=== PATIENT | male | born 1945 | race Caucasian/White ===

== ENCOUNTER → 2016-10-28 | Outpatient (CLI) | payer MEDICARE ==
--- NOTE | 2016-10-28 11:06 | MR ---
EXAMINATION TYPE: MR knee RT wo con DATE OF EXAM: 10/28/2016 10:12 AM COMPARISON: NONE HISTORY: Right knee pain TECHNIQUE: Multiplanar, multisequence imaging of the right knee is performed without IV contrast. FINDINGS: MEDIAL MENISCUS: Anterior and posterior horns are intact without tear. LATERAL MENISCUS: Anterior and posterior horns are intact without tear. CRUCIATE LIGAMENTS: The anterior and posterior cruciate ligaments are intact and unremarkable. COLLATERAL LIGAMENTS: There is fluid signal along the medial collateral ligament which may be indicat august of strain. EXTENSOR MECHANISM: Visualized quadriceps and patellar tendons are intact. EFFUSION: Small suprapatellar joint effusion is present. POPLITEAL CYST: No popliteal/diaz cyst. 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 IMPRESSION: Bone marrow edema, there may be associated microtrabecular fractures of the lateral femoral condyle, proximal tibia posteriorly. Medial collateral ligament strain suspected. 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
== END | disposition home or self-care (01) ==
LOC: RADMRIMAIN 09:27
PROVIDERS: ATTEND Internal Medicine
DX: M17.11 Unilateral primary osteoarthritis, right knee (principal)

== ENCOUNTER 2017-01-26 05:01 | Emergency (ER) | payer MEDICARE ==
--- NOTE | 2017-01-26 05:37 | ED ---
Arrhythmia/Palpitations HPI - General Chief Complaint: Arrhythmia/Palpitations Stated Complaint: Palpitations Time Seen by Provider: 01/26/17 05:26 Source: patient Mode of arrival: ambulatory Limitations: no limitations - History of Present Illness Initial Comments: This patient is 71-year-old man who presents because he is convinced that the ciprofloxacin he has been taking cost him to have an arrhythmia. The patient states that he had gotten up to use the bathroom and then he felt like his heart was racing knee took his pulse and found it to be over 100. He states he was not having chest pain or dyspnea at the time. He states he has previously had 3 ablation treatments. MD Complaint: rapid heart beat - Related Data Home Medications Medication Instructions Recorded Confirmed Folic Acid 1 mg PO HS 12/29/13 05/13/15 Ramipril [Altace] 10 mg PO HS 12/29/13 05/13/15 Rosuvastatin Calcium [Crestor] 5 mg PO HS 12/29/13 05/13/15 Travoprost [Travatan Z 0.004%] 1 drop BOTH EYES HS 12/29/13 05/13/15 clonazePAM [KlonoPIN] 0.5 mg PO HS 12/29/13 05/13/15 metFORMIN HCL [Glucophage] 500 mg PO BID 12/29/13 05/13/15 Warfarin [Coumadin] 5 mg PO SUMOWETHFR 05/06/15 05/13/15 oxyCODONE HCL [OxyCONTIN] 30 mg PO BID@0500,2300 05/06/15 05/13/15 oxyCODONE HCL [OxyCONTIN] 40 mg PO Q6H 05/06/15 05/13/15 Clobetasol Propionate [Temovate 1 applic TOPICAL BID 05/07/15 05/13/15 0.05% Cream] Sennosides [Senokot] 17.2 mg PO HS 05/07/15 05/13/15 Warfarin [Coumadin] 2.5 mg PO TUSA 05/07/15 05/13/15 Ketoconazole 2% Shampoo [Nizoral] 1 applic TOPICAL Q3D 05/09/15 05/13/15 Previous Rx's Medication Instructions Recorded Digoxin [Lanoxin] 125 mcg PO DAILY #30 tab 05/10/15 Diltiazem Oral [Cardizem*] 90 mg PO TID #270 tab 05/10/15 Mupirocin 2% Oint [Bactroban 2% 1 applic TOPICAL TID #1 tube 05/10/15 Oint] Mupirocin [Bactroban Oint] 1 applic TOPICAL TID #22 gm 05/10/15 Sotalol [Betapace] 120 mg PO TID #90 tab 05/10/15 Allergies Allergy/AdvReac Type Severity Reaction Status Date / Time aspirin Allergy Rash/Hives Verified 01/26/17 05:09 Penicillins Allergy Rash/Hives Verified 01/26/17 05:09 Sulfa (Sulfonamide Allergy Rash/Hives Verified 01/26/17 05:09 Antibiotics) Review of Systems ROS Statement: Those systems with pertinent positive or pertinent negative responses have been documented in the HPI. ROS Other: All systems not noted in ROS Statement are negative. Constitutional: Reports: weakness. Denies: fever Respiratory: Denies: cough, dyspnea Cardiovascular: Reports: palpitations. Denies: chest pain, orthopnea, syncope Gastrointestinal: Denies: abdominal pain, vomiting, diarrhea Musculoskeletal: Denies: back pain Skin: Denies: rash Neurological: Denies: headache Psychiatric: Denies: anxiety Past Medical History Past Medical History: Atrial Fibrillation, Hypertension Additional Past Medical History / Comment(s): kidney stones, chronic back pain, History of Any Multi-Drug Resistant Organisms: None Reported Past Surgical History: Appendectomy, Back Surgery, Cardiac Ablation, Hernia Repair Additional Past Surgical History / Comment(s): cataract surgery Past Psychological History: No Psychological Hx Reported Smoking Status: Former smoker Past Alcohol Use History: None Reported Past Drug Use History: None Reported - Past Family History Father Family Medical History: AFIB, CVA/TIA Mother Family Medical History: AFIB Brother(s) Family Medical History: AFIB General Exam Limitations: no limitations Course Vital Signs 01/26/17 01/26/17 01/26/17 05:04 06:31 07:01 Temperature 97.7 F Pulse Rate 88 75 79 Respiratory 18 16 18 Rate Blood Pressure 157/83 102/50 135/69 O2 Sat by Pulse 97 97 95 Oximetry EKG Findings - EKG Comments: EKG Findings:: Low voltage QRS complex - EKG Results: EKG: interpreted by ERMD, sinus rhythm (Rate approximately 85 bpm), normal ST/T - Blocks, [place], Hypertrophy, ST Abn: AV and intraventricular conduction: 1 AV block QRS axis and voltage: left axis deviation (-30 to -90) Medical Decision Making - Medical Decision Making Patient is a 71-year-old man who presents after having had some palpitations at home. We have discussed stopping the Cipro and he will do that, pending the urine culture results. I did discuss admission for further cardiac monitoring but at this point the patient declines. As he had no anginal symptoms or other concerning features, will accede to the patient's wish to go home. We discussed return parameters. He does understand there is a small risk of missed arrhythmia. With the risk of sudden cardiac , or permanent disability. - Lab Data Result diagrams: 01/26/17 05:21 01/26/17 05:21 Lab Results 01/26/17 01/26/17 01/26/17 Range/Units 05:21 05:21 05:21 WBC 9.0 (3.8-10.6) k/uL RBC 4.32 (4.30-5.90) m/uL Hgb 13.1 (13.0-17.5) gm/dL Hct 39.3 (39.0-53.0) % MCV 91.1 (80.0-100.0) fL MCH 30.3 (25.0-35.0) pg MCHC 33.3 (31.0-37.0) g/dL RDW 13.6 (11.5-15.5) % Plt Count 189 (150-450) k/uL Neutrophils % 70 % Lymphocytes % 19 % Monocytes % 7 % Eosinophils % 2 % Basophils % 1 % Neutrophils # 6.3 (1.3-7.7) k/uL Lymphocytes # 1.7 (1.0-4.8) k/uL Monocytes # 0.6 (0-1.0) k/uL Eosinophils # 0.2 (0-0.7) k/uL Basophils # 0.1 (0-0.2) k/uL PT (9.0-12.0) sec INR (<1.2) APTT (22.0-30.0) sec Sodium 138 (137-145) mmol/L Potassium 4.2 (3.5-5.1) mmol/L Chloride 103 (98-107) mmol/L Carbon Dioxide 26 (22-30) mmol/L Anion Gap 9 mmol/L BUN 16 (9-20) mg/dL Creatinine 0.60 L (0.66-1.25) mg/dL Est GFR (MDRD) Af Amer >60 (>60 ml/min/1.73 sqM) Est GFR (MDRD) Non-Af >60 (>60 ml/min/1.73 sqM) Glucose 104 H (74-99) mg/dL Calcium 9.0 (8.4-10.2) mg/dL Magnesium 1.7 (1.6-2.3) mg/dL Total Bilirubin 0.3 (0.2-1.3) mg/dL AST 16 L (17-59) U/L ALT 29 (21-72) U/L Alkaline Phosphatase 60 (38-126) U/L Total Creatine Kinase 38 L (55-170) U/L CK-MB (CK-2) 1.0 (0.0-2.4) ng/mL CK-MB (CK-2) Rel Index 2.6 Troponin I <0.012 (0.000-0.034) ng/mL Total Protein 6.4 (6.3-8.2) g/dL Albumin 3.7 (3.5-5.0) g/dL Urine Color Urine Appearance (Clear) Urine pH (5.0-8.0) Ur Specific Leivasy (1.001-1.035) Urine Protein (Negative) Urine Glucose (UA) (Negative) Urine Ketones (Negative) Urine Blood (Negative) Urine Nitrite (Negative) Urine Bilirubin (Negative) Urine Urobilinogen (<2.0) mg/dL Ur Leukocyte Esterase (Negative) Urine RBC (0-5) /hpf Urine WBC (0-5) /hpf Urine Mucus (None) /hpf 01/26/17 01/26/17 Range/Units 05:21 05:41 WBC (3.8-10.6) k/uL RBC (4.30-5.90) m/uL Hgb (13.0-17.5) gm/dL Hct (39.0-53.0) % MCV (80.0-100.0) fL MCH (25.0-35.0) pg MCHC (31.0-37.0) g/dL RDW (11.5-15.5) % Plt Count (150-450) k/uL Neutrophils % % Lymphocytes % % Monocytes % % Eosinophils % % Basophils % % Neutrophils # (1.3-7.7) k/uL Lymphocytes # (1.0-4.8) k/uL Monocytes # (0-1.0) k/uL Eosinophils # (0-0.7) k/uL Basophils # (0-0.2) k/uL PT 10.3 (9.0-12.0) sec INR 1.0 (<1.2) APTT 24.9 (22.0-30.0) sec Sodium (137-145) mmol/L Potassium (3.5-5.1) mmol/L Chloride (98-107) mmol/L Carbon Dioxide (22-30) mmol/L Anion Gap mmol/L BUN (9-20) mg/dL Creatinine (0.66-1.25) mg/dL Est GFR (MDRD) Af Amer (>60 ml/min/1.73 sqM) Est GFR (MDRD) Non-Af (>60 ml/min/1.73 sqM) Glucose (74-99) mg/dL Calcium (8.4-10.2) mg/dL Magnesium (1.6-2.3) mg/dL Total Bilirubin (0.2-1.3) mg/dL AST (17-59) U/L ALT (21-72) U/L Alkaline Phosphatase (38-126) U/L Total Creatine Kinase (55-170) U/L CK-MB (CK-2) (0.0-2.4) ng/mL CK-MB (CK-2) Rel Index Troponin I (0.000-0.034) ng/mL Total Protein (6.3-8.2) g/dL Albumin (3.5-5.0) g/dL Urine Color Yellow Urine Appearance Clear (Clear) Urine pH 6.0 (5.0-8.0) Ur Specific Leivasy 1.013 (1.001-1.035) Urine Protein 1+ H (Negative) Urine Glucose (UA) Negative (Negative) Urine Ketones Negative (Negative) Urine Blood Negative (Negative) Urine Nitrite Negative (Negative) Urine Bilirubin Negative (Negative) Urine Urobilinogen <2.0 (<2.0) mg/dL Ur Leukocyte Esterase Negative (Negative) Urine RBC 3 (0-5) /hpf Urine WBC 3 (0-5) /hpf Urine Mucus Rare H (None) /hpf Disposition Clinical Impression: Palpitations Disposition: HOME SELF-CARE Condition: Good Instructions: Palpitations (ED) Referrals: Corey Fournier MD [Primary Care Provider] - 1-2 days
[2017-01-26 05:53] LABS: Basophils # (A) 0.1 k/uL (0-0.2); Basophils % (A) 1 %; CH 30.1; CHCM 33.2; Eosinophils # (A) 0.2 k/uL (0-0.7); Eosinophils % (A) 2 %; HCT 39.3 % (39.0-53.0); HDW 2.44; HGB 13.1 gm/dL (13.0-17.5); Luc % (Auto) 2; Lymphocytes # (A) 1.7 k/uL (1.0-4.8); Lymphocytes % (A) 19 %; MCH 30.3 pg (25.0-35.0); MCHC 33.3 g/dL (31.0-37.0); MCV 91.1 fL (80.0-100.0); Mean Platelet Volume 7.7; Monocytes # (A) 0.6 k/uL (0-1.0); Monocytes % (A) 7 %; Neutrophils # (A) 6.3 k/uL (1.3-7.7); Neutrophils % (A) 70 %; RBC 4.32 m/uL (4.30-5.90); RDW 13.6 % (11.5-15.5); WBC (Perox) 8.88
[2017-01-26 06:03] LABS: Appearance,Urine Clear (Clear); Bilirubin,Urine Negative (Negative); Glucose,Urine (UA) Negative (Negative); Ketones,Urine Negative (Negative); Leukocyte Esterase,Urine Negative (Negative); Mucus,Urine Rare /hpf; Nitrite,Urine Negative (Negative); Particle Count 1141; Protein,Urine 1+ (Negative); RBC,Urine 3 /hpf (0-5); Specific Gravity,Urine 1.013 (1.001-1.035); UA Billing (MACRO vs. MICRO) MICRO; Urobilinogen,Urine <2.0 mg/dL (<2.0); WBC,Urine 3 /hpf (0-5)
--- NOTE | 2017-01-26 06:04 | XR ---
EXAM: XR Chest, 1 View. CLINICAL HISTORY: Reason: dysrhythmia TECHNIQUE: Frontal view of the chest. COMPARISON: No relevant prior studies available. FINDINGS: Lungs: No evidence of airspace consolidation or acute interstitial abnormality. Pleural spaces: Unremarkable. No pneumothorax or pleural effusion. Heart: Unremarkable. No cardiomegaly. Mediastinum: Unremarkable. Bones: Unremarkable. No acute fracture. IMPRESSION: No evidence of active cardiopulmonary abnormality.
[2017-01-26 06:05] LABS: ALT 29 U/L (21-72); AST 16 U/L (17-59); Alkaline Phosphatase 60 U/L (38-126); Anion Gap 9 mmol/L; Blood Urea Nitrogen 16 mg/dL (9-20); Carbon Dioxide 26 mmol/L (22-30); Chloride 103 mmol/L (98-107); Glucose 104 mg/dL (74-99); Magnesium 1.7 mg/dL (1.6-2.3); Non-African American GFR(MDRD) >60 (>60 ml/min/1.73 sqM); Partial Thromboplastin Time 24.9 sec (22.0-30.0); Potassium 4.2 mmol/L (3.5-5.1); Prothrombin Time 10.3 sec (9.0-12.0); Sodium 138 mmol/L (137-145); Total Bilirubin 0.3 mg/dL (0.2-1.3); Total Protein 6.4 g/dL (6.3-8.2)
[2017-01-26 06:25] LABS: Creatine Kinase 38 U/L (55-170)
[2017-01-26 06:38] LABS: Troponin I <0.012 ng/mL (0.000-0.034)
[2017-01-26 07:01] VITALS: BP 135/69; PULSE 79; RESP 18
[2017-01-26 07:03] VITALS: TEMP 97.5
== END 2017-01-26 07:13 | disposition home or self-care (01) ==
LOC: EC 05:01
DX: I48.91 Unspecified atrial fibrillation (principal); R00.0 Tachycardia, unspecified; I10 Essential (primary) hypertension; G89.29 Other chronic pain; Z87.891 Personal history of nicotine dependence; Z79.84 Long term (current) use of oral hypoglycemic drugs; Z79.891 Long term (current) use of opiate analgesic; Z79.899 Other long term (current) drug therapy; Z88.0 Allergy status to penicillin; Z88.2 Allergy status to sulfonamides; Z88.6 Allergy status to analgesic agent; Z82.49 Family history of ischemic heart disease and other diseases of the circulatory system
CPT/HCPCS: 36415; 71010; 80053; 81001; 82550; 82553; 83735; 84484; 85025; 85610; 85730; 87086; 93005; 99285

== ENCOUNTER → 2018-04-15 | Outpatient (CLI) | payer MEDICARE ==
[2018-04-15 18:24] LABS: T4, Free (Free Thyroxine) 0.78 ng/dL (0.78-2.19)
== END ==
LOC: LABWHC1 17:04
PROVIDERS: ATTEND Internal Medicine
DX: I48.1 Persistent atrial fibrillation (principal)
CPT/HCPCS: 36415; 84436; 84439; 84443; 84481

== ENCOUNTER 2023-07-26 12:03 | Inpatient (IN) | payer MEDICARE ==
--- NOTE | 2023-07-26 13:19 | XR ---
EXAMINATION TYPE: XR chest 2V DATE OF EXAM: 07/26/2023 COMPARISON: 09/21/2022 INDICATION: Difficulty breathing short of breath TECHNIQUE: Frontal and lateral views of the chest are obtained. FINDINGS: The heart size is normal. The pulmonary vasculature is normal. The lungs are clear. Hyperinflation flattening diaphragms compatible with COPD. IMPRESSION: 1. No acute pulmonary process. 2. COPD
[2023-07-26 13:28] LABS: Partial Thromboplastin Time 25.5 sec (22.0-30.0); Prothrombin Time 11.1 sec (10.0-12.5)
[2023-07-26 13:33] LABS: ALT 30 U/L (4-49); AST 31 U/L (17-59); African American GFR (CKD) >90 (>60 ml/min/1.73 sqM); Alkaline Phosphatase 66 U/L (38-126); Anion Gap 9 mmol/L; Blood Urea Nitrogen 20 mg/dL (9-20); Calcium 8.9 mg/dL (8.4-10.2); Carbon Dioxide 28 mmol/L (22-30); Chloride 100 mmol/L (98-107); Glucose 98 mg/dL (74-99); Non-African American GFR(CKD) >90 (>60 ml/min/1.73 sqM); Potassium 4.3 mmol/L (3.5-5.1); Sodium 137 mmol/L (137-145); Total Bilirubin 0.5 mg/dL (0.2-1.3)
--- NOTE | 2023-07-26 13:36 | ED ---
Arrhythmia/Palpitations HPI - General Chief Complaint: Arrhythmia/Palpitations Stated Complaint: CARDIAC ISSUES Time Seen by Provider: 07/26/23 12:05 Source: EMS Mode of arrival: EMS Limitations: no limitations - History of Present Illness Initial Comments: Patient is an 78-year-old male with past medical history of A. fib who presents emergency department for shortness of breath. States that he has been sick for the past week. He went into [facility] on the and was diagnosed with RSV bronchitis. He was hypoxic and required hospitalization. He just left yesterday. States he felt so bad when he was discharged that he went home and could not set up his nebulizer. He did use his inhaler. This morning the patient was short of breath. His pulse ox was 85%. He felt like his heart was racing. States that his pulse ox read 140. He does have a history of A. fib but has had several ablations. Last of which was 4 years ago and the patient has not had any reoccurrence. Patient is not oxygen dependent at baseline. He denies any chest pain. No other alleviating, Perceptin or modifying factors - Related Data Home Medications Medication Instructions Recorded Confirmed Ketoconazole 2% Shampoo [Nizoral] 1 applic TOPICAL DIRECTED 05/09/15 07/26/23 clonazePAM [KlonoPIN] 0.5 mg PO BID 12/11/16 07/26/23 ramipriL [Altace] 10 mg PO HS 06/22/19 07/26/23 Apixaban [Eliquis] 5 mg PO BID 07/11/20 07/26/23 Metoprolol Succinate [Toprol XL] 25 mg PO HS 07/11/20 07/26/23 Naloxegol Oxalate [Movantik] 25 mg PO DAILY@1000 07/11/20 07/26/23 Pregabalin [Lyrica] 100 mg PO HS 07/11/20 07/26/23 Albuterol Inhaler [Ventolin Hfa 1 - 2 puff INHALATION RT-Q6H PRN 07/26/23 07/26/23 Inhaler] Brimonidine Tartrate [Alphagan P 1 drop BOTH EYES BID 07/26/23 07/26/23 0.2% Ophth Soln] Docusate [Colace] 100 mg PO BID 07/26/23 07/26/23 Ipratropium-Albuterol Nebulize 3 ml INHALATION RT-QID PRN 07/26/23 07/26/23 [Duoneb 0.5 mg-3 mg/3 ml Soln] Pravastatin Sodium [Pravachol] 80 mg PO HS 07/26/23 07/26/23 Triamcinolone 0.5% Cream [Kenalog 1 applic TOPICAL BID PRN 07/26/23 07/26/23 0.5% Cream] oxyCODONE HCL [oxyCODONE HCL (IR)] 30 mg PO Q6H 07/26/23 07/26/23 oxyCODONE HCL [oxyCODONE HCL ER] 40 mg PO BID 07/26/23 07/26/23 Previous Rx's Medication Instructions Recorded guaiFENesin-DM 100-10MG/5ML 10 ml PO Q6HR PRN ml 07/29/23 [Robitussin DM] predniSONE 10 mg PO DIRECTED #30 tab 07/29/23 Budesonide-Formot 160-4.5 Mcg 2 puff INHALATION RT-BID #1 each 07/31/23 [Symbicort 160-4.5 Mcg Inhaler] Pantoprazole [Protonix] 40 mg PO AC-BRKFST #30 tab 07/31/23 Sennosides-Docusate Sodium 2 each PO BID tab 07/31/23 [Senokot-S] Allergies Allergy/AdvReac Type Severity Reaction Status Date / Time aspirin Allergy Rash/Hives Verified 07/26/23 15:43 Penicillins Allergy Rash/Hives Verified 07/26/23 15:43 Sulfa (Sulfonamide Allergy Rash/Hives Verified 07/26/23 15:43 Antibiotics) ciprofloxacin [From Cipro] AdvReac Rash/Hives Verified 07/26/23 15:43 ibuprofen [From Motrin] AdvReac Rash/Hives Verified 07/26/23 15:43 Review of Systems ROS Statement: Those systems with pertinent positive or pertinent negative responses have been documented in the HPI. ROS Other: All systems not noted in ROS Statement are negative. Past Medical History Past Medical History: Atrial Fibrillation, Atrial Flutter, Hyperlipidemia, Hypertension, Renal Disease, Sleep Apnea/CPAP/BIPAP Additional Past Medical History / Comment(s): "ON METFORMIN, FOR PREVENTION." EYE DROPS "TO PREVENT GLAUCOMA." NO CURRENT TX FOR SLEEP APNEA. HX KIDNEY STONES.maclodegeneration History of Any Multi-Drug Resistant Organisms: None Reported Past Surgical History: Ablation, Appendectomy, Back Surgery, Cardiac Ablation, Hernia Repair, Orthopedic Surgery Additional Past Surgical History / Comment(s): CARDIAC ABLATION X3. BACK SURG X4. REPAIR LT FOOT INJ. ESWL. COLONOSCOPY. Past Anesthesia/Blood Transfusion Reactions: No Reported Reaction Past Psychological History: No Psychological Hx Reported Smoking Status: Former smoker Past Alcohol Use History: None Reported Past Drug Use History: None Reported - Past Family History Mother Family Medical History: No Reported History Father Family Medical History: AFIB, CVA/TIA Brother(s) Family Medical History: AFIB General Exam Limitations: no limitations General appearance: alert, in no apparent distress Head exam: Present: atraumatic, normocephalic, normal inspection Eye exam: Present: normal appearance, PERRL, EOMI. Absent: scleral icterus, conjunctival injection, periorbital swelling ENT exam: Present: normal exam, mucous membranes moist Neck exam: Present: normal inspection. Absent: tenderness, meningismus, lymphadenopathy Respiratory exam: Present: wheezes. Absent: respiratory distress, rales, rh onchi, stridor Cardiovascular Exam: Present: regular rate, normal rhythm, normal heart sounds. Absent: systolic murmur, diastolic murmur, rubs, gallop, clicks GI/Abdominal exam: Present: soft, normal bowel sounds. Absent: distended, tenderness, guarding, rebound, rigid Extremities exam: Present: normal inspection, full ROM, normal capillary refill. Absent: tenderness, pedal edema, joint swelling, calf tenderness Back exam: Present: normal inspection Neurological exam: Present: alert, oriented X3, CN II-XII intact Psychiatric exam: Present: normal affect, normal mood Skin exam: Present: warm, dry, intact, normal color. Absent: rash Course Vital Signs 07/26/23 07/26/23 07/26/23 12:05 12:12 12:14 Temperature 98.5 F Pulse Rate 100 104 H Pulse Rate [ 100 Online Program Coordinator ] Respiratory 20 16 Rate Blood Pressure 147/80 O2 Sat by Pulse 100 100 97 Oximetry 07/26/23 07/26/23 07/26/23 12:15 12:30 12:45 Temperature Pulse Rate 101 H 99 89 Pulse Rate [ Online Program Coordinator ] Respiratory 22 20 22 Rate Blood Pressure 147/80 137/94 133/78 O2 Sat by Pulse 97 92 L Oximetry 07/26/23 07/26/23 07/26/23 13:00 13:30 13:45 Temperature Pulse Rate 102 H 102 H 87 Pulse Rate [ Online Program Coordinator ] Respiratory 22 20 20 Rate Blood Pressure 148/91 122/86 O2 Sat by Pulse 97 93 L 95 Oximetry 07/26/23 07/26/23 07/26/23 13:53 14:00 14:07 Temperature Pulse Rate 92 92 90 Pulse Rate [ Online Program Coordinator ] Respiratory 18 Rate Blood Pressure 122/82 O2 Sat by Pulse 98 Oximetry 07/26/23 07/26/23 07/26/23 14:30 15:00 15:30 Temperature Pulse Rate 98 93 97 Pulse Rate [ Online Program Coordinator ] Respiratory 20 29 H 20 Rate Blood Pressure 133/92 116/61 136/81 O2 Sat by Pulse 96 93 L Oximetry 07/26/23 07/26/23 16:00 19:41 Temperature Pulse Rate 99 108 H Pulse Rate [ Online Program Coordinator ] Respiratory 18 20 Rate Blood Pressure 137/93 132/89 O2 Sat by Pulse 96 96 Oximetry Medical Decision Making - Medical Decision Making Was pt. sent in by a medical professional or institution ([facility], HEALTHCARE CUSTOMER SERVICE, urgent care, hospital, or longterm...) When possible be specific @ -No Did you speak to anyone other than the patient for history (EMS, parent, family, police, friend...)? What history was obtained from this source @ -No Did you review nursing and triage notes (agree or disagree)? Why? @ -I reviewed and agree with nursing and triage notes Were old charts reviewed (outside hosp., previous admission, EMS record, old EKG, old radiological studies, urgent care reports/EKG's, longterm records)? Report findings @ -I reviewed patient's discharge summary from [facility] Differential Diagnosis (chest pain, altered mental status, abdominal pain women, abdominal pain men, vaginal bleeding, weakness, fever, dyspnea, syncope, headache, dizziness, GI bleed, back pain, seizure, CVA, palpatations, mental health, musculoskeletal)? @ -Differential Dyspnea: Coronary syndrome, arrhythmia, tamponade, asthma, COPD, pulmonary embolism, pneumonia, pneumothorax, pulmonary effusion, anaphylaxis, diabetic ketoacidosis, flailed chest, pulmonary contusion, diaphragmatic rupture, anemia, neuromuscular, this is not meant to be an all-inclusive list. EKG interpreted by me (3pts min.). @ -yes and demonstrates sinus tachycardia with a rate of 101. pr interval 210. QRS 96. QTC of 398. No acute ST segment elevations or depressions X-rays interpreted by me (1pt min.). @ -Yes and demonstrates no acute process CT interpreted by me (1pt min.). @ -None done U/S interpreted by me (1pt. min.). @ -None done What testing was considered but not performed or refused? (CT, X-rays, U/S, labs)? Why? @ -None What meds were considered but not given or refused? Why? @ -None Did you discuss the management of the patient with other professionals (professionals i.e. , PA, HEALTHCARE CUSTOMER SERVICE, lab, RT, psych nurse, social work nurse, admissions supervisor, teacher, strategic intelligence officer, special education case manager)? Give summary @ -dr. Ramesh who accepts admission Was smoking cessation discussed for >3mins.? @ -No Was critical care preformed (if so, how long)? @ -No Were there social determinants of health that impacted care today? How? (Homelessness, low income, unemployed, alcoholism, drug addiction, transportation, low edu. Level, literacy, decrease access to med. care, assisted, rehab)? @ -No Was there de-escalation of care discussed even if they declined (Discuss DNR or withdrawal of care, Hospice)? DNR status @ -No What co-morbidities impacted this encounter? (DM, HTN, Smoking, COPD, CAD, Cancer, CVA, ARF, Chemo, Hep., AIDS, mental health diagnosis, sleep apnea, morbid obesity)? @ -copd, afib Was patient admitted / discharged? Hospital course, mention meds given and route, prescriptions, significant lab abnormalities, going to OR and other pertinent info. @ -On arrival patient was placed into room 26. Thorough history and physical exam was performed. Patient placed on continuous pulse ox and cardiac monitoring. He does require supplemental oxygen. The patient has converted out of A. fib at this time. Laboratory studies are conducted. Chest x-ray was performed. Patient diffusely wheezing and therefore was given breathing treatments and steroids. Recommended admission for hypoxia. Patient agreeable. Spoke with Dr. Ramesh who agreed to admit the patient Undiagnosed new problem with uncertain prognosis? @ -yes Drug Therapy requiring intensive monitoring for toxicity (Heparin, Nitro, Insulin, Cardizem)? @ -No Were any procedures done? @ -No Diagnosis/symptom? @ -Acute hypoxic respiratory failure, rsv bronchitis, hx copd, afib with rvr Acute, or Chronic, or Acute on Chronic? @ -acute Uncomplicated (without systemic symptoms) or Complicated (systemic symptoms)? @ -complicated Side effects of treatment? @ -No Exacerbation, Progression, or Severe Exacerbation? @ -No Poses a threat to life or bodily function? How? (Chest pain, USA, IA, pneumonia, PE, COPD, DKA, ARF, appy, cholecystitis, CVA, Diverticulitis, Homicidal, Suicidal, threat to staff... and all critical care pts) @ -yes, patient is hypoxic - Lab Data Result diagrams: 07/30/23 07:01 07/30/23 07:20 Lab Results 07/26/23 07/26/23 07/26/23 Range/Units 12:32 12:32 12:53 WBC 14.8 H (3.8-10.6) k/uL RBC 4.99 (4.30-5.90) m/uL Hgb 15.5 (13.0-17.5) gm/dL Hct 45.4 (39.0-53.0) % MCV 91.1 (80.0-100.0) fL MCH 31.0 (25.0-35.0) pg MCHC 34.0 (31.0-37.0) g/dL RDW 14.4 (11.5-15.5) % Plt Count 159 (150-450) k/uL MPV 8.5 Neutrophils % 77 % Lymphocytes % 13 % Monocytes % 6 % Eosinophils % 1 % Basophils % 1 % Neutrophils # 11.4 H (1.3-7.7) k/uL Lymphocytes # 1.9 (1.0-4.8) k/uL Monocytes # 0.9 (0-1.0) k/uL Eosinophils # 0.1 (0-0.7) k/uL Basophils # 0.1 (0-0.2) k/uL PT (10.0-12.5) sec INR (<1.2) APTT (22.0-30.0) sec Sodium (137-145) mmol/L Potassium (3.5-5.1) mmol/L Chloride (98-107) mmol/L Carbon Dioxide (22-30) mmol/L Anion Gap mmol/L BUN (9-20) mg/dL Creatinine (0.66-1.25) mg/dL Est GFR (CKD-EPI)AfAm (>60 ml/min/1.73 sqM) Est GFR (CKD-EPI)NonAf (>60 ml/min/1.73 sqM) Glucose (74-99) mg/dL Plasma Lactic Acid Jv (0.7-2.0) mmol/L Calcium (8.4-10.2) mg/dL Total Bilirubin (0.2-1.3) mg/dL AST (17-59) U/L ALT (4-49) U/L Alkaline Phosphatase (38-126) U/L Troponin I (0.000-0.034) ng/mL Total Protein (6.3-8.2) g/dL Albumin (3.5-5.0) g/dL Procalcitonin 0.04 (0.02-0.09) ng/mL Influenza Type A (PCR) Not Detected (Not Detectd) Influenza Type B (PCR) Not Detected (Not Detectd) RSV (PCR) Detected A (Not Detectd) SARS-CoV-2 (PCR) Not Detected (Not Detectd) 07/26/23 07/26/23 07/26/23 Range/Units 12:53 12:53 12:53 WBC (3.8-10.6) k/uL RBC (4.30-5.90) m/uL Hgb (13.0-17.5) gm/dL Hct (39.0-53.0) % MCV (80.0-100.0) fL MCH (25.0-35.0) pg MCHC (31.0-37.0) g/dL RDW (11.5-15.5) % Plt Count (150-450) k/uL MPV Neutrophils % % Lymphocytes % % Monocytes % % Eosinophils % % Basophils % % Neutrophils # (1.3-7.7) k/uL Lymphocytes # (1.0-4.8) k/uL Monocytes # (0-1.0) k/uL Eosinophils # (0-0.7) k/uL Basophils # (0-0.2) k/uL PT 11.1 (10.0-12.5) sec INR 1.0 (<1.2) APTT 25.5 (22.0-30.0) sec Sodium 137 (137-145) mmol/L Potassium 4.3 (3.5-5.1) mmol/L Chloride 100 (98-107) mmol/L Carbon Dioxide 28 (22-30) mmol/L Anion Gap 9 mmol/L BUN 20 (9-20) mg/dL Creatinine 0.64 L (0.66-1.25) mg/dL Est GFR (CKD-EPI)AfAm >90 (>60 ml/min/1.73 sqM) Est GFR (CKD-EPI)NonAf >90 (>60 ml/min/1.73 sqM) Glucose 98 (74-99) mg/dL Plasma Lactic Acid Jv 0.7 (0.7-2.0) mmol/L Calcium 8.9 (8.4-10.2) mg/dL Total Bilirubin 0.5 (0.2-1.3) mg/dL AST 31 (17-59) U/L ALT 30 (4-49) U/L Alkaline Phosphatase 66 (38-126) U/L Troponin I (0.000-0.034) ng/mL Total Protein 7.0 (6.3-8.2) g/dL Albumin 4.0 (3.5-5.0) g/dL Procalcitonin (0.02-0.09) ng/mL Influenza Type A (PCR) (Not Detectd) Influenza Type B (PCR) (Not Detectd) RSV (PCR) (Not Detectd) SARS-CoV-2 (PCR) (Not Detectd) 07/26/23 Range/Units 12:53 WBC (3.8-10.6) k/uL RBC (4.30-5.90) m/uL Hgb (13.0-17.5) gm/dL Hct (39.0-53.0) % MCV (80.0-100.0) fL MCH (25.0-35.0) pg MCHC (31.0-37.0) g/dL RDW (11.5-15.5) % Plt Count (150-450) k/uL MPV Neutrophils % % Lymphocytes % % Monocytes % % Eosinophils % % Basophils % % Neutrophils # (1.3-7.7) k/uL Lymphocytes # (1.0-4.8) k/uL Monocytes # (0-1.0) k/uL Eosinophils # (0-0.7) k/uL Basophils # (0-0.2) k/uL PT (10.0-12.5) sec INR (<1.2) APTT (22.0-30.0) sec Sodium (137-145) mmol/L Potassium (3.5-5.1) mmol/L Chloride (98-107) mmol/L Carbon Dioxide (22-30) mmol/L Anion Gap mmol/L BUN (9-20) mg/dL Creatinine (0.66-1.25) mg/dL Est GFR (CKD-EPI)AfAm (>60 ml/min/1.73 sqM) Est GFR (CKD-EPI)NonAf (>60 ml/min/1.73 sqM) Glucose (74-99) mg/dL Plasma Lactic Acid Jv (0.7-2.0) mmol/L Calcium (8.4-10.2) mg/dL Total Bilirubin (0.2-1.3) mg/dL AST (17-59) U/L ALT (4-49) U/L Alkaline Phosphatase (38-126) U/L Troponin I <0.012 (0.000-0.034) ng/mL Total Protein (6.3-8.2) g/dL Albumin (3.5-5.0) g/dL Procalcitonin (0.02-0.09) ng/mL Influenza Type A (PCR) (Not Detectd) Influenza Type B (PCR) (Not Detectd) RSV (PCR) (Not Detectd) SARS-CoV-2 (PCR) (Not Detectd) Disposition Clinical Impression: Atrial fibrillation with RVR, RSV bronchitis, Hypoxia Disposition: ADMITTED IP TO THIS HOSP Condition: Stable Is patient prescribed a controlled substance at d/c from ED?: No Time of Disposition: 14:04 Decision to Admit Reason: Admit from EC Decision Date: 07/26/23 Decision Time: 14:04
[2023-07-26] MEDS: IPRATROPIUM-ALBUTEROL 3 ML NEB INHALATION STA (13:53)
[2023-07-26 13:55] LABS: Basophils # (A) 0.1 k/uL (0-0.2); Basophils % (A) 1 %; Eosinophils # (A) 0.1 k/uL (0-0.7); Eosinophils % (A) 1 %; HCT 45.4 % (39.0-53.0); HGB 15.5 gm/dL (13.0-17.5); Lymphocytes # (A) 1.9 k/uL (1.0-4.8); Lymphocytes % (A) 13 %; MCV 91.1 fL (80.0-100.0); Mean Platelet Volume 8.5; Monocytes # (A) 0.9 k/uL (0-1.0); Monocytes % (A) 6 %; Neutrophils # (A) 11.4 k/uL (1.3-7.7); Neutrophils % (A) 77 %; Platelet Count 159 k/uL (150-450); RBC 4.99 m/uL (4.30-5.90); RDW 14.4 % (11.5-15.5); WBC 14.8 k/uL (3.8-10.6)
[2023-07-26] MEDS ORDERED: NALOXONE 0.4 MG/ML 1 ML VIAL IV PRN (14:05)
[2023-07-26] MEDS: methylPREDNISolone SOD SUCCI 125 MG/2 ML VIAL IV STA (14:11)
[2023-07-26] MEDS ORDERED: ACETAMINOPHEN TAB 325 MG TAB PO PRN (14:22)
[2023-07-26] MEDS: IPRATROPIUM-ALBUTEROL 3 ML NEB INHALATION SCH (15:45)
[2023-07-26] MEDS: PANTOPRAZOLE 40 MG TABLET PO SCH (16:36)
[2023-07-26] MEDS: HYDROcodone/APAP 5-325MG 1 EACH TAB PO PRN (16:36)
[2023-07-26] MEDS: methylPREDNISolone SOD SUCCI 125 MG/2 ML VIAL IV SCH (18:33)
[2023-07-26] MEDS: oxyCODONE ER 20 MG TAB.ER.12H PO SCH (18:33)
[2023-07-26] MEDS: SYMBICORT 160-4.5 MCG INHALER INHALATION SCH (21:24)
--- NOTE | 2023-07-26 21:32 | HP ---
HISTORY AND PHYSICAL CHIEF COMPLAINTS: Palpitations, shortness of breath. HISTORY OF PRESENT ILLNESS: This is an 78-year-old gentleman with past medical history of multiple medical problems including atrial fibrillation, ablation, hypertension, hyperlipidemia, was recently treated for RSV bronchitis in [facility] for the last 2 days. Currently, the patient is complaining of extreme shortness of breath and some palpitations, pulse ox found to be 88%. Chest x-ray which I reviewed personally, WBC elevated at 14.8, RSV was positive, and chest x-ray showed some increased bronchovascular markings, but no evidence of significant pneumonia. There is no history of any fever, rigors, or chills. PAST MEDICAL HISTORY: Reviewed include atrial fibrillation, hypertension, and hyperlipidemia. HOME MEDICATIONS: Reviewed include apixaban, dose and rest of medications noted. ALLERGIES: Milk, rest of allergies noted. FAMILY HISTORY: History of atrial fibrillation, CVA, TIA. SOCIAL HISTORY: Previous history of smoking. REVIEW OF SYSTEMS: A 14-point review is negative except as mentioned earlier. PHYSICAL EXAMINATION: VITAL SIGNS: Pulse is 98, blood pressure 130/92, and respirations 20. HEENT: Conjunctivae normal. NECK: No jugular venous distention. CARDIOVASCULAR: S1, S2 muffled. RESPIRATIONS: Diminished at the bases. Bilateral scattered rhonchi and crackles, expiratory wheezing. ABDOMEN: Soft. LEGS: No edema, no swelling. NERVOUS SYSTEM: Nonfocal. LABS: WBC 14.8, other labs noted. ASSESSMENT: 1. COPD acute exacerbation with acute tracheobronchitis. 2. Acute RSV bronchitis. 3. Atrial fibrillation, paroxysmal history. 4. History of cardiac ablation. 5. Hypertension. 6. Hyperlipidemia. 7. End-stage renal disease and sleep apnea. 8. History of back surgery. RECOMMENDATIONS AND DISCUSSION: This 78-year-old gentleman presented with multiple complex medical issues, we will monitor the patient closely. Continue the current medications. I would recommend intensive bronchodilator treatment with IV steroids and we will closely monitor. Check a procalcitonin. Consult Dr. Maradiaga. Guarded prognosis because of multiple complex medical issues, further recommendations to follow. See orders for details. MMODL / IJN: [id number] /
[2023-07-26] MEDS: APIXABAN 5 MG TAB PO SCH (21:58)
[2023-07-26] MEDS: DOCUSATE 100 MG CAP PO SCH (21:59)
[2023-07-26] MEDS: METOPROLOL SUCCINATE (ER) 25 MG TAB.ER.24H PO SCH (21:59)
[2023-07-26] MEDS: clonazePAM 0.5 MG TAB PO SCH (21:59)
[2023-07-26] MEDS: PREGABALIN 100 MG CAP PO SCH (21:59)
[2023-07-27] MEDS: BRIMONIDINE TARTRATE 0.2% DROPS 5 ML BTL BOTH EYES SCH (00:01)
[2023-07-27] MEDS: lisinopriL 10 MG TAB PO SCH (00:01)
[2023-07-27] MEDS: PRAVASTATIN SODIUM 80 MG TAB PO SCH (00:01)
[2023-07-27] MEDS ORDERED: methylPREDNISolone SOD SUCCI 40 MG/ML 1 ML VIAL IV SCH (08:00)
[2023-07-27] MEDS: NON FORMULARY DRUG (Naloxegol Oxalate [Movantik] 25 MG Tablet) PO SCH (08:32)
[2023-07-27] MEDS: MOVANTIK 25 MG PO SCH (09:07)
[2023-07-27 09:18] LABS: Basophils % (A) 0 %; Eosinophils % (A) 0 %; HCT 45.9 % (39.0-53.0); HGB 15.1 gm/dL (13.0-17.5); Lymphocytes % (A) 8 %; MCH 30.4 pg (25.0-35.0); MCHC 32.8 g/dL (31.0-37.0); MCV 92.7 fL (80.0-100.0); Mean Platelet Volume 8.4; Monocytes # (A) 0.3 k/uL (0-1.0); Monocytes % (A) 2 %; Neutrophils % (A) 89 %; Platelet Count 210 k/uL (150-450); RBC 4.95 m/uL (4.30-5.90); WBC 12.4 k/uL (3.8-10.6)
[2023-07-27 09:33] LABS: African American GFR (CKD) >90 (>60 ml/min/1.73 sqM); Anion Gap 13 mmol/L; Blood Urea Nitrogen 20 mg/dL (9-20); Calcium 9.3 mg/dL (8.4-10.2); Carbon Dioxide 27 mmol/L (22-30); Chloride 99 mmol/L (98-107); Glucose 163 mg/dL (74-99); Non-African American GFR(CKD) >90 (>60 ml/min/1.73 sqM); Potassium 5.1 mmol/L (3.5-5.1); Sodium 139 mmol/L (137-145)
[2023-07-27] MEDS: IPRATROPIUM-ALBUTEROL 3 ML NEB INHALATION SCH (11:17)
--- NOTE | 2023-07-27 14:26 | P.CNPUL ---
History of Present Illness Consult date: 07/27/23 Requesting physician: Roxanne Ramesh Reason for consult: dyspnea, cough, COPD, hypoxemia, abnormal CXR/CT, other Chief complaint: Shortness of breath. History of present illness: Pulmonary consult dated 07/27/2023. 78-year-old male who presented to the emergency department, via EMS, on July 26, complaining of shortness of breath. The patient has been feeling well for about 5-7 days prior to admission. He apparently was recently at one of the [facility], and was diagnosed as having RSV. He apparently recently left that hospital, and came to this one. His primary issue is that of shortness of breath, although he complained of cough, chest congestion, and a racing heart rate, of 140 bpm. In addition, his pulse ox was, running at 85%. The patient has had chronic atrial fibrillation, and has had several ablations. Currently, he is seen in room 362. He is currently on 2 L of oxygen, and getting saline at 10 mL an hour. His chest x-ray was read as being unremarkable. He tested positive for RSV. His pro-calcitonin level was 0.04. White count 12.4, hemoglobin 15.1, hematocrit 45.9, and platelet count 210,000. D-dimer was 0.19. Sodium was 139, potassium 5.1, chlorides 99, CO2 27, BUN 20, creatinine 0.62. Glucose 163. He did test positive for RSV. Troponin was negative. Chest x-ray revealed nothing acute. Review of Systems REVIEW OF SYSTEMS: CONSTITUTIONAL: Weakness. NEUROLOGIC: [ Negative.] HEENT: [ Negative.] CARDIAC: Tachycardia, palpitations. PULMONARY: Shortness of breath, and cough. GI: [Negative.] : [Negative.] RHEUMATOLOGIC: [ Negative.] IMMUNOLOGIC: [ Negative.] ENDOCRINE: [Negative. ] DERMATOLOGIC: [Negative.] Past Medical History Past Medical History: Atrial Fibrillation, Atrial Flutter, Hyperlipidemia, Hypertension, Renal Disease, Sleep Apnea/CPAP/BIPAP Additional Past Medical History / Comment(s): "ON METFORMIN, FOR PREVENTION." EYE DROPS "TO PREVENT GLAUCOMA." NO CURRENT TX FOR SLEEP APNEA. HX KIDNEY STONES.maclodegeneration History of Any Multi-Drug Resistant Organisms: None Reported Past Surgical History: Ablation, Appendectomy, Back Surgery, Cardiac Ablation, Hernia Repair, Orthopedic Surgery Additional Past Surgical History / Comment(s): CARDIAC ABLATION X3. BACK SURG X4. REPAIR LT FOOT INJ. ESWL. COLONOSCOPY. Past Anesthesia/Blood Transfusion Reactions: No Reported Reaction Past Psychological History: No Psychological Hx Reported Smoking Status: Former smoker Past Alcohol Use History: None Reported Past Drug Use History: None Reported - Past Family History Mother Family Medical History: No Reported History Father Family Medical History: AFIB, CVA/TIA Brother(s) Family Medical History: AFIB Medications and Allergies Home Medications Medication Instructions Recorded Confirmed Type Ketoconazole 2% Shampoo [Nizoral] 1 applic TOPICAL DIRECTED 05/09/15 07/26/23 History clonazePAM [KlonoPIN] 0.5 mg PO BID 12/11/16 07/26/23 History ramipriL [Altace] 10 mg PO HS 06/22/19 07/26/23 History Apixaban [Eliquis] 5 mg PO BID 07/11/20 07/26/23 History Metoprolol Succinate [Toprol XL] 25 mg PO HS 07/11/20 07/26/23 History Naloxegol Oxalate [Movantik] 25 mg PO DAILY@1000 07/11/20 07/26/23 History Pregabalin [Lyrica] 100 mg PO HS 07/11/20 07/26/23 History Albuterol Inhaler [Ventolin Hfa 1 - 2 puff INHALATION RT-Q6H PRN 07/26/23 07/26/23 History Inhaler] Brimonidine Tartrate [Alphagan P 1 drop BOTH EYES BID 07/26/23 07/26/23 History 0.2% Ophth Soln] Docusate [Colace] 100 mg PO BID 07/26/23 07/26/23 History Doxycycline Hyclate 100 mg PO BID 07/26/23 07/26/23 History Ipratropium-Albuterol Nebulize 3 ml INHALATION RT-QID PRN 07/26/23 07/26/23 History [Duoneb 0.5 mg-3 mg/3 ml Soln] Pravastatin Sodium [Pravachol] 80 mg PO HS 07/26/23 07/26/23 History Triamcinolone 0.5% Cream [Kenalog 1 applic TOPICAL BID PRN 07/26/23 07/26/23 History 0.5% Cream] methylPREDNISolone Dose Pack See Taper PO DIRECTED 07/26/23 07/26/23 History [Medrol Dose Pack] oxyCODONE HCL [oxyCODONE HCL (IR)] 30 mg PO Q6H 07/26/23 07/26/23 History oxyCODONE HCL [oxyCODONE HCL ER] 40 mg PO BID 07/26/23 07/26/23 History Allergies Allergy/AdvReac Type Severity Reaction Status Date / Time Milk Containing Products Allergy Severe "LIGAMENT Verified 07/26/23 15:43 (Dairy) STRETCH"-LIGAMENTS [Dairy] DONT WORK aspirin Allergy Rash/Hives Verified 07/26/23 15:43 Penicillins Allergy Rash/Hives Verified 07/26/23 15:43 Sulfa (Sulfonamide Allergy Rash/Hives Verified 07/26/23 15:43 Antibiotics) ciprofloxacin [From Cipro] AdvReac Rash/Hives Verified 07/26/23 15:43 ibuprofen [From Motrin] AdvReac Rash/Hives Verified 07/26/23 15:43 Physical Exam Osteopathic Statement: *. No significant issues noted on an osteopathic structural exam other than those noted in the History and Physical/Consult. Vitals: Vital Signs Temp Pulse Pulse Resp BP BP Pulse Ox 07/27/23 13:16 97 07/27/23 11:33 97 20 111/62 97 07/27/23 11:29 100 07/27/23 11:19 100 07/27/23 08:33 98.0 F 96 20 123/79 94 L 07/27/23 08:19 106 H 07/27/23 08:05 102 H 92 L 07/27/23 04:43 86 18 116/69 94 L 07/27/23 01:33 106 H 07/26/23 23:59 106 H 18 124/76 93 L 07/26/23 21:40 94 07/26/23 21:25 96 07/26/23 20:53 97.7 F 101 H 18 118/80 93 L 07/26/23 19:41 108 H 20 132/89 96 07/26/23 16:00 99 18 137/93 96 07/26/23 15:30 97 20 136/81 93 L 07/26/23 15:00 93 29 H 116/61 96 01/13/24 14:30 98 20 133/92 Intake and Output 07/26/23 07/27/23 07/27/23 22:59 06:59 14:59 Intake Total 540 540 360 Balance 540 540 360 Intake: Oral 540 540 360 Other: Voiding Method Toilet Toilet # Voids 2 1 2 Weight 125.645 kg No acute distress, oriented 3. Currently on 2 L of oxygen. No respiratory distress or difficulty. HEENT examination is grossly unremarkable. Mucous membranes are moist. No oral lesions. Neck supple. Full range of motion. No adenopathy thyromegaly or neck vein distention. Cardiovascular examination reveals regular rhythm rate. S1-S2 normal. No S3 or S4. No discernible murmur noted. Heart sounds are distant. Heart rate 97 bpm. Lungs reveal scattered bilateral rhonchi. No wheezes or crackles. 2 L saturation is 97%. Breath sounds are equal bilaterally. Abdomen soft bowel sounds are heard. No masses or tenderness. Extremities are intact. No cyanosis clubbing or edema. Skin is without rash or lesion. Neurologic examination is brief but nonfocal. Results - Laboratory Findings CBC and BMP: 07/27/23 08:25 07/27/23 08:25 PT/INR, D-dimer PT 11.1 sec (10.0-12.5) 07/26/23 12:53 INR 1.0 (<1.2) 07/26/23 12:53 D-Dimer 0.19 mg/L FEU (<0.60) 07/27/23 13:23 Abnormal lab findings: Abnormal Labs 07/26/23 07/26/23 07/26/23 12:32 12:53 12:53 WBC 14.8 H Neutrophils # 11.4 H Creatinine 0.64 L Glucose C-Reactive Protein RSV (PCR) Detected A 07/27/23 07/27/23 07/27/23 08:25 08:25 13:23 WBC 12.4 H Neutrophils # 11.0 H Creatinine 0.62 L Glucose 163 H C-Reactive Protein 2.7 H RSV (PCR) - Diagnostic Findings Chest x-ray: image reviewed Assessment and Plan Assessment: Shortness of breath, multifactorial, in part related to atrial fibrillation with RVR, as well as RSV infection/bronchitis. History of chronic atrial fibrillation, with multiple ablations. History of hyperlipidemia. History of hypertension. History of obstructive sleep apnea syndrome. History of glaucoma. History of kidney stones. Prior history of remote/minimal tobacco history Plan: Plan dated 07/27/2023. The patient is currently on Symbicort, and updrafts, with albuterol and ipratropium bromide. The patient's also getting Solu-Medrol. The patient is currently also on Rocephin. Pro-calcitonin level was 0.04, so ceftriaxone will be discontinued. We will continue to follow make recommendations along the way. Prognosis is certainly guarded. Labs, x-rays, and medications are reviewed. Time with Patient: Greater than 30
--- NOTE | 2023-07-28 06:04 | PN ---
PROGRESS NOTE DATE OF SERVICE: 07/27/2023 SUBJECTIVE: This 78-year-old gentleman admitted with palpitations, shortness of breath, COPD exacerbation, acute tracheobronchitis. The patient also had acute RSV bronchitis and atrial fibrillation also. There is no history of any fever, rigors, chills. White count is elevated. PAST MEDICAL HISTORY: Reviewed. REVIEW OF SYSTEMS: A 14-point review is negative except as mentioned above. CURRENT MEDICATIONS: Reviewed and include Symbicort, dose and rest of medications reviewed. PHYSICAL EXAMINATION: VITAL SIGNS: Pulse 96, blood pressure n respirations 20. HEENT: Conjunctivae normal. few scattered rhonchi. ABDOMEN: Soft. NERVOUS SYSTEM: Nonfocal. LABORATORY DATA: Reviewed. Chest x-ray reviewed personally. ASSESSMENT: 1. COPD acute exacerbation with acute purulent tracheobronchitis. 2. Prominent bronchovascular markings on the right lower lobe, rule out bronchopneumonia. 3. Acute RSV bronchitis. 4. Atrial fibrillation, paroxysmal history. 5. History of cardiac ablation. 6. Hypertension. 7. Hyperlipidemia. 8. End-stage renal disease and sleep apnea. 9. History of back surgery. RECOMMENDATIONS: Continue current management and continue symptomatic treatment, otherwise, at this time. I would also recommend a CRP and D-dimer also. Empiric antibiotics. Guarded prognosis. Cardiology and pulmonology consultation. Further recommendations to follow. MMODL / IJN: [id number] / MTDD
[2023-07-28 07:18] LABS: Basophils % (A) 0 %; Eosinophils # (A) 0.1 k/uL (0-0.7); Eosinophils % (A) 0 %; HCT 46.7 % (39.0-53.0); HGB 15.4 gm/dL (13.0-17.5); Lymphocytes % (A) 5 %; MCH 30.6 pg (25.0-35.0); MCHC 32.9 g/dL (31.0-37.0); Mean Platelet Volume 8.4; Monocytes # (A) 0.7 k/uL (0-1.0); Monocytes % (A) 4 %; Neutrophils % (A) 90 %; Platelet Count 228 k/uL (150-450); RBC 5.02 m/uL (4.30-5.90); RDW 13.9 % (11.5-15.5); WBC 18.9 k/uL (3.8-10.6)
--- NOTE | 2023-07-28 07:30 | P.CONS ---
History of Present Illness - Reason for Consult Consult date: 07/27/23 RSV Requesting physician: Roxanne Ramesh - Chief Complaint Shortness of breath and cough x few days - History of Present Illness Patient is a 78-year-old male with a past medical history significant for atrial fibrillation atrial flutter hypertension hyperlipidemia sleep apnea patient mention he recently came back from a cruise and after returning home within 24 hours started having increasing shortness of breath that has progressed to get worse also have a cough mild to moderate intensity no significant sputum production no hemoptysis patient mention he went to the [facility] as he was admitted end of April therefore pneumonia patient was diagnosed with RSV treated symptomatically and was subsequently discharged home however the patient mention within 24-hour he noticed his heart rate to elevated he was also complaining of increasing shortness of breath patient also have a congested cough moderate intensity with occasional sputum production no hemoptysis denies any pleuritic chest pain no nausea no vomiting no abdominal pain or any diarrhea, patient on presentation to the hospital was afebrile patient was tachycardic but not hypotensive mildly hypoxic currently on 2 L nasal cannula oxygen patient did have a white count of 14.8 with a left shift kidney function was normal liver enzymes are normal procalcitonin is 0.04 tested positive for RSV influenza and COVID was negative patient did have a chest x-ray no acute pulmonary process COPD infectious disease was consulted for RSV Review of Systems Positive point and negatives has been mentioned in the HPI, complete review of systems was performed and all other systems are negative Past Medical History Past Medical History: Atrial Fibrillation, Atrial Flutter, Hyperlipidemia, Hypertension, Renal Disease, Sleep Apnea/CPAP/BIPAP Additional Past Medical History / Comment(s): "ON METFORMIN, FOR PREVENTION." EYE DROPS "TO PREVENT GLAUCOMA." NO CURRENT TX FOR SLEEP APNEA. HX KIDNEY STONE S.maclodegeneration History of Any Multi-Drug Resistant Organisms: None Reported Past Surgical History: Ablation, Appendectomy, Back Surgery, Cardiac Ablation, Hernia Repair, Orthopedic Surgery Additional Past Surgical History / Comment(s): CARDIAC ABLATION X3. BACK SURG X4. REPAIR LT FOOT INJ. ESWL. COLONOSCOPY. Past Anesthesia/Blood Transfusion Reactions: No Reported Reaction Past Psychological History: No Psychological Hx Reported Smoking Status: Former smoker Past Alcohol Use History: None Reported Past Drug Use History: None Reported - Past Family History Mother Family Medical History: No Reported History Father Family Medical History: AFIB, CVA/TIA Brother(s) Family Medical History: AFIB Medications and Allergies Home Medications Medication Instructions Recorded Confirmed Type Ketoconazole 2% Shampoo [Nizoral] 1 applic TOPICAL DIRECTED 05/09/15 07/26/23 History clonazePAM [KlonoPIN] 0.5 mg PO BID 12/11/16 07/26/23 History ramipriL [Altace] 10 mg PO HS 06/22/19 07/26/23 History Apixaban [Eliquis] 5 mg PO BID 07/11/20 07/26/23 History Metoprolol Succinate [Toprol XL] 25 mg PO HS 07/11/20 07/26/23 History Naloxegol Oxalate [Movantik] 25 mg PO DAILY@1000 07/11/20 07/26/23 History Pregabalin [Lyrica] 100 mg PO HS 07/11/20 07/26/23 History Albuterol Inhaler [Ventolin Hfa 1 - 2 puff INHALATION RT-Q6H PRN 07/26/23 07/26/23 History Inhaler] Brimonidine Tartrate [Alphagan P 1 drop BOTH EYES BID 07/26/23 07/26/23 History 0.2% Ophth Soln] Docusate [Colace] 100 mg PO BID 07/26/23 07/26/23 History Doxycycline Hyclate 100 mg PO BID 07/26/23 07/26/23 History Ipratropium-Albuterol Nebulize 3 ml INHALATION RT-QID PRN 07/26/23 07/26/23 History [Duoneb 0.5 mg-3 mg/3 ml Soln] Pravastatin Sodium [Pravachol] 80 mg PO HS 07/26/23 07/26/23 History Triamcinolone 0.5% Cream [Kenalog 1 applic TOPICAL BID PRN 07/26/23 07/26/23 History 0.5% Cream] methylPREDNISolone Dose Pack See Taper PO DIRECTED 07/26/23 07/26/23 History [Medrol Dose Pack] oxyCODONE HCL [oxyCODONE HCL (IR)] 30 mg PO Q6H 07/26/23 07/26/23 History oxyCODONE HCL [oxyCODONE HCL ER] 40 mg PO BID 07/26/23 07/26/23 History Allergies Allergy/AdvReac Type Severity Reaction Status Date / Time Milk Containing Products Allergy Severe "LIGAMENT Verified 07/26/23 15:43 (Dairy) STRETCH"-LIGAMENTS [Dairy] DONT WORK aspirin Allergy Rash/Hives Verified 07/26/23 15:43 Penicillins Allergy Rash/Hives Verified 07/26/23 15:43 Sulfa (Sulfonamide Allergy Rash/Hives Verified 07/26/23 15:43 Antibiotics) ciprofloxacin [From Cipro] AdvReac Rash/Hives Verified 07/26/23 15:43 ibuprofen [From Motrin] AdvReac Rash/Hives Verified 07/26/23 15:43 Physical Exam Vitals: Vital Signs Temp Pulse Pulse Resp BP BP Pulse Ox 07/27/23 11:33 97 20 111/62 97 07/27/23 11:29 100 07/27/23 11:19 100 07/27/23 08:33 98.0 F 96 20 123/79 94 L 07/27/23 08:19 106 H 07/27/23 08:05 102 H 92 L 07/27/23 04:43 86 18 116/69 94 L 07/27/23 01:33 106 H 07/26/23 23:59 106 H 18 124/76 93 L 07/26/23 21:40 94 07/26/23 21:25 96 07/26/23 20:53 97.7 F 101 H 18 118/80 93 L 07/26/23 19:41 108 H 20 132/89 96 07/26/23 16:00 99 18 137/93 96 07/26/23 15:30 97 20 136/81 93 L 07/26/23 15:00 93 29 H 116/61 96 07/26/23 14:30 98 20 133/92 07/26/23 14:07 90 07/26/23 14:00 92 18 122/82 98 07/26/23 13:53 92 07/26/23 13:45 87 20 122/86 95 07/26/23 13:30 102 H 20 93 L Intake and Output 07/26/23 07/27/23 07/27/23 22:59 06:59 14:59 Intake Total 540 540 120 Balance 540 540 120 Intake: Oral 540 540 120 Other: Voiding Method Toilet Toilet # Voids 2 1 Weight 125.645 kg GENERAL DESCRIPTION: Elderly male up in the chair, no distress. No tachypnea or accessory muscle of respiration use. HEENT: Shows Pallor , no scleral icterus. Oral mucous membrane is dry. No pharyngeal erythema or thrush NECK: Trachea central, no thyromegaly. LUNGS: Unlabored breathing. Coarse breath sounds bilaterally with occasional wheeze HEART: S1, S2, regular rate and rhythm. No loud murmur ABDOMEN: Soft, no tenderness , guarding or rigidity, no organomegaly EXTREMITIES: No edema of feet. SKIN: No rash, no masses palpable. NEUROLOGICAL: The patient is awake, alert, oriented x3, mood and affect normal. Results CBC & Chem 7: 07/28/23 07:01 07/27/23 08:25 Labs: Abnormal Lab Results - Last 24 Hours (Table) 07/26/23 07/26/23 07/26/23 Range/Units 12:32 12:53 12:53 WBC 14.8 H (3.8-10.6) k/uL Neutrophils # 11.4 H (1.3-7.7) k/uL Creatinine 0.64 L (0.66-1.25) mg/dL Glucose (74-99) mg/dL RSV (PCR) Detected A (Not Detectd) 07/27/23 07/27/23 Range/Units 08:25 08:25 WBC 12.4 H (3.8-10.6) k/uL Neutrophils # 11.0 H (1.3-7.7) k/uL Creatinine 0.62 L (0.66-1.25) mg/dL Glucose 163 H (74-99) mg/dL RSV (PCR) (Not Detectd) Assessment and Plan (1) Leukocytosis Current Visit: Yes Status: Acute Code(s): D72.829 - ELEVATED WHITE BLOOD CELL COUNT, UNSPECIFIED SNOMED Code(s): 541095068 (2) Allergy to multiple antibiotics Current Visit: Yes Status: Acute Code(s): Z88.1 - ALLERGY STATUS TO OTHER ANTIBIOTIC AGENTS SNOMED Code(s): 583009431 (3) RSV bronchitis Current Visit: Yes Status: Acute Code(s): J20.5 - ACUTE BRONCHITIS DUE TO RESPIRATORY SYNCYTIAL VIRUS SNOMED Code(s): 03788264 Plan: 1patient presented to hospital with increasing shortness of breath which is likely multifactorial patient also have A-fib with RVR more likely contributing some of his symptoms patient also tested positive for RSV and likely component of RSV infection causing shortness of breath as well as cough however the chest x-ray was negative for acute infiltrate and the patient did have a normal procalcitonin evaluate secondary bacterial pneumonia to be less likely 2patient with multiple antibiotic ALLERGIES that would limit the number of antibiotic safe to use. 3ceftriaxone has been discontinued by pulmonary patient will monitor closely off antibiotics 4continue with the bronchodilator steroids and respiratory support Question concern answered We will follow on clinical condition and cultures to further adjust medication if needed Thank you for this consultation we will follow the patient along with you Dictation was produced using [employer] dictation software. please excuse any grammatical, word or spelling errors. Time with Patient: Greater than 30
[2023-07-28 08:18] LABS: ALT 31 U/L (4-49); AST 28 U/L (17-59); African American GFR (CKD) >90 (>60 ml/min/1.73 sqM); Alkaline Phosphatase 57 U/L (38-126); Anion Gap 9 mmol/L; Blood Urea Nitrogen 23 mg/dL (9-20); Calcium 9.4 mg/dL (8.4-10.2); Carbon Dioxide 25 mmol/L (22-30); Chloride 102 mmol/L (98-107); Glucose 131 mg/dL (74-99); Non-African American GFR(CKD) >90 (>60 ml/min/1.73 sqM); Potassium 4.9 mmol/L (3.5-5.1); Sodium 136 mmol/L (137-145); Total Bilirubin 0.5 mg/dL (0.2-1.3)
[2023-07-28 08:24] VITALS: BMI 37.5
--- NOTE | 2023-07-28 10:50 | P.PN ---
Subjective Progress Note Date: 07/28/23 On 07/28/2023, I am seeing the patient for follow-up. The patient is an 78-year-old male patient was coming in for shortness of breath. The patient has been diagnosed having RSV infection in outside facility. The patient presented to us with worsening shortness of breath and cough or congestion and the patient was also tachycardic in A-fib RVR. Procalcitonin level was low. Chest x-ray did not show any acute abnormalities. Patient is currently being treated for an acute respiratory illness related to RSV infection and A-fib RVR. Patient is known to have chronic A-fib and the patient has undergone multiple ablations in the past. The patient hypertension hyperlipidemia and obstructive sleep apnea. The patient is currently on bronchodilators. Patient is also on IV steroids. Started on Symbicort. Patient is on IV Solu-Medrol 60 mg IV every 6 hours. Remains on anticoagulation with Eliquis 5 mg p.o. twice a day. Patient is back into normal sinus rhythm. Overall is feeling better. He may benefit from another 24 hours of treatment with bronchodilators and steroids. Objective - Vital Signs Vital signs: Vital Signs Temp 98 F 07/28/23 08:00 Pulse 86 07/28/23 08:00 Resp 20 07/28/23 08:00 BP 158/76 07/28/23 08:00 Pulse Ox 91 L 07/28/23 08:00 FiO2 Intake & Output 07/27/23 07/28/23 07/28/23 18:59 06:59 18:59 Intake Total 480 540 180 Output Total 400 Balance 80 540 180 Weight 125.645 kg Intake: Oral 480 540 180 Output: Urine 400 Other: Voiding Method Toilet Toilet # Voids 2 # Bowel Movements 0 - Exam No acute distress, oriented 3. Currently on 2 L of oxygen. No respiratory distress or difficulty. HEENT examination is grossly unremarkable. Mucous membranes are moist. No oral lesions. Neck supple. Full range of motion. No adenopathy thyromegaly or neck vein distention. Cardiovascular examination reveals regular rhythm rate. S1-S2 normal. No S3 or S4. No discernible murmur noted. Heart sounds are distant. Lungs reveal scattered bilateral rhonchi. No wheezes or crackles. Abdomen soft bowel sounds are heard. No masses or tenderness. Extremities are intact. No cyanosis clubbing or edema. Skin is without rash or lesion. Neurologic examination is brief but nonfocal. - Labs CBC & Chem 7: 07/28/23 07:01 07/28/23 07:01 Labs: Abnormal Lab Results - Last 24 Hours (Table) 07/27/23 07/28/23 07/28/23 Range/Units 13:23 07:01 07:01 WBC 18.9 H (3.8-10.6) k/uL Neutrophils # 17.0 H (1.3-7.7) k/uL Sodium 136 L (137-145) mmol/L BUN 23 H (9-20) mg/dL Creatinine 0.61 L (0.66-1.25) mg/dL Glucose 131 H (74-99) mg/dL C-Reactive Protein 2.7 H (<1.0) mg/dL Assessment and Plan Plan: Assessment Acute shortness of breath related to RSV tracheobronchitis and A-fib RVR, clinically improving and the patient is currently in normal sinus rhythm. Less congested, less focused spastic and wheezy Acute RSV infection/tracheobronchitis Chronic atrial fibrillation, with previous ablations Hypertension Hyperlipidemia Obstructive sleep apnea History of kidney stones Glaucoma Plan Continue treatment for another 24 hours Continue bronchodilators Continue steroids and the patient is getting IV Solu-Medrol Continue Symbicort as maintenance 2 puffs twice a day Continue management of atrial fibrillation. Patient is on metoprolol and the patient is also on anticoagulation with Eliquis.
--- NOTE | 2023-07-28 11:07 | P.CRDCN ---
History of Present Illness Consult date: 07/28/23 Consult reason: atrial fibrillation History of present illness: History of present illness: This is an 78-year-old male patient of Dr. Turpin with PMH hypertension, dyslipidemia, atrial fibrillation, atrial flutter status post ablation x 3 done at [facility], NSVT,, first-degree AV block. We have been asked to evaluate the patient for atrial fibrillation. Patient denies having any chest pain or chest pressure. He denies lightheadedness or dizziness, no palpitations. Patient denies having any chest pain or chest pressure. He denies lightheadedness or dizziness, no palpitations. EKG sinus tachycardia with first-degree AV block, incomplete right bundle branch block Chest x-ray: No acute process. COPD WBC 18.9, hemoglobin 15.4, platelet count 228. D-dimer 0.19. Influenza A, influenza B, COVID-19 not detected. RSV detected. Sodium 136, potassium 4.9, BUN 23 creatinine 0.61. Liver function tests are within normal limits. C- reactive protein 2.7. Troponin negative x 1. Home cardiac medications: Eliquis 5 mg twice daily, Toprol XL 25 mg at bedtime, pravastatin 80 mg at bedtime, ramipril 10 mg at bedtime. Echocardiogram performed 11/27/2022 in the office revealed EF of 55-60%, moderate LVH, mild to moderate MR, RVSP 19 mmHg. Holter monitor 08/13/2022 revealed sinus rhythm, MD interval upper limits, heart rate [id number], average 70 bpm. Lexiscan stress test performed 09/06/2022 revealed no evidence of reversible ischemia. Review Of Systems: At the time of my exam: CONSTITUTIONAL: Denies fever or chills. CARDIOVASCULAR: Denies chest pain, Denies shortness of breath, no orthopnea, PND or palpitations. RESPIRATORY: Denies cough. GASTROINTESTINAL: Denies abdominal pain, diarrhea, constipation, nausea or vom iting. MUSCULOSKELETAL: Denies myalgias. NEUROLOGIC: Denies numbness, tingling or weakness. ENDOCRINE: Denies fatigue, weight change, polydipsia or polyurina. GENITOURINARY: Denies burning, hematuria or urgency with micturation. HEMATOLOGIC: Denies history of anemia or bleeding. Physical examination: Gen: This is an 78-year-old male appears to be in no acute distress. Frequent coughing noted. VS: reviewed HEENT: Head is atraumatic, normocephalic. Pupils equal, round. Sclerae is anicteric. NECK: Supple. No JVD. LUNGS: Scattered rhonchi. No intercostal retractions. HEART: Regular rate and rhythm. Systolic murmur. ABDOMEN: Soft No tenderness. EXTREMITIES: No pedal edema. No calf tenderness. NEUROLOGICAL: Patient is awake, alert and oriented x3. Assessment: RSV Paroxysmal atrial fibrillation/atrial flutter status post 3 ablations at [facility] Hypertension Dyslipidemia NS CT First-degree AV block Plan: Continue patient's home cardiac medications Patient is currently in sinus rhythm. Further recommendations to follow based upon clinical course Thank you kindly for this consultation. Nurse practitioner note has been reviewed, I agree with documented findings and plan of care. Patient was seen and examined. Past Medical History Past Medical History: Atrial Fibrillation, Atrial Flutter, Hyperlipidemia, Hypertension, Renal Disease, Sleep Apnea/CPAP/BIPAP Additional Past Medical History / Comment(s): "ON METFORMIN, FOR PREVENTION." EYE DROPS "TO PREVENT GLAUCOMA." NO CURRENT TX FOR SLEEP APNEA. HX KIDNEY STONES.maclodegeneration History of Any Multi-Drug Resistant Organisms: None Reported Past Surgical History: Ablation, Appendectomy, Back Surgery, Cardiac Ablation, Hernia Repair, Orthopedic Surgery Additional Past Surgical History / Comment(s): CARDIAC ABLATION X3. BACK SURG X4. REPAIR LT FOOT INJ. ESWL. COLONOSCOPY. Past Anesthesia/Blood Transfusion Reactions: No Reported Reaction Past Psychological History: No Psychological Hx Reported Smoking Status: Former smoker Past Alcohol Use History: None Reported Past Drug Use History: None Reported - Past Family History Mother Family Medical History: No Reported History Father Family Medical History: AFIB, CVA/TIA Brother(s) Family Medical History: AFIB Medications and Allergies Home Medications Medication Instructions Recorded Confirmed Type Ketoconazole 2% Shampoo [Nizoral] 1 applic TOPICAL DIRECTED 05/09/15 07/26/23 History clonazePAM [KlonoPIN] 0.5 mg PO BID 12/11/16 07/26/23 History ramipriL [Altace] 10 mg PO HS 06/22/19 07/26/23 History Apixaban [Eliquis] 5 mg PO BID 07/11/20 07/26/23 History Metoprolol Succinate [Toprol XL] 25 mg PO HS 07/11/20 07/26/23 History Naloxegol Oxalate [Movantik] 25 mg PO DAILY@1000 07/11/20 07/26/23 History Pregabalin [Lyrica] 100 mg PO HS 07/11/20 07/26/23 History Albuterol Inhaler [Ventolin Hfa 1 - 2 puff INHALATION RT-Q6H PRN 07/26/23 07/26/23 History Inhaler] Brimonidine Tartrate [Alphagan P 1 drop BOTH EYES BID 07/26/23 07/26/23 History 0.2% Ophth Soln] Docusate [Colace] 100 mg PO BID 07/26/23 07/26/23 History Doxycycline Hyclate 100 mg PO BID 07/26/23 07/26/23 History Ipratropium-Albuterol Nebulize 3 ml INHALATION RT-QID PRN 07/26/23 07/26/23 History [Duoneb 0.5 mg-3 mg/3 ml Soln] Pravastatin Sodium [Pravachol] 80 mg PO HS 07/26/23 07/26/23 History Triamcinolone 0.5% Cream [Kenalog 1 applic TOPICAL BID PRN 07/26/23 07/26/23 History 0.5% Cream] methylPREDNISolone Dose Pack See Taper PO DIRECTED 07/26/23 07/26/23 History [Medrol Dose Pack] oxyCODONE HCL [oxyCODONE HCL (IR)] 30 mg PO Q6H 07/26/23 07/26/23 History oxyCODONE HCL [oxyCODONE HCL ER] 40 mg PO BID 07/26/23 07/26/23 History Allergies Allergy/AdvReac Type Severity Reaction Status Date / Time Milk Containing Products Allergy Severe "LIGAMENT Verified 07/26/23 15:43 (Dairy) STRETCH"-LIGAMENTS [Dairy] DONT WORK aspirin Allergy Rash/Hives Verified 07/26/23 15:43 Penicillins Allergy Rash/Hives Verified 07/26/23 15:43 Sulfa (Sulfonamide Allergy Rash/Hives Verified 07/26/23 15:43 Antibiotics) ciprofloxacin [From Cipro] AdvReac Rash/Hives Verified 07/26/23 15:43 ibuprofen [From Motrin] AdvReac Rash/Hives Verified 07/26/23 15:43 Physical Exam Vitals: Vital Signs Temp Pulse Pulse Resp BP Pulse Ox 07/28/23 07:49 84 07/28/23 07:37 82 92 L 07/27/23 23:44 89 18 116/73 95 07/27/23 21:31 102 H 07/27/23 21:17 101 H 07/27/23 20:13 101 H 20 133/74 96 07/27/23 15:29 104 H 07/27/23 15:18 100 07/27/23 15:17 98.2 F 88 20 130/74 98 07/27/23 13:16 97 07/27/23 11:33 97 20 111/62 97 07/27/23 11:29 100 07/27/23 11:19 100 07/27/23 08:33 98.0 F 96 20 123/79 94 L 07/27/23 08:19 106 H 07/27/23 08:05 102 H 92 L Intake and Output 07/27/23 07/28/23 07/28/23 22:59 06:59 14:59 Intake Total 120 540 Output Total 400 Balance -280 540 Intake: Oral 120 540 Output: Urine 400 Other: Voiding Method Toilet Results 07/28/23 07:01 07/28/23 07:01 CBC 07/27/23 07/28/23 Range/Units 08:25 07:01 WBC 12.4 H 18.9 H (3.8-10.6) k/uL RBC 4.95 5.02 (4.30-5.90) m/uL Hgb 15.1 15.4 (13.0-17.5) gm/dL Hct 45.9 46.7 (39.0-53.0) % Plt Count 210 228 (150-450) k/uL Comprehensive Metabolic Panel 07/27/23 Range/Units 08:25 Sodium 139 (137-145) mmol/L Potassium 5.1 (3.5-5.1) mmol/L Chloride 99 (98-107) mmol/L Carbon Dioxide 27 (22-30) mmol/L BUN 20 (9-20) mg/dL Creatinine 0.62 L (0.66-1.25) mg/dL Glucose 163 H (74-99) mg/dL Calcium 9.3 (8.4-10.2) mg/dL Current Medications Generic Name Dose Route Start Last Admin Trade Name Freq PRN Reason Stop Dose Admin Acetaminophen 650 mg 07/26/23 14:22 Acetaminophen Tab 325 Mg Tab PO Q6HR PRN Mild Pain or Fever > 100.5 Hydrocodone Bitart/Acetaminophen 1 each 07/26/23 16:04 07/26/23 16:36 Hydrocodone/Apap 5-325mg 1 Each Tab PO 1 each Q6HR PRN Administration Pain Albuterol/Ipratropium 3 ml 07/27/23 12:00 07/28/23 07:37 Ipratropium-Albuterol 3 Ml Neb INHALATION 3 ml RT-QID ELIZABETH Administration Apixaban 5 mg 07/26/23 21:00 07/27/23 20:15 Apixaban 5 Mg Tab PO 5 mg BID ELIZABETH Administration Protocol Brimonidine Tartrate 1 drops 07/26/23 21:00 07/27/23 20:16 Brimonidine Tartrate 0.2% Drops 5 Ml Btl BOTH EYES 1 drops BID ELIZABETH Administration Budesonide/Formoterol Fumarate 2 puff 07/26/23 20:00 07/28/23 07:37 Symbicort 160-4.5 Mcg Inhaler INHALATION 2 puff RT-BID ELIZABETH Administration Clonazepam 0.5 mg 07/26/23 21:00 07/27/23 20:15 Clonazepam 0.5 Mg Tab PO 0.5 mg BID ELIZABETH Administration Docusate Sodium 100 mg 07/26/23 21:00 07/27/23 20:15 Docusate 100 Mg Cap PO 100 mg BID ELIZABETH Administration Guaifenesin/Dextromethorphan 10 ml 07/27/23 14:49 Guaifenesin-Dm 100-10mg/5ml 10 Ml Cup PO Q6HR PRN Cough Ketoconazole 1 applic 07/29/23 10:00 Ketoconazole 2% Shampoo 1 Applic/Ml TOPICAL TuFr ELIZABETH Lisinopril 10 mg 07/26/23 23:00 07/27/23 20:15 Lisinopril 10 Mg Tab PO 10 mg HS ELIZABETH Administration Methylprednisolone Sodium Succinate 60 mg 07/26/23 18:00 07/28/23 05:59 Methylprednisolone Sod Succi 125 Mg/2 Ml Vial IV 60 mg Q6HR ELIZABETH Administration Metoprolol Succinate 25 mg 07/26/23 21:00 07/27/23 20:15 Metoprolol Succinate (Er) 25 Mg Tab.Er.24h PO 25 mg HS ELIZABETH Administration Naloxone HCl 0.2 mg 07/26/23 14:05 Naloxone 0.4 Mg/Ml 1 Ml Vial IV Q2M PRN Opioid Reversal Movantik (Naloxegol 25 mg 07/27/23 10:00 07/27/23 09:07 Oxalate) 25 Mg PO Not Given Tablet DAILY@1000 [facility] [place] Oxycodone HCl 40 mg 07/26/23 21:00 07/27/23 20:16 Oxycodone Er 20 Mg Tab.Er.12h PO 40 mg BID ELIZABETH Administration Oxycodone HCl 30 mg 07/26/23 18:00 07/28/23 05:59 Oxycodone Hcl 5 Mg Tab PO 30 mg Q6HR ELIZABETH Administration Pantoprazole Sodium 40 mg 07/26/23 16:15 07/28/23 06:05 Pantoprazole 40 Mg Tablet PO 40 mg AC-BRKFST [facility] Administration Pravastatin Sodium 80 mg 07/26/23 21:00 07/27/23 20:17 Pravastatin Sodium 80 Mg Tab PO 80 mg HS [facility] Administration Pregabalin 100 mg 07/26/23 21:00 07/27/23 20:15 Pregabalin 100 Mg Cap PO 100 mg HS [facility] Administration Intake and Output 07/27/23 07/28/23 07/28/23 22:59 06:59 14:59 Intake Total 120 540 Output Total 400 Balance -280 540 Intake: Oral 120 540 Output: Urine 400 Other: Voiding Method Toilet 07/28/23 07:01 07/27/23 08:25
--- NOTE | 2023-07-28 15:04 | P.PN ---
Subjective Progress Note Date: 07/28/23 This is an 78-year-old gentleman admitted with Nely. nikos with RVR, worsening shortness of breath, recently diagnosed with RSV infection at [facility]. Evaluated by pulmonary and cardiology, maintained on nebulized bronchodilators, Pulmicort, IV steroids. Blood sugars controlled. Loose congested cough occasionally productive. He reports he slept approximately 3-4 hours. Reports exertional shortness of breath. Maintaining O2 sats in the low 90s on 2 L nasal cannula. Anticoagulated on Eliquis. Converted back into sinus rhythm. Afebrile. Objective - Vital Signs Vital signs: Vital Signs Temp 98 F 07/28/23 08:00 Pulse 86 07/28/23 08:00 Resp 20 07/28/23 08:00 BP 158/76 07/28/23 08:00 Pulse Ox 91 L 07/28/23 08:00 FiO2 Intake & Output 07/27/23 07/28/23 07/28/23 18:59 06:59 18:59 Intake Total 480 540 180 Output Total 400 Balance 80 540 180 Weight 125.645 kg Intake: Oral 480 540 180 Output: Urine 400 Other: Voiding Method Toilet Toilet # Voids 2 # Bowel Movements 0 - Exam PHYSICAL EXAM: VITAL SIGNS: [As above] GENERAL: Alert and oriented 3, sitting up in chair, no acute distress HEENT: Normocephalic, Conjunctivae normal. eyes normal. NECK: Supple, No JVD. CARDIOVASCULAR: S1, S2 regular.systolic murmur RESPIRATION: Scattered rhonchi , with bilateral bases diminished. loose congested cough. ABDOMEN: Soft, nontender . No rigidity, no guarding, positive bowel sounds. LEGS: No edema. no swelling. No calf tenderness. NERVOUS SYSTEM: Cranial N 2-12 grossly normal.No focal deficits. Strength and sensation grossly intact. Skin: Warm and dry, no rash - Labs CBC & Chem 7: 07/28/23 07:01 07/28/23 07:01 Labs: Abnormal Lab Results - Last 24 Hours (Table) 07/27/23 07/28/23 07/28/23 Range/Units 13:23 07:01 07:01 WBC 18.9 H (3.8-10.6) k/uL Neutrophils # 17.0 H (1.3-7.7) k/uL Sodium 136 L (137-145) mmol/L BUN 23 H (9-20) mg/dL Creatinine 0.61 L (0.66-1.25) mg/dL Glucose 131 H (74-99) mg/dL C-Reactive Protein 2.7 H (<1.0) mg/dL Assessment and Plan Assessment: Acute RSV tracheobronchitis Acute hypoxic respiratory failure secondary to all the above Paroxysmal atrial fibrillation, atrial flutter History of cardiac ablation 3 at [facility] Hypertension hyperlipidemia End-stage renal disease Sleep apnea Morbid obesity, BMI 38 Chronic back pain, history of back surgery Plan: Continue on current medication regime ,monitoring and symptomatic treatment. Antiarrhythmics/metoprolol. Anticoagulated on Eliquis. Aggressive pulmonary toileting with nebulized bronchodilators, Pulmicort, steroids. Increase ambulation as tolerated. The impression and plan of care has been dictated as directed. : I performed a history and examination of this patient, discussed the same with the dictator. I agree with the dictator's note ,documented as a scribe. Any additional findings or plans will be noted.
--- NOTE | 2023-07-29 10:28 | P.PN ---
Subjective Progress Note Date: 07/29/23 On 07/28/2023, I am seeing the patient for follow-up. The patient is an 78-year-old male patient was coming in for shortness of breath. The patient has been diagnosed having RSV infection in outside facility. The patient presented to us with worsening shortness of breath and cough or congestion and the patient was also tachycardic in A-fib RVR. Procalcitonin level was low. Chest x-ray did not show any acute abnormalities. Patient is currently being treated for an acute respiratory illness related to RSV infection and A-fib RVR. Patient is known to have chronic A-fib and the patient has undergone multiple ablations in the past. The patient hypertension hyperlipidemia and obstructive sleep apnea. The patient is currently on bronchodilators. Patient is also on IV steroids. Started on Symbicort. Patient is on IV Solu-Medrol 60 mg IV every 6 hours. Remains on anticoagulation with Eliquis 5 mg p.o. twice a day. Patient is back into normal sinus rhythm. Overall is feeling better. He may benefit from another 24 hours of treatment with bronchodilators and steroids. On today's evaluation was 2023, the patient is slightly improved. He continues to have cough and congestion and wheezing. He remains on IV Solu- Medrol. Is also on bronchodilators. On room and oxygen. No other acute events overnight. No new labs are available from today. In terms of his medication, the patient is still on IV Solu-Medrol. The patient is also on anticoagulation with Eliquis 5 mg twice a day. He is on metoprolol 25 mg at bedtime. His cardiac rhythm is sinus. Objective - Vital Signs Vital signs: Vital Signs Temp 97.3 F L 07/28/23 20:51 Pulse 76 07/29/23 08:13 Resp 18 07/29/23 05:00 BP 138/83 07/29/23 05:00 Pulse Ox 92 L 07/29/23 08:02 FiO2 Intake & Output 07/28/23 07/29/23 07/29/23 18:59 06:59 18:59 Intake Total 540 Output Total 1600 900 Balance -1060 -900 Weight 125.645 kg Intake: Oral 540 Output: Urine 1600 900 Other: Voiding Method Toilet Urinal # Bowel Movements 0 - Exam No acute distress, oriented 3. Currently on 2 L of oxygen. No respiratory distress or difficulty. HEENT examination is grossly unremarkable. Mucous membranes are moist. No oral lesions. Neck supple. Full range of motion. No adenopathy thyromegaly or neck vein distention. Cardiovascular examination reveals regular rhythm rate. S1-S2 normal. No S3 or S4. No discernible murmur noted. Heart sounds are distant. Lungs reveal scattered bilateral rhonchi. No wheezes or crackles. Abdomen soft bowel sounds are heard. No masses or tenderness. Extremities are intact. No cyanosis clubbing or edema. Skin is without rash or lesion. Neurologic examination is brief but nonfocal. - Labs CBC & Chem 7: 07/28/23 07:01 07/28/23 07:01 Labs: Microbiology - Last 24 Hours (Table) 07/28/23 08:30 Gram Stain - Preliminary Sputum 07/27/23 13:23 Blood Culture - Preliminary Blood Assessment and Plan Plan: Assessment Acute shortness of breath related to RSV tracheobronchitis and A-fib RVR, clinically improving and the patient is currently in normal sinus rhythm. Less congested, spastic and wheezy Acute RSV infection/tracheobronchitis Chronic atrial fibrillation, with previous ablations Hypertension Hyperlipidemia Obstructive sleep apnea History of kidney stones Glaucoma Plan Continue bronchodilators Continue steroids and the patient is getting IV Solu-Medrol, and if discharge is being considered, the patient can be released home on a prednisone burst taper starting with 40 mg subcu daily by 10 mg every 4 days. I would also suggest to Continue Symbicort as maintenance 2 puffs twice a day Continue management of atrial fibrillation. Patient is on metoprolol and the patient is also on anticoagulation with Eliquis. Possible discharge home today
[2023-07-29] MEDS ORDERED: VANCOMYCIN IV PER PHARMACY 1 EACH MISC MISCELLANE PRN (12:42)
[2023-07-29] MEDS: KETOCONAZOLE 2% SHAMPOO 1 APPLIC/ML TOPICAL SCH (12:53)
--- NOTE | 2023-07-29 13:31 | XR ---
EXAMINATION TYPE: XR chest 2V DATE OF EXAM: 07/29/2023 COMPARISON: 07/26/2023 TECHNIQUE: PA and lateral views submitted. HISTORY: Pneumonia FINDINGS: The lungs are clear and there is no pneumothorax, pleural effusion, or focal pneumonia. Heart size normal and no overt failure. Osseous structures demonstrate hypertrophic and degenerative changes of the spine. Atherosclerotic change of the aorta. There is hyperexpansion compatible COPD. Left basilar scarring or linear atelectasis. AC joint arthropathy. IMPRESSION: 1. No acute process.
--- NOTE | 2023-07-29 14:50 | P.PN ---
Subjective Progress Note Date: 07/29/23 Consult reason: atrial fibrillation History of present illness: History of present illness: This is an 78-year-old male patient of Dr. Turpin with PMH hypertension, dyslipidemia, atrial fibrillation, atrial flutter status post ablation x 3 done at [facility], NSVT,, first-degree AV block. We have been asked to evaluate the patient for atrial fibrillation. Patient denies having any chest pain or chest pressure. He denies lightheadedness or dizziness, no palpitations. Patient denies having any chest pain or chest pressure. He denies lightheadedness or dizziness, no palpitations. EKG sinus tachycardia with first-degree AV block, incomplete right bundle branch block Chest x-ray: No acute process. COPD WBC 18.9, hemoglobin 15.4, platelet count 228. D-dimer 0.19. Influenza A, influenza B, COVID-19 not detected. RSV detected. Sodium 136, potassium 4.9, BUN 23 creatinine 0.61. Liver function tests are within normal limits. C- reactive protein 2.7. Troponin negative x 1. Home cardiac medications: Eliquis 5 mg twice daily, Toprol XL 25 mg at bedtime, pravastatin 80 mg at bedtime, ramipril 10 mg at bedtime. Echocardiogram performed 11/27/2022 in the office revealed EF of 55-60%, moderate LVH, mild to moderate MR, RVSP 19 mmHg. Holter monitor 08/13/2022 revealed sinus rhythm, RI interval upper limits, heart rate 57003, average 70 bpm. Lexiscan stress test performed 09/06/2022 revealed no evidence of reversible ischemia. 07/29 Patient remains in sinus rhythm. Heart rate is in the 80s to low 100s, blood pressure 136/67. WBC 18.9, hemoglobin 15.4. BUN 23 creatinine 0.61. Patient remains in isolation for RSV. No sign of atrial fibrillation on telemetry. Physical examination: Gen: This is an 78-year-old male appears to be in no acute distress. Frequent coughing noted. VS: reviewed HEENT: Head is atraumatic, normocephalic. Pupils equal, round. Sclerae is anicteric. NECK: Supple. No JVD. LUNGS: Scattered rhonchi. No intercostal retractions. HEART: Regular rate and rhythm. Systolic murmur. ABDOMEN: Soft No tenderness. EXTREMITIES: No pedal edema. No calf tenderness. NEUROLOGICAL: Patient is awake, alert and oriented x3. Assessment: RSV Paroxysmal atrial fibrillation/atrial flutter status post 3 ablations at [facility] Hypertension Dyslipidemia NS CT First-degree AV block Plan: Continue patient's home cardiac medications Patient is currently in sinus rhythm. Cardiology will sign off this case and follow on an as-needed basis. Please reconsult for any new concerns. Patient may follow-up in the office in one to 2 weeks. Nurse practitioner note has been reviewed, I agree with documented findings and plan of care. Patient was seen and examined. Objective - Vital Signs Vital signs: Vital Signs Temp 97.3 F L 07/28/23 20:51 Pulse 76 07/29/23 08:13 Resp 18 07/29/23 05:00 BP 138/83 07/29/23 05:00 Pulse Ox 92 L 07/29/23 08:02 FiO2 Intake & Output 07/28/23 07/29/23 07/29/23 18:59 06:59 18:59 Intake Total 540 Output Total 1600 900 Balance -1060 -900 Weight 125.645 kg Intake: Oral 540 Output: Urine 1600 900 Other: Voiding Method Toilet Urinal # Bowel Movements 0 - Labs CBC & Chem 7: 07/28/23 07:01 07/28/23 07:01 Labs: Microbiology - Last 24 Hours (Table) 07/28/23 08:30 Gram Stain - Preliminary Sputum 07/27/23 13:23 Blood Culture - Preliminary Blood
[2023-07-29] MEDS: VANCOMYCIN 2,000 MG in SODIUM CHLORIDE 0.9% 500 ML 500 ML IVPB SCH (15:23)
[2023-07-29] MEDS: guaiFENesin-DM 100-10MG/5ML 10 ML CUP PO PRN (15:23)
--- NOTE | 2023-07-29 15:35 | P.PN ---
Subjective Progress Note Date: 07/28/23 Principal diagnosis: Reason for follow-up is leukocytosis and RSV Patient is a 78-year-old male with a past medical history significant for atrial fibrillation atrial flutter hypertension hyperlipidemia sleep apnea patient recently [place] from [place] developed respiratory symptoms admitted at [place] is diagnosed with RSV got discharged presented back to the hospital with worsening shortness of breath. Patient was mildly hypoxic however afebrile chest x-ray was negative for acute cardiopulmonary disease. On today's evaluation that is 07/28/2023, the patient continues to be afebrile patient is breathing comfortably on room air without need for supplemental o xygen the patient denies chest pain did have occasional cough no sputum production patient denies abdominal pain no nausea no vomiting and no diarrhea has been reported. Patient white count is up to 18.9, creatinine 0.61 D-dimer 0.19, blood cultures pending Objective - Vital Signs Vital signs: Vital Signs Temp 98.4 F 07/28/23 12:46 Pulse 108 H 07/28/23 12:46 Resp 18 07/28/23 12:46 BP 143/75 07/28/23 12:46 Pulse Ox 97 07/28/23 12:46 FiO2 Intake & Output 07/27/23 07/28/23 07/28/23 18:59 06:59 18:59 Intake Total 480 540 360 Output Total 400 Balance 80 540 360 Weight 125.645 kg Intake: Oral 480 540 360 Output: Urine 400 Other: Voiding Method Toilet Toilet # Voids 2 # Bowel Movements 0 - Exam GENERAL DESCRIPTION: An elderly male up in bed in no distress RESPIRATORY SYSTEM: Unlabored breathing , coarse breath sounds bilaterally HEART: S1 S2 regular rate and rhythm , ABDOMEN: Soft , no tenderness EXTREMITIES: No edema feet - Labs CBC & Chem 7: 07/28/23 07:01 07/28/23 07:01 Labs: Abnormal Lab Results - Last 24 Hours (Table) 07/27/23 07/28/23 07/28/23 Range/Units 13:23 07:01 07:01 WBC 18.9 H (3.8-10.6) k/uL Neutrophils # 17.0 H (1.3-7.7) k/uL Sodium 136 L (137-145) mmol/L BUN 23 H (9-20) mg/dL Creatinine 0.61 L (0.66-1.25) mg/dL Glucose 131 H (74-99) mg/dL C-Reactive Protein 2.7 H (<1.0) mg/dL Assessment and Plan (1) Leukocytosis Current Visit: Yes Status: Acute Code(s): D72.829 - ELEVATED WHITE BLOOD CELL COUNT, UNSPECIFIED SNOMED Code(s): 244190645 (2) Allergy to multiple antibiotics Current Visit: Yes Status: Acute Code(s): Z88.1 - ALLERGY STATUS TO OTHER ANTIBIOTIC AGENTS SNOMED Code(s): 661922507 (3) RSV bronchitis Current Visit: Yes Status: Acute Code(s): J20.5 - ACUTE BRONCHITIS DUE TO RESPIRATORY SYNCYTIAL VIRUS SNOMED Code(s): 32852269 Plan: 1patient presented to hospital with increasing shortness of breath which is likely multifactorial patient also have A-fib with RVR more likely contributing some of his symptoms patient also tested positive for RSV and likely component of RSV infection causing shortness of breath as well as cough however the chest x-ray was negative for acute infiltrate and the patient did have a normal procalcitonin evaluate secondary bacterial pneumonia to be less likely 2patient with multiple antibiotic ALLERGIES that would limit the number of antibiotic safe to use. 3patient tocontinue with the bronchodilator steroids and respiratory support 4worsening leukocytosis more likely steroid related Dictation was produced using [employer] dictation software. please excuse any grammatical, word or spelling errors. Time with Patient: Less than 30
--- NOTE | 2023-07-29 15:37 | P.PN ---
Subjective Progress Note Date: 07/29/23 Principal diagnosis: Reason for follow-up is leukocytosis and RSV Patient is a 78-year-old male with a past medical history significant for atrial fibrillation atrial flutter hypertension hyperlipidemia sleep apnea patient recently [place] from [place] developed respiratory symptoms admitted at [place] is diagnosed with RSV got discharged presented back to the hospital with worsening shortness of breath. Patient was mildly hypoxic however afebrile chest x-ray was negative for acute cardiopulmonary disease. On today's evaluation that is 07/29/2023, the patient remains to be afebrile, the patient is complaining of shortness of breath and also complaining of worsening cough and is bringing up some purulent sputum no hemoptysis no pleuritic chest pain some nausea but no vomiting no abdominal pain and no diarrhea Patient white count is up to 18.9, creatinine 0.61 D-dimer 0.19 as of yesterday no lab draw today, blood cultures pending, sputum is growing gram-positive cocci Objective - Vital Signs Vital signs: Vital Signs Temp 97.4 F L 07/29/23 15:18 Pulse 72 07/29/23 15:21 Resp 18 07/29/23 15:18 BP 147/81 07/29/23 15:18 Pulse Ox 95 07/29/23 15:18 FiO2 Intake & Output 07/28/23 07/29/23 07/29/23 18:59 06:59 18:59 Intake Total 540 236 Output Total 1600 900 Balance -1060 -900 236 Weight 125.645 kg Intake: Oral 540 236 Output: Urine 1600 900 Other: Voiding Method Toilet Toilet Urinal Urinal # Voids 5 # Bowel Movements 0 - Exam GENERAL DESCRIPTION: An elderly male up in bed in no distress RESPIRATORY SYSTEM: Unlabored breathing , coarse breath sounds bilaterally HEART: S1 S2 regular rate and rhythm , ABDOMEN: Soft , no tenderness EXTREMITIES: No edema feet - Labs CBC & Chem 7: 07/28/23 07:01 07/28/23 07:01 Labs: Microbiology - Last 24 Hours (Table) 07/28/23 08:30 Gram Stain - Preliminary Sputum Sputum Culture - Preliminary 07/27/23 13:23 Blood Culture - Preliminary Blood Assessment and Plan (1) Leukocytosis Current Visit: Yes Status: Acute Code(s): D72.829 - ELEVATED WHITE BLOOD CELL COUNT, UNSPECIFIED SNOMED Code(s): 130707029 (2) Allergy to multiple antibiotics Current Visit: Yes Status: Acute Code(s): Z88.1 - ALLERGY STATUS TO OTHER ANTIBIOTIC AGENTS SNOMED Code(s): 066517059 (3) RSV bronchitis Current Visit: Yes Status: Acute Code(s): J20.5 - ACUTE BRONCHITIS DUE TO RESPIRATORY SYNCYTIAL VIRUS SNOMED Code(s): 65051537 Plan: 1patient presented to hospital with increasing shortness of breath which is likely multifactorial patient also have A-fib with RVR more likely contributing some of his symptoms patient also tested positive for RSV and likely component of RSV infection causing shortness of breath as well as cough however the chest x-ray was negative for acute infiltrate and the patient did have a normal procalcitonin evaluate secondary bacterial pneumonia to be less likely 2patient with multiple antibiotic ALLERGIES that would limit the number of antibiotic safe to use. 3patient did have worsening of his respiratory symptoms sputum is now growing gram-positive cocci we will check a chest x-ray empirically add vancomycin because of his allergies, while waiting for the culture to finalize and monitor clinical course closely Dictation was produced using [employer] dictation software. please excuse any grammatical, word or spelling errors.
--- NOTE | 2023-07-29 18:14 | P.PN ---
Subjective Progress Note Date: 07/29/23 This is an 78-year-old gentleman admitted with A. nikos with RVR, worsening shortness of breath, recently diagnosed with RSV infection at [facility]. Evaluated by pulmonary and cardiology, maintained on nebulized bronchodilators, Pulmicort, IV steroids. Blood sugars controlled. Loose congested cough occasionally productive. He reports he slept approximately 3-4 hours. Reports exertional shortness of breath. Maintaining O2 sats in the low 90s on 2 L nasal cannula. Anticoagulated on Eliquis. Converted back into sinus rhythm. Afebrile. 07/29/2023 maintained on nebulized bronchodilators, IV steroids. this morning patient sitting up in chair, reports breathing easier, coughing has lessened and requesting to go home. Reports minimal sputum production. Currently maintaining O2 sats of 91% at rest and will need an O2 sat on room air after ambulation for discharge planning. Objective - Vital Signs Vital signs: Vital Signs Temp 97.4 F L 07/29/23 15:18 Pulse 72 07/29/23 15:21 Resp 18 07/29/23 15:18 BP 147/81 07/29/23 15:18 Pulse Ox 95 07/29/23 15:18 FiO2 Intake & Output 07/28/23 07/29/23 07/29/23 18:59 06:59 18:59 Intake Total 540 236 Output Total 1600 900 Balance -1060 -900 236 Weight 125.645 kg Intake: Oral 540 236 Output: Urine 1600 900 Other: Voiding Method Toilet Toilet Urinal Urinal # Voids 5 # Bowel Movements 0 - Exam PHYSICAL EXAM: VITAL SIGNS: [As above] GENERAL: Alert and oriented 3, sitting up in chair, no acute distress HEENT: Normocephalic, Conjunctivae normal. eyes normal. NECK: Supple, No JVD. CARDIOVASCULAR: S1, S2 regular.systolic murmur RESPIRATION: Decreased Scattered rhonchi , with bilateral bases diminished. ABDOMEN: Soft, nontender . No rigidity, no guarding, positive bowel sounds. LEGS: No edema. no swelling. No calf tenderness. NERVOUS SYSTEM: Cranial N 2-12 grossly normal.No focal deficits. Strength and sensation grossly intact. Skin: Warm and dry, no rash - Labs CBC & Chem 7: 07/28/23 07:01 07/28/23 07:01 Labs: Microbiology - Last 24 Hours (Table) 07/28/23 08:30 Gram Stain - Preliminary Sputum Sputum Culture - Preliminary 07/27/23 13:23 Blood Culture - Preliminary Blood Assessment and Plan Assessment: Acute RSV tracheobronchitis Acute hypoxic respiratory failure secondary to all the above Paroxysmal atrial fibrillation, atrial flutter, currently sinus rhythm History of cardiac ablation 3 at [facility] Hypertension hyperlipidemia End-stage renal disease Sleep apnea Morbid obesity, BMI 38 Chronic back pain, history of back surgery Plan: Continue on current medication regime ,monitoring and symptomatic treatment. Blood cultures, sputum cultures in progress.Aggressive pulmonary toileting with nebulized bronchodilators, steroids. Increase ambulation as tolerated. O2 sat on room air after ambulation for discharge planning. Patient will be discharged home today pending final DC recommendations and clearance as per pulmonary and infectious disease The impression and plan of care has been dictated as directed. : I performed a history and examination of this patient, discussed the same with the dictator. I agree with the dictator's note ,documented as a scribe. Any additional findings or plans will be noted.
[2023-07-30 08:21] LABS: African American GFR (CKD) >90 (>60 ml/min/1.73 sqM); Anion Gap 6 mmol/L; Blood Urea Nitrogen 19 mg/dL (9-20); Calcium 8.9 mg/dL (8.4-10.2); Carbon Dioxide 27 mmol/L (22-30); Chloride 104 mmol/L (98-107); Glucose 111 mg/dL (74-99); Non-African American GFR(CKD) >90 (>60 ml/min/1.73 sqM); Potassium 4.6 mmol/L (3.5-5.1); Sodium 137 mmol/L (137-145)
[2023-07-30 09:13] LABS: Basophils % (A) 0 %; Eosinophils % (A) 0 %; HCT 44.8 % (39.0-53.0); HGB 14.6 gm/dL (13.0-17.5); Lymphocytes # (A) 0.7 k/uL (1.0-4.8); Lymphocytes % (A) 5 %; MCH 30.6 pg (25.0-35.0); MCHC 32.7 g/dL (31.0-37.0); MCV 93.5 fL (80.0-100.0); Mean Platelet Volume 8.6; Monocytes # (A) 0.7 k/uL (0-1.0); Monocytes % (A) 5 %; Neutrophils # (A) 11.3 k/uL (1.3-7.7); Neutrophils % (A) 88 %; Platelet Count 194 k/uL (150-450); RBC 4.79 m/uL (4.30-5.90); RDW 14.4 % (11.5-15.5); WBC 12.8 k/uL (3.8-10.6)
[2023-07-30] MEDS: SENNOSIDES 8.6 MG TAB PO PRN (12:06)
--- NOTE | 2023-07-30 12:06 | P.PN ---
Subjective Progress Note Date: 07/30/23 On 07/28/2023, I am seeing the patient for follow-up. The patient is an 78-year-old male patient was coming in for shortness of breath. The patient has been diagnosed having RSV infection in outside facility. The patient presented to us with worsening shortness of breath and cough or congestion and the patient was also tachycardic in A-fib RVR. Procalcitonin level was low. Chest x-ray did not show any acute abnormalities. Patient is currently being treated for an acute respiratory illness related to RSV infection and A-fib RVR. Patient is known to have chronic A-fib and the patient has undergone multiple ablations in the past. The patient hypertension hyperlipidemia and obstructive sleep apnea. The patient is currently on bronchodilators. Patient is also on IV steroids. Started on Symbicort. Patient is on IV Solu-Medrol 60 mg IV every 6 hours. Remains on anticoagulation with Eliquis 5 mg p.o. twice a day. Patient is back into normal sinus rhythm. Overall is feeling better. He may benefit from another 24 hours of treatment with bronchodilators and steroids. On today's evaluation was 2023, the patient is slightly improved. He continues to have cough and congestion and wheezing. He remains on IV Solu- Medrol. Is also on bronchodilators. On room and oxygen. No other acute events overnight. No new labs are available from today. In terms of his medication, the patient is still on IV Solu-Medrol. The patient is also on anticoagulation with Eliquis 5 mg twice a day. He is on metoprolol 25 mg at bedtime. His cardiac rhythm is sinus. On 07/30/2023, the patient is complaining of constipation. Still complaining of cough and congestion. Sputum sample was negative for any microbial growth. Blood culture was negative. His pro calcitonin level at the time of admission was 0.04. Meanwhile, the rest of the blood work and electrolytes were all reviewed. No significant leukocytosis. The white cell count is at 12.8. He was 14.6. BUN is at 19 with a creatinine of 0.58 and a sodium level is at 137. [facility] The patient remains on IV Solu-Medrol 60 mg every 6 hours. The patient is still on Symbicort. Objective - Vital Signs Vital signs: Vital Signs Temp 97.2 F L 07/30/23 09:35 Pulse 80 07/30/23 09:35 Resp 20 07/30/23 09:35 BP 167/82 07/30/23 09:35 Pulse Ox 93 L 07/30/23 09:35 FiO2 Intake & Output 07/29/23 07/30/23 07/30/23 18:59 06:59 18:59 Intake Total 736 10 240 Output Total 1950 Balance 736 -1940 240 Intake: IV 10 0.9 10 Oral 736 240 Output: Urine 1950 Other: Voiding Method Toilet Toilet Urinal Urinal # Voids 5 - Exam No acute distress, oriented 3. Currently on 2 L of oxygen. No respiratory distress or difficulty. HEENT examination is grossly unremarkable. Mucous membranes are moist. No oral lesions. Neck supple. Full range of motion. No adenopathy thyromegaly or neck vein distention. Cardiovascular examination reveals regular rhythm rate. S1-S2 normal. No S3 or S4. No discernible murmur noted. Heart sounds are distant. Lungs reveal scattered bilateral rhonchi. No wheezes or crackles. Abdomen soft bowel sounds are heard. No masses or tenderness. Extremities are intact. No cyanosis clubbing or edema. Skin is without rash or lesion. Neurologic examination is brief but nonfocal. - Labs CBC & Chem 7: 07/30/23 07:01 07/30/23 07:20 Labs: Abnormal Lab Results - Last 24 Hours (Table) 07/30/23 07/30/23 Range/Units 07:01 07:20 WBC 12.8 H (3.8-10.6) k/uL Neutrophils # 11.3 H (1.3-7.7) k/uL Lymphocytes # 0.7 L (1.0-4.8) k/uL Creatinine 0.58 L (0.66-1.25) mg/dL Glucose 111 H (74-99) mg/dL Microbiology - Last 24 Hours (Table) 07/28/23 08:30 Gram Stain - Final Sputum Sputum Culture - Final 07/27/23 13:23 Blood Culture - Preliminary Blood Assessment and Plan Plan: Assessment Acute shortness of breath related to RSV tracheobronchitis and A-fib RVR, clinically improving and the patient is currently in normal sinus rhythm. Improving slowly although has not completely recovered and shortness of breath is gradually improving and the patient is being treated with accommodation vocal that since steroids. No clear indication for a bacterial superinfection. Pro-calcitonin level was normal at time of admission. Sputum Gram stain and cultures are negative thus far. Acute RSV infection/tracheobronchitis Chronic atrial fibrillation, with previous ablations Hypertension Hyperlipidemia Obstructive sleep apnea History of kidney stones Glaucoma Plan Still symptomatic. The repeat a chest x-ray in a.m. Continue bronchodilators Continue steroids and the patient is getting IV Solu-Medrol, and this will be continued for another 24 hours Continue Symbicort as maintenance 2 puffs twice a day Continue management of atrial fibrillation. Patient is on metoprolol and the patient is also on anticoagulation with Eliquis. We'll continue to follow.
--- NOTE | 2023-07-30 12:13 | P.PN ---
Subjective Progress Note Date: 07/30/23 Principal diagnosis: Reason for follow-up is leukocytosis and RSV Patient is a 78-year-old male with a past medical history significant for atrial fibrillation atrial flutter hypertension hyperlipidemia sleep apnea patient [place] developed respiratory symptoms admitted at [place] is diagnosed with RSV got discharged presented back to the hospital with worsening shortness of breath. Patient was mildly hypoxic however afebrile chest x-ray was negative for acute cardiopulmonary disease. On today's evaluation that is 07/30/2023, the patient continues to be afebrile patient is breathing comfortably on room air, no need for supplemental oxygen, patient denies any chest pain continue complaining of cough however not as productive no nausea vomiting no abdominal pain and no diarrhea Patient white count is down to 12.8, creatinine 0.58, blood cultures pending, sputum and blood cultures negative patient did have a repeat chest x-ray no acut e pulmonary process Objective - Vital Signs Vital signs: Vital Signs Temp 97.2 F L 07/30/23 09:35 Pulse 80 07/30/23 09:35 Resp 20 07/30/23 09:35 BP 167/82 07/30/23 09:35 Pulse Ox 93 L 07/30/23 09:35 FiO2 Intake & Output 07/29/23 07/30/23 07/30/23 18:59 06:59 18:59 Intake Total 736 10 240 Output Total 1950 Balance 736 -1940 240 Intake: IV 10 0.9 10 Oral 736 240 Output: Urine 1950 Other: Voiding Method Toilet Toilet Urinal Urinal # Voids 5 - Exam GENERAL DESCRIPTION: An elderly male up in bed in no distress RESPIRATORY SYSTEM: Unlabored breathing , coarse breath sounds bilaterally HEART: S1 S2 regular rate and rhythm , ABDOMEN: Soft , no tenderness EXTREMITIES: No edema feet - Labs CBC & Chem 7: 07/30/23 07:01 07/30/23 07:20 Labs: Abnormal Lab Results - Last 24 Hours (Table) 07/30/23 07/30/23 Range/Units 07:01 07:20 WBC 12.8 H (3.8-10.6) k/uL Neutrophils # 11.3 H (1.3-7.7) k/uL Lymphocytes # 0.7 L (1.0-4.8) k/uL Creatinine 0.58 L (0.66-1.25) mg/dL Glucose 111 H (74-99) mg/dL Microbiology - Last 24 Hours (Table) 07/28/23 08:30 Gram Stain - Final Sputum Sputum Culture - Final 07/27/23 13:23 Blood Culture - Preliminary Blood Assessment and Plan (1) Leukocytosis Current Visit: Yes Status: Acute Code(s): D72.829 - ELEVATED WHITE BLOOD CELL COUNT, UNSPECIFIED SNOMED Code(s): 121977565 (2) Allergy to multiple antibiotics Current Visit: Yes Status: Acute Code(s): Z88.1 - ALLERGY STATUS TO OTHER ANTIBIOTIC AGENTS SNOMED Code(s): 347729444 (3) RSV bronchitis Current Visit: Yes Status: Acute Code(s): J20.5 - ACUTE BRONCHITIS DUE TO RESPIRATORY SYNCYTIAL VIRUS SNOMED Code(s): 13425103 Plan: 1patient presented to hospital with increasing shortness of breath which is likely multifactorial patient also have A-fib with RVR more likely contributing some of his symptoms patient also tested positive for RSV and likely component of RSV infection causing shortness of breath as well as cough however the chest x-ray was negative for acute infiltrate and the patient did have a normal procalcitonin evaluate secondary bacterial pneumonia to be less likely 2patient with multiple antibiotic ALLERGIES that would limit the number of antibiotic safe to use. 3patient remains to be afebrile repeat chest x-ray was negative acute pulmonary process blood and sputum culture has been negative we will go ahead and discontinue vancomycin manage off steroids and bronchodilators per pulmonary Dictation was produced using [employer] dictation software. please excuse any grammatical, word or spelling errors. Time with Patient: Less than 30
[2023-07-30 12:35] VITALS: RESP 18
--- NOTE | 2023-07-30 16:36 | P.PN ---
Subjective Progress Note Date: 07/30/23 This is an 78-year-old gentleman admitted with A. fib with RVR, worsening shortness of breath, recently diagnosed with RSV infection at [facility]. Evaluated by pulmonary and cardiology, maintained on nebulized bronchodilators, Pulmicort, IV steroids. Blood sugars controlled. Loose congested cough occasionally productive. He reports he slept approximately 3-4 hours. Reports exertional shortness of breath. Maintaining O2 sats in the low 90s on 2 L nasal cannula. Anticoagulated on Eliquis. Converted back into sinus rhythm. Afebrile. 07/29/2023 maintained on nebulized bronchodilators, IV steroids. this morning patient sitting up in chair, reports breathing easier, coughing has lessened and requesting to go home. Reports minimal sputum production. Currently maintaining O2 sats of 91% at rest and will need an O2 sat on room air after ambulation for discharge planning. 07/30/2023 Complaining of constipation,, denies nausea or vomiting. Reports exertional shortness of breath, positive diaphoresis. Sputum and blood cultures negative. Afebrile, WBC decreased to 12.8, renal function stable. Maintained on nebulized bronchodilators, Symbicort and IV steroids ;O2 sats in the 90s on room air. Chest x-ray completed yesterday afternoon ,reported no acute process. Objective - Vital Signs Vital signs: Vital Signs Temp 97.3 F L 07/30/23 12:00 Pulse 88 07/30/23 16:22 Resp 18 07/30/23 12:00 BP 125/76 07/30/23 12:00 Pulse Ox 92 L 07/30/23 12:00 FiO2 Intake & Output 07/29/23 07/30/23 07/30/23 18:59 06:59 18:59 Intake Total 736 10 358 Output Total 1950 Balance 736 -1940 358 Intake: IV 10 0.9 10 Oral 736 358 Output: Urine 1950 Other: Voiding Method Toilet Toilet Toilet Urinal Urinal Urinal # Voids 5 2 - Exam PHYSICAL EXAM: VITAL SIGNS: [As above] GENERAL: Alert and oriented 3, sitting up in chair, no acute distress HEENT: Normocephalic, Conjunctivae normal. eyes normal. NECK: Supple, No JVD. CARDIOVASCULAR: S1, S2 regular.systolic murmur RESPIRATION: Decreased Scattered rhonchi , with bilateral bases diminished. ABDOMEN: Soft, nontender . No rigidity, no guarding, positive bowel sounds. LEGS: No edema. no swelling. No calf tenderness. NERVOUS SYSTEM: Cranial N 2-12 grossly normal.No focal deficits. Skin: Warm and dry, no rash - Labs CBC & Chem 7: 07/30/23 07:01 07/30/23 07:20 Labs: Abnormal Lab Results - Last 24 Hours (Table) 07/30/23 07/30/23 Range/Units 07:01 07:20 WBC 12.8 H (3.8-10.6) k/uL Neutrophils # 11.3 H (1.3-7.7) k/uL Lymphocytes # 0.7 L (1.0-4.8) k/uL Creatinine 0.58 L (0.66-1.25) mg/dL Glucose 111 H (74-99) mg/dL Microbiology - Last 24 Hours (Table) 07/28/23 08:30 Gram Stain - Final Sputum Sputum Culture - Final 07/27/23 13:23 Blood Culture - Preliminary Blood Assessment and Plan Assessment: Acute RSV tracheobronchitis Acute hypoxic respiratory failure secondary to all the above Paroxysmal atrial fibrillation, atrial flutter, currently sinus rhythm History of cardiac ablation 3 at [facility] Hypertension hyperlipidemia End-stage renal disease Sleep apnea Morbid obesity, BMI 38 Chronic back pain, history of back surgery Plan: Continue on current medication regime ,monitoring and symptomatic treatment. MiraLAX and senna ordered for constipation. Discharge planning in progress pending final DC recommendations and clearance per pulmonary. Cleared by infectious disease. The impression and plan of care has been dictated as directed. : I performed a history and examination of this patient, discussed the same with the dictator. I agree with the dictator's note ,documented as a scribe. Any additional findings or plans will be noted.
[2023-07-30] MEDS: polyethylene glycoL 3350 17 GM POWD.PACK PO STA (17:21)
[2023-07-31 10:58] VITALS: TEMP 97.7
[2023-07-31] MEDS: DOCUSATE 100 MG CAP PO STA (12:20)
[2023-07-31] MEDS: SENNOSIDES-DOCUSATE SODIUM 1 EACH TAB PO SCH (12:20)
[2023-07-31] MEDS: LACTULOSE 20 GM/30 ML CUP PO ONE (12:20)
[2023-07-31 12:38] VITALS: BP 155/73; PULSE 75
--- NOTE | 2023-07-31 14:31 | P.PN ---
Subjective Progress Note Date: 07/31/23 On 07/28/2023, I am seeing the patient for follow-up. The patient is an 78-year-old male patient was coming in for shortness of breath. The patient has been diagnosed having RSV infection in outside facility. The patient presented to us with worsening shortness of breath and cough or congestion and the patient was also tachycardic in A-fib RVR. Procalcitonin level was low. Chest x-ray did not show any acute abnormalities. Patient is currently being treated for an acute respiratory illness related to RSV infection and A-fib RVR. Patient is known to have chronic A-fib and the patient has undergone multiple ablations in the past. The patient hypertension hyperlipidemia and obstructive sleep apnea. The patient is currently on bronchodilators. Patient is also on IV steroids. Started on Symbicort. Patient is on IV Solu-Medrol 60 mg IV every 6 hours. Remains on anticoagulation with Eliquis 5 mg p.o. twice a day. Patient is back into normal sinus rhythm. Overall is feeling better. He may benefit from another 24 hours of treatment with bronchodilators and steroids. On today's evaluation was 2023, the patient is slightly improved. He continues to have cough and congestion and wheezing. He remains on IV Solu- Medrol. Is also on bronchodilators. On room and oxygen. No other acute events overnight. No new labs are available from today. In terms of his medication, the patient is still on IV Solu-Medrol. The patient is also on anticoagulation with Eliquis 5 mg twice a day. He is on metoprolol 25 mg at bedtime. His cardiac rhythm is sinus. On 07/30/2023, the patient is complaining of constipation. Still complaining of cough and congestion. Sputum sample was negative for any microbial growth. Blood culture was negative. His pro calcitonin level at the time of admission was 0.04. Meanwhile, the rest of the blood work and electrolytes were all reviewed. No significant leukocytosis. The white cell count is at 12.8. He was 14.6. BUN is at 19 with a creatinine of 0.58 and a sodium level is at 137. [facility] The patient remains on IV Solu-Medrol 60 mg every 6 hours. The patient is still on Symbicort. On 08/01/2023, the patient is feeling better. The patient is less spastic and wheezing on today's evaluation. No new complaints otherwise for now. Cardiac rhythm is stable. The patient remains on IV Solu-Medrol. The patient remains on DuoNeb. The sputum sample was negative for any microbial growth in the blood culture was also negative. BUN is at 19 with a creatinine of 0.8. Sodium levels of 137. Objective - Vital Signs Vital signs: Vital Signs Temp 97.7 F 07/31/23 08:00 Pulse 76 07/31/23 08:51 Resp 18 07/31/23 08:00 BP 146/73 07/31/23 08:00 Pulse Ox 93 L 07/31/23 08:00 FiO2 Intake & Output 07/30/23 07/31/23 07/31/23 18:59 06:59 18:59 Intake Total 598 240 125 Output Total 400 Balance 598 -160 125 Intake: Oral 598 240 125 Output: Urine 400 Other: Voiding Method Toilet Toilet Urinal Urinal # Voids 2 1 - Exam No acute distress, oriented 3. Currently on 2 L of oxygen. No respiratory distress or difficulty. HEENT examination is grossly unremarkable. Mucous membranes are moist. No oral lesions. Neck supple. Full range of motion. No adenopathy thyromegaly or neck vein distention. Cardiovascular examination reveals regular rhythm rate. S1-S2 normal. No S3 or S4. No discernible murmur noted. Heart sounds are distant. Lungs reveal scattered bilateral rhonchi. No wheezes or crackles. Abdomen soft bowel sounds are heard. No masses or tenderness. Extremities are intact. No cyanosis clubbing or edema. Skin is without rash or lesion. Neurologic examination is brief but nonfocal. - Labs CBC & Chem 7: 07/30/23 07:01 07/30/23 07:20 Labs: Microbiology - Last 24 Hours (Table) 07/27/23 13:23 Blood Culture - Preliminary Blood 07/28/23 08:30 Gram Stain - Final Sputum Sputum Culture - Final Assessment and Plan Plan: Assessment Acute shortness of breath related to RSV tracheobronchitis and A-fib RVR, clinically improving and the patient is currently in normal sinus rhythm. Improving slowly although has not completely recovered and shortness of breath is gradually improving and the patient is being treated with accommodation vocal that since steroids. No clear indication for a bacterial superinfection. Pro- calcitonin level was normal at time of admission. Sputum Gram stain and cultures are negative thus far. Acute RSV infection/tracheobronchitis Chronic atrial fibrillation, with previous ablations Hypertension Hyperlipidemia Obstructive sleep apnea History of kidney stones Glaucoma Plan Clinically improving IV Solu-Medrol, discontinued and the patient can be transitioned to oral prednisone to be completed on outpatient basis The patient has home nebulizer and the patient will continue bronchodilators Continue bronchodilators Continue Symbicort as maintenance 2 puffs twice a day Continue management of atrial fibrillation. Patient is on metoprolol and the patient is also on anticoagulation with Eliquis. We'll continue to follow.
--- NOTE | 2023-07-31 14:47 | P.DS ---
Providers Date of admission: 07/26/23 14:05 Expected date of discharge: 07/31/23 Attending physician: Gabino Monroe MD Consults: 07/26/23 14:22 Consult Physician Urgent Consulting Provider: Zafar Maradiaga Consult Reason/Comments: hypoxic resp failure, rsv bronchitis Do you want consulting provider notified?: Yes 07/27/23 11:02 Consult Physician Routine Consulting Provider: Jasper Toscano Consult Reason/Comments: afib Do you want consulting provider notified?: Yes 07/27/23 11:03 Consult Physician Routine Consulting Provider: Tonya Flores Consult Reason/Comments: rsv Do you want consulting provider notified?: Yes Primary care physician: Linda Antony [place] Hospital Course: Final Diagnoses: Acute RSV tracheobronchitis Acute hypoxic respiratory failure secondary to all the above Paroxysmal atrial fibrillation, atrial flutter, currently sinus rhythm History of cardiac ablation 3 at [facility] Hypertension hyperlipidemia End-stage renal disease Sleep apnea Morbid obesity, BMI 38 Chronic back pain, history of back surgery Constipation Hospital course: This is an 78-year-old gentleman admitted with A. fib with RVR, worsening shortness of breath, recently diagnosed with RSV infection at [facility]. Evaluated by pulmonary and cardiology, maintained on nebulized bronchodilators, Pulmicort, IV steroids. Blood sugars controlled. Loose congested cough occasionally productive. He reports he slept approximately 3-4 hours. Reports exertional shortness of breath. Maintaining O2 sats in the low 90s on 2 L nasal cannula. Anticoagulated on Eliquis. Converted back into sinus rhythm. Afebrile. 07/29/2023 maintained on nebulized bronchodilators, IV steroids. this morning patient sitting up in chair, reports breathing easier, coughing has lessened and requesting to go home. Reports minimal sputum production. Currently maintaining O2 sats of 91% at rest and will need an O2 sat on room air after ambulation for discharge planning. 07/30/2023 Complaining of constipation,, denies nausea or vomiting. Reports exertional shortness of breath, positive diaphoresis. Sputum and blood cultures negative. Afebrile, WBC decreased to 12.8, renal function stable. Maintained on nebulized bronchodilators, Symbicort and IV steroids ;O2 sats in the 90s on room air. Chest x-ray completed yesterday afternoon ,reported no acute process. MiraLAX and senna ordered for constipation. Discharge planning in progress pending final DC recommendations and clearance per pulmonary. Cleared by infectious disease. 07/31/2023 significant clinical improvement. Positive bowel movement this morning. Denies chest pain, palpitations or shortness of breath. Maintaining O2 sats in the mid 90s on room air. Patient will be discharged home today in a stable condition with guarded prognosis pending final DC recommendations and clearance per pulmonary. The impression and plan of care has been dictated as directed. : I performed a history and examination of this patient, discussed the same with the dictator. I agree with the dictator's note ,documented as a scribe. Any additional findings or plans will be noted. Patient Condition at Discharge: Stable Plan - Discharge Summary Discharge Rx Participant: No New Discharge Prescriptions: New guaiFENesin-DM 100-10MG/5ML [Robitussin DM] 10 ml PO Q6HR PRN ml PRN Reason: Cough predniSONE 10 mg PO DIRECTED #30 tab Budesonide-Formot 160-4.5 Mcg [Symbicort 160-4.5 Mcg Inhaler] 2 puff INHALATION RT-BID #1 each Pantoprazole [Protonix] 40 mg PO AC-BRKFST #30 tab Sennosides-Docusate Sodium [Senokot-S] 2 each PO BID tab Continue Ketoconazole 2% Shampoo [Nizoral] 1 applic TOPICAL DIRECTED clonazePAM [KlonoPIN] 0.5 mg PO BID ramipriL [Altace] 10 mg PO HS Pregabalin [Lyrica] 100 mg PO HS Naloxegol Oxalate [Movantik] 25 mg PO DAILY@1000 Metoprolol Succinate [Toprol XL] 25 mg PO HS Apixaban [Eliquis] 5 mg PO BID oxyCODONE HCL [oxyCODONE HCL ER] 40 mg PO BID Albuterol Inhaler [Ventolin Hfa Inhaler] 1 - 2 puff INHALATION RT-Q6H PRN PRN Reason: Shortness Of Breath Docusate [Colace] 100 mg PO BID Ipratropium-Albuterol Nebulize [Duoneb 0.5 mg-3 mg/3 ml Soln] 3 ml INHALATION RT-QID PRN PRN Reason: Shortness Of Breath Triamcinolone 0.5% Cream [Kenalog 0.5% Cream] 1 applic TOPICAL BID PRN PRN Reason: Rash Brimonidine Tartrate [Alphagan P 0.2% Ophth Soln] 1 drop BOTH EYES BID oxyCODONE HCL [oxyCODONE HCL (IR)] 30 mg PO Q6H Pravastatin Sodium [Pravachol] 80 mg PO HS Discontinued Doxycycline Hyclate 100 mg PO BID methylPREDNISolone Dose Pack [Medrol Dose Pack] See Taper PO DIRECTED Discharge Medication List Ketoconazole 2% Shampoo [Nizoral] 1 applic TOPICAL DIRECTED 05/09/15 [History] clonazePAM [KlonoPIN] 0.5 mg PO BID 12/11/16 [History] ramipriL [Altace] 10 mg PO HS 06/22/19 [History] Apixaban [Eliquis] 5 mg PO BID 07/11/20 [History] Metoprolol Succinate [Toprol XL] 25 mg PO HS 07/11/20 [History] Naloxegol Oxalate [Movantik] 25 mg PO DAILY@1000 07/11/20 [History] Pregabalin [Lyrica] 100 mg PO HS 07/11/20 [History] Albuterol Inhaler [Ventolin Hfa Inhaler] 1 - 2 puff INHALATION RT-Q6H PRN 07/14 10/04 [History] Brimonidine Tartrate [Alphagan P 0.2% Ophth Soln] 1 drop BOTH EYES BID 07/26/23 [History] Docusate [Colace] 100 mg PO BID 07/26/23 [History] Ipratropium-Albuterol Nebulize [Duoneb 0.5 mg-3 mg/3 ml Soln] 3 ml INHALATION RT-QID PRN 07/26/23 [History] Pravastatin Sodium [Pravachol] 80 mg PO HS 07/26/23 [History] Triamcinolone 0.5% Cream [Kenalog 0.5% Cream] 1 applic TOPICAL BID PRN 07/26/23 [History] oxyCODONE HCL [oxyCODONE HCL (IR)] 30 mg PO Q6H 07/26/23 [History] oxyCODONE HCL [oxyCODONE HCL ER] 40 mg PO BID 07/26/23 [History] guaiFENesin-DM 100-10MG/5ML [Robitussin DM] 10 ml PO Q6HR PRN ml 07/29/23 [Rx] predniSONE 10 mg PO DIRECTED #30 tab 07/29/23 [Rx] Budesonide-Formot 160-4.5 Mcg [Symbicort 160-4.5 Mcg Inhaler] 2 puff INHALATION RT-BID #1 each 07/31/23 [Rx] Pantoprazole [Protonix] 40 mg PO AC-BRKFST #30 tab 07/31/23 [Rx] Sennosides-Docusate Sodium [Senokot-S] 2 each PO BID tab 07/31/23 [Rx] Follow up Appointment(s)/Referral(s): Trenton Turpin MD [STAFF PHYSICIAN] - 08/01/23 8:30 am (possible OP monitor, anytime between 8:30 and 4:30) Gabino Monroe MD [STAFF PHYSICIAN] - 08/06/23 9:30 am (at the [facility] with ESTRELL[facility]RAVO) [facility] [NON-STAFF] - Patient Instructions/Handouts: Respiratory Syncytial Virus (DC) Activity/Diet/Wound Care/Special Instructions: Contact [facility] to set up Meals on Wheels - [phone] Patient will [facility] pick[facility] Event Monitor on Friday at [facility] Discharge/Stand Alone Forms: Community Resources
--- NOTE | 2023-07-31 15:01 | P.PN ---
Subjective Progress Note Date: 07/31/23 Principal diagnosis: Reason for follow-up is leukocytosis and RSV Patient is a 78-year-old male with a past medical history significant for atrial fibrillation atrial flutter hypertension hyperlipidemia sleep apnea patient [place] developed respiratory symptoms admitted at [place] is diagnosed with RSV got discharged presented back to the hospital with worsening shortness of breath. Patient was mildly hypoxic however afebrile chest x-ray was negative for acute cardiopulmonary disease. On today's evaluation that is 07/31/2023 the patient denies having any fever or any chills, the patient is breathing comfortably on room air, patient denies chest pain, the patient still complaining of cough and bring up some sputum however mention overall cough is decreased in intensity, the patient denies having any abdominal pain no nausea vomiting and no diarrhea Patient white count is down to 12.8 as of yesterday no CBC was done today, creatinine 0.58, blood cultures pending, sputum and blood cultures negative patient did have a repeat chest x-ray no acute pulmonary process Objective - Vital Signs Vital signs: Vital Signs Temp 97.7 F 07/31/23 08:00 Pulse 76 07/31/23 12:02 Resp 18 07/31/23 12:00 BP 155/73 07/31/23 12:00 Pulse Ox 95 07/31/23 12:00 FiO2 Intake & Output 07/30/23 07/31/23 07/31/23 18:59 06:59 18:59 Intake Total 598 240 665 Output Total 400 Balance 598 -160 665 Intake: Oral 598 240 665 Output: Urine 400 Other: Voiding Method Toilet Toilet Urinal Urinal # Voids 2 1 - Exam GENERAL DESCRIPTION: An elderly male up in bed in no distress RESPIRATORY SYSTEM: Unlabored breathing , coarse breath sounds bilaterally HEART: S1 S2 regular rate and rhythm , ABDOMEN: Soft , no tenderness EXTREMITIES: No edema feet - Labs CBC & Chem 7: 07/30/23 07:01 07/30/23 07:20 Labs: Microbiology - Last 24 Hours (Table) 07/27/23 13:23 Blood Culture - Preliminary Blood 07/28/23 08:30 Gram Stain - Final Sputum Sputum Culture - Final Assessment and Plan (1) Leukocytosis Current Visit: Yes Status: Acute Code(s): D72.829 - ELEVATED WHITE BLOOD CELL COUNT, UNSPECIFIED SNOMED Code(s): 848132203 (2) Allergy to multiple antibiotics Current Visit: Yes Status: Acute Code(s): Z88.1 - ALLERGY STATUS TO OTHER ANTIBIOTIC AGENTS SNOMED Code(s): 086841029 (3) RSV bronchitis Current Visit: Yes Status: Acute Code(s): J20.5 - ACUTE BRONCHITIS DUE TO RESPIRATORY SYNCYTIAL VIRUS SNOMED Code(s): 25422090 Plan: 1patient presented to hospital with increasing shortness of breath which is likely multifactorial patient also have A-fib with RVR more likely contributing some of his symptoms patient also tested positive for RSV and likely component of RSV infection causing shortness of breath as well as cough however the chest x-ray was negative for acute infiltrate and the patient did have a normal procalcitonin evaluate secondary bacterial pneumonia to be less likely 2patient with multiple antibiotic ALLERGIES that would limit the number of antibiotic safe to use. 3patient remains to be afebrile repeat chest x-ray was negative acute pulmonary process, no need for any antibiotic therapy on discharge Dictation was produced using [employer] dictation software. please excuse any grammatical, word or spelling errors. Time with Patient: Less than 30
== END 2023-07-31 15:52 | disposition home or self-care (01) | DRG 190 ==
LOC: EC 12:03 → 3SCARD 14:05
PROVIDERS: ADMIT Family Medicine; ATTEND Family Medicine
DX: J44.0 Chronic obstructive pulmonary disease with (acute) lower respiratory infection (principal); J96.01 Acute respiratory failure with hypoxia; N18.6 End stage renal disease; I12.0 Hypertensive chronic kidney disease with stage 5 chronic kidney disease or end stage renal disease; I48.92 Unspecified atrial flutter; I48.20 Chronic atrial fibrillation, unspecified; J20.5 Acute bronchitis due to respiratory syncytial virus; J44.1 Chronic obstructive pulmonary disease with (acute) exacerbation; E11.22 Type 2 diabetes mellitus with diabetic chronic kidney disease; E66.01 Morbid (severe) obesity due to excess calories; Z68.38 Body mass index [BMI] 38.0-38.9, adult; I10 Essential (primary) hypertension; E78.5 Hyperlipidemia, unspecified; G47.33 Obstructive sleep apnea (adult) (pediatric); G89.29 Other chronic pain; H40.9 Unspecified glaucoma; I44.0 Atrioventricular block, first degree; I45.10 Unspecified right bundle-branch block; K59.00 Constipation, unspecified; Z79.01 Long term (current) use of anticoagulants; Z79.51 Long term (current) use of inhaled steroids; Z79.52 Long term (current) use of systemic steroids; Z79.899 Other long term (current) drug therapy
CPT/HCPCS: 36415; 71046; 80048; 80053; 83605; 84145; 84484; 85025; 85379; 85610; 85730; 86140; 87040; 87070; 87205; 87636; 93005; 94640; 94760; 96365; 96366; 96375; 96376; 99285

== ENCOUNTER 2023-08-31 16:35 | Emergency (ER) | payer MEDICARE ==
[2023-08-31 16:50] VITALS: TEMP 98.3
[2023-08-31 17:36] LABS: Basophils # (A) 0.1 k/uL (0-0.2); Basophils % (A) 1 %; Eosinophils % (A) 0 %; HCT 40.4 % (39.0-53.0); HGB 13.4 gm/dL (13.0-17.5); Lymphocytes # (A) 1.5 k/uL (1.0-4.8); Lymphocytes % (A) 11 %; MCH 30.5 pg (25.0-35.0); MCHC 33.3 g/dL (31.0-37.0); MCV 91.7 fL (80.0-100.0); Mean Platelet Volume 8.1; Monocytes # (A) 0.9 k/uL (0-1.0); Monocytes % (A) 7 %; Neutrophils # (A) 11.3 k/uL (1.3-7.7); Neutrophils % (A) 81 %; Platelet Count 212 k/uL (150-450); RDW 13.7 % (11.5-15.5); WBC 13.9 k/uL (3.8-10.6)
[2023-08-31 17:51] LABS: Partial Thromboplastin Time 26.8 sec (22.0-30.0); Prothrombin Time 10.7 sec (10.0-12.5)
[2023-08-31 17:53] LABS: ALT 18 U/L (4-49); AST 21 U/L (17-59); African American GFR (CKD) >90 (>60 ml/min/1.73 sqM); Albumin 3.5 g/dL (3.5-5.0); Alkaline Phosphatase 67 U/L (38-126); Anion Gap 6 mmol/L; Blood Urea Nitrogen 12 mg/dL (9-20); Calcium 8.7 mg/dL (8.4-10.2); Carbon Dioxide 29 mmol/L (22-30); Chloride 104 mmol/L (98-107); Glucose 109 mg/dL (74-99); Non-African American GFR(CKD) >90 (>60 ml/min/1.73 sqM); Potassium 4.1 mmol/L (3.5-5.1); Sodium 139 mmol/L (137-145); Total Bilirubin 0.6 mg/dL (0.2-1.3); Total Protein 6.2 g/dL (6.3-8.2)
[2023-08-31 18:01] LABS: NT-Pro-B-Type Natriuretic Pept 661 pg/mL
--- NOTE | 2023-08-31 18:07 | XR ---
EXAMINATION TYPE: XR chest 2V DATE OF EXAM: 08/31/2023 5:29 PM CLINICAL INDICATION:Male, 78 years old with history of difficulty breathing; [facility] COMPARISON: Chest radiographs from 07/29/2023. TECHNIQUE: XR chest 2V Frontal and lateral views of the chest. FINDINGS: Lungs/Pleura: There is flattening of the diaphragm with increased lucency of the lungs. No evidence o f pneumothorax, pleural effusion or focal consolidation. Pulmonary vascularity: Unremarkable. Heart/mediastinum: Cardiomediastinal silhouette is unremarkable. Musculoskeletal: No acute osseous pathology. IMPRESSION: 1. No acute cardiopulmonary disease process. 2. COPD changes.
--- NOTE | 2023-08-31 19:03 | ED ---
General Adult HPI - General Chief complaint: Shortness of Breath Stated complaint: SOB Time Seen by Provider: 08/31/23 16:42 Source: patient, EMS, RN notes reviewed Mode of arrival: EMS Limitations: no limitations - History of Present Illness Initial comments: 78-year-old male presents to the emergency department for evaluation of elevated heart rate and shortness of breath. He states that earlier today he had an episode lasting around 30 minutes of lightheadedness. He states that following this he checked his heart rate and noted that it was in the 120s. He was more short of breath at this time. He states that he attempted to walk 4-5 steps to the kitchen and got winded. He states that his heart rate improved and his breathing got better. He denies any chest pain at that time. He denies any current chest pain. He states that his breathing has improved. He does have a history of A-fib and is on anticoagulation. He denies any recent fever or illness. - Related Data Home Medications Medication Instructions Recorded Confirmed Ketoconazole 2% Shampoo [Nizoral] 1 applic TOPICAL DIRECTED 05/09/15 08/31/23 clonazePAM [KlonoPIN] 0.5 mg PO BID 12/11/16 08/31/23 ramipriL [Altace] 10 mg PO HS 06/22/19 08/31/23 Apixaban [Eliquis] 5 mg PO BID 07/11/20 08/31/23 Metoprolol Succinate [Toprol XL] 25 mg PO HS 07/11/20 08/31/23 Naloxegol Oxalate [Movantik] 25 mg PO DAILY@1000 07/11/20 08/31/23 Pregabalin [Lyrica] 100 mg PO HS 07/11/20 08/31/23 Albuterol Inhaler [Ventolin Hfa 1 - 2 puff INHALATION RT-Q6H PRN 07/26/23 08/31/23 Inhaler] Brimonidine Tartrate [Alphagan P 1 drop BOTH EYES BID 07/26/23 08/31/23 0.2% Ophth Soln] Docusate [Colace] 100 mg PO BID 07/26/23 08/31/23 Ipratropium-Albuterol Nebulize 3 ml INHALATION RT-QID PRN 07/26/23 08/31/23 [Duoneb 0.5 mg-3 mg/3 ml Soln] Pravastatin Sodium [Pravachol] 80 mg PO HS 07/26/23 08/31/23 Triamcinolone 0.5% Cream [Kenalog 1 applic TOPICAL BID PRN 07/26/23 08/31/23 0.5% Cream] oxyCODONE HCL [oxyCODONE HCL (IR)] 30 mg PO Q6H 07/26/23 08/31/23 oxyCODONE HCL [oxyCODONE HCL ER] 40 mg PO BID 07/26/23 08/31/23 Sennosides-Docusate Sodium 2 tab PO BID PRN 08/31/23 08/31/23 [Senokot-S] Previous Rx's Medication Instructions Recorded Budesonide-Formot 160-4.5 Mcg 2 puff INHALATION RT-BID #1 each 07/31/23 [Symbicort 160-4.5 Mcg Inhaler] Pantoprazole [Protonix] 40 mg PO AC-BRKFST #30 tab 07/31/23 Allergies Allergy/AdvReac Type Severity Reaction Status Date / Time aspirin Allergy Rash/Hives Verified 08/31/23 20:17 Penicillins Allergy Rash/Hives Verified 08/31/23 20:17 Sulfa (Sulfonamide Allergy Rash/Hives Verified 08/31/23 20:17 Antibiotics) ciprofloxacin [From Cipro] AdvReac Rash/Hives Verified 08/31/23 20:17 ibuprofen [From Motrin] AdvReac Rash/Hives Verified 08/31/23 20:17 Review of Systems ROS Statement: Those systems with pertinent positive or pertinent negative responses have been documented in the HPI. ROS Other: All systems not noted in ROS Statement are negative. Past Medical History Past Medical History: Atrial Fibrillation, Atrial Flutter, COPD, Hyperlipidemia, Hypertension, Renal Disease, Sleep Apnea/CPAP/BIPAP Additional Past Medical History / Comment(s): "ON METFORMIN, FOR PREVENTION." EYE DROPS "TO PREVENT GLAUCOMA." NO CURRENT TX FOR SLEEP APNEA. HX KIDNEY STONES.maclodegeneration History of Any Multi-Drug Resistant Organisms: None Reported Past Surgical History: Ablation, Appendectomy, Back Surgery, Cardiac Ablation, Hernia Repair, Orthopedic Surgery Additional Past Surgical History / Comment(s): CARDIAC ABLATION X3. BACK SURG X4. REPAIR LT FOOT INJ. ESWL. COLONOSCOPY. Past Anesthesia/Blood Transfusion Reactions: No Reported Reaction Past Psychological History: No Psychological Hx Reported Smoking Status: Former smoker Past Alcohol Use History: None Reported Past Drug Use History: None Reported - Past Family History Mother Family Medical History: No Reported History Father Family Medical History: AFIB, CVA/TIA Brother(s) Family Medical History: AFIB General Exam Limitations: no limitations General appearance: alert, in no apparent distress Head exam: Present: atraumatic, normocephalic, normal inspection Eye exam: Present: normal appearance, PERRL, EOMI. Absent: scleral icterus, co njunctival injection, periorbital swelling ENT exam: Present: normal exam, mucous membranes moist Respiratory exam: Present: normal lung sounds bilaterally. Absent: respiratory distress, wheezes, rales, rhonchi, stridor Cardiovascular Exam: Present: normal rhythm, tachycardia, normal heart sounds. Absent: systolic murmur, diastolic murmur, rubs, gallop, clicks GI/Abdominal exam: Present: soft, normal bowel sounds. Absent: distended, tenderness, guarding, rebound, rigid Extremities exam: Present: normal inspection, full ROM, normal capillary refill. Absent: tenderness, pedal edema, joint swelling, calf tenderness Back exam: Present: normal inspection Neurological exam: Present: alert, oriented X3 Psychiatric exam: Present: normal affect, normal mood Skin exam: Present: warm, dry, intact, normal color. Absent: rash Course Vital Signs 08/31/23 08/31/23 08/31/23 16:41 18:24 19:32 Temperature 98.3 F Pulse Rate 110 H 99 90 Respiratory 18 18 16 Rate Blood Pressure 139/83 129/76 148/93 O2 Sat by Pulse 92 L 95 96 Oximetry 08/31/23 22:09 Temperature Pulse Rate 87 Respiratory 18 Rate Blood Pressure 130/71 O2 Sat by Pulse 94 L Oximetry Medical Decision Making - Medical Decision Making Was pt. sent in by a medical professional or institution (, PA, HOME HEALTH CARE CASE MANAGER, urgent care, hospital, or fpc...) When possible be specific @ -No Did you speak to anyone other than the patient for history (EMS, parent, family, police, friend...)? What history was obtained from this source @ -No Did you review nursing and triage notes (agree or disagree)? Why? @ -I reviewed and agree with nursing and triage notes Were old charts reviewed (outside hosp., previous admission, EMS record, old EKG, old radiological studies, urgent care reports/EKG's, fpc records)? Report findings @ -No old charts were reviewed Differential Diagnosis (chest pain, altered mental status, abdominal pain women, abdominal pain men, vaginal bleeding, weakness, fever, dyspnea, syncope, headache, dizziness, GI bleed, back pain, seizure, CVA, palpatations, mental health, musculoskeletal)? @ -Differential Dyspnea: Coronary syndrome, arrhythmia, tamponade, asthma, COPD, pulmonary embolism, pneumonia, pneumothorax, pulmonary effusion, anaphylaxis, diabetic ketoacidosis, flailed chest, pulmonary contusion, diaphragmatic rupture, anemia, neuromuscular, this is not meant to be an all-inclusive list. EKG interpreted by me (3pts min.). @ -EKG at 1711 interpreted by me shows sinus rhythm rate 104, TX 100, QRS 98, QTQTc 3 80630 X-rays interpreted by me (1pt min.). @ -Chest x-ray shows no acute process, COPD type chronic changes CT interpreted by me (1pt min.). @ -None done U/S interpreted by me (1pt. min.). @ -None done What testing was considered but not performed or refused? (CT, X-rays, U/S, labs)? Why? @ -None What meds were considered but not given or refused? Why? @ -None Did you discuss the management of the patient with other professionals (professionals i.e. , PA, HOME HEALTH CARE CASE MANAGER, lab, RT, psych nurse, outreach and education social worker, stranner, teacher, toxics program officer, embedded case manager)? Give summary @ -No Was smoking cessation discussed for >3mins.? @ -No Was critical care preformed (if so, how long)? @ -No Were there social determinants of health that impacted care today? How? (Homelessness, low income, unemployed, alcoholism, drug addiction, transportation, low edu. Level, literacy, decrease access to med. care, fpc, rehab)? @ -No Was there de-escalation of care discussed even if they declined (Discuss DNR or withdrawal of care, Hospice)? DNR status @ -No What co-morbidities impacted this encounter? (DM, HTN, Smoking, COPD, CAD, Cancer, CVA, ARF, Chemo, Hep., AIDS, mental health diagnosis, sleep apnea, morbid obesity)? @ -None Was patient admitted / discharged? Hospital course, mention meds given and route, prescriptions, significant lab abnormalities, going to OR and other pertinent info. @ -Discharged. Patient presented to the emergency department for evaluation of elevated heart rate and shortness of breath. He states that his heart rate went up earlier today to the 120s and at that time he became short of breath. He states that this had improved and his breathing has gotten better. He does have a history of COPD and A-fib. He is on blood thinners which he has been taking as prescribed. Denies any recent fever, chills, chest pain. Laboratory studies obtained. Significant for mild leukocytosis of 13.9, hemoglobin stable.Normal coagulation studies; sodium 139, potassium 4.1, creatinine 0.63, lactic acid 1.0; negative troponin, TSH 1.54; COVID, influenza, RSV negative. Chest x-ray obtained which shows no evidence of acute cardiopulmonary process. Patient given 500 cc of normal saline. Discussed results with patient. Patient is feeling better. Heart rate has improved. Patient's O2 94% on room air which is consistent with his COPD. Patient will be discharged home. He is understanding and agreeable with discharge plan. Patient stable at time of discharge. Case discussed with Dr. Patton Undiagnosed new problem with uncertain prognosis? @ -No Drug Therapy requiring intensive monitoring for toxicity (Heparin, Nitro, Insulin, Cardizem)? @ -No Were any procedures done? @ -No Diagnosis/symptom? @ -Tachycardia, dyspnea Acute, or Chronic, or Acute on Chronic? @ -Acute Uncomplicated (without systemic symptoms) or Complicated (systemic symptoms)? @ -Uncomplicated Side effects of treatment? @ -No Exacerbation, Progression, or Severe Exacerbation? @ -No Poses a threat to life or bodily function? How? (Chest pain, [place], [place], pneumonia, PE, COPD, DKA, ARF, appy, cholecystitis, CVA, Diverticulitis, Homicidal, Suicidal, threat to staff... and all critical care pts) @ -No - Lab Data Result diagrams: 08/31/23 17:28 08/31/23 17:28 Lab Results 08/31/23 08/31/23 08/31/23 Range/Units 17:28 17:28 17:28 WBC 13.9 H (3.8-10.6) k/uL RBC 4.40 (4.30-5.90) m/uL Hgb 13.4 (13.0-17.5) gm/dL Hct 40.4 (39.0-53.0) % MCV 91.7 (80.0-100.0) fL MCH 30.5 (25.0-35.0) pg MCHC 33.3 (31.0-37.0) g/dL RDW 13.7 (11.5-15.5) % Plt Count 212 (150-450) k/uL MPV 8.1 Neutrophils % 81 % Lymphocytes % 11 % Monocytes % 7 % Eosinophils % 0 % Basophils % 1 % Neutrophils # 11.3 H (1.3-7.7) k/uL Lymphocytes # 1.5 (1.0-4.8) k/uL Monocytes # 0.9 (0-1.0) k/uL Eosinophils # 0.0 (0-0.7) k/uL Basophils # 0.1 (0-0.2) k/uL PT 10.7 (10.0-12.5) sec INR 1.0 (<1.2) APTT 26.8 (22.0-30.0) sec Sodium 139 (137-145) mmol/L Potassium 4.1 (3.5-5.1) mmol/L Chloride 104 (98-107) mmol/L Carbon Dioxide 29 (22-30) mmol/L Anion Gap 6 mmol/L BUN 12 (9-20) mg/dL Creatinine 0.63 L (0.66-1.25) mg/dL Est GFR (CKD-EPI)AfAm >90 (>60 ml/min/1.73 sqM) Est GFR (CKD-EPI)NonAf >90 (>60 ml/min/1.73 sqM) Glucose 109 H (74-99) mg/dL Plasma Lactic Acid Jv (0.7-2.0) mmol/L Calcium 8.7 (8.4-10.2) mg/dL Total Bilirubin 0.6 (0.2-1.3) mg/dL AST 21 (17-59) U/L ALT 18 (4-49) U/L Alkaline Phosphatase 67 (38-126) U/L Troponin I (0.000-0.034) ng/mL NT-Pro-B Natriuret Pep 661 pg/mL Total Protein 6.2 L (6.3-8.2) g/dL Albumin 3.5 (3.5-5.0) g/dL TSH (0.465-4.680) mIU/L Influenza Type A (PCR) (Not Detectd) Influenza Type B (PCR) (Not Detectd) RSV (PCR) (Not Detectd) SARS-CoV-2 (PCR) (Not Detectd) 08/31/23 08/31/23 08/31/23 Range/Units 17:28 17:28 17:28 WBC (3.8-10.6) k/uL RBC (4.30-5.90) m/uL Hgb (13.0-17.5) gm/dL Hct (39.0-53.0) % MCV (80.0-100.0) fL MCH (25.0-35.0) pg MCHC (31.0-37.0) g/dL RDW (11.5-15.5) % Plt Count (150-450) k/uL MPV Neutrophils % % Lymphocytes % % Monocytes % % Eosinophils % % Basophils % % Neutrophils # (1.3-7.7) k/uL Lymphocytes # (1.0-4.8) k/uL Monocytes # (0-1.0) k/uL Eosinophils # (0-0.7) k/uL Basophils # (0-0.2) k/uL PT (10.0-12.5) sec INR (<1.2) APTT (22.0-30.0) sec Sodium (137-145) mmol/L Potassium (3.5-5.1) mmol/L Chloride (98-107) mmol/L Carbon Dioxide (22-30) mmol/L Anion Gap mmol/L BUN (9-20) mg/dL Creatinine (0.66-1.25) mg/dL Est GFR (CKD-EPI)AfAm (>60 ml/min/1.73 sqM) Est GFR (CKD-EPI)NonAf (>60 ml/min/1.73 sqM) Glucose (74-99) mg/dL Plasma Lactic Acid Jv 1.0 (0.7-2.0) mmol/L Calcium (8.4-10.2) mg/dL Total Bilirubin (0.2-1.3) mg/dL AST (17-59) U/L ALT (4-49) U/L Alkaline Phosphatase (38-126) U/L Troponin I <0.012 (0.000-0.034) ng/mL NT-Pro-B Natriuret Pep pg/mL Total Protein (6.3-8.2) g/dL Albumin (3.5-5.0) g/dL TSH (0.465-4.680) mIU/L Influenza Type A (PCR) Not Detected (Not Detectd) Influenza Type B (PCR) Not Detected (Not Detectd) RSV (PCR) Not Detected (Not Detectd) SARS-CoV-2 (PCR) Not Detected (Not Detectd) 08/31/23 Range/Units 17:28 WBC (3.8-10.6) k/uL RBC (4.30-5.90) m/uL Hgb (13.0-17.5) gm/dL Hct (39.0-53.0) % MCV (80.0-100.0) fL MCH (25.0-35.0) pg MCHC (31.0-37.0) g/dL RDW (11.5-15.5) % Plt Count (150-450) k/uL MPV Neutrophils % % Lymphocytes % % Monocytes % % Eosinophils % % Basophils % % Neutrophils # (1.3-7.7) k/uL Lymphocytes # (1.0-4.8) k/uL Monocytes # (0-1.0) k/uL Eosinophils # (0-0.7) k/uL Basophils # (0-0.2) k/uL PT (10.0-12.5) sec INR (<1.2) APTT (22.0-30.0) sec Sodium (137-145) mmol/L Potassium (3.5-5.1) mmol/L Chloride (98-107) mmol/L Carbon Dioxide (22-30) mmol/L Anion Gap mmol/L BUN (9-20) mg/dL Creatinine (0.66-1.25) mg/dL Est GFR (CKD-EPI)AfAm (>60 ml/min/1.73 sqM) Est GFR (CKD-EPI)NonAf (>60 ml/min/1.73 sqM) Glucose (74-99) mg/dL Plasma Lactic Acid Jv (0.7-2.0) mmol/L Calcium (8.4-10.2) mg/dL Total Bilirubin (0.2-1.3) mg/dL AST (17-59) U/L ALT (4-49) U/L Alkaline Phosphatase (38-126) U/L Troponin I (0.000-0.034) ng/mL NT-Pro-B Natriuret Pep pg/mL Total Protein (6.3-8.2) g/dL Albumin (3.5-5.0) g/dL TSH 1.540 (0.465-4.680) mIU/L Influenza Type A (PCR) (Not Detectd) Influenza Type B (PCR) (Not Detectd) RSV (PCR) (Not Detectd) SARS-CoV-2 (PCR) (Not Detectd) Disposition Clinical Impression: Sinus tachycardia, Shortness of breath Disposition: HOME SELF-CARE Condition: Stable Additional Instructions: Please follow up with your primary care provider. Return to the emergency department for new or worsening symptoms. Is patient prescribed a controlled substance at d/c from ED?: No Referrals: Linda Antony DO [Primary Care Provider] - 1-2 days
[2023-08-31] MEDS: SODIUM CHLORIDE 0.9% 500 ML 500 ML IV ONE (19:31)
[2023-08-31 22:15] VITALS: BP 130/71; PULSE 87; RESP 18
== END 2023-08-31 22:11 | disposition home or self-care (01) ==
LOC: EC 16:35
DX: R00.0 Tachycardia, unspecified (principal); R06.02 Shortness of breath; I48.91 Unspecified atrial fibrillation; J44.9 Chronic obstructive pulmonary disease, unspecified; I10 Essential (primary) hypertension; G47.30 Sleep apnea, unspecified; E78.5 Hyperlipidemia, unspecified; Z79.01 Long term (current) use of anticoagulants; Z87.891 Personal history of nicotine dependence; Z79.899 Other long term (current) drug therapy; Z88.6 Allergy status to analgesic agent; Z88.2 Allergy status to sulfonamides; Z88.1 Allergy status to other antibiotic agents; Z88.0 Allergy status to penicillin; Z20.822 Contact with and (suspected) exposure to COVID-19
CPT/HCPCS: 36415; 71046; 80053; 83605; 83880; 84443; 84484; 85025; 85610; 85730; 87636; 93005; 96360; 99285

== ENCOUNTER 2023-09-22 08:24 | Inpatient (IN) | payer MEDICARE ==
[2023-09-22 09:03] LABS: ALT 17 U/L (4-49); AST 27 U/L (17-59); African American GFR (CKD) >90 (>60 ml/min/1.73 sqM); Albumin 3.6 g/dL (3.5-5.0); Alkaline Phosphatase 52 U/L (38-126); Anion Gap 9 mmol/L; Blood Urea Nitrogen 19 mg/dL (9-20); Calcium 8.4 mg/dL (8.4-10.2); Carbon Dioxide 25 mmol/L (22-30); Chloride 106 mmol/L (98-107); Glucose 116 mg/dL (74-99); Non-African American GFR(CKD) >90 (>60 ml/min/1.73 sqM); Potassium 4.2 mmol/L (3.5-5.1); Sodium 140 mmol/L (137-145); Total Bilirubin 0.4 mg/dL (0.2-1.3); Total Protein 6.5 g/dL (6.3-8.2)
[2023-09-22 09:04] LABS: Partial Thromboplastin Time 25.7 sec (22.0-30.0); Prothrombin Time 10.6 sec (10.0-12.5)
[2023-09-22 09:19] LABS: Basophils # (A) 0.1 k/uL (0-0.2); Basophils % (A) 1 %; Eosinophils # (A) 0.2 k/uL (0-0.7); Eosinophils % (A) 2 %; HCT 38.6 % (39.0-53.0); HGB 12.8 gm/dL (13.0-17.5); Lymphocytes # (A) 1.3 k/uL (1.0-4.8); Lymphocytes % (A) 12 %; MCH 30.9 pg (25.0-35.0); MCHC 33.1 g/dL (31.0-37.0); MCV 93.2 fL (80.0-100.0); Mean Platelet Volume 8.1; Monocytes # (A) 0.9 k/uL (0-1.0); Monocytes % (A) 8 %; Neutrophils # (A) 7.9 k/uL (1.3-7.7); Neutrophils % (A) 75 %; Platelet Count 153 k/uL (150-450); RBC 4.14 m/uL (4.30-5.90); WBC 10.4 k/uL (3.8-10.6)
--- NOTE | 2023-09-22 09:31 | XR ---
EXAMINATION TYPE: XR chest 2V DATE OF EXAM: 09/22/2023 9:25 AM CLINICAL INDICATION:Male, 78 years old with history of difficulty breathing; [facility] COMPARISON: Chest radiographs from 08/31/2023 TECHNIQUE: XR chest 2V Frontal and lateral views of the chest. FINDINGS: Lungs/Pleura: There is no evidence of pleural effusion, focal consolidation, or pneumothorax. Pulmonary vascularity: Unremarkable. Heart/mediastinum: Cardiomediastinal silhouette is unremarkable. Musculoskeletal: No acute osseous pathology. IMPRESSION: 1. No acute cardiopulmonary disease process. 2. COPD changes.
[2023-09-22] MEDS: SODIUM CHLORIDE 0.9% 1,000 ML IV STA (10:02)
[2023-09-22] MEDS: methylPREDNISolone SOD SUCCI 125 MG/2 ML VIAL IV STA (10:08)
[2023-09-22 10:24] LABS: Appearance,Urine Clear (Clear); Bilirubin,Urine Negative (Negative); Blood,Urine Negative (Negative); Color,Urine Yellow; Glucose,Urine (UA) Negative (Negative); Ketones,Urine Negative (Negative); Leukocyte Esterase,Urine Negative (Negative); Nitrite,Urine Negative (Negative); Protein,Urine Trace (Negative); Specific Gravity,Urine 1.019 (1.001-1.035); Urobilinogen,Urine <2.0 mg/dL (<2.0)
[2023-09-22] MEDS ORDERED: NALOXONE 0.4 MG/ML 1 ML VIAL IV PRN (10:48)
--- NOTE | 2023-09-22 10:50 | ED ---
General Adult HPI - General Chief complaint: Shortness of Breath Stated complaint: ANA M, COVID+ Time Seen by Provider: 09/22/23 08:35 Source: patient, EMS, RN notes reviewed, old records reviewed Mode of arrival: EMS Limitations: no limitations - History of Present Illness Initial comments: Patient is an 78-year-old male who presents emergency department complaining of shortness of breath. Has a history of COPD, A-fib, hypertension, hyperlipidemia. Denies any chest pain or fevers. States he is having a productive cough. Was diagnosed with COVID on Friday. Has been having worsening symptoms since. Presents for further evaluation at this time. Denies any lower extremity edema. States he is compliant with his blood thinning medication. Denies any chest pain, abdominal pain, nausea, vomiting, diarrhea. No known sick contacts. - Related Data Home Medications Medication Instructions Recorded Confirmed Ketoconazole 2% Shampoo [Nizoral] 1 applic TOPICAL DIRECTED 05/09/15 09/22/23 clonazePAM [KlonoPIN] 0.5 mg PO BID@1000,219912/11/16 09/22/23 ramipriL [Altace] 10 mg PO HS@22006/22/19 09/22/23 Apixaban [Eliquis] 5 mg PO BID@1000,219907/11/20 09/22/23 Metoprolol Succinate [Toprol XL] 50 mg PO HS@0 07/11/20 09/22/23 Naloxegol Oxalate [Movantik] 25 mg PO DAILY@1000 07/11/20 09/22/23 Pregabalin [Lyrica] 100 mg PO HS@219907/11/20 09/22/23 Albuterol Inhaler [Ventolin Hfa 1 - 2 puff INHALATION RT-Q6H PRN 07/26/23 09/22/23 Inhaler] Brimonidine Tartrate [Alphagan P 1 drop BOTH EYES BID@999,219907/26/23 09/22/23 0.2% Ophth Soln] Docusate [Colace] 100 mg PO BID@1000,0 07/26/23 09/22/23 Ipratropium-Albuterol Nebulize 3 ml INHALATION RT-QID PRN 07/26/23 09/22/23 [Duoneb 0.5 mg-3 mg/3 ml Soln] Pravastatin Sodium [Pravachol] 80 mg PO HS@2200 07/26/23 09/22/23 Triamcinolone 0.5% Cream [Kenalog 1 applic TOPICAL BID PRN 07/26/23 09/22/23 0.5% Cream] oxyCODONE HCL [oxyCODONE HCL (IR)] 30 mg PO Q6H 07/26/23 09/22/23 oxyCODONE HCL [oxyCODONE HCL ER] 40 mg PO BID@1000,1600 07/26/23 09/22/23 Sennosides-Docusate Sodium 2 tab PO BID PRN 08/31/23 09/22/23 [Senokot-S] Budesonide-Formot 160-4.5 Mcg 2 puff INHALATION RT-BID@10,22 09/22/23 09/22/23 [Symbicort 160-4.5 Mcg Inhaler] predniSONE See Taper PO DIRECTED 09/22/23 09/22/23 Previous Rx's Medication Instructions Recorded Pantoprazole [Protonix] 40 mg PO AC-BRKFST #30 tab 07/31/23 Allergies Allergy/AdvReac Type Severity Reaction Status Date / Time aspirin Allergy Rash/Hives Verified 09/22/23 11:32 Penicillins Allergy Rash/Hives Verified 09/22/23 11:32 Sulfa (Sulfonamide Allergy Rash/Hives Verified 09/22/23 11:32 Antibiotics) ciprofloxacin [From Cipro] AdvReac Rash/Hives Verified 09/22/23 11:32 ibuprofen [From Motrin] AdvReac Rash/Hives Verified 09/22/23 11:32 Review of Systems ROS Statement: Those systems with pertinent positive or pertinent negative responses have been documented in the HPI. Review of Systems: CONST: Denies fever EYES: Denies blurry vision ENT: Endorses nasal congestion C/V: Denies Chest pain RESP: Endorses is shortness of breath, cough GI: Denies abdominal pain : Denies dysuria SKIN: Denies rash. MSK: Denies joint pain. NEURO: Denies headache ROS Other: All systems not noted in ROS Statement are negative. Past Medical History Past Medical History: Atrial Fibrillation, Atrial Flutter, COPD, Hyperlipidemia, Hypertension, Renal Disease, Sleep Apnea/CPAP/BIPAP Additional Past Medical History / Comment(s): "ON METFORMIN, FOR PREVENTION." EYE DROPS "TO PREVENT GLAUCOMA." NO CURRENT TX FOR SLEEP APNEA. HX KIDNEY ST ONES.maclodegeneration History of Any Multi-Drug Resistant Organisms: None Reported Past Surgical History: Ablation, Appendectomy, Back Surgery, Cardiac Ablation, Hernia Repair, Orthopedic Surgery Additional Past Surgical History / Comment(s): CARDIAC ABLATION X3. BACK SURG X4. REPAIR LT FOOT INJ. ESWL. COLONOSCOPY. Past Anesthesia/Blood Transfusion Reactions: No Reported Reaction Past Psychological History: No Psychological Hx Reported Smoking Status: Former smoker Past Alcohol Use History: None Reported Past Drug Use History: None Reported - Past Family History Mother Family Medical History: No Reported History Father Family Medical History: AFIB, CVA/TIA Brother(s) Family Medical History: AFIB General Exam - General Exam Comments Initial Comments: General: Appears in no acute distress. HEAD: Normal with no signs of head trauma. EYES: PERRLA, EOMI, conjunctiva normal, no discharge. ENT: Hearing grossly intact, normal oropharynx. RESPIRATORY: Bilateral end expiratory wheezing. Hypoxic on room air to 86%. Normoxic on 2 L nasal cannula. C/V: Regular rate and rhythm. S1 and S2 auscultated, no edema, peripheral pulses 2+ and intact throughout ABD: Abd is soft, nontender, nondistended EXT: Normal range of motion, no obvious deformity SKIN: No rashes or lesions observed on exposed skin. NEURO: Alert and oriented x 4. Limitations: no limitations Course Vital Signs 09/22/23 09/22/23 09/22/23 08:32 09:57 11:19 Temperature 97.7 F Pulse Rate 86 88 94 Respiratory 24 24 18 Rate Blood Pressure 121/69 133/72 137/84 O2 Sat by Pulse 86 L 93 L 95 Oximetry Medical Decision Making - Medical Decision Making Was pt. sent in by a medical professional or institution (, PA, AUTOMOBI[employer] SERVICE [employer]ATION MANAGER, urgent care, hospital, or fpc...) When possible be specific @ -No Did you speak to anyone other than the patient for history (EMS, parent, family, police, friend...)? What history was obtained from this source @ -No Did you review nursing and triage notes (agree or disagree)? Why? @ -I reviewed and agree with nursing and triage notes Were old charts reviewed (outside hosp., previous admission, EMS record, old EKG, old radiological studies, urgent care reports/EKG's, fpc records)? Report findings @ -Old charts reviewed Differential Diagnosis (chest pain, altered mental status, abdominal pain women, abdominal pain men, vaginal bleeding, weakness, fever, dyspnea, syncope, headache, dizziness, GI bleed, back pain, seizure, CVA, palpatations, mental health, musculoskeletal)? @ -Differential Dyspnea: Coronary syndrome, arrhythmia, tamponade, asthma, COPD, pulmonary embolism, pneumonia, pneumothorax, pulmonary effusion, anaphylaxis, diabetic ketoacidosis, flailed chest, pulmonary contusion, diaphragmatic rupture, anemia, neuromuscula r, this is not meant to be an all-inclusive list. EKG interpreted by me (3pts min.). @ -As above X-rays interpreted by me (1pt min.). @ -Chest x-ray reveals no obvious acute cardiopulmonary process. CT interpreted by me (1pt min.). @ -None done U/S interpreted by me (1pt. min.). @ -None done What testing was considered but not performed or refused? (CT, X-rays, U/S, labs)? Why? @ -None What meds were considered but not given or refused? Why? @ -None Did you discuss the management of the patient with other professionals (professionals i.e. , PA, AUTOMO[employer]ICE STATION MANAGER, lab, RT, psych nurse, 7th grade social studies teacher, residential supervisor, teacher, patrol community service officer, nurse case management)? Give summary @ -I spoke with Dr. Monroe who accepted the admission. Was smoking cessation discussed for >3mins.? @ -No Was critical care preformed (if so, how long)? @ -Yes, 35 minutes. Were there social determinants of health that impacted care today? How? (Homelessness, low income, unemployed, alcoholism, drug addiction, transportation, low edu. Level, literacy, decrease access to med. care, prison, rehab)? @ -No Was there de-escalation of care discussed even if they declined (Discuss DNR or withdrawal of care, Hospice)? DNR status @ -No What co-morbidities impacted this encounter? (DM, HTN, Smoking, COPD, CAD, Cancer, CVA, ARF, Chemo, Hep., AIDS, mental health diagnosis, sleep apnea, morbid obesity)? @ -COPD Was patient admitted / discharged? Hospital course, mention meds given and route, prescriptions, significant lab abnormalities, going to OR and other pertinent info. @ -Based on the patient's presentation and physical exam, patient presents emergency department complaining of dyspnea as well as being positive for COVID. Patient is requiring supplemental oxygen, 2 L nasal cannula at this time. He is wheezing on exam. We will symptomatically treat the patient for COPD. Vital signs otherwise within acceptable limits. EKG showed no signs of acute ischemia. Patient's labs remarkable for positive COVID infection. Trope undetectable. Chest x-ray is unremarkable. Update the patient. He will be admitted for hypoxic respiratory failure in the setting of COPD and COVID infection. Pulmonology consulted. I spoke with the admitting physician, Dr. Monroe who accepted the admission. Undiagnosed new problem with uncertain prognosis? @ -No Drug Therapy requiring intensive monitoring for toxicity (Heparin, Nitro, Insulin, Cardizem)? @ -No Were any procedures done? @ -No Diagnosis/symptom? @ -COVID-19 infection, COPD, hypoxic respiratory failure Acute, or Chronic, or Acute on Chronic? @ -Acute Uncomplicated (without systemic symptoms) or Complicated (systemic symptoms)? @ -Complicated Side effects of treatment? @ -No Exacerbation, Progression, or Severe Exacerbation? @ -No Poses a threat to life or bodily function? How? (Chest pain, [place], [place], pneumonia, PE, COPD, DKA, ARF, appy, cholecystitis, CVA, Diverticulitis, Homicidal, Suicidal, threat to staff... and all critical care pts) @ -No - Lab Data Result diagrams: 09/22/23 08:43 09/22/23 08:43 Lab Results 09/22/23 09/22/23 09/22/23 Range/Units 08:43 08:43 08:43 WBC 10.4 (3.8-10.6) k/uL RBC 4.14 L (4.30-5.90) m/uL Hgb 12.8 L (13.0-17.5) gm/dL Hct 38.6 L (39.0-53.0) % MCV 93.2 (80.0-100.0) fL MCH 30.9 (25.0-35.0) pg MCHC 33.1 (31.0-37.0) g/dL RDW 14.0 (11.5-15.5) % Plt Count 153 (150-450) k/uL MPV 8.1 Neutrophils % 75 % Lymphocytes % 12 % Monocytes % 8 % Eosinophils % 2 % Basophils % 1 % Neutrophils # 7.9 H (1.3-7.7) k/uL Lymphocytes # 1.3 (1.0-4.8) k/uL Monocytes # 0.9 (0-1.0) k/uL Eosinophils # 0.2 (0-0.7) k/uL Basophils # 0.1 (0-0.2) k/uL PT 10.6 (10.0-12.5) sec INR 1.0 (<1.2) APTT 25.7 (22.0-30.0) sec Sodium 140 (137-145) mmol/L Potassium 4.2 (3.5-5.1) mmol/L Chloride 106 (98-107) mmol/L Carbon Dioxide 25 (22-30) mmol/L Anion Gap 9 mmol/L BUN 19 (9-20) mg/dL Creatinine 0.61 L (0.66-1.25) mg/dL Est GFR (CKD-EPI)AfAm >90 (>60 ml/min/1.73 sqM) Est GFR (CKD-EPI)NonAf >90 (>60 ml/min/1.73 sqM) Glucose 116 H (74-99) mg/dL Plasma Lactic Acid Jv (0.7-2.0) mmol/L Calcium 8.4 (8.4-10.2) mg/dL Magnesium 2.0 (1.6-2.3) mg/dL Total Bilirubin 0.4 (0.2-1.3) mg/dL AST 27 (17-59) U/L ALT 17 (4-49) U/L Alkaline Phosphatase 52 (38-126) U/L Troponin I (0.000-0.034) ng/mL Total Protein 6.5 (6.3-8.2) g/dL Albumin 3.6 (3.5-5.0) g/dL Urine Color Urine Appearance (Clear) Urine pH (5.0-8.0) Ur Specific [place] (1.001-1.035) Urine Protein (Negative) Urine Glucose (UA) (Negative) Urine Ketones (Negative) Urine Blood (Negative) Urine Nitrite (Negative) Urine Bilirubin (Negative) Urine Urobilinogen (<2.0) mg/dL Ur Leukocyte Esterase (Negative) Influenza Type A (PCR) (Not Detectd) Influenza Type B (PCR) (Not Detectd) RSV (PCR) (Not Detectd) SARS-CoV-2 (PCR) (Not Detectd) 09/22/23 09/22/23 09/22/23 Range/Units 08:43 08:43 08:43 WBC (3.8-10.6) k/uL RBC (4.30-5.90) m/uL Hgb (13.0-17.5) gm/dL Hct (39.0-53.0) % MCV (80.0-100.0) fL MCH (25.0-35.0) pg MCHC (31.0-37.0) g/dL RDW (11.5-15.5) % Plt Count (150-450) k/uL MPV Neutrophils % % Lymphocytes % % Monocytes % % Eosinophils % % Basophils % % Neutrophils # (1.3-7.7) k/uL Lymphocytes # (1.0-4.8) k/uL Monocytes # (0-1.0) k/uL Eosinophils # (0-0.7) k/uL Basophils # (0-0.2) k/uL PT (10.0-12.5) sec INR (<1.2) APTT (22.0-30.0) sec Sodium (137-145) mmol/L Potassium (3.5-5.1) mmol/L Chloride (98-107) mmol/L Carbon Dioxide (22-30) mmol/L Anion Gap mmol/L BUN (9-20) mg/dL Creatinine (0.66-1.25) mg/dL Est GFR (CKD-EPI)AfAm (>60 ml/min/1.73 sqM) Est GFR (CKD-EPI)NonAf (>60 ml/min/1.73 sqM) Glucose (74-99) mg/dL Plasma Lactic Acid Jv 1.2 (0.7-2.0) mmol/L Calcium (8.4-10.2) mg/dL Magnesium (1.6-2.3) mg/dL Total Bilirubin (0.2-1.3) mg/dL AST (17-59) U/L ALT (4-49) U/L Alkaline Phosphatase (38-126) U/L Troponin I <0.012 (0.000-0.034) ng/mL Total Protein (6.3-8.2) g/dL Albumin (3.5-5.0) g/dL Urine Color Yellow Urine Appearance Clear (Clear) Urine pH 6.0 (5.0-8.0) Ur Specific [place] 1.019 (1.001-1.035) Urine Protein Trace H (Negative) Urine Glucose (UA) Negative (Negative) Urine Ketones Negative (Negative) Urine Blood Negative (Negative) Urine Nitrite Negative (Negative) Urine Bilirubin Negative (Negative) Urine Urobilinogen <2.0 (<2.0) mg/dL Ur Leukocyte Esterase Negative (Negative) Influenza Type A (PCR) (Not Detectd) Influenza Type B (PCR) (Not Detectd) RSV (PCR) (Not Detectd) SARS-CoV-2 (PCR) (Not Detectd) 09/22/23 Range/Units 08:43 WBC (3.8-10.6) k/uL RBC (4.30-5.90) m/uL Hgb (13.0-17.5) gm/dL Hct (39.0-53.0) % MCV (80.0-100.0) fL MCH (25.0-35.0) pg MCHC (31.0-37.0) g/dL RDW (11.5-15.5) % Plt Count (150-450) k/uL MPV Neutrophils % % Lymphocytes % % Monocytes % % Eosinophils % % Basophils % % Neutrophils # (1.3-7.7) k/uL Lymphocytes # (1.0-4.8) k/uL Monocytes # (0-1.0) k/uL Eosinophils # (0-0.7) k/uL Basophils # (0-0.2) k/uL PT (10.0-12.5) sec INR (<1.2) APTT (22.0-30.0) sec Sodium (137-145) mmol/L Potassium (3.5-5.1) mmol/L Chloride (98-107) mmol/L Carbon Dioxide (22-30) mmol/L Anion Gap mmol/L BUN (9-20) mg/dL Creatinine (0.66-1.25) mg/dL Est GFR (CKD-EPI)AfAm (>60 ml/min/1.73 sqM) Est GFR (CKD-EPI)NonAf (>60 ml/min/1.73 sqM) Glucose (74-99) mg/dL Plasma Lactic Acid Jv (0.7-2.0) mmol/L Calcium (8.4-10.2) mg/dL Magnesium (1.6-2.3) mg/dL Total Bilirubin (0.2-1.3) mg/dL AST (17-59) U/L ALT (4-49) U/L Alkaline Phosphatase (38-126) U/L Troponin I (0.000-0.034) ng/mL Total Protein (6.3-8.2) g/dL Albumin (3.5-5.0) g/dL Urine Color Urine Appearance (Clear) Urine pH (5.0-8.0) Ur Specific [place] (1.001-1.035) Urine Protein (Negative) Urine Glucose (UA) (Negative) Urine Ketones (Negative) Urine Blood (Negative) Urine Nitrite (Negative) Urine Bilirubin (Negative) Urine Urobilinogen (<2.0) mg/dL Ur Leukocyte Esterase (Negative) Influenza Type A (PCR) Not Detected (Not Detectd) Influenza Type B (PCR) Not Detected (Not Detectd) RSV (PCR) Not Detected (Not Detectd) SARS-CoV-2 (PCR) Detected A (Not Detectd) - EKG Data -: EKG Interpreted by Me EKG Comments: 12-lead Electrocardiogram Interpretation Note EKG was reviewed and interpreted by myself. 12-lead ECG performed at 0831 is interpreted by me as revealing sinus tachycardia at a rate of 102 beats per minute. Left axis deviation. QRS duration is 114 ms, QTc is 397 ms.. There w ere no ST or T wave abnormalities to suggest myocardial ischemia or injury. R wave progression across the precordium was satisfactory. By my interpretation this EKG is non-diagnostic for acute ischemia. Critical Care Time Critical Care Time: Yes Total Critical Care Time: 35 Disposition Clinical Impression: COPD (chronic obstructive pulmonary disease), COVID, Hypoxic respiratory failure Disposition: ADMITTED IP TO THIS HOSP Condition: Stable Time of Disposition: 10:35
[2023-09-22] MEDS: ALBUTEROL HFA INHALER INHALATION STA (11:37)
[2023-09-22] MEDS: oxyCODONE ER 20 MG TAB.ER.12H PO SCH (15:59)
[2023-09-22] MEDS: methylPREDNISolone SOD SUCCI 40 MG/ML 1 ML VIAL IV SCH (16:00)
[2023-09-22] MEDS: SYMBICORT 160-4.5 MCG INHALER INHALATION SCH (20:06)
[2023-09-22] MEDS: ALBUTEROL HFA INHALER INHALATION PRN (20:07)
[2023-09-22] MEDS: PREGABALIN 100 MG CAP PO SCH (22:04)
[2023-09-22] MEDS: lisinopriL 20 MG TAB PO SCH (22:04)
[2023-09-22] MEDS: clonazePAM 0.5 MG TAB PO SCH (22:04)
[2023-09-22] MEDS: APIXABAN 5 MG TAB PO SCH (22:05)
[2023-09-22] MEDS: METOPROLOL SUCCINATE (ER) 50 MG TAB.ER.24H PO SCH (22:05)
[2023-09-22] MEDS: PRAVASTATIN SODIUM 80 MG TAB PO SCH (22:06)
[2023-09-22] MEDS: BRIMONIDINE TARTRATE 0.2% DROPS 5 ML BTL BOTH EYES SCH (23:03)
[2023-09-23] MEDS ORDERED: methylPREDNISolone SOD SUCCI 40 MG/ML 1 ML VIAL IV SCH (03:30)
[2023-09-23] MEDS: methylPREDNISolone SOD SUCCI 125 MG/2 ML VIAL IV SCH (03:38)
--- NOTE | 2023-09-23 03:58 | P.CNPUL ---
History of Present Illness Consult date: 09/23/23 Requesting physician: Liborio Antony Reason for consult: dyspnea, COPD Chief complaint: Shortness of breath, coughing, wheezing History of present illness: I am seeing this patient in new consultation today 09/23/2023 in the emergency room after he tested positive for COVID outpatient on Friday, subsequently becoming more short of breath over the last 24 hours. Patient is a 78-year-old white male with past medical history significant for COPD, obstructive sleep apnea noncompliant with CPAP, A-fib, hyperlipidemia, hypertension. He has a brief smoking history of only 5 years. He had a recent hospital admission July 26 for acute RSV infection and A-fib RVR. He was discharged on Jul. As stated above, patient did test positive outpatient for COVID. He was treated outpatient by his PCP, Dr. Antony with a combination of steroids and Paxlovid. Patient did not take Paxlovid, however, he was afraid it would interfere with his Eliquis. Patient states that over the weekend he was doing fine. He was having intermittent cough with clear to yellow sputum production. Denies any fevers. Starting yesterday morning, the patient developed acute shortness of breath and wheezing. He had a home pulse oximeter which read 77%. He tried to use his as needed albuterol rescue inhaler, without much relief. He called EMS. Patient is currently sitting up in the bedside recliner, on room air, in no acute distress. SpO2 is 94%. He states that he is vaccinated for COVID and has had multiple boosters. He also tested positive for COVID last September. Chest x-ray showed no acute cardiopulmonary process and COPD like changes. CBC on arrival: WBC count 10.4, hemoglobin 12.8, hematocrit 38.6, platelets 153. BMP on arrival was unremarkable. Troponin less than 0.012. He did test positive for COVID again in the emergency room. Of note, on arrival to the emergency room he was found to be in A-fib RVR. He does have history of A- fib. He chronically takes Eliquis outpatient. Currently, patient appears to be in normal sinus rhythm on bedside monitor. Denies any chest pain, heart palpitations, lightheadedness, syncopal events. Vital signs are stable. Review of Systems REVIEW OF SYSTEMS: CONSTITUTIONAL: Denies any recent significant weight loss or weight gain. Admits generalized fatigue. Denies fevers. EYES: Denies change in vision. EARS, NOSE, MOUTH, THROAT: Denies headaches, denies sore throat. CARDIOVASCULAR: Denies chest pain, palpitations or syncopal episodes. Denies lower extremity swelling. RESPIRATORY: See HPI GASTROINTESTINAL: Denies change in appetite, abdominal pain, nausea and vomiting. Admits loose stools, 1 occurrence per day. GENITOURINARY: Denies hematuria, denies infections. MUSKULOSKELETAL: Denies pain, denies swelling. INTEGUMENTARY: Denies rash, denies eczema. NEUROLOGICAL: Denies recent memory loss, no recent seizure activity. PSYCHIATRIC: Denies anxiety, denies depression. HEMATOLOGIC/LYMPHATIC: Denies anemia, denies enlarged lymph node Past Medical History Past Medical History: Atrial Fibrillation, Atrial Flutter, COPD, Hyperlipidemia, Hypertension, Renal Disease, Sleep Apnea/CPAP/BIPAP Additional Past Medical History / Comment(s): "ON METFORMIN, FOR PREVENTION." EYE DROPS "TO PREVENT GLAUCOMA." NO CURRENT TX FOR SLEEP APNEA. HX KIDNEY STONES.maclodegeneration History of Any Multi-Drug Resistant Organisms: None Reported Past Surgical History: Ablation, Appendectomy, Back Surgery, Cardiac Ablation, Hernia Repair, Orthopedic Surgery Additional Past Surgical History / Comment(s): CARDIAC ABLATION X3. BACK SURG X4. REPAIR LT FOOT INJ. ESWL. COLONOSCOPY. Past Anesthesia/Blood Transfusion Reactions: No Reported Reaction Past Psychological History: No Psychological Hx Reported Additional Psychological History / Comment(s): . Lives independently. Retired. experience. Prior smoking none for many years. Denies alcohol or recreational drug use. Relates he was in [place]. Afib was found there Smoking Status: Former smoker Past Alcohol Use History: None Reported Additional Past Alcohol Use History / Comment(s): SMOKED 20 YEARS, 1 PPD, QUIT 2008. Past Drug Use History: None Reported - Past Family History Mother Family Medical History: No Reported History Father Family Medical History: AFIB, CVA/TIA Brother(s) Family Medical History: AFIB Medications and Allergies Home Medications Medication Instructions Recorded Confirmed Type Ketoconazole 2% Shampoo [Nizoral] 1 applic TOPICAL DIRECTED 05/09/15 09/22/23 History clonazePAM [KlonoPIN] 0.5 mg PO BID@1000,0 12/11/16 09/22/23 History ramipriL [Altace] 10 mg PO HS@219906/22/19 09/22/23 History Apixaban [Eliquis] 5 mg PO BID@1000,219907/11/20 09/22/23 History Metoprolol Succinate [Toprol XL] 50 mg PO HS@219907/11/20 09/22/23 History Naloxegol Oxalate [Movantik] 25 mg PO DAILY@99907/11/20 09/22/23 History Pregabalin [Lyrica] 100 mg PO HS@219907/11/20 09/22/23 History Albuterol Inhaler [Ventolin Hfa 1 - 2 puff INHALATION RT-Q6H PRN 07/26/23 09/22/23 History Inhaler] Brimonidine Tartrate [Alphagan P 1 drop BOTH EYES BID@999,219907/26/23 09/22/23 History 0.2% Ophth Soln] Docusate [Colace] 100 mg PO BID@1000,219907/26/23 09/22/23 History Ipratropium-Albuterol Nebulize 3 ml INHALATION RT-QID PRN 07/26/23 09/22/23 History [Duoneb 0.5 mg-3 mg/3 ml Soln] Pravastatin Sodium [Pravachol] 80 mg PO HS@219907/26/23 09/22/23 History Triamcinolone 0.5% Cream [Kenalog 1 applic TOPICAL BID PRN 07/26/23 09/22/23 History 0.5% Cream] oxyCODONE HCL [oxyCODONE HCL (IR)] 30 mg PO Q6H 07/26/23 09/22/23 History oxyCODONE HCL [oxyCODONE HCL ER] 40 mg PO BID@1000,1600 07/26/23 09/22/23 History Pantoprazole [Protonix] 40 mg PO AC-BRKFST #30 tab 07/31/23 09/22/23 Rx Sennosides-Docusate Sodium 2 tab PO BID PRN 08/31/23 09/22/23 History [Senokot-S] Budesonide-Formot 160-4.5 Mcg 2 puff INHALATION RT-BID@,09/22/23 09/22/23 History [Symbicort 160-4.5 Mcg Inhaler] predniSONE See Taper PO DIRECTED 09/22/23 09/22/23 History Allergies Allergy/AdvReac Type Severity Reaction Status Date / Time aspirin Allergy Rash/Hives Verified 09/22/23 11:32 Penicillins Allergy Rash/Hives Verified 09/22/23 11:32 Sulfa (Sulfonamide Allergy Rash/Hives Verified 09/22/23 11:32 Antibiotics) ciprofloxacin [From Cipro] AdvReac Rash/Hives Verified 09/22/23 11:32 ibuprofen [From Motrin] AdvReac Rash/Hives Verified 09/22/23 11:32 Physical Exam Vitals: Vital Signs Temp Pulse Pulse Resp BP BP Pulse Ox 09/22/23 23:42 97.7 F 70 16 118/72 95 09/22/23 22:38 83 17 131/68 92 L 09/22/23 19:57 68 18 124/63 97 09/22/23 18:34 98.4 F 76 20 127/68 96 09/22/23 15:00 78 12 119/76 09/22/23 14:00 95 16 119/76 09/22/23 13:13 98.1 F 89 20 119/76 93 L 09/22/23 11:19 94 18 137/84 95 09/22/23 09:57 88 24 133/72 94 L 09/22/23 08:32 97.7 F 86 24 121/69 86 L Intake and Output 09/22/23 09/22/23 09/23/23 14:59 22:59 06:59 Other: Weight 128.367 kg 128.367 kg GENERAL EXAM: Alert, 78-year-old white male, sitting up in bedside recliner, comfortable in no apparent distress. HEAD: Normocephalic and atraumatic EYES: Normal reaction of pupils, equal size. NOSE: Clear with pink turbinates. THROAT: No erythema or exudates. NECK: No masses, no JVD. CHEST: No chest wall deformity. LUNGS: Equal air entry with generalized expiratory wheezing and rhonchi, on room air, no conversational dyspnea or accessory muscle use.. CVS: S1 and S2 normal with no audible murmur, regular rhythm. No extra heart sounds ABDOMEN: No hepatosplenomegaly, active bowel sounds, no guarding or rigidity. SPINE: No scoliosis or deformity SKIN: No rashes CENTRAL NERVOUS SYSTEM: No focal deficits, tone is normal in all 4 extremities. EXTREMITIES: There is no peripheral edema, clubbing, or cyanosis. Peripheral pulses are intact. Results - Laboratory Findings CBC and BMP: 09/22/23 08:43 09/22/23 08:43 PT/INR, D-dimer PT 10.6 sec (10.0-12.5) 09/22/23 08:43 INR 1.0 (<1.2) 09/22/23 08:43 Abnormal lab findings: Abnormal Labs 09/22/23 09/22/23 09/22/23 08:43 08:43 08:43 RBC 4.14 L Hgb 12.8 L Hct 38.6 L Neutrophils # 7.9 H Creatinine 0.61 L Glucose 116 H Urine Protein Trace H SARS-CoV-2 (PCR) 09/22/23 08:43 RBC Hgb Hct Neutrophils # Creatinine Glucose Urine Protein SARS-CoV-2 (PCR) Detected A - Diagnostic Findings Chest x-ray: image reviewed Assessment and Plan Assessment: Acute dyspnea, likely multifactorial, secondary to possible acute COPD exacerbation, acute COVID-19 infection, and A-fib RVR. Chest x-ray on arrival does not show any focal infiltrates or evidence of COVID-19 pneumonia. Procalcitonin level pending. Acute COVID-19 infection, originally tested positive outpatient on Friday Paroxysmal atrial fibrillation, currently normal sinus rhythm, he has history of previous cardiac ablations History of hypertension History of hyperlipidemia Obstructive sleep apnea, noncompliant with CPAP at home History of kidney stones History of glaucoma Brief history of tobacco dependence Plan: Patient's medications, labs, chest x-ray reviewed Currently on room air Patient was started on a combination of bronchodilators, Symbicort inhaler, and IV Solu-Medrol. Procalcitonin level pending A-fib RVR is converted into a normal sinus rhythm. Anticoagulated on Eliquis. Protonix GI prophylaxis. Will continue to follow I have personally seen and examined the patient, performed the documentation and the assessment and plan as written. Number of minutes spent on the visit:20 Time with Patient: Greater than 30
[2023-09-23] MEDS: MOVANTIK 25 MG PO SCH (06:34)
[2023-09-23 08:10] VITALS: BP 135/72; PULSE 83; RESP 19; TEMP 97.6
[2023-09-23] MEDS: PANTOPRAZOLE 40 MG TABLET PO SCH (08:11)
[2023-09-23] MEDS: ALBUTEROL HFA INHALER INHALATION SCH (08:33)
[2023-09-23 08:37] LABS: Basophils # (A) 0.01 X 10*3/uL (0.00-0.10); Basophils % (A) 0.1 %; Eosinophils # (A) 0 X 10*3/uL (0.04-0.35); Eosinophils % (A) 0 %; HCT 36.5 % (39.6-50.0); HGB 11.4 g/dL (13.0-17.0); Lymphocytes # (A) 0.77 X 10*3/uL (0.90-5.00); Lymphocytes % (A) 9.9 %; MCH 29.6 pg (27.0-32.0); MCHC 31.2 g/dL (32.0-37.0); MCV 94.8 FL (80.0-97.0); Mean Platelet Volume 11.2 FL (9.5-12.2); Monocytes # (A) 0.33 X 10*3/uL (0.20-1.00); Monocytes % (A) 4.2 %; NRBC Per 100 WBC 0 X 10*3/uL (0.00-0.01); Neutrophils # (A) 6.63 X 10*3/uL (1.80-7.70); Neutrophils % (A) 84.9 %; Platelet Count 176 X 10*3/uL (140-440); RBC 3.85 X 10*6/uL (4.40-5.60); RDW 14.4 % (11.5-14.5); WBC 7.81 X 10*3/uL (4.50-10.00)
[2023-09-23 09:03] LABS: BUN/Creat Ratio 21.67 Ratio (12.00-20.00); Calcium 8.4 mg/dL (8.7-10.3); Chloride 104 mmol/L (96-109); Glucose 159 mg/dL (70-110); Potassium 4.8 mmol/L (3.5-5.5); Sodium 139 mmol/L (135-145)
[2023-09-24] MEDS ORDERED: MOVANTIK 25MG PO SCH (06:00)
--- NOTE | 2023-09-24 11:10 | P.HPIM ---
History of Present Illness H&P Date: 09/23/23 Chief Complaint: Hypoxia History and Physical and Discharge Summary This is an 78-year-old gentleman with past medical history significant for recen t inpatient hospitalization for RSV infection and A-fib RVR in July 2023- anticoagulated on Eliquis COPD, obstructive sleep apnea with CPAP, hypertension, hyperlipidemia, prior nicotine dependence, vaccinated for COVID with boosters, prior COVID infection 10/03, tested positive for COVID 19 outpatient on September 18 x 2. Followed up with his PCP, steroids and Paxlovid ordered. Patient however only took his steroids as he was concerned the Paxlovid would interfere with his Eliquis. Had an uneventful weekend. Yesterday morning, developed worsening dyspnea with wheezing reports his home pulse ox read 77%, attempted his albuterol rescue inhaler without relief, called EMS and transported to [facility] ER. On admission O2 sat 86%, placed on 2 L nasal cannula, chest x-ray reported no acute cardiopulmonary disease process, COPD changes; no evidence of pleural effusion, focal consolidation or pneumothorax, pulmonary vascularity unremarkable. EKG reported sinus tachycardia, heart rate 102. Denies chest pain, palpitations or shortness of breath. Denies lightheadedness dizziness or focal deficits. Denies syncope. Patient currently sitting up in a chair, maintaining O2 sats of 92 to 95% on room air. Telemetry sinus rhythm. Vital signs stable. Review of Systems ROS Statement: Those systems with pertinent positive or pertinent negative responses have been documented in the HPI. ROS Other: All systems not noted in ROS Statement are negative. Past Medical History Past Medical History: Atrial Fibrillation, Atrial Flutter, COPD, Hyperlipidemia, Hypertension, Renal Disease, Sleep Apnea/CPAP/BIPAP Additional Past Medical History / Comment(s): "ON METFORMIN, FOR PREVENTION." EYE DROPS "TO PREVENT GLAUCOMA." NO CURRENT TX FOR SLEEP APNEA. HX KIDNEY STONES.maclodegeneration History of Any Multi-Drug Resistant Organisms: None Reported Past Surgical History: Ablation, Appendectomy, Back Surgery, Cardiac Ablation, Hernia Repair, Orthopedic Surgery Additional Past Surgical History / Comment(s): CARDIAC ABLATION X3. BACK SURG X4. REPAIR LT FOOT INJ. ESWL. COLONOSCOPY. Past Anesthesia/Blood Transfusion Reactions: No Reported Reaction Past Psychological History: No Psychological Hx Reported Additional Psychological History / Comment(s): . Lives independently. Retired. experience. Prior smoking none for many years. Denies alcohol or recreational drug use. Relates he was in [place]. Afib was found there Smoking Status: Former smoker Past Alcohol Use History: None Reported Additional Past Alcohol Use History / Comment(s): SMOKED 20 YEARS, 1 PPD, QUIT 2008. Past Drug Use History: None Reported - Past Family History Mother Family Medical History: No Reported History Father Family Medical History: AFIB, CVA/TIA Brother(s) Family Medical History: AFIB Medications and Allergies Home Medications Medication Instructions Recorded Confirmed Type Ketoconazole 2% Shampoo [Nizoral] 1 applic TOPICAL DIRECTED 05/09/15 09/22/23 History clonazePAM [KlonoPIN] 0.5 mg PO BID@1000,219912/11/16 09/22/23 History ramipriL [Altace] 10 mg PO HS@219906/22/19 09/22/23 History Apixaban [Eliquis] 5 mg PO BID@1000,219907/11/20 09/22/23 History Metoprolol Succinate [Toprol XL] 50 mg PO HS@219907/11/20 09/22/23 History Naloxegol Oxalate [Movantik] 25 mg PO DAILY@1000 07/11/20 09/22/23 History Pregabalin [Lyrica] 100 mg PO HS@219907/11/20 09/22/23 History Albuterol Inhaler [Ventolin Hfa 1 - 2 puff INHALATION RT-Q6H PRN 07/26/23 09/22/23 History Inhaler] Brimonidine Tartrate [Alphagan P 1 drop BOTH EYES BID@1000,219907/26/23 09/22/23 History 0.2% Ophth Soln] Docusate [Colace] 100 mg PO BID@1000,219907/26/23 09/22/23 History Ipratropium-Albuterol Nebulize 3 ml INHALATION RT-QID PRN 07/26/23 09/22/23 History [Duoneb 0.5 mg-3 mg/3 ml Soln] Pravastatin Sodium [Pravachol] 80 mg PO HS@219907/26/23 09/22/23 History Triamcinolone 0.5% Cream [Kenalog 1 applic TOPICAL BID PRN 07/26/23 09/22/23 History 0.5% Cream] oxyCODONE HCL [oxyCODONE HCL (IR)] 30 mg PO Q6H 07/26/23 09/22/23 History oxyCODONE HCL [oxyCODONE HCL ER] 40 mg PO BID@1000,1600 07/26/23 09/22/23 History Pantoprazole [Protonix] 40 mg PO AC-BRKFST #30 tab 07/31/23 09/22/23 Rx Sennosides-Docusate Sodium 2 tab PO BID PRN 08/31/23 09/22/23 History [Senokot-S] Budesonide-Formot 160-4.5 Mcg 2 puff INHALATION RT-BID@09/22/23 09/22/23 History [Symbicort 160-4.5 Mcg Inhaler] predniSONE See Taper PO DIRECTED #0 09/23/23 09/22/23 Rx Allergies Allergy/AdvReac Type Severity Reaction Status Date / Time aspirin Allergy Rash/Hives Verified 09/22/23 11:32 Penicillins Allergy Rash/Hives Verified 09/22/23 11:32 Sulfa (Sulfonamide Allergy Rash/Hives Verified 09/22/23 11:32 Antibiotics) ciprofloxacin [From Cipro] AdvReac Rash/Hives Verified 09/22/23 11:32 ibuprofen [From Motrin] AdvReac Rash/Hives Verified 09/22/23 11:32 Physical Exam Vitals: Vital Signs Temp Pulse Pulse Resp BP BP Pulse Ox 09/23/23 07:55 97.6 F 83 19 135/72 93 L 09/22/23 23:42 97.7 F 70 16 118/72 95 09/22/23 22:38 83 17 131/68 92 L 09/22/23 19:57 68 18 124/63 97 09/22/23 18:34 98.4 F 76 20 127/68 96 09/22/23 15:00 78 12 119/76 09/22/23 14:00 95 16 119/76 09/22/23 13:13 98.1 F 89 20 119/76 93 L 09/22/23 11:19 94 18 137/84 95 Intake and Output 09/22/23 09/23/23 09/23/23 22:59 06:59 14:59 Output Total 500 Balance -500 Output: Urine 500 Other: Weight 128.367 kg PHYSICAL EXAM: VITAL SIGNS: [As above] GENERAL: Alert and oriented 3, sitting up in chair, no acute distress, conversing without dyspnea HEENT: Normocephalic, Conjunctivae normal. eyes normal. NECK: Supple, No JVD. CARDIOVASCULAR: S1, S2 regular.systolic murmur RESPIRATION: Unlabored, no accessory muscle use ,equal air entry, minimal rhonc hi , fine expiratory wheezing bibasilar. ABDOMEN: Soft, nontender . No rigidity, no guarding, positive bowel sounds. LEGS: No edema. no swelling. No calf tenderness. NERVOUS SYSTEM: Cranial N 2-12 grossly normal.No focal deficits. Skin: Warm and dry, no rash Results CBC & Chem 7: 09/23/23 03:49 09/23/23 03:49 Labs: Abnormal Lab Results - Last 24 Hours (Table) 09/23/23 09/23/23 Range/Units 03:49 03:49 RBC 3.85 L (4.40-5.60) X 10*6/uL Hgb 11.4 L (13.0-17.0) g/dL Hct 36.5 L (39.6-50.0) % MCHC 31.2 L (32.0-37.0) g/dL Immature Gran # 0.07 H (0.00-0.04) X 10*3/uL Lymphocytes # 0.77 L (0.90-5.00) X 10*3/uL Eosinophils # 0 L (0.04-0.35) X 10*3/uL BUN/Creatinine Ratio 21.67 H (12.00-20.00) Ratio Glucose 159 H (70-110) mg/dL Calcium 8.4 L (8.7-10.3) mg/dL Thrombosis Risk Factor Assmnt - Choose All That Apply Any of the Below Risk Factors Present?: Yes Each Factor Represents 1 point: Abnormal pulmonary function (COPD), Obesity (BMI >25) Other Risk Factors: Yes Each Risk Factor Represents 3 Points: Age 75 years or older Other congenital or acquired thrombophilia - If yes, enter type in comment: No Thrombosis Risk Factor Assessment Total Risk Factor Score: 5 Thrombosis Risk Factor Assessment Level: High Risk Assessment and Plan Assessment: Acute dyspnea, multifactorial, possible acute COPD exacerbation, acute COVID-19 infection-chest x-ray does not report any focal infiltrates or evidence of COVID-19 pneumonia per pulmonary review. Recent RSV tracheobronchitis, July 2023 Chronic paroxysmal atrial fibrillation, anticoagulated on Eliquis COPD History of cardiac ablation 3 at [facility] Hypertension hyperlipidemia End-stage renal disease Obstructive sleep apnea, noncompliant with CPAP at home Morbid obesity, BMI 38 Chronic back pain, history of back surgery Glaucoma Prior nicotine dependence Plan: Continue on current medication regimen ,monitoring and symptomatic treatment. Maintained on nebulized bronchodilators, IV steroids and Symbicort.Patient has been evaluated and cleared by pulmonary for discharge. Patient will be discharged home today in a stable condition with guarded prognosis. The impression and plan of care has been dictated as directed. : I performed a history and examination of this patient, discussed the same with the dictator. I agree with the dictator's note ,documented as a scribe. Any additional findings or plans will be noted.
== END 2023-09-23 13:03 | disposition home or self-care (01) | DRG 190 ==
LOC: EC 08:24 → 4SSUR 10:48
PROVIDERS: ADMIT Family Medicine; ATTEND Family Medicine
DX: J44.1 Chronic obstructive pulmonary disease with (acute) exacerbation (principal); N18.6 End stage renal disease; U07.1 COVID-19; I12.0 Hypertensive chronic kidney disease with stage 5 chronic kidney disease or end stage renal disease; I48.92 Unspecified atrial flutter; E66.01 Morbid (severe) obesity due to excess calories; Z68.38 Body mass index [BMI] 38.0-38.9, adult; G89.29 Other chronic pain; M54.9 Dorsalgia, unspecified; H40.9 Unspecified glaucoma; Z79.51 Long term (current) use of inhaled steroids; Z79.52 Long term (current) use of systemic steroids; Z79.01 Long term (current) use of anticoagulants; Z86.16 Personal history of COVID-19; Z87.442 Personal history of urinary calculi; Z91.199 Patient's noncompliance with other medical treatment and regimen due to unspecified reason; Z79.899 Other long term (current) drug therapy; I48.0 Paroxysmal atrial fibrillation; G47.33 Obstructive sleep apnea (adult) (pediatric); E78.5 Hyperlipidemia, unspecified; E11.22 Type 2 diabetes mellitus with diabetic chronic kidney disease; D64.9 Anemia, unspecified; Z88.0 Allergy status to penicillin; Z88.2 Allergy status to sulfonamides; Z88.6 Allergy status to analgesic agent; Z87.19 Personal history of other diseases of the digestive system
CPT/HCPCS: 36415; 71046; 80048; 80053; 81003; 83605; 83735; 84145; 84484; 85025; 85610; 85730; 87636; 93005; 94640; 96361; 96374; 96376; 99291

== ENCOUNTER 2023-09-27 10:14 | Inpatient (IN) | payer MEDICARE ==
--- NOTE | 2023-09-27 10:51 | ED ---
General Adult HPI - General Chief complaint: Shortness of Breath Stated complaint: tachycardia Time Seen by Provider: 09/27/23 10:20 Source: patient, RN notes reviewed, old records reviewed Mode of arrival: ambulatory Limitations: no limitations - History of Present Illness Initial comments: This is an 78-year-old male who presents to the emergency department stating that he has a history of atrial fibrillation. Patient states he recently had COVID about 8 days ago. Patient states he was admitted to the hospital at that time. Patient states yesterday his pain doctor diagnosed him with pneumonia. Patient states he still has a slight cough but no sputum production. Patient states this symptoms of shortness of breath and palpitations started yesterday but they were worse this morning when he got up and his heart rate went up to 160 so he decided to come the emergency department. Patient states he took an extra dose of metoprolol but it did not seem to slow his heart much. - Related Data Home Medications Medication Instructions Recorded Confirmed Ketoconazole 2% Shampoo [Nizoral] 1 applic TOPICAL DIRECTED 05/09/15 09/22/23 clonazePAM [KlonoPIN] 0.5 mg PO BID@1000,219912/11/16 09/22/23 ramipriL [Altace] 10 mg PO HS@22006/22/19 09/22/23 Apixaban [Eliquis] 5 mg PO BID@1000,219907/11/20 09/22/23 Metoprolol Succinate [Toprol XL] 50 mg PO HS@22007/11/20 09/22/23 Naloxegol Oxalate [Movantik] 25 mg PO DAILY@99907/11/20 09/22/23 Pregabalin [Lyrica] 100 mg PO HS@2200 07/11/20 09/22/23 Albuterol Inhaler [Ventolin Hfa 1 - 2 puff INHALATION RT-Q6H PRN 07/26/23 09/22/23 Inhaler] Brimonidine Tartrate [Alphagan P 1 drop BOTH EYES BID@1000,219907/26/23 09/22/23 0.2% Ophth Soln] Docusate [Colace] 100 mg PO BID@1000,219907/26/23 09/22/23 Ipratropium-Albuterol Nebulize 3 ml INHALATION RT-QID PRN 07/26/23 09/22/23 [Duoneb 0.5 mg-3 mg/3 ml Soln] Pravastatin Sodium [Pravachol] 80 mg PO HS@2200 07/26/23 09/22/23 Triamcinolone 0.5% Cream [Kenalog 1 applic TOPICAL BID PRN 07/26/23 09/22/23 0.5% Cream] oxyCODONE HCL [oxyCODONE HCL (IR)] 30 mg PO Q6H 07/26/23 09/22/23 oxyCODONE HCL [oxyCODONE HCL ER] 40 mg PO BID@1000,1600 07/26/23 09/22/23 Sennosides-Docusate Sodium 2 tab PO BID PRN 08/31/23 09/22/23 [Senokot-S] Budesonide-Formot 160-4.5 Mcg 2 puff INHALATION RT-BID@10,22 09/22/23 09/22/23 [Symbicort 160-4.5 Mcg Inhaler] Previous Rx's Medication Instructions Recorded Pantoprazole [Protonix] 40 mg PO AC-BRKFST #30 tab 07/31/23 predniSONE See Taper PO DIRECTED #0 09/23/23 Allergies Allergy/AdvReac Type Severity Reaction Status Date / Time aspirin Allergy Rash/Hives Verified 09/22/23 11:32 Penicillins Allergy Rash/Hives Verified 09/22/23 11:32 Sulfa (Sulfonamide Allergy Rash/Hives Verified 09/22/23 11:32 Antibiotics) ciprofloxacin [From Cipro] AdvReac Rash/Hives Verified 09/22/23 11:32 ibuprofen [From Motrin] AdvReac Rash/Hives Verified 09/22/23 11:32 Review of Systems ROS Statement: Those systems with pertinent positive or pertinent negative responses have been documented in the HPI. ROS Other: All systems not noted in ROS Statement are negative. Past Medical History Past Medical History: Atrial Fibrillation, Atrial Flutter, COPD, Hyperlipidemia, Hypertension, Pneumonia, Renal Disease, Sleep Apnea/CPAP/BIPAP Additional Past Medical History / Comment(s): "ON METFORMIN, FOR PREVENTION." E YE DROPS "TO PREVENT GLAUCOMA." NO CURRENT TX FOR SLEEP APNEA. HX KIDNEY STONES.maclodegeneration. RSV, Covid, and Pneumonia August and September 2023 History of Any Multi-Drug Resistant Organisms: None Reported Past Surgical History: Ablation, Appendectomy, Back Surgery, Cardiac Ablation, Hernia Repair, Orthopedic Surgery Additional Past Surgical History / Comment(s): CARDIAC ABLATION X3. BACK SURG X4. REPAIR LT FOOT INJ. ESWL. COLONOSCOPY. Past Anesthesia/Blood Transfusion Reactions: No Reported Reaction Past Psychological History: No Psychological Hx Reported Smoking Status: Former smoker Past Alcohol Use History: None Reported Past Drug Use History: None Reported - Past Family History Mother Family Medical History: No Reported History Father Family Medical History: AFIB, CVA/TIA Brother(s) Family Medical History: AFIB General Exam - General Exam Comments Initial Comments: GENERAL: Patient is well-developed and well-nourished. Patient is nontoxic and well- hydrated and is in mild distress. ENT: Neck is soft and supple. No significant lymphadenopathy is noted. Oropharynx is clear. Moist mucous membranes. Neck has full range of motion without eliciting any pain. EYES: The sclera were anicteric and conjunctiva were pink and moist. Extraocular movements were intact and pupils were equal round and reactive to light. Eyelids were unremarkable. PULMONARY: Unlabored respirations. Good breath sounds bilaterally. No audible rales rhonchi or wheezing was noted. CARDIOVASCULAR: Patient has an irregular heartbeat that is at about 130 beats a minute ABDOMEN: Soft and nontender with normal bowel sounds. SKIN: Skin is clear with no lesions or rashes and otherwise unremarkable. NEUROLOGIC: Patient is alert and oriented x3. Cranial nerves II through XII are grossly intact. Motor and sensory are also intact. Normal speech, volume and content. Symmetrical smile. MUSCULOSKELETAL: Normal extremities with adequate strength and full range of motion. LYMPHATICS: No significant lymphadenopathy is noted PSYCHIATRIC: Normal psychiatric evaluation. Limitations: no limitations Course Vital Signs 09/27/23 09/27/23 09/27/23 10:17 10:23 10:30 Temperature 97.9 F Pulse Rate 134 H 112 H 112 H Pulse Rate [ Habilitation Specialist ] Respiratory 18 18 16 Rate Blood Pressure 131/84 131/84 O2 Sat by Pulse 96 95 95 Oximetry 09/27/23 09/27/23 09/27/23 10:50 11:00 11:30 Temperature Pulse Rate 112 H 112 H Pulse Rate [ 154 H Habilitation Specialist ] Respiratory 18 16 Rate Blood Pressure 121/68 150/105 O2 Sat by Pulse 95 94 L Oximetry 09/27/23 09/27/23 09/27/23 12:00 12:30 12:50 Temperature Pulse Rate 97 79 80 Pulse Rate [ Habilitation Specialist ] Respiratory 16 18 18 Rate Blood Pressure 121/79 139/63 115/69 O2 Sat by Pulse 91 L 93 L 92 L Oximetry Medical Decision Making - Medical Decision Making EKG is interpreted by myself but EKG shows atrial flutter at 153 bpm QRS is 92 QT interval is 288 QTc is 375. Patient's EKG shows no ST segment elevation or depression Was pt. sent in by a medical professional or institution (, PA, SENIOR WEB ENGINEER, urgent care, hospital, or shelter...) When possible be specific @ -No Did you speak to anyone other than the patient for history (EMS, parent, family, police, friend...)? What history was obtained from this source @ -No Did you review nursing and triage notes (agree or disagree)? Why? @ -I reviewed and agree with nursing and triage notes Were old charts reviewed (outside hosp., previous admission, EMS record, old EKG, old radiological studies, urgent care reports/EKG's, shelter records)? Report findings @ -I reviewed prior charts and prior lab work on this patient Differential Diagnosis (chest pain, altered mental status, abdominal pain women, abdominal pain men, vaginal bleeding, weakness, fever, dyspnea, syncope, headache, dizziness, GI bleed, back pain, seizure, CVA, palpatations, mental health, musculoskeletal)? @ -Differential Dyspnea: Coronary syndrome, arrhythmia, tamponade, asthma, COPD, pulmonary embolism, pneumonia, pneumothorax, pulmonary effusion, anaphylaxis, diabetic ketoacidosis, flailed chest, pulmonary contusion, diaphragmatic rupture, anemia, neuromuscula r, this is not meant to be an all-inclusive list. EKG interpreted by me (3pts min.). @ -As above X-rays interpreted by me (1pt min.). @ -Chest x-ray shows no acute abnormality CT interpreted by me (1pt min.). @ -None done U/S interpreted by me (1pt. min.). @ -None done What testing was considered but not performed or refused? (CT, X-rays, U/S, labs)? Why? @ -None What meds were considered but not given or refused? Why? @ -None Did you discuss the management of the patient with other professionals (professionals i.e. , PA, SENIOR WEB ENGINEER, lab, RT, psych nurse, social services director, chemical processing supervisor, teacher, first aid officer, case mgr)? Give summary @ -No Was smoking cessation discussed for >3mins.? @ -No Was critical care preformed (if so, how long)? @ -35 minutes Were there social determinants of health that impacted care today? How? (Homelessness, low income, unemployed, alcoholism, drug addiction, transpor tation, low edu. Level, literacy, decrease access to med. care, alf, rehab)? @ -No Was there de-escalation of care discussed even if they declined (Discuss DNR or withdrawal of care, Hospice)? DNR status @ -No What co-morbidities impacted this encounter? (DM, HTN, Smoking, COPD, CAD, Cancer, CVA, ARF, Chemo, Hep., AIDS, mental health diagnosis, sleep apnea, morbid obesity)? @ -None Was patient admitted / discharged? Hospital course, mention meds given and route, prescriptions, significant lab abnormalities, going to OR and other pertinent info. @ -Patient's heart rate was 150. Patient's heart rate showed atrial flutter. I started the patient on Cardizem after I gave the patient a Cardizem bolus. Patient already was on blood thinners. I spoke with [facility] hospitalist they agreed to admit the patient and admitted patient with admitting orders Undiagnosed new problem with uncertain prognosis? @ -No Drug Therapy requiring intensive monitoring for toxicity (Heparin, Nitro, Ins ulin, Cardizem)? @ -No Were any procedures done? @ -No Diagnosis/symptom? @ -Atrial flutter with rapid ventricular response Acute, or Chronic, or Acute on Chronic? @ -Acute Uncomplicated (without systemic symptoms) or Complicated (systemic symptoms)? @ -Complicated Side effects of treatment? @ -No Exacerbation, Progression, or Severe Exacerbation? @ -No Poses a threat to life or bodily function? How? (Chest pain, [place], [place], pneumonia, PE, COPD, DKA, ARF, appy, cholecystitis, CVA, Diverticulitis, Homicidal, Suicidal, threat to staff... and all critical care pts) @ -Yes this could lead to poor perfusion and end organ dysfunction - Lab Data Result diagrams: 09/27/23 10:54 09/27/23 10:54 Lab Results 09/27/23 09/27/23 09/27/23 Range/Units 10:54 10:54 10:54 WBC 10.6 (3.8-10.6) k/uL RBC 4.37 (4.30-5.90) m/uL Hgb 12.6 L (13.0-17.5) gm/dL Hct 40.4 (39.0-53.0) % MCV 92.3 (80.0-100.0) fL MCH 28.7 (25.0-35.0) pg MCHC 31.1 (31.0-37.0) g/dL RDW 14.0 (11.5-15.5) % Plt Count 222 (150-450) k/uL MPV 8.4 Neutrophils % 69 % Lymphocytes % 19 % Monocytes % 7 % Eosinophils % 3 % Basophils % 0 % Neutrophils # 7.3 (1.3-7.7) k/uL Lymphocytes # 2.0 (1.0-4.8) k/uL Monocytes # 0.7 (0-1.0) k/uL Eosinophils # 0.3 (0-0.7) k/uL Basophils # 0.0 (0-0.2) k/uL PT 11.3 (10.0-12.5) sec INR 1.0 (<1.2) APTT 26.0 (22.0-30.0) sec D-Dimer 0.37 (<0.60) mg/L FEU Sodium 138 (137-145) mmol/L Potassium 4.3 (3.5-5.1) mmol/L Chloride 104 (98-107) mmol/L Carbon Dioxide 26 (22-30) mmol/L Anion Gap 8 mmol/L BUN 13 (9-20) mg/dL Creatinine 0.56 L (0.66-1.25) mg/dL Est GFR (CKD-EPI)AfAm >90 (>60 ml/min/1.73 sqM) Est GFR (CKD-EPI)NonAf >90 (>60 ml/min/1.73 sqM) Glucose 99 (74-99) mg/dL Calcium 8.5 (8.4-10.2) mg/dL Magnesium 1.9 (1.6-2.3) mg/dL Total Bilirubin 0.5 (0.2-1.3) mg/dL AST 23 (17-59) U/L ALT 27 (4-49) U/L Alkaline Phosphatase 52 (38-126) U/L Troponin I (0.000-0.034) ng/mL Total Protein 6.4 (6.3-8.2) g/dL Albumin 3.3 L (3.5-5.0) g/dL 09/27/23 Range/Units 10:54 WBC (3.8-10.6) k/uL RBC (4.30-5.90) m/uL Hgb (13.0-17.5) gm/dL Hct (39.0-53.0) % MCV (80.0-100.0) fL MCH (25.0-35.0) pg MCHC (31.0-37.0) g/dL RDW (11.5-15.5) % Plt Count (150-450) k/uL MPV Neutrophils % % Lymphocytes % % Monocytes % % Eosinophils % % Basophils % % Neutrophils # (1.3-7.7) k/uL Lymphocytes # (1.0-4.8) k/uL Monocytes # (0-1.0) k/uL Eosinophils # (0-0.7) k/uL Basophils # (0-0.2) k/uL PT (10.0-12.5) sec INR (<1.2) APTT (22.0-30.0) sec D-Dimer (<0.60) mg/L FEU Sodium (137-145) mmol/L Potassium (3.5-5.1) mmol/L Chloride (98-107) mmol/L Carbon Dioxide (22-30) mmol/L Anion Gap mmol/L BUN (9-20) mg/dL Creatinine (0.66-1.25) mg/dL Est GFR (CKD-EPI)AfAm (>60 ml/min/1.73 sqM) Est GFR (CKD-EPI)NonAf (>60 ml/min/1.73 sqM) Glucose (74-99) mg/dL Calcium (8.4-10.2) mg/dL Magnesium (1.6-2.3) mg/dL Total Bilirubin (0.2-1.3) mg/dL AST (17-59) U/L ALT (4-49) U/L Alkaline Phosphatase (38-126) U/L Troponin I 0.014 (0.000-0.034) ng/mL Total Protein (6.3-8.2) g/dL Albumin (3.5-5.0) g/dL Critical Care Time Critical Care Time: Yes Total Critical Care Time: 35 Disposition Clinical Impression: Atrial flutter with rapid ventricular response Disposition: ADMITTED IP TO THIS HOSP Referrals: Linda Antony DO [Primary Care Provider] - 1-2 days Time of Disposition: 14:13
[2023-09-27] MEDS: DILTIAZEM DRIP BOLUS FROM BAG 1 MG SOLN IV ONE (10:58)
[2023-09-27] MEDS: DILTIAZEM 125 MG in SODIUM CHLORIDE 0.9% 100 ML IV SCH (10:59)
--- NOTE | 2023-09-27 12:09 | XR ---
EXAMINATION TYPE: XR chest 2V DATE OF EXAM: 09/27/2023 11:21 AM CLINICAL INDICATION:Male, 78 years old with history of dysrhythmia; COMPARISON: Chest radiographs from 08/24/2023 TECHNIQUE: XR chest 2V Frontal and lateral views of the chest. FINDINGS: Lungs/Pleura: There is flattening of the diaphragm with increased lucency of the lungs. No evidence o f pneumothorax, pleural effusion or focal consolidation. Pulmonary vascularity: Unremarkable. Heart/mediastinum: Cardiomediastinal silhouette is unremarkable. Musculoskeletal: No acute osseous pathology. IMPRESSION: 1. No acute cardiopulmonary disease process. 2. COPD changes.
[2023-09-27 12:57] LABS: Basophils % (A) 0 %; Eosinophils # (A) 0.3 k/uL (0-0.7); Eosinophils % (A) 3 %; HCT 40.4 % (39.0-53.0); HGB 12.6 gm/dL (13.0-17.5); Lymphocytes % (A) 19 %; MCH 28.7 pg (25.0-35.0); MCHC 31.1 g/dL (31.0-37.0); MCV 92.3 fL (80.0-100.0); Mean Platelet Volume 8.4; Monocytes # (A) 0.7 k/uL (0-1.0); Monocytes % (A) 7 %; Neutrophils # (A) 7.3 k/uL (1.3-7.7); Neutrophils % (A) 69 %; Platelet Count 222 k/uL (150-450); RBC 4.37 m/uL (4.30-5.90); WBC 10.6 k/uL (3.8-10.6)
[2023-09-27 13:09] LABS: ALT 27 U/L (4-49); AST 23 U/L (17-59); African American GFR (CKD) >90 (>60 ml/min/1.73 sqM); Albumin 3.3 g/dL (3.5-5.0); Alkaline Phosphatase 52 U/L (38-126); Anion Gap 8 mmol/L; Blood Urea Nitrogen 13 mg/dL (9-20); Calcium 8.5 mg/dL (8.4-10.2); Carbon Dioxide 26 mmol/L (22-30); Chloride 104 mmol/L (98-107); Glucose 99 mg/dL (74-99); Magnesium 1.9 mg/dL (1.6-2.3); Non-African American GFR(CKD) >90 (>60 ml/min/1.73 sqM); Potassium 4.3 mmol/L (3.5-5.1); Sodium 138 mmol/L (137-145); Total Bilirubin 0.5 mg/dL (0.2-1.3); Total Protein 6.4 g/dL (6.3-8.2)
[2023-09-27 13:12] LABS: Prothrombin Time 11.3 sec (10.0-12.5)
[2023-09-27] MEDS ORDERED: NITROGLYCERIN SL TABS 0.4 MG TAB SUBLINGUAL PRN ×2 (13:31→14:14)
[2023-09-27] MEDS ORDERED: ONDANSETRON 4 MG/2 ML VIAL IVP PRN (14:41)
[2023-09-27] MEDS ORDERED: NALOXONE 0.4 MG/ML 1 ML VIAL IV PRN (14:41)
[2023-09-27] MEDS ORDERED: ACETAMINOPHEN TAB 325 MG TAB PO PRN (14:41)
[2023-09-27] MEDS ORDERED: ALBUTEROL HFA INHALER INHALATION PRN (14:45)
[2023-09-27] MEDS ORDERED: IPRATROPIUM-ALBUTEROL 3 ML NEB INHALATION PRN (15:04)
--- NOTE | 2023-09-27 15:04 | P.HPIM ---
History of Present Illness H&P Date: 09/27/23 Chief Complaint: Shortness of breath palpitations * 78-year-old gentleman past medical history significant for atrial fibrillation, history of COPD hypertension hyperlipidemia sleep disorder presents to the emergency department with complaints of shortness of breath. Patient was recently diagnosed with COVID. Patient states that he was diagnosed outpatient with pneumonia. Workup in ER included COPD changes, no acute cardiopulmonary process * Was recently in the hospital for COVID and was discharged on 09/23/2023. He was also placed on a prednisone taper, patient states he was taking azithromycin for productive cough * EKG obtained in ER showed atrial flutter heart rate in 153 * Workup in ER included CBC which showed WBC 10.6 hemoglobin 12.6 platelet count of 222, INR of 1 D-dimer 0.37 * Serum chemistry sodium 138 potassium 4.3, dioxide 26 BUN 13 creatinine 0.56 total bilirubin 0.5 liver profile within normal limits * While in ER patient was started on IV Cardizem drip,. Patient resumed back on Eliquis as well REVIEW OF SYSTEMS: Shortness of breath, palpitation, cough CONSTITUTIONAL: No fever, no malaise, no fatigue. HEENT: No recent visual problems or hearing problems. Denied any sore throat. CARDIOVASCULAR: No chest pain, orthopnea, PND, no palpitations, no syncope. PULMONARY: No shortness of breath, no cough, no hemoptysis. GASTROINTESTINAL: No diarrhea, no nausea, no vomiting, no abdominal pain. NEUROLOGICAL: No headaches, no weakness, no numbness. HEMATOLOGICAL: Denies any bleeding or petechiae. GENITOURINARY: Denies any burning micturition, frequency, or urgency. MUSCULOSKELETAL/RHEUMATOLOGICAL: Denies any joint pain, swelling, or any muscle pain. ENDOCRINE: Denies any polyuria or polydipsia. PHYSICAL EXAMINATION: GENERAL: The patient is alert and oriented x3, not in any acute distress. Well developed, well nourished. HEENT: Pupils are round and equally reacting to light. EOMI. CARDIOVASCULAR: S1 and S2 present. Irregular rhythm tachycardia noted PULMONARY: Chest is clear to auscultation, no wheezing or crackles. ABDOMEN: Soft, nontender, nondistended, normoactive bowel sounds. No palpable organomegaly. MUSCULOSKELETAL: No joint swelling or deformity. EXTREMITIES: No cyanosis, clubbing, or pedal edema. NEUROLOGICAL: Gross neurological examination did not reveal any focal deficits. SKIN: No rashes. Assessment and plan Atrial flutter with rapid monitor response History of COPD not in exacerbation, acute tracheobronchitis Patient diagnosis for COVID Hypertension Hyperlipidemia * In regards to atrial flutter, continue patient on Cardizem drip, continue anticoagulation with Eliquis * In regards to COPD continue patient on breathing treatment Symbicort and albuterol, transition to doxycycline. Azithromycin discontinued due to tendency to prolong QTc * In regards to recent outpatient diagnosis for COVID continue to monitor D- dimer negative troponin negative * In regards to hyperlipidemia continue home regimen * CODE STATUS full code Past Medical History Past Medical History: Atrial Fibrillation, Atrial Flutter, COPD, Hyperlipidemia, Hypertension, Pneumonia, Renal Disease, Sleep Apnea/CPAP/BIPAP Additional Past Medical History / Comment(s): "ON METFORMIN, FOR PREVENTION." EYE DROPS "TO PREVENT GLAUCOMA." NO CURRENT TX FOR SLEEP APNEA. HX KIDNEY STONES.maclodegeneration. RSV, Covid, and Pneumonia August and September 2023 History of Any Multi-Drug Resistant Organisms: None Reported Past Surgical History: Ablation, Appendectomy, Back Surgery, Cardiac Ablation, Hernia Repair, Orthopedic Surgery Additional Past Surgical History / Comment(s): CARDIAC ABLATION X3. BACK SURG X4. REPAIR LT FOOT INJ. ESWL. COLONOSCOPY. Past Anesthesia/Blood Transfusion Reactions: No Reported Reaction Past Psychological History: No Psychological Hx Reported Smoking Status: Former smoker Past Alcohol Use History: None Reported Past Drug Use History: None Reported - Past Family History Mother Family Medical History: No Reported History Father Family Medical History: AFIB, CVA/TIA Brother(s) Family Medical History: AFIB Medications and Allergies Home Medications Medication Instructions Recorded Confirmed Type Ketoconazole 2% Shampoo [Nizoral] 1 applic TOPICAL DIRECTED 05/09/15 09/22/23 History clonazePAM [KlonoPIN] 0.5 mg PO BID@1000,2200 12/11/16 09/22/23 History ramipriL [Altace] 10 mg PO HS@2200 06/22/19 09/22/23 History Apixaban [Eliquis] 5 mg PO BID@1000,2200 07/11/20 09/22/23 History Metoprolol Succinate [Toprol XL] 50 mg PO HS@2200 20 03/11/24 History Naloxegol Oxalate [Movantik] 25 mg PO DAILY@1000 07/11/20 09/22/23 History Pregabalin [Lyrica] 100 mg PO HS@219907/11/20 09/22/23 History Albuterol Inhaler [Ventolin Hfa 1 - 2 puff INHALATION RT-Q6H PRN 07/26/23 09/22/23 History Inhaler] Brimonidine Tartrate [Alphagan P 1 drop BOTH EYES BID@999,219907/26/23 09/22/23 History 0.2% Ophth Soln] Docusate [Colace] 100 mg PO BID@1000,219907/26/23 09/22/23 History Ipratropium-Albuterol Nebulize 3 ml INHALATION RT-QID PRN 07/26/23 09/22/23 History [Duoneb 0.5 mg-3 mg/3 ml Soln] Pravastatin Sodium [Pravachol] 80 mg PO HS@219907/26/23 09/22/23 History Triamcinolone 0.5% Cream [Kenalog 1 applic TOPICAL BID PRN 07/26/23 09/22/23 H istory 0.5% Cream] oxyCODONE HCL [oxyCODONE HCL (IR)] 30 mg PO Q6H 07/26/23 09/22/23 History oxyCODONE HCL [oxyCODONE HCL ER] 40 mg PO BID@1000,1600 07/26/23 09/22/23 History Pantoprazole [Protonix] 40 mg PO AC-BRKFST #30 tab 07/31/23 09/22/23 Rx Sennosides-Docusate Sodium 2 tab PO BID PRN 08/31/23 09/22/23 History [Senokot-S] Budesonide-Formot 160-4.5 Mcg 2 puff INHALATION RT-BID@09/22/23 09/22/23 History [Symbicort 160-4.5 Mcg Inhaler] predniSONE See Taper PO DIRECTED #0 09/23/23 09/22/23 Rx Allergies Allergy/AdvReac Type Severity Reaction Status Date / Time aspirin Allergy Rash/Hives Verified 09/22/23 11:32 Penicillins Allergy Rash/Hives Verified 09/22/23 11:32 Sulfa (Sulfonamide Allergy Rash/Hives Verified 09/22/23 11:32 Antibiotics) ciprofloxacin [From Cipro] AdvReac Rash/Hives Verified 09/22/23 11:32 ibuprofen [From Motrin] AdvReac Rash/Hives Verified 09/22/23 11:32 Physical Exam Vitals: Vital Signs Temp Pulse Pulse Resp BP Pulse Ox 09/27/23 12:50 80 18 115/69 92 L 09/27/23 12:30 79 18 139/63 93 L 09/27/23 12:00 97 16 121/79 91 L 09/27/23 11:30 112 H 16 150/105 94 L 09/27/23 11:00 112 H 18 121/68 95 09/27/23 10:50 154 H 09/27/23 10:30 112 H 16 131/84 95 09/27/23 10:23 112 H 18 95 09/27/23 10:17 97.9 F 134 H 18 131/84 96 Intake and Output 09/26/23 09/27/23 09/27/23 22:59 06:59 14:59 Other: Weight 127.459 kg Results CBC & Chem 7: 09/27/23 10:54 09/27/23 10:54 Labs: Abnormal Lab Results - Last 24 Hours (Table) 09/27/23 09/27/23 Range/Units 10:54 10:54 Hgb 12.6 L (13.0-17.5) gm/dL Creatinine 0.56 L (0.66-1.25) mg/dL Albumin 3.3 L (3.5-5.0) g/dL
[2023-09-27] MEDS: SODIUM CHLORIDE 0.9% 1,000 ML IV SCH (15:12)
[2023-09-27] MEDS: SYMBICORT 160-4.5 MCG INHALER INHALATION SCH (20:37)
[2023-09-27] MEDS: PRAVASTATIN SODIUM 80 MG TAB PO SCH (21:18)
[2023-09-27] MEDS: clonazePAM 0.5 MG TAB PO SCH (21:18)
[2023-09-27] MEDS: DOCUSATE 100 MG CAP PO SCH (21:18)
[2023-09-27] MEDS: APIXABAN 5 MG TAB PO SCH (21:18)
[2023-09-27] MEDS: polyethylene glycoL 3350 17 GM POWD.PACK PO PRN (21:18)
[2023-09-27] MEDS: METOPROLOL SUCCINATE (ER) 25 MG TAB.ER.24H PO SCH (21:18)
[2023-09-27] MEDS: PREGABALIN 100 MG CAP PO SCH (21:18)
[2023-09-27] MEDS: BRIMONIDINE TARTRATE 0.2% DROPS 5 ML BTL BOTH EYES SCH (21:19)
[2023-09-27] MEDS: DOXYCYCLINE 100 MG CAP PO SCH (22:00)
[2023-09-28] MEDS: PANTOPRAZOLE 40 MG TABLET PO SCH (06:12)
[2023-09-28] MEDS: ASPIRIN 325 MG TAB PO SCH (08:30)
[2023-09-28 08:36] LABS: Basophils # (A) 0.1 k/uL (0-0.2); Basophils % (A) 1 %; Eosinophils # (A) 0.5 k/uL (0-0.7); Eosinophils % (A) 5 %; HCT 42.4 % (39.0-53.0); HGB 13.3 gm/dL (13.0-17.5); Lymphocytes # (A) 2.1 k/uL (1.0-4.8); Lymphocytes % (A) 20 %; MCH 29.2 pg (25.0-35.0); MCHC 31.4 g/dL (31.0-37.0); MCV 92.9 fL (80.0-100.0); Mean Platelet Volume 8.3; Monocytes # (A) 0.8 k/uL (0-1.0); Monocytes % (A) 7 %; Neutrophils % (A) 66 %; Platelet Count 233 k/uL (150-450); RBC 4.56 m/uL (4.30-5.90); WBC 10.6 k/uL (3.8-10.6)
[2023-09-28] MEDS: lisinopriL 20 MG TAB PO SCH (09:06)
--- NOTE | 2023-09-28 09:21 | P.CRDCN ---
History of Present Illness Consult date: 09/28/23 History of present illness: History of Present Illness: The patient is an 78-year-old male with known history of paroxysmal atrial fibrillation, status post ablation 3 times last time about 3 years ago at [facility], followed on a regular basis by Dr. Turpin who presents with tachycardia and progressive dyspnea. He was admitted to the hospital twice recently, first time with RSV infection and subsequently COVID-19 infection. At home he continues to be dyspneic, coughing of white to yellow sputum. On Friday morning when he checked his pulse he was regular and subsequently yesterday was tachycardic and on presentation he was in atrial fibrillation. He is back in sinus mechanism at this time. He has noted increase in the frequency of his atrial fibrillation. He has no associated chest discomfort and no significant dizziness. He has no peripheral edema, no PND or orthopnea. He has no prior history of documented CAD and he is not aware that he has any impaired systolic function. He has a history of hypertension and hyperlipidemia, he is a non- smoker. Medications: Eliquis 5 mg twice a day, Altace 10 mg daily, pravastatin 80 mg daily, metoprolol succinate 50 mg daily, Symbicort, Lyrica, Protonix Review of Systems: Respiratory: He has recent worsening dyspnea with cough and wheezing GI: No nausea or vomiting . No history of peptic ulcer disease. No recent GI bleed. : No hematuria or dysuria. Nervous System: No stroke or seizure. Physical Examination: 78-year-old male, alert oriented no apparent distress,Blood pressure 160/70, Heart rate 70 Head: Normocephalic. Eyes: Sclerae nonicteric. Neck: Good carotid upstroke, no bruit, no jugular venous distention. Lungs: Bilateral rhonchi Heart: Regular rate and rhythm, S1-S2, no S3, no rub. Systolic ejection murmur. Abdomen: Soft nontender, positive bowel sounds no organomegaly. Extremities: No edema, intact distal pulses. Labs: WBC 10.6, hemoglobin 13.3, BUN 13, creatinine 0.56. Troponin 0.014, 0.014, 0.015. Chest x-ray with no acute infiltrate EKG: Initial EKG shows probable atrial flutter with 2-1 and subsequently sinus mechanism with nonspecific ST-T wave changes. Impression: 1. Paroxysmal atrial fibrillation, back in sinus mechanism 2. Recent COVID and RSV infection 3. History of hypertension 4. History of hyperlipidemia Plan: 1. Continue anticoagulation, beta-dea and RAY inhibitor 2. Obtain an echocardiogram with Doppler 3. Primary care team to evaluate regarding lung status 4. Increase physical activity 5. Depending on his progress further recommendations will be made, if he continues to have recurrent arrhythmia he may be a candidate for antiarrhythmic treatment. Thank you for this consult we will follow with you. Past Medical History Past Medical History: Atrial Fibrillation, Atrial Flutter, COPD, Hyperlipidemia, Hypertension, Pneumonia, Renal Disease, Sleep Apnea/CPAP/BIPAP Additional Past Medical History / Comment(s): "ON METFORMIN, FOR PREVENTION." EYE DROPS "TO PREVENT GLAUCOMA." NO CURRENT TX FOR SLEEP APNEA. HX KIDNEY STONES.maclodegeneration. RSV, Covid, and Pneumonia August and September 2023 History of Any Multi-Drug Resistant Organisms: None Reported Past Surgical History: Ablation, Appendectomy, Back Surgery, Cardiac Ablation, Hernia Repair, Orthopedic Surgery Additional Past Surgical History / Comment(s): CARDIAC ABLATION X3. BACK SURG X4. REPAIR LT FOOT INJ. ESWL. COLONOSCOPY. Past Anesthesia/Blood Transfusion Reactions: No Reported Reaction Past Psychological History: No Psychological Hx Reported Additional Psychological History / Comment(s): . Lives independently. Retired. experience. Prior smoking none for many years. Denies alcohol or recreational drug use. Relates he was in [place]. Afib was found there Smoking Status: Former smoker Past Alcohol Use History: None Reported Additional Past Alcohol Use History / Comment(s): SMOKED 20 YEARS, 1 PPD, QUIT 2008. Past Drug Use History: None Reported - Past Family History Mother Family Medical History: No Reported History Father Family Medical History: AFIB, CVA/TIA Brother(s) Family Medical History: AFIB Medications and Allergies Home Medications Medication Instructions Recorded Confirmed Type Ketoconazole 2% Shampoo [Nizoral] 1 applic TOPICAL DIRECTED 05/09/15 09/27/23 History clonazePAM [KlonoPIN] 0.5 mg PO BID@1000,2200 12/11/16 09/27/23 History ramipriL [Altace] 10 mg PO HS@2200 06/22/19 09/27/23 History Apixaban [Eliquis] 5 mg PO BID@1000,2200 07/11/20 09/27/23 History Metoprolol Succinate [Toprol XL] 50 mg PO HS@0 07/11/20 09/27/23 History Naloxegol Oxalate [Movantik] 25 mg PO DAILY@1000 07/11/20 09/27/23 History Pregabalin [Lyrica] 100 mg PO HS@0 07/11/20 09/27/23 History Albuterol Inhaler [Ventolin Hfa 1 - 2 puff INHALATION RT-Q6H PRN 07/26/23 09/27/23 History Inhaler] Brimonidine Tartrate [Alphagan P 1 drop BOTH EYES BID@1000,219907/26/23 09/27/23 History 0.2% Ophth Soln] Docusate [Colace] 100 mg PO BID@1000,0 07/26/23 09/27/23 History Ipratropium-Albuterol Nebulize 3 ml INHALATION RT-QID PRN 07/26/23 09/27/23 History [Duoneb 0.5 mg-3 mg/3 ml Soln] Pravastatin Sodium [Pravachol] 80 mg PO HS@219907/26/23 09/27/23 History oxyCODONE HCL [oxyCODONE HCL (IR)] 30 mg PO Q6H 07/26/23 09/27/23 History oxyCODONE HCL [oxyCODONE HCL ER] 40 mg PO BID@1000,1600 07/26/23 09/27/23 History Pantoprazole [Protonix] 40 mg PO AC-BRKFST #30 tab 07/31/23 09/27/23 Rx Sennosides-Docusate Sodium 2 tab PO BID PRN 08/31/23 09/27/23 History [Senokot-S] Budesonide-Formot 160-4.5 Mcg 2 puff INHALATION RT-BID@09/22/23 09/27/23 History [Symbicort 160-4.5 Mcg Inhaler] Azithromycin [Zithromax] 500 mg PO DAILY 09/27/23 09/27/23 History Triamcinolone 0.5% Ointment 1 applic TOPICAL BID PRN 09/27/23 09/27/23 History predniSONE See Taper PO DAILY 09/27/23 09/27/23 History Allergies Allergy/AdvReac Type Severity Reaction Status Date / Time aspirin Allergy Rash/Hives Verified 09/27/23 16:06 ciprofloxacin [From Cipro] Allergy Rash/Hives Verified 09/27/23 16:06 ibuprofen [From Motrin] Allergy Rash/Hives Verified 09/27/23 16:06 Penicillins Allergy Rash/Hives Verified 09/27/23 16:06 Sulfa (Sulfonamide Allergy Rash/Hives Verified 09/27/23 16:06 Antibiotics) Physical Exam Vitals: Vital Signs Temp Pulse Pulse Resp BP BP Pulse Ox 09/28/23 08:39 74 19 167/77 92 L 09/28/23 04:00 97.7 F 68 21 132/82 94 L 09/28/23 02:00 70 21 09/28/23 00:00 97.7 F 70 21 147/80 93 L 09/27/23 20:00 97.6 F 85 21 146/83 96 09/27/23 17:19 86 18 148/72 93 L 09/27/23 15:15 77 16 123/71 94 L 09/27/23 15:00 83 9 L 93 L 09/27/23 14:30 77 18 153/89 90 L 09/27/23 14:00 82 25 H 111/77 09/27/23 13:30 75 7 L 125/84 92 L 09/27/23 13:00 77 9 L 115/69 91 L 09/27/23 12:50 80 18 115/69 92 L 09/27/23 12:30 79 18 139/63 93 L 09/27/23 12:00 97 16 121/79 91 L 09/27/23 11:30 112 H 16 150/105 94 L 09/27/23 11:00 112 H 18 121/68 95 09/27/23 10:50 154 H 09/27/23 10:30 112 H 16 131/84 95 09/27/23 10:23 112 H 18 95 09/27/23 10:17 97.9 F 134 H 18 131/84 96 Intake and Output 09/27/23 09/28/23 09/28/23 22:59 06:59 14:59 Intake Total 222 Output Total 425 1505 Balance -203 -1505 Intake: Oral 222 Output: Urine 425 1505 Other: Voiding Method Urinal Urinal # Voids 1 Weight 127.459 kg Results 09/28/23 07:05 09/27/23 10:54 Cardiac Enzymes 09/27/23 09/27/23 09/27/23 Range/Units 10:54 10:54 14:45 AST 23 (17-59) U/L Troponin I 0.014 0.014 (0.000-0.034) ng/mL 09/27/23 Range/Units 17:10 AST (17-59) U/L Troponin I 0.015 (0.000-0.034) ng/mL Coagulation 09/27/23 Range/Units 10:54 PT 11.3 (10.0-12.5) sec APTT 26.0 (22.0-30.0) sec CBC 09/27/23 09/28/23 Range/Units 10:54 07:05 WBC 10.6 10.6 (3.8-10.6) k/uL RBC 4.37 4.56 (4.30-5.90) m/uL Hgb 12.6 L 13.3 (13.0-17.5) gm/dL Hct 40.4 42.4 (39.0-53.0) % Plt Count 222 233 (150-450) k/uL Comprehensive Metabolic Panel 09/27/23 Range/Units 10:54 Sodium 138 (137-145) mmol/L Potassium 4.3 (3.5-5.1) mmol/L Chloride 104 (98-107) mmol/L Carbon Dioxide 26 (22-30) mmol/L BUN 13 (9-20) mg/dL Creatinine 0.56 L (0.66-1.25) mg/dL Glucose 99 (74-99) mg/dL Calcium 8.5 (8.4-10.2) mg/dL AST 23 (17-59) U/L ALT 27 (4-49) U/L Alkaline Phosphatase 52 (38-126) U/L Total Protein 6.4 (6.3-8.2) g/dL Albumin 3.3 L (3.5-5.0) g/dL Current Medications Generic Name Dose Route Start Last Admin Trade Name Freq PRN Reason Stop Dose Admin Acetaminophen 650 mg 09/27/23 14:41 Acetaminophen Tab 325 Mg Tab PO Q6HR PRN Mild Pain or Fever > 100.5 Albuterol Sulfate 2 puff 09/27/23 14:45 Albuterol Hfa Inhaler INHALATION RT-Q6H PRN Shortness Of Breath Albuterol/Ipratropium 3 ml 09/27/23 15:04 Ipratropium-Albuterol 3 Ml Neb INHALATION RT-QID PRN Shortness Of Breath Apixaban 5 mg 09/27/23 22:00 09/27/23 21:18 Apixaban 5 Mg Tab PO 5 mg BID@1000,2200 ELIZABETH Administration Protocol Brimonidine Tartrate 1 drops 09/27/23 22:00 09/27/23 21:19 Brimonidine Tartrate 0.2% Drops 5 Ml Btl BOTH EYES 1 drops BID@1000,2200 ELIZABETH Administration Budesonide/Formoterol Fumarate 2 puff 09/27/23 22:00 09/28/23 08:34 Symbicort 160-4.5 Mcg Inhaler INHALATION 2 puff RT-BID@,22 ELIZABETH Administration Clonazepam 0.5 mg 09/27/23 22:00 09/27/23 21:18 Clonazepam 0.5 Mg Tab PO 0.5 mg BID@1000,2200 ELIZABETH Administration Docusate Sodium 100 mg 09/27/23 22:00 09/27/23 21:18 Docusate 100 Mg Cap PO 100 mg BID@1000,2200 ELIZABETH Administration Doxycycline Monohydrate 100 mg 09/27/23 21:00 09/28/23 08:38 Doxycycline 100 Mg Cap PO 100 mg BID ELIZABETH Administration Protocol Sodium Chloride 1,000 mls @ 75 mls/hr 09/27/23 15:00 09/28/23 02:36 Saline 0.9% IV 75 mls/hr .[id number] ELIZABETH Administration Lisinopril 20 mg 09/28/23 09:00 09/28/23 09:06 Lisinopril 20 Mg Tab PO 20 mg DAILY ELIZABETH Administration Metoprolol Succinate 50 mg 09/27/23 22:00 09/27/23 21:18 Metoprolol Succinate (Er) 25 Mg Tab.Er.24h PO 50 mg HS@2200 ELIZABETH Administration Naloxone HCl 0.2 mg 09/27/23 14:41 Naloxone 0.4 Mg/Ml 1 Ml Vial IV Q2M PRN Opioid Reversal Nitroglycerin 0.4 mg 09/27/23 14:14 Nitroglycerin Sl Tabs 0.4 Mg Tab SUBLINGUAL Q5M PRN Chest Pain Non-Formulary Medication 25 mg 09/28/23 10:00 Naloxegol Oxalate [Movantik] PO DAILY@1000 ELIZABETH Ondansetron HCl 4 mg 09/27/23 14:41 Ondansetron 4 Mg/2 Ml Vial IVP Q8HR PRN Nausea And Vomiting Oxycodone HCl 30 mg 09/27/23 20:15 09/28/23 08:32 Oxycodone Hcl 5 Mg Tab PO 30 mg Q6H ELIZABETH Administration Oxycodone HCl 40 mg 09/28/23 10:00 Oxycodone Er 10 Mg Tab.Er.12h PO BID@1000,1600 PENDING SALE TO [facility] Pantoprazole Sodium 40 mg 09/28/23 07:30 09/28/23 06:12 Pantoprazole 40 Mg Tablet PO Not Given AC-BRKFST PENDING SALE TO [facility] Polyethylene Glycol 17 gm 09/27/23 20:08 09/27/23 21:18 Polyethylene Glycol 3350 17 Gm Powd.Pack PO 17 gm DAILY PRN Administration Constipation Pravastatin Sodium 80 mg 09/27/23 22:00 09/27/23 21:18 Pravastatin Sodium 80 Mg Tab PO 80 mg HS@2200 ELIZABETH Administration Pregabalin 100 mg 09/27/23 22:00 09/27/23 21:18 Pregabalin 100 Mg Cap PO 100 mg HS@2200 ELIZABETH Administration Intake and Output 09/27/23 09/28/23 09/28/23 22:59 06:59 14:59 Intake Total 222 Output Total 425 1505 Balance -203 -1505 Intake: Oral 222 Output: Urine 425 1505 Other: Voiding Method Urinal Urinal # Voids 1 Weight 127.459 kg 09/28/23 07:05 09/27/23 10:54
[2023-09-28 09:22] LABS: African American GFR (CKD) >90 (>60 ml/min/1.73 sqM); Anion Gap 9 mmol/L; Blood Urea Nitrogen 13 mg/dL (9-20); Calcium 8.9 mg/dL (8.4-10.2); Carbon Dioxide 27 mmol/L (22-30); Chloride 103 mmol/L (98-107); Glucose 89 mg/dL (74-99); Magnesium 1.8 mg/dL (1.6-2.3); Non-African American GFR(CKD) >90 (>60 ml/min/1.73 sqM); Potassium 4.7 mmol/L (3.5-5.1); Sodium 139 mmol/L (137-145)
[2023-09-28] MEDS: oxyCODONE ER 10 MG TAB.ER.12H PO SCH (10:32)
[2023-09-28] MEDS: NON FORMULARY DRUG (Naloxegol Oxalate [Movantik] 25 MG Tablet) PO SCH (10:33)
[2023-09-28] MEDS ORDERED: TIOTROPIUM 2.5 MCG INHALER INHALATION PRN (11:48)
--- NOTE | 2023-09-28 12:37 | P.PN ---
Subjective Progress Note Date: 09/28/23 * 78-year-old gentleman past medical history significant for atrial fibrillation, history of COPD hypertension hyperlipidemia sleep disorder presents to the emergency department with complaints of shortness of breath. Patient was recently diagnosed with COVID. Patient states that he was diagnosed outpatient with pneumonia. Workup in ER included COPD changes, no acute cardiopulmonary process * Was recently in the hospital for COVID and was discharged on 09/23/2023. He was also placed on a prednisone taper, patient states he was taking azithromycin for productive cough * EKG obtained in ER showed atrial flutter heart rate in 153 * Workup in ER included CBC which showed WBC 10.6 hemoglobin 12.6 platelet count of 222, INR of 1 D-dimer 0.37 * Serum chemistry sodium 138 potassium 4.3, dioxide 26 BUN 13 creatinine 0.56 total bilirubin 0.5 liver profile within normal limits * While in ER patient was started on IV Cardizem drip,. Patient resumed back on Eliquis as well * 09/28/2023: Patient seen and evaluated at bedside, patient questioning his pain medication regimen. Meds changed as requested. Weaned off Cardizem drip, continue rate control medications, echocardiogram ordered pending. Serum chem istry reviewed magnesium replaced REVIEW OF SYSTEMS: Shortness of breath, palpitation, cough CONSTITUTIONAL: No fever, no malaise, no fatigue. HEENT: No recent visual problems or hearing problems. Denied any sore throat. CARDIOVASCULAR: No chest pain, orthopnea, PND, no palpitations, no syncope. PULMONARY: No shortness of breath, no cough, no hemoptysis. GASTROINTESTINAL: No diarrhea, no nausea, no vomiting, no abdominal pain. NEUROLOGICAL: No headaches, no weakness, no numbness. HEMATOLOGICAL: Denies any bleeding or petechiae. GENITOURINARY: Denies any burning micturition, frequency, or urgency. MUSCULOSKELETAL/RHEUMATOLOGICAL: Denies any joint pain, swelling, or any muscle pain. ENDOCRINE: Denies any polyuria or polydipsia. PHYSICAL EXAMINATION: GENERAL: The patient is alert and oriented x3, not in any acute distress. Well developed, well nourished. HEENT: Pupils are round and equally reacting to light. EOMI. CARDIOVASCULAR: S1 and S2 present. Irregular rhythm, rate controlled PULMONARY: Chest is clear to auscultation, no wheezing or crackles. ABDOMEN: Soft, nontender, nondistended, normoactive bowel sounds. No palpable organomegaly. MUSCULOSKELETAL: No joint swelling or deformity. EXTREMITIES: No cyanosis, clubbing, or pedal edema. NEUROLOGICAL: Gross neurological examination did not reveal any focal deficits. SKIN: No rashes. Assessment and plan Atrial flutter with rapid monitor response History of COPD not in exacerbation, acute tracheobronchitis Recent diagnosis for COVID Hypertension Hyperlipidemia Chronic pain * In regards to atrial flutter, weaned off Cardizem drip, continue metoprolol, continue anticoagulation with Eliquis * In regards to COPD continue patient on breathing treatment Symbicort and albuterol, transition to doxycycline. Azithromycin discontinued due to tendency to prolong QTc * In regards to recent outpatient diagnosis for COVID continue to monitor D- dimer negative troponin negative * In regards to hyperlipidemia continue home regimen * Showed on high-dose of oxycodone at home which does confirm and resume upon patient request * CODE STATUS full code Objective - Vital Signs Vital signs: Vital Signs Temp 97.7 F 09/28/23 04:00 Pulse 71 09/28/23 11:44 Resp 19 09/28/23 11:44 BP 146/80 09/28/23 11:44 Pulse Ox 92 L 09/28/23 11:44 FiO2 Intake & Output 09/27/23 09/28/23 09/28/23 18:59 06:59 18:59 Intake Total 222 Output Total 1930 Balance 222 -1930 Weight 127.459 kg Intake: Oral 222 Output: Urine 1930 Other: Voiding Method Urinal Urinal # Voids 1 - Labs CBC & Chem 7: 09/28/23 07:05 09/28/23 07:05 Labs: Abnormal Lab Results - Last 24 Hours (Table) 09/27/23 09/27/23 09/28/23 Range/Units 10:54 10:54 07:05 Hgb 12.6 L (13.0-17.5) gm/dL Creatinine 0.56 L 0.58 L (0.66-1.25) mg/dL Albumin 3.3 L (3.5-5.0) g/dL
[2023-09-28 13:41] LABS: Chol/HDL Ratio 2.78 Ratio; LDL Cholesterol,Calculated 62.9 mg/dL (0.0-131.0); VLDL Calculation 19.72 mg/dL (5.00-40.00)
[2023-09-28] MEDS: MAGNESIUM SULFATE-D5W PMX 1 GM in DEXTROSE/WATER 1 100ML.BAG IVPB SCH (15:35)
[2023-09-28] MEDS ORDERED: oxyCODONE ER 80 MG TAB.ER.12H PO SCH (21:00)
[2023-09-28] MEDS ORDERED: RAMIPRIL 10 MG PO SCH (22:00)
[2023-09-28] MEDS: oxyCODONE ER 20 MG TAB.ER.12H PO SCH (22:10)
[2023-09-29 07:58] LABS: HCT 43.6 % (39.0-53.0); HGB 13.7 gm/dL (13.0-17.5); MCH 29.4 pg (25.0-35.0); MCHC 31.6 g/dL (31.0-37.0); MCV 93.1 fL (80.0-100.0); Platelet Count 272 k/uL (150-450); RBC 4.68 m/uL (4.30-5.90)
[2023-09-29 08:17] LABS: African American GFR (CKD) >90 (>60 ml/min/1.73 sqM); Anion Gap 7 mmol/L; Blood Urea Nitrogen 10 mg/dL (9-20); Calcium 9.1 mg/dL (8.4-10.2); Carbon Dioxide 28 mmol/L (22-30); Chloride 101 mmol/L (98-107); Glucose 99 mg/dL (74-99); Non-African American GFR(CKD) >90 (>60 ml/min/1.73 sqM); Potassium 4.5 mmol/L (3.5-5.1); Sodium 136 mmol/L (137-145)
[2023-09-29] MEDS: oxyCODONE ER 20 MG TAB.ER.12H PO SCH ×2 (09:04→16:09)
[2023-09-29] MEDS: METOPROLOL TARTRATE 50 MG TAB PO STA (10:23)
--- NOTE | 2023-09-29 10:51 | CA ---
Transthoracic Echo Report Name: Arnold Sandoval Age: 78 Gender: M : 1945 Exam Date: 09/29/2023 06:43 Exam Location: [facility] Ht (in): 72 Wt (lb): 281 Ordering Physician: Jerry Bennett MD ([id number]) Attending/Referring Phys: Lasting Machine Operator Brigida Benitez RDCS Procedure CPT: Indications: afib Cardiac Hx: hx of oblation Technical Quality: Technically difficult study Contrast 1: Definity Total Dose (mL): 2 Contrast 2: Total Dose (mL): MEASUREMENTS (Male / Female) Normal Values 2D ECHO LV Diastolic Diameter PLAX 4.4 cm 4.2 - 5.9 / 3.9 - 5.3 cm LV Systolic Diameter PLAX 3.3 cm IVS Diastolic Thickness 1.5 cm 0.6 - 1.0 / 0.6 - 0.9 cm LVPW Diastolic Thickness 1.5 cm 0.6 - 1.0 / 0.6 - 0.9 cm LV Relative Wall Thickness 0.7 RV Internal Dim ED PLAX 2.4 cm LA Systolic Diameter LX 4.2 cm 3.0 - 4.0 / 2.7 - 3.8 cm LV Diastolic Volume MOD BP 78.6 cm??? 67 - 155 / 56 - 104 cm??? LV Systolic Volume MOD BP 24.3 cm??? - 58 / 19 - 49 cm??? LV Ejection Fraction MOD BP 69.2 % >= 55 % LV Cardiac Index MOD BP 1551.3 cm???/min???m??? LV Diastolic Volume MOD 4C 86.4 cm??? LV Systolic Volume MOD 4C 29.3 cm??? LV Ejection Fraction MOD 4C 66.1 % LV Cardiac Index MOD 4C 1629.7 cm???/min???m??? LV Diastolic Length 4C 7.1 cm LV Systolic Length 4C 6.3 cm LV Diastolic Volume MOD 2C 69.5 cm??? LV Systolic Volume MOD 2C 22.2 cm??? LV Ejection Fraction MOD 2C 68.0 % LV Cardiac Index MOD 2C 1347.5 cm???/min???m??? LV Diastolic Length 2C 6.9 cm LV Systolic Length 2C 6.3 cm LA Volume 115.6 cm??? 18 - 58 / 22 - 52 cm??? LA Volume Index 44.6 cm???/m??? 16 - 28 cm???/m??? M-MODE Aortic Root Diameter MM 3.7 cm DOPPLER AV Peak Velocity 148.7 cm/s AV Peak Gradient 8.8 mmHg MV Area PHT 3.7 cm??? MV Deceleration Time 240.2 ms TR Peak Velocity 291.1 cm/s TR Peak Gradient 33.9 mmHg Right Ventricular Systolic Press 38.9 mmHg FINDINGS Left Ventricle Left ventricular ejection fraction is estimated at 55-60 %. Left ventricular cavity size normal. Moderately increased septal wall thickness. No LV thrombus on definity imaging. Normal wall motion. Right Ventricle Normal right ventricular size. Mild pulmonary hypertension. Right Atrium Normal right atrial size. Left Atrium Moderate left atrial dilatation Mitral Valve Mitral valve thickened. Mitral annular calcification. Trace mitral regurgitation. Aortic Valve Trileaflet aortic valve. Aortic valve sclerosis. Tricuspid Valve Structurally normal tricuspid valve. Mild tricuspid regurgitation. Pulmonic Valve Pulmonic valve not well visualized. No pulmonic regurgitation. Pericardium No pericardial effusion. Aorta Normal size aortic root and proximal ascending aorta. CONCLUSIONS Technically difficult study. Left ventricular ejection fraction is estimated at 55-60 %. No significant wall motion abnormality Moderate left atrial dilatation. AFib rhythm, No significant valvular dysfunction No pericardial effusion Previewed by: Dr Ángel Correia (Electronically Signed) Final Date: 29 September 2023 10:51
--- NOTE | 2023-09-29 11:09 | P.PN ---
Subjective HISTORY OF PRESENT ILLNESS: The patient is an 78-year-old male with known history of paroxysmal atrial fibrillation, status post ablation 3 times last time about 3 years ago at [facility], followed on a regular basis by Dr. Turpin who presents with tachycardia and progressive dyspnea. He was admitted to the hospital twice recently, first time with RSV infection and subsequently COVID-19 infection. At home he continues to be dyspneic, coughing of white to yellow sputum. On Friday morning when he checked his pulse he was regular and subsequently yesterday was tachycardic and on presentation he was in atrial fibrillation. He is back in sinus mechanism at this time. He has noted increase in the frequency of his atrial fibrillation. He has no associated chest discomfort and no significant dizziness. He has no peripheral edema, no PND or orthopnea. He has no prior history of documented CAD and he is not aware that he has any impaired systolic function. He has a history of hypertension and hyperlipidemia, he is a non- smoker. Medications: Eliquis 5 mg twice a day, Altace 10 mg daily, pravastatin 80 mg daily, metoprolol succinate 50 mg daily, Symbicort, Lyrica, Protonix 09/29/2023 Patient examined this morning. He is sitting on the side of the bed. Patient denies chest pain or pressure. He denies shortness of breath. Patient is complaining of constipation this morning. Patient was maintaining sinus mechan ism at the time of examination. However shortly afterwards, cardiology team was notified by nursing staff that patient was back in A-fib with RVR PHYSICAL EXAM: VITAL SIGNS: Reviewed. GENERAL: Well-developed in no acute distress. NECK: Supple. No JVD or thyromegaly LUNGS: Respirations even and unlabored. Lungs with mild expiratory wheezing. HEART: Regular rate and rhythm. S1 and S2 heard. EXTREMITIES: Normal range of motion. No clubbing or cyanosis. Peripheral pulses intact. No lower extremity edema ASSESSMENT: Paroxysmal atrial fibrillation/flutter Recent COVID and RSV infection Hypertension Hyperlipidemia PLAN: Continue current cardiac medications Given additional dose of metoprolol tartrate 50 mg x 1 Begin IV amiodarone bolus and drip per protocol Continue telemetry monitoring Patient to receive 2-week event monitor at the time of discharge from cardiology office Further recommendations pending patient course Nurse practitioner note has been reviewed by physician. Signing provider agrees with the documented findings, assessment, and plan of care documented by [employer]ATION [employer] as a scribe. Objective - Vital Signs Vital signs: Vital Signs Temp 98.2 F 09/29/23 08:58 Pulse 95 09/29/23 09:09 Resp 20 09/29/23 09:09 BP 144/82 09/29/23 08:58 Pulse Ox 90 L 09/29/23 08:58 FiO2 Intake & Output 09/28/23 09/29/23 09/29/23 18:59 06:59 18:59 Intake Total 360 180 Output Total 1500 2745 Balance -1140 -2745 180 Weight 128.5 kg Intake: Oral 360 180 Output: Urine 1500 2745 Other: Voiding Method Urinal Urinal Urinal # Voids 2 - Labs CBC & Chem 7: 09/29/23 06:42 09/29/23 06:42 Labs: Abnormal Lab Results - Last 24 Hours (Table) 09/29/23 Range/Units 06:42 Sodium 136 L (137-145) mmol/L Creatinine 0.60 L (0.66-1.25) mg/dL
[2023-09-29] MEDS: DEXTROSE 5% IN WATER 100 ML with AMIODARONE 150 MG IV ONE (11:46)
[2023-09-29] MEDS: AMIODARONE 360 MG in DEXTROSE 5% IN WATER 200 ML IV ONE (11:56)
[2023-09-29 12:18] VITALS: BMI 38.4
--- NOTE | 2023-09-29 14:27 | P.PN ---
Subjective Progress Note Date: 09/29/23 Initially had planned for discharge, no atrial fibrillation reported throughout this admission, patient was sitting up in chair, asymptomatic. Telemetry sinus rhythm. denied chest pain, palpitations or shortness of breath. MiraLAX ordered for complaints of constipation. just prior to discharge, patient proceeded into atrial fibrillation with RVR. Received additional metoprolol, bolused with amiodarone with drip initiated. Maintaining O2 sats in the 90s on room air. Afebrile, normal WBC, renal function stable, electrolytes within normal limits. Objective - Vital Signs Vital signs: Vital Signs Temp 98.2 F 09/29/23 08:58 Pulse 125 H 09/29/23 13:03 Resp 18 09/29/23 13:03 BP 115/77 09/29/23 12:45 Pulse Ox 89 L 09/29/23 12:45 FiO2 Intake & Output 09/28/23 09/29/23 09/29/23 18:59 06:59 18:59 Intake Total 360 360 Output Total 1500 2745 300 Balance -1140 -2745 60 Weight 128.5 kg 128.5 kg Intake: Oral 360 360 Output: Urine 1500 2745 300 Other: Voiding Method Urinal Urinal Urinal # Voids 2 - Exam HYSICAL EXAM: VITAL SIGNS: [As above] GENERAL: Alert and oriented 3, sitting up in chair, no acute distress, conversi ng without dyspnea HEENT: Normocephalic, Conjunctivae normal. eyes normal. NECK: Supple, No JVD. CARDIOVASCULAR: S1, S2 regular.systolic murmur RESPIRATION: Unlabored, no accessory muscle use ,equal air entry,CTA. ABDOMEN: Soft, nontender . No rigidity, no guarding, positive bowel sounds. LEGS: No edema. no swelling. No calf tenderness. NERVOUS SYSTEM: Cranial N 2-12 grossly normal.No focal deficits. Skin: Warm and dry, no rash - Labs CBC & Chem 7: 09/29/23 06:42 09/29/23 06:42 Labs: Abnormal Lab Results - Last 24 Hours (Table) 09/29/23 Range/Units 06:42 Sodium 136 L (137-145) mmol/L Creatinine 0.60 L (0.66-1.25) mg/dL Assessment and Plan Assessment: Acute dyspnea with palpitations, paroxysmal atrial fibrillation, flutter Recently tested positive outpatient for COVID-19 infection-on prior admission - chest x-ray did not report any focal infiltrates or evidence of COVID-19 pneumonia per pulmonary review. Recent RSV tracheobronchitis, July 2023 Chronic paroxysmal atrial fibrillation, anticoagulated on Eliquis COPD History of cardiac ablation 3 at [facility] Hypertension hyperlipidemia End-stage renal disease Obstructive sleep apnea, noncompliant with CPAP at home Morbid obesity, BMI 38 Chronic back pain, history of back surgery Glaucoma Prior nicotine dependence Plan: Continue on current medication regimen ,monitoring and symptomatic treatment. Antiarrhythmics as cardiology. Event monitor at discharge. Follow closely with cardiology. The impression and plan of care has been dictated as directed. : I performed a history and examination of this patient, discussed the same with the dictator. I agree with the dictator's note ,documented as a scribe. Any additional findings or plans will be noted.
[2023-09-29] MEDS: AMIODARONE 450 MG in DEXTROSE 5% IN WATER 250 ML IV SCH (17:51)
--- NOTE | 2023-09-30 11:27 | CDI ---
From: Mayra Brady Phone: [phone] Admit Date: 09/27/2023 02:14:00 PM Patient Name: Arnold Sandoval Visit Number: [id number] Discharge Date: ATTENTION: The Clinical Documentation Specialists (CDI) and [facility] Coding Staff appreciate your assistance in clarifying documentation. Please respond to the clarification below the line at the bottom and electronically sign. The CDI & [facility] Coding staff will review the response and follow-up if needed. Please note: Queries are made part of the Legal Health Record. If you have any questions, please contact the author of this message via ITS. Dr. Gabino Monroe ESRD is documented in the IM progress note 09/28 [facility] which may lack sufficient clinical evidence/support in the medical record. Additional clarification is requested. History/Risk Factors: Afib with, HTN, recent Covid who presented with SOB and found to be in Aflutter, acute tracheobronchitis Clinical Indicators: 09/28 IM PN, Assessment/Plan: "End-stage renal disease." 09/26-09/28 BUN: 13, 13, 10 Creatinine: 0.56, 0.58, 0,60 Treatment: Monitor BUN/Creatinine Normal Saline 75cc/hour 09/26-09/27 Please clarify if End stage renal disease is a valid diagnosis? [ ] Yes, End stage renal disease is present as evidence by (additional clinical support): [ X] No, End stage renal disease is ruled out [ ] Other (please specify diagnosis) [ ] Unable to determine MTDD
[2023-09-30] MEDS: METOPROLOL SUCCINATE (ER) 50 MG TAB.ER.24H PO SCH (11:46)
[2023-09-30] MEDS: AMIODARONE 200 MG TAB PO SCH (11:46)
--- NOTE | 2023-09-30 12:56 | P.PN ---
Subjective HISTORY OF PRESENT ILLNESS: The patient is an 78-year-old male with known history of paroxysmal atrial fibrillation, status post ablation 3 times last time about 3 years ago at [facility], followed on a regular basis by Dr. Turpin who presents with tachycardia and progressive dyspnea. He was admitted to the hospital twice recently, first time with RSV infection and subsequently COVID-19 infection. At home he continues to be dyspneic, coughing of white to yellow sputum. On Friday morning when he checked his pulse he was regular and subsequently yesterday was tachycardic and on presentation he was in atrial fibrillation. He is back in sinus mechanism at this time. He has noted increase in the frequency of his atrial fibrillation. He has no associated chest discomfort and no significant dizziness. He has no peripheral edema, no PND or orthopnea. He has no prior history of documented CAD and he is not aware that he has any impaired systolic function. He has a history of hypertension and hyperlipidemia, he is a non- smoker. Medications: Eliquis 5 mg twice a day, Altace 10 mg daily, pravastatin 80 mg daily, metoprolol succinate 50 mg daily, Symbicort, Lyrica, Protonix 09/29/2023 Patient examined this morning. He is sitting on the side of the bed. Patient denies chest pain or pressure. He denies shortness of breath. Patient is complaining of constipation this morning. Patient was maintaining sinus mechan ism at the time of examination. However shortly afterwards, cardiology team was notified by nursing staff that patient was back in A-fib with RVR 09/30/2023 Patient examined this morning at the bedside. Patient denies chest pain or pressure. He denies shortness of breath. He continues to report poor a frequent cough. Patient remains in atrial fibrillation with heart rates in the 90-100s. Blood pressure stable. Most recent blood pressure 139/83. PHYSICAL EXAM: VITAL SIGNS: Reviewed. GENERAL: Well-developed in no acute distress. NECK: Supple. No JVD or thyromegaly LUNGS: Respirations even and unlabored. Lungs with mild expiratory wheezing. HEART: Irregular rate and rhythm. S1 and S2 heard. EXTREMITIES: Normal range of motion. No clubbing or cyanosis. Peripheral pulses intact. No lower extremity edema ASSESSMENT: Paroxysmal atrial fibrillation/flutter Recent COVID and RSV infection Hypertension Hyperlipidemia History of ablation x 3 PLAN: Continue current cardiac medications Increase metoprolol to 50mg BID Begin oral amio 400mg BID after IV infusion is completed Continue telemetry monitoring Patient to receive 2-week event monitor at the time of discharge from cardiology office Further recommendations pending patient course Anticipate discharge home tomorrow if patient remains stable Nurse practitioner note has been reviewed by physician. Signing provider agrees with the documented findings, assessment, and plan of care documented by TAPE EDITOR as a scribe. Objective - Vital Signs Vital signs: Vital Signs Temp 97.8 F 09/30/23 08:00 Pulse 96 09/30/23 08:00 Resp 20 09/30/23 08:00 BP 124/69 09/30/23 08:00 Pulse Ox 94 L 09/30/23 08:00 FiO2 Intake & Output 09/29/23 09/30/23 09/30/23 18:59 06:59 18:59 Intake Total 540 210.004 Output Total 600 1225 Balance -60 -1014.996 Weight 128.5 kg Intake: Intake, IV Titration 210.004 Amount Amiodarone 450 mg In 210.004 Dextrose 5% in Water 250 ml @ 0.5 MG/MIN 16.667 mls/hr IV .Q15H [facility] Rx#: [id number] Oral 540 Output: Urine 600 1225 Other: Voiding Method Urinal Urinal Urinal # Voids 1 1 - Labs CBC & Chem 7: 09/29/23 06:42 09/29/23 06:42
[2023-10-01 00:08] VITALS: TEMP 97.5
--- NOTE | 2023-10-01 08:47 | P.PN ---
Subjective Progress Note Date: 09/30/23 He went back into AF with RVR yesterday morning, he denies any chest pain, palpitations or shortness of breath. He was started on amiodarone infusion by Cardiology. HR remains around 110. Objective - Vital Signs Vital signs: Vital Signs Temp 97.5 F L 10/01/23 03:49 Pulse 66 10/01/23 03:49 Resp 18 10/01/23 03:49 BP 112/74 10/01/23 03:49 Pulse Ox 95 10/01/23 03:49 FiO2 Intake & Output 09/30/23 10/01/23 10/01/23 18:59 06:59 18:59 Intake Total 358 550 360 Output Total 800 450 Balance -442 100 360 Intake: Oral 358 550 360 Output: Urine 800 450 Other: Voiding Method Urinal # Voids 1 - Exam Gen: obese well developed, NAD CV: Irregular, no murmur Lungs: clear throughout Skin: warm and dry - Labs CBC & Chem 7: 09/29/23 06:42 09/29/23 06:42 Assessment and Plan Plan: Increase metoprolol to 50 mg and transitional to oral amiodarone per Cardiology. Continue remainder of medical regimen
[2023-10-01 11:39] VITALS: BP 117/84; PULSE 113; RESP 16
--- NOTE | 2023-10-01 11:50 | P.PN ---
Subjective HISTORY OF PRESENT ILLNESS: The patient is an 78-year-old male with known history of paroxysmal atrial fibrillation, status post ablation 3 times last time about 3 years ago at [facility], followed on a regular basis by Dr. Turpin who presents with tachycardia and progressive dyspnea. He was admitted to the hospital twice recently, first time with RSV infection and subsequently COVID-19 infection. At home he continues to be dyspneic, coughing of white to yellow sputum. On Friday morning when he checked his pulse he was regular and subsequently yesterday was tachycardic and on presentation he was in atrial fibrillation. He is back in sinus mechanism at this time. He has noted increase in the frequency of his atrial fibrillation. He has no associated chest discomfort and no significant dizziness. He has no peripheral edema, no PND or orthopnea. He has no prior history of documented CAD and he is not aware that he has any impaired systolic function. He has a history of hypertension and hyperlipidemia, he is a non- smoker. Medications: Eliquis 5 mg twice a day, Altace 10 mg daily, pravastatin 80 mg daily, metoprolol succinate 50 mg daily, Symbicort, Lyrica, Protonix 09/29/2023 Patient examined this morning. He is sitting on the side of the bed. Patient denies chest pain or pressure. He denies shortness of breath. Patient is complaining of constipation this morning. Patient was maintaining sinus mechan ism at the time of examination. However shortly afterwards, cardiology team was notified by nursing staff that patient was back in A-fib with RVR 09/30/2023 Patient examined this morning at the bedside. Patient denies chest pain or pressure. He denies shortness of breath. He continues to report poor a frequent cough. Patient remains in atrial fibrillation with heart rates in the 90-100s. Blood pressure stable. Most recent blood pressure 139/83. 10/01/2023 Patient examined this morning at the bedside. Patient denies chest pain or pressure. He denies shortness of breath. He continues to report a frequent cough. Telemetry reveals atrial fibrillation with a heart in the 90s. PHYSICAL EXAM: VITAL SIGNS: Reviewed. GENERAL: Well-developed in no acute distress. NECK: Supple. No JVD or thyromegaly LUNGS: Respirations even and unlabored. Lungs with mild expiratory wheezing. HEART: Irregular rate and rhythm. S1 and S2 heard. EXTREMITIES: Normal range of motion. No clubbing or cyanosis. Peripheral pulses intact. No lower extremity edema ASSESSMENT: Paroxysmal atrial fibrillation/flutter Recent COVID and RSV infection Hypertension Hyperlipidemia History of ablation x 3 PLAN: Continue current cardiac medications Continue current dose of metoprolol Continue amiodarone. Taper at discharge 400 mg twice a day for 1 week, then decrease to 200 mg twice a day for 1 week, then decrease to 200 mg daily Patient to receive 2-week event monitor at the time of discharge from cardiology office Patient may be discharged home today from a cardiac standpoint He is to follow-up in the office with Dr. Turpin Nurse practitioner note has been reviewed by physician. Signing provider agrees with the documented findings, assessment, and plan of care documented by CRIMINAL LAWYER as a scribe. Objective - Vital Signs Vital signs: Vital Signs Temp 97.5 F L 10/01/23 08:05 Pulse 113 H 10/01/23 08:05 Resp 16 10/01/23 08:05 BP 117/84 10/01/23 08:05 Pulse Ox 95 10/01/23 08:05 FiO2 Intake & Output 09/30/23 10/01/23 10/01/23 18:59 06:59 18:59 Intake Total 358 550 360 Output Total 800 450 Balance -442 100 360 Intake: Oral 358 550 360 Output: Urine 800 450 Other: Voiding Method Urinal Urinal # Voids 1 - Labs CBC & Chem 7: 09/29/23 06:42 09/29/23 06:42
--- NOTE | 2023-10-03 07:53 | P.DS ---
Providers Date of admission: 09/27/23 14:14 Expected date of discharge: 10/01/23 Attending physician: Gabino Monroe MD Consults: 09/27/23 14:14 Consult Physician Urgent Consulting Provider: [facility] Consult Reason/Comments: Atrial flutter with rapid ventricular response Do you want consulting provider notified?: Yes Primary care physician: Linda Antony [facility] Course: Final Diagnoses: Acute dyspnea with palpitations, paroxysmal atrial fibrillation, flutter Recently tested positive outpatient for COVID-19 infection-on prior admission - chest x-ray did not report any focal infiltrates or evidence of COVID-19 pneumonia per pulmonary review. Recent RSV tracheobronchitis, July 2023 Chronic paroxysmal atrial fibrillation, anticoagulated on Eliquis COPD History of cardiac ablation 3 at [facility] Hypertension hyperlipidemia End-stage renal disease Obstructive sleep apnea, noncompliant with CPAP at home Morbid obesity, BMI 38 Chronic back pain, history of back surgery Glaucoma Prior nicotine dependence Hospital course: Initially had planned for discharge, no atrial fibrillation reported throughout this admission, patient was sitting up in chair, asymptomatic. Telemetry sinus rhythm. denied chest pain, palpitations or shortness of breath. MiraLAX ordered for complaints of constipation. just prior to discharge, patient proceeded into atrial fibrillation with RVR. Received additional metoprolol, bolused with amiodarone with drip initiated. Maintaining O2 sats in the 90s on room air. Afebrile, normal WBC, renal function stable, electrolytes within normal limits. Continue on current medication regimen ,monitoring and symptomatic treatment. Antiarrhythmics as cardiology. Event monitor at discharge. Follow closely with cardiology. 10/01/2023 telemetry reporting atrial fibrillation with controlled ventricular rate, heart rate currently in the 90s. Denies chest pain, palpitations or shortness of breath. Positive cough. Ambulating, tolerating exertion well. Denies lightheadedness, dizziness or focal deficits. Cleared by cardiology for discharge on amiodarone taper, with a 2-week event monitor. Patient will be discharged home today in a stable condition with guarded prognosis. The impression and plan of care has been dictated as directed. : I performed a history and examination of this patient, discussed the same with the dictator. I agree with the dictator's note ,documented as a scribe. Any additional findings or plans will be noted. Patient Condition at Discharge: Stable Plan - Discharge Summary Discharge Rx Participant: Yes New Discharge Prescriptions: New guaiFENesin [Mucinex] 1,200 mg PO BID #1 tab Metoprolol Succinate (ER) [Toprol XL] 50 mg PO BID #60 tab polyethylene glycoL 3350 [Miralax] 17 gm PO DAILY PRN packet PRN Reason: Constipation Doxycycline [Vibramycin] 100 mg PO BID 2 Days #4 cap Amiodarone [Cordarone] 400 mg PO BID #180 tab Continue Ketoconazole 2% Shampoo [Nizoral] 1 applic TOPICAL DIRECTED clonazePAM [KlonoPIN] 0.5 mg PO BID@1000,2200 ramipriL [Altace] 10 mg PO HS@2200 Pregabalin [Lyrica] 100 mg PO HS@2200 Naloxegol Oxalate [Movantik] 25 mg PO DAILY@1000 Apixaban [Eliquis] 5 mg PO BID@1000,2200 oxyCODONE HCL [oxyCODONE HCL ER] 40 mg PO BID@1000,1600 Albuterol Inhaler [Ventolin Hfa Inhaler] 1 - 2 puff INHALATION RT-Q6H PRN PRN Reason: Shortness Of Breath Docusate [Colace] 100 mg PO BID@1000,2200 Ipratropium-Albuterol Nebulize [Duoneb 0.5 mg-3 mg/3 ml Soln] 3 ml INHALATION RT-QID PRN PRN Reason: Shortness Of Breath Brimonidine Tartrate [Alphagan P 0.2% Ophth Soln] 1 drop BOTH EYES BID@1000,2200 Budesonide-Formot 160-4.5 Mcg [Symbicort 160-4.5 Mcg Inhaler] 2 puff INHALATION RT-BID@,22 predniSONE See Taper PO DAILY Triamcinolone 0.5% Ointment 1 applic TOPICAL BID PRN PRN Reason: Rash oxyCODONE HCL [oxyCODONE HCL (IR)] 30 mg PO Q6H Pravastatin Sodium [Pravachol] 80 mg PO HS@2200 Pantoprazole [Protonix] 40 mg PO AC-BRKFST #30 tab Sennosides-Docusate Sodium [Senokot-S] 2 tab PO BID PRN PRN Reason: Constipation Discontinued Metoprolol Succinate [Toprol XL] 50 mg PO HS@2200 Azithromycin [Zithromax] 500 mg PO DAILY Discharge Medication List Ketoconazole 2% Shampoo [Nizoral] 1 applic TOPICAL DIRECTED 05/09/15 [History] clonazePAM [KlonoPIN] 0.5 mg PO BID@1000,2200 12/11/16 [History] ramipriL [Altace] 10 mg PO HS@219906/22/19 [History] Apixaban [Eliquis] 5 mg PO BID@999,219907/11/20 [History] Naloxegol Oxalate [Movantik] 25 mg PO DAILY@1000 07/11/20 [History] Pregabalin [Lyrica] 100 mg PO HS@219907/11/20 [History] Albuterol Inhaler [Ventolin Hfa Inhaler] 1 - 2 puff INHALATION RT-Q6H PRN 07/26/23 [History] Brimonidine Tartrate [Alphagan P 0.2% Ophth Soln] 1 drop BOTH EYES BID@999,219907/26/23 [History] Docusate [Colace] 100 mg PO BID@1000,219907/26/23 [History] Ipratropium-Albuterol Nebulize [Duoneb 0.5 mg-3 mg/3 ml Soln] 3 ml INHALATION RT-QID PRN 07/26/23 [History] Pravastatin Sodium [Pravachol] 80 mg PO HS@219907/26/23 [History] oxyCODONE HCL [oxyCODONE HCL (IR)] 30 mg PO Q6H 07/26/23 [History] oxyCODONE HCL [oxyCODONE HCL ER] 40 mg PO BID@1000,1600 07/26/23 [History] Pantoprazole [Protonix] 40 mg PO AC-BRKFST #30 tab 07/31/23 [Rx] Sennosides-Docusate Sodium [Senokot-S] 2 tab PO BID PRN 08/31/23 [History] Budesonide-Formot 160-4.5 Mcg [Symbicort 160-4.5 Mcg Inhaler] 2 puff INHALATION RT-BID@,09/22/23 [History] Triamcinolone 0.5% Ointment 1 applic TOPICAL BID PRN 09/27/23 [History] predniSONE See Taper PO DAILY 09/27/23 [History] Amiodarone [Cordarone] 400 mg PO BID #180 tab 10/01/23 [Rx] Doxycycline [Vibramycin] 100 mg PO BID 2 Days #4 cap 10/01/23 [Rx] Metoprolol Succinate (ER) [Toprol XL] 50 mg PO BID #60 tab 10/01/23 [Rx] guaiFENesin [Mucinex] 1,200 mg PO BID #1 tab 10/01/23 [Rx] polyethylene glycoL 3350 [Miralax] 17 gm PO DAILY PRN packet 10/01/23 [Rx] Follow up Appointment(s)/Referral(s): Trenton Turpin MD [STAFF PHYSICIAN] - 10/21/23 1:00 pm Gabino Monroe MD [STAFF PHYSICIAN] - 10/06/23 2:00 pm Patient Instructions/Handouts: A-fib (Atrial Fibrillation) (DC) Activity/Diet/Wound Care/Special Instructions: Patient to machine operator hop picker event monitor from Cardiology office today post discharge Amio taper at discharge: 400mg BID for 1 week, 200mg BID for 1 week, and then 200mg daily Discharge Disposition: HOME SELF-CARE
== END 2023-10-01 14:02 | disposition home or self-care (01) | DRG 309 ==
LOC: EC 10:14 → 3SCARD 14:14
PROVIDERS: ADMIT Family Medicine; ATTEND Family Medicine
DX: I48.0 Paroxysmal atrial fibrillation (principal); J44.0 Chronic obstructive pulmonary disease with (acute) lower respiratory infection; I48.92 Unspecified atrial flutter; J20.9 Acute bronchitis, unspecified; Z79.01 Long term (current) use of anticoagulants; Z86.16 Personal history of COVID-19; R00.0 Tachycardia, unspecified; G47.33 Obstructive sleep apnea (adult) (pediatric); E78.5 Hyperlipidemia, unspecified; M54.9 Dorsalgia, unspecified; H40.9 Unspecified glaucoma; G89.29 Other chronic pain; I08.1 Rheumatic disorders of both mitral and tricuspid valves; E66.01 Morbid (severe) obesity due to excess calories; Z68.38 Body mass index [BMI] 38.0-38.9, adult; Z87.891 Personal history of nicotine dependence; Z87.19 Personal history of other diseases of the digestive system; Z87.01 Personal history of pneumonia (recurrent); Z87.442 Personal history of urinary calculi; Z88.1 Allergy status to other antibiotic agents; Z88.2 Allergy status to sulfonamides; Z88.0 Allergy status to penicillin
CPT/HCPCS: 36415; 71046; 80048; 80053; 80061; 83735; 84484; 85025; 85027; 85379; 85610; 85730; 93005; 93306; 94640; 96365; 96366; 99291

== ENCOUNTER 2023-10-20 07:27 | Inpatient (IN) | payer MEDICARE ==
[2023-10-20] MEDS: methylPREDNISolone SOD SUCCI 125 MG/2 ML VIAL IV STA (08:04)
[2023-10-20 08:08] LABS: Basophils # (A) 0.1 k/uL (0-0.2); Basophils % (A) 1 %; Eosinophils # (A) 0.2 k/uL (0-0.7); Eosinophils % (A) 2 %; HCT 40.6 % (39.0-53.0); HGB 12.8 gm/dL (13.0-17.5); Lymphocytes % (A) 8 %; MCH 29.8 pg (25.0-35.0); MCHC 31.6 g/dL (31.0-37.0); MCV 94.3 fL (80.0-100.0); Mean Platelet Volume 8.6; Monocytes # (A) 0.8 k/uL (0-1.0); Monocytes % (A) 7 %; Neutrophils % (A) 80 %; Platelet Count 208 k/uL (150-450); RDW 14.5 % (11.5-15.5); WBC 11.3 k/uL (3.8-10.6)
[2023-10-20] MEDS: SODIUM CHLORIDE 0.9% 1,000 ML IV ONE (08:13)
--- NOTE | 2023-10-20 08:17 | ED ---
General Adult HPI - General Chief complaint: Shortness of Breath Stated complaint: sob Time Seen by Provider: 10/20/23 07:30 Source: patient (5), EMS, RN notes reviewed Mode of arrival: EMS Limitations: no limitations - History of Present Illness Initial comments: 78-year-old male presents emergency department via EMS chief complaint of dyspnea. Patient states that he woke up short of breath states he does have a history of COPD and A-fib. Patient states that his pulse ox showed in the upper 70s and low 80s. Patient states he uses inhaler which helps some. Patient denies any chest pain or palpitations. He is scheduled for an ablation by Dr. Turpin. Patient denies any fevers or chills no productive cough denies abdominal pain no leg swelling no history of CHF. - Related Data Home Medications Medication Instructions Recorded Confirmed Ketoconazole 2% Shampoo [Nizoral] 1 applic TOPICAL DIRECTED 05/09/15 10/20/23 clonazePAM [KlonoPIN] 0.5 mg PO BID@1000,219912/11/16 10/20/23 ramipriL [Altace] 10 mg PO HS@219906/22/19 10/20/23 Apixaban [Eliquis] 5 mg PO BID@1000,219907/11/20 10/20/23 Naloxegol Oxalate [Movantik] 25 mg PO DAILY@1000 07/11/20 10/20/23 Pregabalin [Lyrica] 100 mg PO HS@219907/11/20 10/20/23 Albuterol Inhaler [Ventolin Hfa 1 - 2 puff INHALATION RT-Q6H PRN 07/26/23 0 10/20/23 Inhaler] Brimonidine Tartrate [Alphagan P 1 drop BOTH EYES BID@999,219907/26/23 04/0 03/06 0.2% Ophth Soln] Docusate [Colace] 100 mg PO BID@1000,219907/26/23 10/20/23 Ipratropium-Albuterol Nebulize 3 ml INHALATION RT-QID PRN 07/26/23 10/20/23 [Duoneb 0.5 mg-3 mg/3 ml Soln] Pravastatin Sodium [Pravachol] 80 mg PO HS@2200 07/26/23 10/20/23 oxyCODONE HCL [oxyCODONE HCL (IR)] 30 mg PO Q6H 07/26/23 10/20/23 oxyCODONE HCL [oxyCODONE HCL ER] 40 mg PO BID@1000,1600 07/26/23 10/20/23 Sennosides-Docusate Sodium 2 tab PO BID PRN 08/31/23 10/20/23 [Senokot-S] Budesonide-Formot 160-4.5 Mcg 2 puff INHALATION RT-BID@10,22 09/22/23 10/20/23 [Symbicort 160-4.5 Mcg Inhaler] Triamcinolone 0.5% Ointment 1 applic TOPICAL BID PRN 09/27/23 10/20/23 Amiodarone [Cordarone] See Taper PO DIRECTED 10/20/23 10/20/23 Previous Rx's Medication Instructions Recorded Pantoprazole [Protonix] 40 mg PO AC-BRKFST #30 tab 07/31/23 Metoprolol Succinate (ER) [Toprol 50 mg PO BID #60 tab 10/01/23 XL] polyethylene glycoL 3350 [Miralax] 17 gm PO DAILY PRN packet 10/01/23 Allergies Allergy/AdvReac Type Severity Reaction Status Date / Time aspirin Allergy Rash/Hives Verified 10/20/23 11:26 ciprofloxacin [From Cipro] Allergy Rash/Hives Verified 10/20/23 11:26 ibuprofen [From Motrin] Allergy Rash/Hives Verified 10/20/23 11:26 Penicillins Allergy Rash/Hives Verified 10/20/23 11:26 Sulfa (Sulfonamide Allergy Rash/Hives Verified 10/20/23 11:26 Antibiotics) Review of Systems ROS Statement: Those systems with pertinent positive or pertinent negative responses have been documented in the HPI. ROS Other: All systems not noted in ROS Statement are negative. Past Medical History Past Medical History: Atrial Fibrillation, Atrial Flutter, COPD, Hyperlipidemia, Hypertension, Pneumonia, Renal Disease, Sleep Apnea/CPAP/BIPAP Additional Past Medical History / Comment(s): "ON METFORMIN, FOR PREVENTION." EYE DROPS "TO PREVENT GLAUCOMA." NO CURRENT TX FOR SLEEP APNEA. HX KIDNEY STONES.maclodegeneration. RSV, Covid, and Pneumonia August and September 2023 History of Any Multi-Drug Resistant Organisms: None Reported Past Surgical History: Ablation, Appendectomy, Back Surgery, Cardiac Ablation, H ernia Repair, Orthopedic Surgery Additional Past Surgical History / Comment(s): CARDIAC ABLATION X3. BACK SURG X4. REPAIR LT FOOT INJ. ESWL. COLONOSCOPY. Past Anesthesia/Blood Transfusion Reactions: No Reported Reaction Past Psychological History: No Psychological Hx Reported Smoking Status: Former smoker Past Alcohol Use History: None Reported Past Drug Use History: None Reported - Past Family History Mother Family Medical History: No Reported History Father Family Medical History: AFIB, CVA/TIA Brother(s) Family Medical History: AFIB General Exam Limitations: no limitations General appearance: alert, in no apparent distress Head exam: Present: atraumatic, normocephalic, normal inspection Eye exam: Present: normal appearance, PERRL, EOMI. Absent: scleral icterus, conjunctival injection, periorbital swelling ENT exam: Present: normal exam, normal oropharynx, mucous membranes moist Neck exam: Present: normal inspection. Absent: tenderness, meningismus, lymphadenopathy Respiratory exam: Present: wheezes. Absent: normal lung sounds bilaterally, respiratory distress, rales, rhonchi, stridor Cardiovascular Exam: Present: regular rate, normal rhythm, normal heart sounds. Absent: systolic murmur, diastolic murmur, rubs, gallop, clicks Neurological exam: Present: alert Skin exam: Present: warm, dry, intact, normal color. Absent: rash Course Vital Signs 10/20/23 10/20/23 10/20/23 07:29 07:50 08:14 Temperature 98.2 F Pulse Rate 76 70 Respiratory 16 18 18 Rate Blood Pressure 104/64 O2 Sat by Pulse 91 L 92 L Oximetry 10/20/23 10/20/23 10/20/23 08:22 08:38 08:52 Temperature Pulse Rate 68 70 68 Respiratory 18 18 18 Rate Blood Pressure 119/66 O2 Sat by Pulse 91 L Oximetry 10/20/23 10/20/23 10/20/23 10:10 11:43 13:03 Temperature Pulse Rate 77 71 73 Respiratory 18 18 18 Rate Blood Pressure 129/68 123/84 109/54 O2 Sat by Pulse 96 95 96 Oximetry 10/20/23 14:17 Temperature Pulse Rate 75 Respiratory 18 Rate Blood Pressure 107/52 O2 Sat by Pulse 96 Oximetry EKG Findings - EKG Comments: EKG Findings:: EKG performed at 7: 45 sinus rhythm with a first-degree block rate of 75 [place] 224 QRS 110 QT/QTc 397/426 - EKG Results: EKG: interpreted by [facility] Medical Decision Making - Medical Decision Making Was pt. sent in by a medical professional or institution (, PA, INDEPENDENT CONSULTANT, urgent care, hospital, or assisted...) When possible be specific @ -No Did you speak to anyone other than the patient for history (EMS, parent, family, police, friend...)? What history was obtained from this source @ -No Did you review nursing and triage notes (agree or disagree)? Why? @ -I reviewed and agree with nursing and triage notes Were old charts reviewed (outside hosp., previous admission, EMS record, old EKG, old radiological studies, urgent care reports/EKG's, assisted records)? Report findings @ -[Reviewed prior chest x-ray Differential Diagnosis (chest pain, altered mental status, abdominal pain women, abdominal pain men, vaginal bleeding, weakness, fever, dyspnea, syncope, headache, dizziness, GI bleed, back pain, seizure, CVA, palpatations, mental health, musculoskeletal)? @Differential Dyspnea: Coronary syndrome, arrhythmia, tamponade, asthma, COPD, pulmonary embolism, pneumonia, pneumothorax, pulmonary effusion, anaphylaxis, diabetic ketoacidosis, flailed chest, pulmonary contusion, diaphragmatic rupture, anemia, neuromuscular, this is not meant to be an all-inclusive list. EKG interpreted by me (3pts min.). @ -As above X-rays interpreted by me (1pt min.). @ -[Chest x-ray shows no evidence of pneumonia CT interpreted by me (1pt min.). @ -None done U/S interpreted by me (1pt. min.). @ -None done What testing was considered but not performed or refused? (CT, X-rays, U/S, labs)? Why? @ -None What meds were considered but not given or refused? Why? @ -None Did you discuss the management of the patient with other professionals (professionals i.e. , DESIRE, INDEPENDENT CONSULTANT, lab, RT, psych nurse, high school social studies teacher, needle loom weaver, t eacher, parking enforcement officer, case briefer)? Give summary @ -Dr. Monroe for admission regarding hypoxia, COVID-19 Was smoking cessation discussed for >3mins.? @ -No Was critical care preformed (if so, how long)? @ -No Were there social determinants of health that impacted care today? How? (Homelessness, low income, unemployed, alcoholism, drug addiction, transportation, low edu. Level, literacy, decrease access to med. care, senior living, rehab)? @ -No Was there de-escalation of care discussed even if they declined (Discuss DNR or withdrawal of care, Hospice)? DNR status @ -No What co-morbidities impacted this encounter? (DM, HTN, Smoking, COPD, CAD, Cancer, CVA, ARF, Chemo, Hep., AIDS, mental health diagnosis, sleep apnea, morbid obesity)? @ -COPD, A-fib Was patient admitted / discharged? Hospital course, mention meds given and route, prescriptions, significant lab abnormalities, going to OR and other pertinent info. @ -Patient is hypoxic on room air patient does have COPD exacerbation will be treated with steroids, breathing treatments, patient is COVID-19 positive. Undiagnosed new problem with uncertain prognosis? @ -No Drug Therapy requiring intensive monitoring for toxicity (Heparin, Nitro, Insulin, Cardizem)? @ -No Were any procedures done? @ -No Diagnosis/symptom? @ -COPD exacerbation, COVID-19 Acute, or Chronic, or Acute on Chronic? @ -Acute Uncomplicated (without systemic symptoms) or Complicated (systemic symptoms)? @ - complicated Side effects of treatment? @ -No Exacerbation, Progression, or Severe Exacerbation? @ -Exacerbation Poses a threat to life or bodily function? How? (Chest pain, [place], AR, pneumonia, PE, COPD, DKA, ARF, appy, cholecystitis, CVA, Diverticulitis, Homicidal, Suicidal, threat to staff... and all critical care pts) @Yes possible respiratory failure - Lab Data Result diagrams: 10/20/23 07:56 10/20/23 07:56 Lab Results 10/20/23 10/20/23 10/20/23 Range/Units 07:56 07:56 07:56 WBC 11.3 H (3.8-10.6) k/uL RBC 4.30 (4.30-5.90) m/uL Hgb 12.8 L (13.0-17.5) gm/dL Hct 40.6 (39.0-53.0) % MCV 94.3 (80.0-100.0) fL MCH 29.8 (25.0-35.0) pg MCHC 31.6 (31.0-37.0) g/dL RDW 14.5 (11.5-15.5) % Plt Count 208 (150-450) k/uL MPV 8.6 Neutrophils % 80 % Lymphocytes % 8 % Monocytes % 7 % Eosinophils % 2 % Basophils % 1 % Neutrophils # 9.0 H (1.3-7.7) k/uL Lymphocytes # 1.0 (1.0-4.8) k/uL Monocytes # 0.8 (0-1.0) k/uL Eosinophils # 0.2 (0-0.7) k/uL Basophils # 0.1 (0-0.2) k/uL PT 10.9 (10.0-12.5) sec INR 1.0 (<1.2) APTT 21.6 L (22.0-30.0) sec Sodium 140 (137-145) mmol/L Potassium 4.6 (3.5-5.1) mmol/L Chloride 106 (98-107) mmol/L Carbon Dioxide 27 (22-30) mmol/L Anion Gap 7 mmol/L BUN 17 (9-20) mg/dL Creatinine 0.67 (0.66-1.25) mg/dL Est GFR (CKD-EPI)AfAm >90 (>60 ml/min/1.73 sqM) Est GFR (CKD-EPI)NonAf >90 (>60 ml/min/1.73 sqM) Glucose 120 H (74-99) mg/dL Plasma Lactic Acid Jv (0.7-2.0) mmol/L Calcium 8.7 (8.4-10.2) mg/dL Magnesium 1.9 (1.6-2.3) mg/dL Total Bilirubin 0.4 (0.2-1.3) mg/dL AST 23 (17-59) U/L ALT 23 (4-49) U/L Alkaline Phosphatase 53 (38-126) U/L Troponin I (0.000-0.034) ng/mL NT-Pro-B Natriuret Pep 861 pg/mL Total Protein 6.6 (6.3-8.2) g/dL Albumin 3.7 (3.5-5.0) g/dL Influenza Type A (PCR) (Not Detectd) Influenza Type B (PCR) (Not Detectd) RSV (PCR) (Not Detectd) SARS-CoV-2 (PCR) (Not Detectd) 10/20/23 10/20/23 10/20/23 Range/Units 07:56 07:56 08:48 WBC (3.8-10.6) k/uL RBC (4.30-5.90) m/uL Hgb (13.0-17.5) gm/dL Hct (39.0-53.0) % MCV (80.0-100.0) fL MCH (25.0-35.0) pg MCHC (31.0-37.0) g/dL RDW (11.5-15.5) % Plt Count (150-450) k/uL MPV Neutrophils % % Lymphocytes % % Monocytes % % Eosinophils % % Basophils % % Neutrophils # (1.3-7.7) k/uL Lymphocytes # (1.0-4.8) k/uL Monocytes # (0-1.0) k/uL Eosinophils # (0-0.7) k/uL Basophils # (0-0.2) k/uL PT (10.0-12.5) sec INR (<1.2) APTT (22.0-30.0) sec Sodium (137-145) mmol/L Potassium (3.5-5.1) mmol/L Chloride (98-107) mmol/L Carbon Dioxide (22-30) mmol/L Anion Gap mmol/L BUN (9-20) mg/dL Creatinine (0.66-1.25) mg/dL Est GFR (CKD-EPI)AfAm (>60 ml/min/1.73 sqM) Est GFR (CKD-EPI)NonAf (>60 ml/min/1.73 sqM) Glucose (74-99) mg/dL Plasma Lactic Acid Jv 1.3 (0.7-2.0) mmol/L Calcium (8.4-10.2) mg/dL Magnesium (1.6-2.3) mg/dL Total Bilirubin (0.2-1.3) mg/dL AST (17-59) U/L ALT (4-49) U/L Alkaline Phosphatase (38-126) U/L Troponin I 0.013 (0.000-0.034) ng/mL NT-Pro-B Natriuret Pep pg/mL Total Protein (6.3-8.2) g/dL Albumin (3.5-5.0) g/dL Influenza Type A (PCR) Not Detected (Not Detectd) Influenza Type B (PCR) Not Detected (Not Detectd) RSV (PCR) Not Detected (Not Detectd) SARS-CoV-2 (PCR) Detected A (Not Detectd) Disposition Clinical Impression: COVID-19, Hypoxia, COPD exacerbation Disposition: ADMITTED IP TO THIS HOSP Condition: Poor Time of Disposition: 10:51
[2023-10-20] MEDS: IPRATROPIUM-ALBUTEROL 3 ML NEB INHALATION STA (08:20)
[2023-10-20 08:25] LABS: Prothrombin Time 10.9 sec (10.0-12.5)
[2023-10-20 08:29] LABS: ALT 23 U/L (4-49); AST 23 U/L (17-59); African American GFR (CKD) >90 (>60 ml/min/1.73 sqM); Albumin 3.7 g/dL (3.5-5.0); Alkaline Phosphatase 53 U/L (38-126); Anion Gap 7 mmol/L; Blood Urea Nitrogen 17 mg/dL (9-20); Calcium 8.7 mg/dL (8.4-10.2); Carbon Dioxide 27 mmol/L (22-30); Chloride 106 mmol/L (98-107); Glucose 120 mg/dL (74-99); Magnesium 1.9 mg/dL (1.6-2.3); Non-African American GFR(CKD) >90 (>60 ml/min/1.73 sqM); Potassium 4.6 mmol/L (3.5-5.1); Sodium 140 mmol/L (137-145); Total Bilirubin 0.4 mg/dL (0.2-1.3); Total Protein 6.6 g/dL (6.3-8.2)
[2023-10-20 08:36] LABS: NT-Pro-B-Type Natriuretic Pept 861 pg/mL; Partial Thromboplastin Time 21.6 sec (22.0-30.0)
--- NOTE | 2023-10-20 08:52 | XR ---
EXAMINATION TYPE: XR chest 2V DATE OF EXAM: 10/20/2023 COMPARISON: 09/27/2023 TECHNIQUE: PA and lateral views submitted. HISTORY: Shortness of breath FINDINGS: The lungs are clear and there is no pneumothorax, pleural effusion, or focal pneumonia. Heart size normal and no overt failure. Osseous structures demonstrate hypertrophic and degenerative changes of the spine. Coarsened interstitium is stable. Left basilar scarring or atelectasis. Changes of COPD. IMPRESSION: 1. No acute process. Stable coarsened interstitium unchanged from prior exam may be in the basis of c hronic interstitial lung disease. Mild bronchitis or interstitial pneumonitis difficult to exclude.
[2023-10-20] MEDS ORDERED: NALOXONE 0.4 MG/ML 1 ML VIAL IV PRN (10:52)
[2023-10-20] MEDS ORDERED: ACETAMINOPHEN TAB 325 MG TAB PO PRN (10:52)
[2023-10-20] MEDS: methylPREDNISolone SOD SUCCI 125 MG/2 ML VIAL IV SCH (13:11)
--- NOTE | 2023-10-20 14:25 | CT ---
CTA CHEST EXAMINATION TYPE: CT chest angio for PE DATE OF EXAM: 10/20/2023 INDICATION: post COVID dyspnea CT DLP: 915.2 mGycm, Automated exposure control for dose reduction was used. CONTRAST: Patient injected with 100ml mL of Isovue 300. COMPARISON: None TECHNIQUE: CT of the chest is performed on a spiral scan at 2 mm thick sections. Study is performed with intravenous contrast timed for evaluation for pulmonary embolism. This will limit additional po rtions of the evaluation. 3-D MIP images reconstructed by the technologist are reviewed on the compu ter in the coronal and sagittal planes. FINDINGS: No persistent filling defects are evident to suggest an acute pulmonary embolism. There is a 1.4 cm right suprahilar lymph node. Small subcarinal lymph node is present. Appears to be prominent pretracheal lymphadenopathy measuring 1.3 cm. The ascending aorta diameter at the level of the main pulmonary artery is 3.1 cm. The main pulmonary artery diameter at the bifurcation is 3.4 cm. Is a 0.65 cm nodule lateral right midlung. Series 401 image 60. Small scattered areas of pneumonitis are the periphery of the bilateral mid to lower lung peguero. Small area of pneumonitis mainly in the anterior medial right middle lobe. Limited CT sections were through the upper abdomen. There is thickening of the left adrenal gland me asuring 1.8 cm. IMPRESSION: 1. No acute pulmonary embolism. 2. 0.5 cm peripheral mid right lung nodule. 3. Few scattered areas of pneumonitis change. 4. Enlarged pretracheal and right hilar adenopathy.
[2023-10-20] MEDS: oxyCODONE ER 20 MG TAB.ER.12H PO SCH (15:50)
[2023-10-20] MEDS ORDERED: DEXTROSE 50% SYRINGE 50 ML IVP PRN ×2 (18:11)
--- NOTE | 2023-10-20 19:06 | P.CNPUL ---
History of Present Illness Consult date: 10/20/23 Reason for consult: dyspnea History of present illness: This is a 78-year-old male patient who is being admitted to the hospital because of worsening shortness of breath. The patient came into the emergency department because of increased dyspnea. The patient has COPD and chronic A- fib. The patient tested again positive for COVID-19. Nevertheless, the patient was positive for COVID-19 on earlier admission and the test was positive on and the patient is persistently positive regarding his COVID-19 testing. The rest of the viral screen was essentially negative. The patient is currently on oxygen at 6 L of oxygen by nasal cannula. Due to his ongoing hypoxic respiratory failure, a CT angiogram was ordered and showed no evidence of any pulmonary embolism. A 5 mm nodule in the periphery of the right midlung. Few scattered areas of pneumonitis and enlarged pretracheal and the right hilar lymph nodes were also seen. In terms of blood work, the patient's white cell count 11.3 with a hemoglobin 12.6, electrolytes are unremarkable, proBNP level is at 861 with a troponin of 0.013. The patient is currently on a combination of DuoNeb updrafts, Symbicort as maintenance and the patient was also started on IV Solu-Medrol. He is receiving 60 mg IV Solu-Medrol every 6 hours. Noted the patient has [id number] hospitalizations. He had an RSV infection earlier this year and subsequently was hospitalized for COVID-19 infection in September 2023. Review of Systems CONSTITUTIONAL: Denies any recent significant weight loss or weight gain. Admits generalized fatigue. Denies fevers. EYES: Denies change in vision. EARS, NOSE, MOUTH, THROAT: Denies headaches, denies sore throat. CARDIOVASCULAR: Denies chest pain, palpitations or syncopal episodes. Denies lower extremity swelling. RESPIRATORY: See HPI GASTROINTESTINAL: Denies change in appetite, abdominal pain, nausea and vomiting. Admits loose stools, 1 occurrence per day. GENITOURINARY: Denies hematuria, denies infections. MUSKULOSKELETAL: Denies pain, denies swelling. INTEGUMENTARY: Denies rash, denies eczema. NEUROLOGICAL: Denies recent memory loss, no recent seizure activity. PSYCHIATRIC: Denies anxiety, denies depression. HEMATOLOGIC/LYMPHATIC: Denies anemia, denies enlarged lymph node Past Medical History Past Medical History: Atrial Fibrillation, Atrial Flutter, COPD, Hyperlipidemia, Hypertension, Pneumonia, Renal Disease, Sleep Apnea/CPAP/BIPAP Additional Past Medical History / Comment(s): "ON METFORMIN, FOR PREVENTION." EYE DROPS "TO PREVENT GLAUCOMA." NO CURRENT TX FOR SLEEP APNEA. HX KIDNEY STONES.maclodegeneration. RSV, Covid, and Pneumonia August and September 2023 History of Any Multi-Drug Resistant Organisms: None Reported Past Surgical History: Ablation, Appendectomy, Back Surgery, Cardiac Ablation, Hernia Repair, Orthopedic Surgery Additional Past Surgical History / Comment(s): CARDIAC ABLATION X3. BACK SURG X4. REPAIR LT FOOT INJ. ESWL. COLONOSCOPY. Past Anesthesia/Blood Transfusion Reactions: No Reported Reaction Past Psychological History: No Psychological Hx Reported Smoking Status: Former smoker Past Alcohol Use History: None Reported Past Drug Use History: None Reported - Past Family History Mother Family Medical History: No Reported History Father Family Medical History: AFIB, CVA/TIA Brother(s) Family Medical History: AFIB Medications and Allergies Home Medications Medication Instructions Recorded Confirmed Type Ketoconazole 2% Shampoo [Nizoral] 1 applic TOPICAL DIRECTED 05/09/15 10/20/23 History clonazePAM [KlonoPIN] 0.5 mg PO BID@1000,219912/11/16 10/20/23 History ramipriL [Altace] 10 mg PO HS@219906/22/19 10/20/23 History Apixaban [Eliquis] 5 mg PO BID@1000,219907/11/20 10/20/23 History Naloxegol Oxalate [Movantik] 25 mg PO DAILY@99907/11/20 10/20/23 History Pregabalin [Lyrica] 100 mg PO HS@0 07/11/20 10/20/23 History Albuterol Inhaler [Ventolin Hfa 1 - 2 puff INHALATION RT-Q6H PRN 07/26/23 10/20/23 History Inhaler] Brimonidine Tartrate [Alphagan P 1 drop BOTH EYES BID@1000,219907/26/23 10/20/23 History 0.2% Ophth Soln] Docusate [Colace] 100 mg PO BID@1000,2200 07/26/23 10/20/23 History Ipratropium-Albuterol Nebulize 3 ml INHALATION RT-QID PRN 07/26/23 10/20/23 History [Duoneb 0.5 mg-3 mg/3 ml Soln] Pravastatin Sodium [Pravachol] 80 mg PO HS@2200 07/26/23 10/20/23 History oxyCODONE HCL [oxyCODONE HCL (IR)] 30 mg PO Q6H 07/26/23 10/20/23 History oxyCODONE HCL [oxyCODONE HCL ER] 40 mg PO BID@1000,1600 07/26/23 10/20/23 History Pantoprazole [Protonix] 40 mg PO AC-BRKFST #30 tab 07/31/23 10/20/23 Rx Sennosides-Docusate Sodium 2 tab PO BID PRN 08/31/23 10/20/23 History [Senokot-S] Budesonide-Formot 160-4.5 Mcg 2 puff INHALATION RT-BID@10,22 09/22/23 10/20/23 History [Symbicort 160-4.5 Mcg Inhaler] Triamcinolone 0.5% Ointment 1 applic TOPICAL BID PRN 09/27/23 10/20/23 History Metoprolol Succinate (ER) [Toprol 50 mg PO BID #60 tab 10/01/23 10/20/23 Rx XL] polyethylene glycoL 3350 [Miralax] 17 gm PO DAILY PRN packet 10/01/23 10/20/23 Rx Amiodarone [Cordarone] See Taper PO DIRECTED 10/20/23 10/20/23 History Naloxegol Oxalate [Movantik] 25 mg PO DAILY 10/20/23 10/20/23 History Allergies Allergy/AdvReac Type Severity Reaction Status Date / Time aspirin Allergy Rash/Hives Verified 10/20/23 11:26 ciprofloxacin [From Cipro] Allergy Rash/Hives Verified 10/20/23 11:26 ibuprofen [From Motrin] Allergy Rash/Hives Verified 10/20/23 11:26 Penicillins Allergy Rash/Hives Verified 10/20/23 11:26 Sulfa (Sulfonamide Allergy Rash/Hives Verified 10/20/23 11:26 Antibiotics) Physical Exam Vitals: Vital Signs Temp Pulse Resp BP Pulse Ox 10/20/23 13:03 73 18 109/54 10/20/23 11:43 71 18 123/84 95 10/20/23 10:10 77 18 129/68 96 10/20/23 08:52 68 18 119/66 91 L 10/20/23 08:38 70 18 10/20/23 08:22 68 18 10/20/23 08:14 70 18 104/64 92 L 10/20/23 07:50 18 10/20/23 07:29 98.2 F 76 16 91 L Intake and Output 10/19/23 10/20/23 10/20/23 22:59 06:59 14:59 Other: Weight 129.274 kg GENERAL EXAM: Alert, 78-year-old white male, sitting up in bedside recliner, comfortable in no apparent distress. The patient is currently on 60 days of oxygen by nasal cannula. HEAD: Normocephalic and atraumatic EYES: Normal reaction of pupils, equal size. NOSE: Clear with pink turbinates. THROAT: No erythema or exudates. NECK: No masses, no JVD. CHEST: No chest wall deformity. LUNGS: Equal air entry with generalized expiratory wheezing and rhonchi, on room air, no conversational dyspnea or accessory muscle use.. CVS: Irregular S1-S2 consistent with atrial fibrillation with no audible murmur, irregular rhythm. No extra heart sounds ABDOMEN: No hepatosplenomegaly, active bowel sounds, no guarding or rigidity. SPINE: No scoliosis or deformity SKIN: No rashes CENTRAL NERVOUS SYSTEM: No focal deficits, tone is normal in all 4 extremities. EXTREMITIES: There is no peripheral edema, clubbing, or cyanosis. Peripheral pulses are intact. Results - Laboratory Findings CBC and BMP: 10/20/23 07:56 10/20/23 07:56 PT/INR, D-dimer PT 10.9 sec (10.0-12.5) 10/20/23 07:56 INR 1.0 (<1.2) 10/20/23 07:56 Abnormal lab findings: Abnormal Labs 10/20/23 10/20/23 10/20/23 07:56 07:56 07:56 WBC 11.3 H Hgb 12.8 L Neutrophils # 9.0 H APTT 21.6 L Glucose 120 H SARS-CoV-2 (PCR) 10/20/23 08:48 WBC Hgb Neutrophils # APTT Glucose SARS-CoV-2 (PCR) Detected A Assessment and Plan Plan: Acute dyspnea, essentially related to acute COPD exacerbation. CT angiogram of the chest is negative for any pulmonary embolism. There is some nonspecific mediastinal lymph nodes and can be monitored on outpatient basis probably reactive. No airspace disease or consolidation. Limited areas of pneumonitis probably related to previous viral infection. COVID-19 infection, originally infected in September 2023 and the patient's testing is still positive. Doubt any ongoing or active infection at this point in time. Previous history of RSV infection with secondary stroke exacerbation back in July 2023 Chronic atrial fibrillation, he has history of previous cardiac ablations History of hypertension History of hyperlipidemia Obstructive sleep apnea, noncompliant with CPAP at home History of kidney stones History of glaucoma Brief history of tobacco dependence Plan: Oxygen flow to maintain saturation above 90%, currently on 4 L Patient was started on a combination of bronchodilators, Symbicort inhaler, and IV Solu-Medrol. Procalcitonin level pending Management of chronic A-fib The patient is on metoprolol and anticoagulation with Eliquis. Echocardiogram from 09/29/2023 showed an preserved LV function with an ejection fraction of 55 to 60%. Moderate LA dilatation. Anticoagulated on Eliquis. Protonix GI
[2023-10-20] MEDS: METOPROLOL SUCCINATE (ER) 50 MG TAB.ER.24H PO SCH (19:55)
[2023-10-20] MEDS: polyethylene glycoL 3350 17 GM POWD.PACK PO PRN (19:55)
[2023-10-20 20:02] LABS: Glucose,Whole Blood 165 mg/dL (70-110)
[2023-10-20] MEDS: INSULIN ASPART (NovoLOG) 100 UNIT/ML VIAL SQ SCH (20:04)
[2023-10-20] MEDS ORDERED: SENNOSIDES-DOCUSATE SODIUM 1 EACH TAB PO PRN (21:00)
[2023-10-20] MEDS: IPRATROPIUM-ALBUTEROL 3 ML NEB INHALATION SCH (21:22)
[2023-10-20] MEDS: SYMBICORT 160-4.5 MCG INHALER INHALATION SCH (21:42)
[2023-10-20] MEDS: ALBUTEROL HFA INHALER INHALATION SCH (21:43)
[2023-10-20] MEDS: PRAVASTATIN SODIUM 80 MG TAB PO SCH (21:51)
[2023-10-20] MEDS: PREGABALIN 100 MG CAP PO SCH (21:51)
[2023-10-20] MEDS: BENZOCAINE/MENTHOL LOZENG 1 EACH LOZENGE MUCOUS MEM PRN (21:51)
[2023-10-20] MEDS: lisinopriL 20 MG TAB PO SCH (21:51)
[2023-10-20] MEDS: clonazePAM 0.5 MG TAB PO SCH (21:51)
[2023-10-20] MEDS: APIXABAN 5 MG TAB PO SCH (21:51)
[2023-10-20] MEDS: DOCUSATE 100 MG CAP PO SCH (21:51)
[2023-10-20] MEDS: BRIMONIDINE TARTRATE 0.2% DROPS 5 ML BTL BOTH EYES SCH (22:43)
[2023-10-21 05:58] LABS: Glucose,Whole Blood 178 mg/dL (70-110)
[2023-10-21] MEDS: PANTOPRAZOLE 40 MG TABLET PO SCH (06:43)
[2023-10-21] MEDS: AMIODARONE 200 MG TAB PO SCH (09:38)
[2023-10-21] MEDS: NALOXEGOL OXALATE 25 MG PO SCH (10:17)
[2023-10-21 11:37] LABS: Glucose,Whole Blood 146 mg/dL (70-110)
--- NOTE | 2023-10-21 14:31 | P.PN ---
Subjective Progress Note Date: 10/21/23 This is a 78-year-old male patient who is being admitted to the hospital [facility] use of worsening shortness of breath. The patient came into the emergency department because of increased dyspnea. The patient has COPD and chronic A- fib. The patient tested again positive for COVID-19. Nevertheless, the patient was positive for COVID-19 on earlier admission and the test was positive on 09/22/2023 and the patient is persistently positive regarding his COVID-19 testing. The rest of the viral screen was essentially negative. The patient is currently on oxygen at 6 L of oxygen by nasal cannula. Due to his ongoing hypoxic respiratory failure, a CT angiogram was ordered and showed no evidence of any pulmonary embolism. A 5 mm nodule in the periphery of the right midlung. Few scattered areas of pneumonitis and enlarged pretracheal and the right hilar lymph nodes were also seen. In terms of blood work, the patient's white cell count 11.3 with a hemoglobin 12.6, electrolytes are unremarkable, proBNP level is at 861 with a troponin of 0.013. The patient is currently on a combination of DuoNeb updrafts, Symbicort as maintenance and the patient was also started on IV Solu-Medrol. He is receiving 60 mg IV Solu-Medrol every 6 hours. Noted the patient has deio-tr-yevd hospitalizations. He had an RSV infection earlier this year and subsequently was hospitalized for COVID-19 infection in September 2023. On today's evaluation of 10/21/2023, I am seeing the patient for a follow-up. Feeling much better. No significant shortness of breath. No chest pain. No syncope. Remains on bronchodilators and steroids. No new labs from today. Objective - Vital Signs Vital signs: Vital Signs Temp 97.8 F 10/21/23 08:00 Pulse 80 10/21/23 08:00 Resp 17 10/21/23 08:00 BP 174/78 10/21/23 08:00 Pulse Ox 90 L 10/21/23 09:29 FiO2 Intake & Output 10/20/23 10/21/23 10/21/23 18:59 06:59 18:59 Output Total 500 500 Balance -500 -500 Weight 129.274 kg Output: Urine 500 500 Other: Voiding Method Toilet Toilet - Exam GENERAL EXAM: Alert, 78-year-old white male, sitting up in bedside recliner, comfortable in no apparent distress. The patient is currently on 60 days of oxygen by nasal cannula. HEAD: Normocephalic and atraumatic EYES: Normal reaction of pupils, equal size. NOSE: Clear with pink turbinates. THROAT: No erythema or exudates. NECK: No masses, no JVD. CHEST: No chest wall deformity. LUNGS: Equal air entry with generalized expiratory wheezing and rhonchi, on room air, no conversational dyspnea or accessory muscle use.. CVS: Irregular S1-S2 consistent with atrial fibrillation with no audible murmur, irregular rhythm. No extra heart sounds ABDOMEN: No hepatosplenomegaly, active bowel sounds, no guarding or rigidity. SPINE: No scoliosis or deformity SKIN: No rashes CENTRAL NERVOUS SYSTEM: No focal deficits, tone is normal in all 4 extremities. EXTREMITIES: There is no peripheral edema, clubbing, or cyanosis. Peripheral pulses are intact. - Labs CBC & Chem 7: 10/20/23 07:56 10/20/23 07:56 Labs: Abnormal Lab Results - Last 24 Hours (Table) 10/20/23 10/21/23 10/21/23 Range/Units 20:01 05:54 05:57 POC Glucose (mg/dL) 165 H 178 H (70-110) mg/dL Hemoglobin A1c 6.1 H (<=6.0) % Assessment and Plan Plan: Acute dyspnea, essentially related to acute COPD exacerbation. CT angiogram of the chest is negative for any pulmonary embolism. There is some nonspecific mediastinal lymph nodes and can be monitored on outpatient basis probably reactive. No airspace disease or consolidation. Limited areas of pneumonitis probably related to previous viral infection. COVID-19 infection, originally infected in September 2023 and the patient's testing is still positive. Doubt any ongoing or active infection at this point in time. Previous history of RSV infection with secondary stroke exacerbation back in July 2023 Chronic atrial fibrillation, he has history of previous cardiac ablations History of hypertension History of hyperlipidemia Obstructive sleep apnea, noncompliant with CPAP at home History of kidney stones History of glaucoma Brief history of tobacco dependence Plan: The patient is clinically improved. Oxygen flow to maintain saturation above 90%, currently on room air oxygen Patient was started on a combination of bronchodilators, Symbicort inhaler, and IV Solu-Medrol for another 24 hours then transition the patient to a prednisone burst taper at time of discharge and consider switching this patient from Symbicort as maintenance to Trelegy Ellipta. Management of chronic A-fib The patient is on metoprolol and anticoagulation with Eliquis. Echocardiogram from 09/29/2023 showed an preserved LV function with an ejection fraction of 55 to 60%. Moderate LA dilatation. Anticoagulated on Eliquis. Protonix GI
--- NOTE | 2023-10-21 14:57 | P.HPIM ---
History of Present Illness H&P Date: 10/21/23 Chief Complaint: Progressive shortness of breath, hypoxic This is an 78-year-old with past medical history significant for multiple recent hospitalizations related to A-fib RVR-anticoagulated on Eliquis, RSV infection, recent COVID infection 10/04-vaccinated with boosters, COPD, obstructive sleep apnea with CPAP, hypertension, hyperlipidemia, prior nicotine dependence and mu ltiple other medical issues presented to the ER with complaints of progressive dyspnea with nonproductive cough. Reports he checked his O2 sats initially 75% on room air, repeated was up to 82%. Denies leg swelling. Denies chest pain, palpitations or shortness of breath. On admission, patient was 91% on 3 L nasal cannula. Viral studies continue to report positive for COVID in a patient initially infected in September 2023. CTA reported no PE, 0.5 cm peripheral mid right lung nodule, few scattered areas of pneumonitis, enlarged pretracheal and right hilar adenopathy. Afebrile, WBC 11.3, hemoglobin 12.8, platelets 208. INR 1, Earnest panel unremarkable. troponin 0.013, pro BNP 861. Hemoglobin A1c 6.1. maintained on nebulized bronchodilators, Symbicort, IV steroids. Reports significant clinical improvement this morning with oxygen currently weaned off maintaining O2 sats of 90% on room air. Review of Systems ROS Statement: Those systems with pertinent positive or pertinent negative responses have been documented in the HPI. ROS Other: All systems not noted in ROS Statement are negative. Past Medical History Past Medical History: Atrial Fibrillation, Atrial Flutter, COPD, Hyperlipidemia, Hypertension, Pneumonia, Renal Disease, Sleep Apnea/CPAP/BIPAP Additional Past Medical History / Comment(s): "ON METFORMIN, FOR PREVENTION." EYE DROPS "TO PREVENT GLAUCOMA." NO CURRENT TX FOR SLEEP APNEA. HX KIDNEY STONES.maclodegeneration. RSV, Covid, and Pneumonia August and September 2023 History of Any Multi-Drug Resistant Organisms: None Reported Past Surgical History: Ablation, Appendectomy, Back Surgery, Cardiac Ablation, Hernia Repair, Orthopedic Surgery Additional Past Surgical History / Comment(s): CARDIAC ABLATION X3. BACK SURG X4. REPAIR LT FOOT INJ. ESWL. COLONOSCOPY. Past Anesthesia/Blood Transfusion Reactions: No Reported Reaction Past Psychological History: No Psychological Hx Reported Smoking Status: Former smoker Past Alcohol Use History: None Reported Past Drug Use History: None Reported - Past Family History Mother Family Medical History: No Reported History Father Family Medical History: AFIB, CVA/TIA Brother(s) Family Medical History: AFIB Medications and Allergies Home Medications Medication Instructions Recorded Confirmed Type Ketoconazole 2% Shampoo [Nizoral] 1 applic TOPICAL DIRECTED 05/09/15 10/20/23 History clonazePAM [KlonoPIN] 0.5 mg PO BID@1000,2200 12/11/16 10/20/23 History ramipriL [Altace] 10 mg PO HS@2200 06/22/19 10/20/23 History Apixaban [Eliquis] 5 mg PO BID@1000,219907/11/20 10/20/23 History Naloxegol Oxalate [Movantik] 25 mg PO DAILY@1000 07/11/20 10/20/23 History Pregabalin [Lyrica] 100 mg PO HS@219907/11/20 10/20/23 History Albuterol Inhaler [Ventolin Hfa 1 - 2 puff INHALATION RT-Q6H PRN 07/26/23 10/20/23 History Inhaler] Brimonidine Tartrate [Alphagan P 1 drop BOTH EYES BID@1000,219907/26/23 10/20/23 History 0.2% Ophth Soln] Docusate [Colace] 100 mg PO BID@1000,2200 07/26/23 10/20/23 History Ipratropium-Albuterol Nebulize 3 ml INHALATION RT-QID PRN 07/26/23 10/20/23 History [Duoneb 0.5 mg-3 mg/3 ml Soln] Pravastatin Sodium [Pravachol] 80 mg PO HS@0 07/26/23 10/20/23 History oxyCODONE HCL [oxyCODONE HCL (IR)] 30 mg PO Q6H 07/26/23 10/20/23 History oxyCODONE HCL [oxyCODONE HCL ER] 40 mg PO BID@1000,1600 07/26/23 10/20/23 History Pantoprazole [Protonix] 40 mg PO AC-BRKFST #30 tab 07/31/23 10/20/23 Rx Sennosides-Docusate Sodium 2 tab PO BID PRN 08/31/23 10/20/23 History [Senokot-S] Budesonide-Formot 160-4.5 Mcg 2 puff INHALATION RT-BID@09/22/23 10/20/23 History [Symbicort 160-4.5 Mcg Inhaler] Triamcinolone 0.5% Ointment 1 applic TOPICAL BID PRN 09/27/23 10/20/23 History Metoprolol Succinate (ER) [Toprol 50 mg PO BID #60 tab 10/01/23 10/20/23 Rx XL] polyethylene glycoL 3350 [Miralax] 17 gm PO DAILY PRN packet 10/01/23 10/20/23 Rx Amiodarone [Cordarone] See Taper PO DIRECTED 10/20/23 10/20/23 History Naloxegol Oxalate [Movantik] 25 mg PO DAILY 10/20/23 10/20/23 History Allergies Allergy/AdvReac Type Severity Reaction Status Date / Time aspirin Allergy Rash/Hives Verified 10/20/23 11:26 ciprofloxacin [From Cipro] Allergy Rash/Hives Verified 10/20/23 11:26 ibuprofen [From Motrin] Allergy Rash/Hives Verified 10/20/23 11:26 Penicillins Allergy Rash/Hives Verified 10/20/23 11:26 Sulfa (Sulfonamide Allergy Rash/Hives Verified 10/20/23 11:26 Antibiotics) Physical Exam Vitals: Vital Signs Temp Pulse Pulse Resp BP BP Pulse Ox 10/21/23 09:29 90 L 10/21/23 08:00 97.8 F 80 17 174/78 90 L 10/21/23 01:44 97.5 F L 83 16 130/73 96 10/20/23 19:40 97.5 F L 66 15 114/62 97 10/20/23 18:53 97.9 F 77 20 148/77 94 L 10/20/23 17:19 97.7 F 74 20 135/73 95 10/20/23 16:39 70 18 125/74 96 10/20/23 15:43 71 16 129/71 96 Intake and Output 10/20/23 10/21/23 10/21/23 22:59 06:59 14:59 Output Total 500 500 Balance -500 -500 Output: Urine 500 500 Other: Voiding Method Toilet Toilet Weight 129.274 kg HYSICAL EXAM: VITAL SIGNS: [As above] GENERAL: Alert and oriented 3, sitting up in chair, no acute distress, conversing without dyspnea HEENT: Normocephalic, Conjunctivae normal. eyes normal. NECK: Supple, No JVD. CARDIOVASCULAR: S1, S2.irregular systolic murmur RESPIRATION: Unlabored, no accessory muscle use ,equal air entry, fine expiratory wheezing ABDOMEN: Soft, nontender . No rigidity, no guarding, positive bowel sounds. LEGS: No edema. no swelling. No calf tenderness. NERVOUS SYSTEM: Cranial N 2-12 grossly normal.No focal deficits. Skin: Warm and dry, no rash Results CBC & Chem 7: 10/20/23 07:56 10/20/23 07:56 Labs: Abnormal Lab Results - Last 24 Hours (Table) 10/20/23 10/21/23 10/21/23 Range/Units 20:01 05:54 05:57 POC Glucose (mg/dL) 165 H 178 H (70-110) mg/dL Hemoglobin A1c 6.1 H (<=6.0) % 10/21/23 Range/Units 11:35 POC Glucose (mg/dL) 146 H (70-110) mg/dL Hemoglobin A1c (<=6.0) % Thrombosis Risk Factor Assmnt - Choose All That Apply Any of the Below Risk Factors Present?: Yes Each Factor Represents 1 point: Abnormal pulmonary function (COPD), Obesity (BMI >25) Each Risk Factor Represents 3 Points: Age 75 years or older Thrombosis Risk Factor Assessment Total Risk Factor Score: 5 Thrombosis Risk Factor Assessment Level: High Risk Assessment and Plan Assessment: Acute hypoxic respiratory failure, secondary to acute COPD exacerbation .oxygen currently weaned off COVID-19 infection in a patient with recent COVID-19 infection 10/04. Doubt acute. Pulmonary following. Recent RSV tracheobronchitis, July 2023 Chronic paroxysmal atrial fibrillation, anticoagulated on Eliquis COPD History of cardiac ablation 3 at [facility] Hypertension hyperlipidemia End-stage renal disease Obstructive sleep apnea, noncompliant with CPAP at home Morbid obesity, BMI 38 Chronic back pain, history of back surgery Glaucoma Prior nicotine dependence Plan: Continue on current medication regime, monitoring and symptomatic treatment. Aggressive pulmonary toileting with nebulized bronchodilators, steroids. Discharge planning in progress for as early as today pending final DC recommendations and clearance per pulmonary. The impression and plan of care has been dictated as directed. : I performed a history and examination of this patient, discussed the same with the dictator. I agree with the dictator's note ,documented as a scribe. Any additional findings or plans will be noted.
[2023-10-21 16:35] LABS: Glucose,Whole Blood 183 mg/dL (70-110)
[2023-10-21 20:32] LABS: Glucose,Whole Blood 134 mg/dL (70-110)
[2023-10-22 02:57] VITALS: TEMP 97.5
[2023-10-22 05:43] LABS: Glucose,Whole Blood 162 mg/dL (70-110)
[2023-10-22 08:02] VITALS: BP 145/85; PULSE 62; RESP 18
--- NOTE | 2023-10-22 09:08 | P.DS ---
Providers Date of admission: 10/20/23 10:31 Expected date of discharge: 10/22/23 Attending physician: Gabino Monroe MD Consults: 10/20/23 10:52 Consult Physician Urgent Consulting Provider: Agatha Garcia Consult Reason/Comments: COPD exacerbation With COVID-19 Do you want consulting provider notified?: Yes Primary care physician: Linda Antony Hospital Course: Final Diagnoses: Acute hypoxic respiratory failure, secondary to acute COPD exacerbation .oxygen weaned off COVID-19 infection in a patient with recent COVID-19 infection 10/04. Doubt acute. Pulmonary following. Recent RSV tracheobronchitis, July 2023 Chronic paroxysmal atrial fibrillation, anticoagulated on Eliquis COPD History of cardiac ablation 3 at [facility] Hypertension hyperlipidemia End-stage renal disease Obstructive sleep apnea, noncompliant with CPAP at home Morbid obesity, BMI 38 Chronic back pain, history of back surgery Glaucoma Prior nicotine dependence Hospital course:This is an 78-year-old with past medical history significant for multiple recent hospitalizations related to A-fib RVR-anticoagulated on Eliquis, RSV infection, recent COVID infection 10/04-vaccinated with boosters, COPD, obstructive sleep apnea with CPAP, hypertension, hyperlipidemia, prior nicotine dependence and multiple other medical issues presented to the ER with complaints of progressive dyspnea with nonproductive cough. Reports he checked his O2 sats initially 75% on room air, repeated was up to 82%. Denies leg swelling. Denies chest pain, palpitations or shortness of breath. On admission, patient was 91% on 3 L nasal cannula. Viral studies continue to report positive for COVID in a patient initially infected in September 2023. CTA reported no PE, 0.5 cm peripheral mid right lung nodule, few scattered areas of pneumonitis, enlarged pretracheal and right hilar adenopathy. Afebrile, WBC 11.3, hemoglobin 12.8, platelets 208. INR 1, Earnest panel unremarkable. troponin 0.013, pro BNP 861. Hemoglobin A1c 6.1. maintained on nebulized bronchodilators, Symbicort, IV steroids. Reports significant clinical improvement this morning with oxygen currently weaned off maintaining O2 sats of 90% on room air. Significant clinical improvement. Telemetry controlled atrial fibrillation. maintaining O2 sats in the mid to high 90s on room air. Ambulating, tolerating exertion well. Patient will be discharged home today in a stable condition with guarded prognosis pending final DC recommendations and clearance per pulmonary. The impression and plan of care has been dictated as directed. : I performed a history and examination of this patient, discussed the same with the dictator. I agree with the dictator's note ,documented as a scribe. Any additional findings or plans will be noted. Patient Condition at Discharge: Stable Plan - Discharge Summary Discharge Rx Participant: Yes New Discharge Prescriptions: New predniSONE 10 mg PO DIRECTED #30 tab Continue Ketoconazole 2% Shampoo [Nizoral] 1 applic TOPICAL DIRECTED clonazePAM [KlonoPIN] 0.5 mg PO BID@1000,2200 ramipriL [Altace] 10 mg PO HS@2200 Pregabalin [Lyrica] 100 mg PO HS@2200 Naloxegol Oxalate [Movantik] 25 mg PO DAILY@1000 Apixaban [Eliquis] 5 mg PO BID@1000,2200 oxyCODONE HCL [oxyCODONE HCL ER] 40 mg PO BID@1000,1600 Albuterol Inhaler [Ventolin Hfa Inhaler] 1 - 2 puff INHALATION RT-Q6H PRN PRN Reason: Shortness Of Breath Docusate [Colace] 100 mg PO BID@1000,2200 Ipratropium-Albuterol Nebulize [Duoneb 0.5 mg-3 mg/3 ml Soln] 3 ml INHALATION RT-QID PRN PRN Reason: Shortness Of Breath Brimonidine Tartrate [Alphagan P 0.2% Ophth Soln] 1 drop BOTH EYES BID@1000,2200 Budesonide-Formot 160-4.5 Mcg [Symbicort 160-4.5 Mcg Inhaler] 2 puff INHALATION RT-BID@10,22 Triamcinolone 0.5% Ointment 1 applic TOPICAL BID PRN PRN Reason: Rash Metoprolol Succinate (ER) [Toprol XL] 50 mg PO BID #60 tab Amiodarone [Cordarone] See Taper PO DIRECTED oxyCODONE HCL [oxyCODONE HCL (IR)] 30 mg PO Q6H Pravastatin Sodium [Pravachol] 80 mg PO HS@2200 Pantoprazole [Protonix] 40 mg PO AC-BRKFST #30 tab Sennosides-Docusate Sodium [Senokot-S] 2 tab PO BID PRN PRN Reason: Constipation polyethylene glycoL 3350 [Miralax] 17 gm PO DAILY PRN packet PRN Reason: Constipation Naloxegol Oxalate [Movantik] 25 mg PO DAILY Discharge Medication List Ketoconazole 2% Shampoo [Nizoral] 1 applic TOPICAL DIRECTED 05/09/15 [History] clonazePAM [KlonoPIN] 0.5 mg PO BID@1000,219912/11/16 [History] ramipriL [Altace] 10 mg PO HS@219906/22/19 [History] Apixaban [Eliquis] 5 mg PO BID@999,219907/11/20 [History] Naloxegol Oxalate [Movantik] 25 mg PO DAILY@99907/11/20 [History] Pregabalin [Lyrica] 100 mg PO HS@219907/11/20 [History] Albuterol Inhaler [Ventolin Hfa Inhaler] 1 - 2 puff INHALATION RT-Q6H PRN 07/26/23 [History] Brimonidine Tartrate [Alphagan P 0.2% Ophth Soln] 1 drop BOTH EYES BID@999,219907/26/23 [History] Docusate [Colace] 100 mg PO BID@999,219907/26/23 [History] Ipratropium-Albuterol Nebulize [Duoneb 0.5 mg-3 mg/3 ml Soln] 3 ml INHALATION RT-QID PRN 07/26/23 [History] Pravastatin Sodium [Pravachol] 80 mg PO HS@219907/26/23 [History] oxyCODONE HCL [oxyCODONE HCL (IR)] 30 mg PO Q6H 07/26/23 [History] oxyCODONE HCL [oxyCODONE HCL ER] 40 mg PO BID@1000,1600 07/26/23 [History] Pantoprazole [Protonix] 40 mg PO AC-BRKFST #30 tab 07/31/23 [Rx] Sennosides-Docusate Sodium [Senokot-S] 2 tab PO BID PRN 08/31/23 [History] Budesonide-Formot 160-4.5 Mcg [Symbicort 160-4.5 Mcg Inhaler] 2 puff INHALATION RT-BID@09/22/23 [History] Triamcinolone 0.5% Ointment 1 applic TOPICAL BID PRN 09/27/23 [History] Metoprolol Succinate (ER) [Toprol XL] 50 mg PO BID #60 tab 10/01/23 [Rx] polyethylene glycoL 3350 [Miralax] 17 gm PO DAILY PRN packet 10/01/23 [Rx] Amiodarone [Cordarone] See Taper PO DIRECTED 10/20/23 [History] Naloxegol Oxalate [Movantik] 25 mg PO DAILY 10/20/23 [History] predniSONE 10 mg PO DIRECTED #30 tab 10/22/23 [Rx] Follow up Appointment(s)/Referral(s): Gabino Monroe MD [STAFF PHYSICIAN] - 1 Week (Office is not answering at time of discharge. Please call for follow-up appointment.) Agatha Garcia MD [STAFF PHYSICIAN] - 11/07/23 2:00 pm Patient Instructions/Handouts: COPD (Chronic Obstructive Pulmonary Disease) (DC), Hypoxia (GEN) Activity/Diet/Wound Care/Special Instructions: consider switching from Symbicort as maintenance to Trelegy Ellipta in clinic, as per pulm. Discharge Disposition: HOME WITH HOME HEALTH SERVICES
[2023-10-22] MEDS: predniSONE 20 MG TAB PO SCH (10:25)
[2023-10-22 11:20] LABS: Glucose,Whole Blood 176 mg/dL (70-110)
--- NOTE | 2023-10-22 12:04 | P.PN ---
Subjective Progress Note Date: 10/22/23 This is a 78-year-old male patient who is being admitted to the [facility] use of worsening shortness of breath. The patient came into the emergency department because of increased dyspnea. The patient has COPD and chronic A- fib. The patient tested again positive for COVID-19. Nevertheless, the patient was positive for COVID-19 on earlier admission and the test was positive on 09/22/2023 and the patient is persistently positive regarding his COVID-19 testing. The rest of the viral screen was essentially negative. The patient is currently on oxygen at 6 L of oxygen by nasal cannula. Due to his ongoing hypoxic respiratory failure, a CT angiogram was ordered and showed no evidence of any pulmonary embolism. A 5 mm nodule in the periphery of the right midlung. Few scattered areas of pneumonitis and enlarged pretracheal and the right hilar lymph nodes were also seen. In terms of blood work, the patient's white cell count 11.3 with a hemoglobin 12.6, electrolytes are unremarkable, proBNP level is at 861 with a troponin of 0.013. The patient is currently on a combination of DuoNeb updrafts, Symbicort as maintenance and the patient was also started on IV Solu-Medrol. He is receiving 60 mg IV Solu-Medrol every 6 hours. Noted the patient has hwva-wh-ywld hospitalizations. He had an RSV infection earlier this year and subsequently was hospitalized for COVID-19 infection in September 2023. On today's evaluation of 10/21/2023, I am seeing the patient for a follow-up. Feeling much better. No significant shortness of breath. No chest pain. No syncope. Remains on bronchodilators and steroids. No new labs from today. On today's evaluation of 10/22/2023, no new complaints the patient is stable ambulating, no significant shortness of breath. The patient will be taken off the IV Solu-Medrol start on a prednisone burst taper. Potential discharge home today. Remains in atrial fibrillation. Hemodynamically stable. Objective - Vital Signs Vital signs: Vital Signs Temp 97.5 F L 10/22/23 07:43 Pulse 62 10/22/23 07:43 Resp 18 10/22/23 07:43 BP 145/85 10/22/23 07:43 Pulse Ox 95 10/22/23 08:36 FiO2 Intake & Output 04/09/24 04/10/24 04/10/24 18:59 06:59 18:59 Output Total 500 400 Balance -500 -400 Output: Urine 500 400 Other: Voiding Method Toilet Toilet # Voids 2 - Exam GENERAL EXAM: Alert, 78-year-old white male, sitting up in bedside recliner, comfortable in no apparent distress. The patient is currently on 60 days of oxygen by nasal cannula. HEAD: Normocephalic and atraumatic EYES: Normal reaction of pupils, equal size. NOSE: Clear with pink turbinates. THROAT: No erythema or exudates. NECK: No masses, no JVD. CHEST: No chest wall deformity. LUNGS: Equal air entry with generalized expiratory wheezing and rhonchi, on room air, no conversational dyspnea or accessory muscle use.. CVS: Irregular S1-S2 consistent with atrial fibrillation with no audible murmur, irregular rhythm. No extra heart sounds ABDOMEN: No hepatosplenomegaly, active bowel sounds, no guarding or rigidity. SPINE: No scoliosis or deformity SKIN: No rashes CENTRAL NERVOUS SYSTEM: No focal deficits, tone is normal in all 4 extremities. EXTREMITIES: There is no peripheral edema, clubbing, or cyanosis. Peripheral pulses are intact. - Labs CBC & Chem 7: 10/20/23 07:56 10/20/23 07:56 Labs: Abnormal Lab Results - Last 24 Hours (Table) 10/21/23 10/21/23 10/21/23 Range/Units 11:35 16:33 20:31 POC Glucose (mg/dL) 146 H 183 H 134 H (70-110) mg/dL 10/22/23 Range/Units 05:41 POC Glucose (mg/dL) 162 H (70-110) mg/dL Assessment and Plan Plan: Acute dyspnea, essentially related to acute COPD exacerbation. CT angiogram of the chest is negative for any pulmonary embolism. There is some nonspecific mediastinal lymph nodes and can be monitored on outpatient basis probably reactive. No airspace disease or consolidation. Limited areas of pneumonitis probably related to previous viral infection. COVID-19 infection, originally infected in September 2023 and the patient's testing is still positive. Doubt any ongoing or active infection at this point in time. Previous history of RSV infection with secondary stroke exacerbation back in July 2023 Chronic atrial fibrillation, he has history of previous cardiac ablations History of hypertension History of hyperlipidemia Obstructive sleep apnea, noncompliant with CPAP at home History of kidney stones History of glaucoma Brief history of tobacco dependence Plan: The patient is clinically improved. The patient is to be discharged home on a prednisone burst taper. Recommend Trelegy Ellipta as a maintenance on outpatient basis and prescription should be given given to the patient by the primary care team discharging this patient. To be followed up by pulmonary in outpatient basis. Management of chronic A-fib The patient is on metoprolol and anticoagulation with Eliquis. Echocardiogram from 09/29/2023 showed an preserved LV function with an ejection fraction of 55 to 60%. Moderate LA dilatation. Anticoagulated on Eliquis. Protonix GI
== END 2023-10-22 12:59 | disposition home health service (06) | DRG 190 ==
LOC: EC 07:27 → 4SSUR 10:31
PROVIDERS: ADMIT Family Medicine; ATTEND Family Medicine
DX: J44.0 Chronic obstructive pulmonary disease with (acute) lower respiratory infection (principal); J96.01 Acute respiratory failure with hypoxia; N18.6 End stage renal disease; I12.0 Hypertensive chronic kidney disease with stage 5 chronic kidney disease or end stage renal disease; I48.0 Paroxysmal atrial fibrillation; G89.29 Other chronic pain; H40.9 Unspecified glaucoma; G47.33 Obstructive sleep apnea (adult) (pediatric); E78.5 Hyperlipidemia, unspecified; E66.01 Morbid (severe) obesity due to excess calories; E11.22 Type 2 diabetes mellitus with diabetic chronic kidney disease; Z68.38 Body mass index [BMI] 38.0-38.9, adult; Z79.01 Long term (current) use of anticoagulants; Z79.51 Long term (current) use of inhaled steroids; Z79.899 Other long term (current) drug therapy; Z86.16 Personal history of COVID-19; Z87.442 Personal history of urinary calculi; Z91.199 Patient's noncompliance with other medical treatment and regimen due to unspecified reason
CPT/HCPCS: 36415; 71046; 71275; 80053; 83036; 83605; 83735; 83880; 84484; 85025; 85610; 85730; 87636; 93005; 94640; 94760; 96361; 96374; 96376; 99285

== ENCOUNTER 2023-10-24 05:34 | Observation (INO) | payer MEDICARE ==
--- NOTE | 2023-10-24 06:00 | ED ---
General Adult HPI - General Chief complaint: Shortness of Breath Stated complaint: ANA M Time Seen by Provider: 10/24/23 05:35 Source: patient, EMS, RN notes reviewed, old records reviewed Mode of arrival: EMS - History of Present Illness Initial comments: 78-year-old male history of COPD presents for evaluation of increased cough dyspnea and hypoxia. Patient had called paramedics with dyspnea and hypoxia. He was found to be hypoxic in the 70's by paramedics upon arrival. He required nonrebreather to improve oxygenation, given albuterol and Atrovent during transport. Patient was recently admitted and treated for COPD exacerbation. He was discharged without the need for home oxygen at that time. - Related Data Home Medications Medication Instructions Recorded Confirmed Ketoconazole 2% Shampoo [Nizoral] 1 applic TOPICAL DIRECTED 05/09/15 10/20/23 clonazePAM [KlonoPIN] 0.5 mg PO BID@1000,2200 12/11/16 10/20/23 ramipriL [Altace] 10 mg PO HS@2200 06/22/19 10/20/23 Apixaban [Eliquis] 5 mg PO BID@1000,0 07/11/20 10/20/23 Naloxegol Oxalate [Movantik] 25 mg PO DAILY@1000 07/11/20 10/20/23 Pregabalin [Lyrica] 100 mg PO HS@0 07/11/20 10/20/23 Albuterol Inhaler [Ventolin Hfa 1 - 2 puff INHALATION RT-Q6H PRN 07/26/23 10/20/23 Inhaler] Brimonidine Tartrate [Alphagan P 1 drop BOTH EYES BID@1000,219907/26/23 10/20/23 0.2% Ophth Soln] Docusate [Colace] 100 mg PO BID@1000,219907/26/23 10/20/23 Ipratropium-Albuterol Nebulize 3 ml INHALATION RT-QID PRN 07/26/23 10/20/23 [Duoneb 0.5 mg-3 mg/3 ml Soln] Pravastatin Sodium [Pravachol] 80 mg PO HS@219907/26/23 10/20/23 oxyCODONE HCL [oxyCODONE HCL (IR)] 30 mg PO Q6H 07/26/23 10/20/23 oxyCODONE HCL [oxyCODONE HCL ER] 40 mg PO BID@1000,1600 07/26/23 10/20/23 Sennosides-Docusate Sodium 2 tab PO BID PRN 08/31/23 10/20/23 [Senokot-S] Budesonide-Formot 160-4.5 Mcg 2 puff INHALATION RT-BID@10,22 09/22/23 10/20/23 [Symbicort 160-4.5 Mcg Inhaler] Triamcinolone 0.5% Ointment 1 applic TOPICAL BID PRN 09/27/23 10/20/23 Amiodarone [Cordarone] See Taper PO DIRECTED 10/20/23 10/20/23 Naloxegol Oxalate [Movantik] 25 mg PO DAILY 10/20/23 10/20/23 Previous Rx's Medication Instructions Recorded Pantoprazole [Protonix] 40 mg PO AC-BRKFST #30 tab 07/31/23 Metoprolol Succinate (ER) [Toprol 50 mg PO BID #60 tab 10/01/23 XL] polyethylene glycoL 3350 [Miralax] 17 gm PO DAILY PRN packet 10/01/23 predniSONE 10 mg PO DIRECTED #30 tab 10/22/23 Allergies Allergy/AdvReac Type Severity Reaction Status Date / Time aspirin Allergy Rash/Hives Verified 10/20/23 11:26 ciprofloxacin [From Cipro] Allergy Rash/Hives Verified 10/20/23 11:26 ibuprofen [From Motrin] Allergy Rash/Hives Verified 10/20/23 11:26 Penicillins Allergy Rash/Hives Verified 10/20/23 11:26 Sulfa (Sulfonamide Allergy Rash/Hives Verified 10/20/23 11:26 Antibiotics) Review of Systems ROS Statement: Those systems with pertinent positive or pertinent negative responses have been documented in the HPI. ROS Other: All systems not noted in ROS Statement are negative. Past Medical History Past Medical History: Atrial Fibrillation, Atrial Flutter, COPD, Hyperlipidemia, Hypertension, Pneumonia, Renal Disease, Sleep Apnea/CPAP/BIPAP Additional Past Medical History / Comment(s): "ON METFORMIN, FOR PREVENTION." EYE DROPS "TO PREVENT GLAUCOMA." NO CURRENT TX FOR SLEEP APNEA. HX KIDNEY STONES.maclodegeneration. RSV, Covid, and Pneumonia August and September 2023 History of Any Multi-Drug Resistant Organisms: None Reported Past Surgical History: Ablation, Appendectomy, Back Surgery, Cardiac Ablation, Hernia Repair, Orthopedic Surgery Additional Past Surgical History / Comment(s): CARDIAC ABLATION X3. BACK SURG X4. REPAIR LT FOOT INJ. ESWL. COLONOSCOPY. Past Anesthesia/Blood Transfusion Reactions: No Reported Reaction Smoking Status: Former smoker - Past Family History Mother Family Medical History: No Reported History Father Family Medical History: AFIB, CVA/TIA Brother(s) Family Medical History: AFIB General Exam General appearance: alert, in distress Head exam: Present: atraumatic, normocephalic Eye exam: Present: normal appearance, PERRL Neck exam: Present: normal inspection. Absent: tenderness, meningismus Respiratory exam: Present: respiratory distress, wheezes, decreased breath sounds Cardiovascular Exam: Present: regular rate, normal rhythm GI/Abdominal exam: Present: soft. Absent: distended, tenderness Extremities exam: Present: normal inspection Neurological exam: Present: alert, oriented X3 Psychiatric exam: Present: normal affect, normal mood Skin exam: Present: warm, dry, intact Course Vital Signs 10/24/23 10/24/23 05:34 06:16 Temperature 98.0 F Pulse Rate 71 67 Respiratory 20 Rate Blood Pressure 153/75 O2 Sat by Pulse 100 Oximetry Medical Decision Making - Medical Decision Making Was pt. sent in by a medical professional or institution (, PA, MARKET MANAGER, urgent care, hospital, or [facility]...) When possible be specific @ -No Did you speak to anyone other than the patient for history (EMS, parent, family, police, friend...)? What history was obtained from this source @ -No Did you review nursing and triage notes (agree or disagree)? Why? @ -I reviewed and agree with nursing and triage notes Were old charts reviewed (outside hosp., previous admission, EMS record, old EKG, old radiological studies, urgent care reports/EKG's, [facility] records)? Report findings @ -No old charts were reviewed Differential Diagnosis @ -Differential Dyspnea: Coronary syndrome, arrhythmia, tamponade, asthma, COPD, pulmonary embolism, pneumonia, pneumothorax, pulmonary effusion, anaphylaxis, diabetic ketoacidosis, flailed chest, pulmonary contusion, diaphragmatic rupture, anemia, neuromuscular, this is not meant to be an all-inclusive list. EKG interpreted by me (3pts min.). @Sinus rhythm first-degree AV block rate of 68, IA interval 217, QRS duration 97, QTc [address] segment elevation. X-rays interpreted by me (1pt min.). @ -Chest x-ray negative for acute cardiopulmonary findings CT interpreted by me (1pt min.). @ -None done U/S interpreted by me (1pt. min.). @ -None done What testing was considered but not performed or refused? (CT, X-rays, U/S, labs)? Why? @ -None What meds were considered but not given or refused? Why? @ -None Did you discuss the management of the patient with other professionals (prof kerr i.eGregorio Ceballos, PA, MARKET MANAGER, lab, RT, psych nurse, social sciences research scientist, metal reed tuner, teacher, chief digital media officer, case management assistant)? Give summary @ -Dr. Monroe Was smoking cessation discussed for >3mins.? @ -No Was critical care preformed (if so, how long)? @ -Yes, 35 minutes Were there social determinants of health that impacted care today? How? (Homelessness, low income, unemployed, alcoholism, drug addiction, transportation, low edu. Level, literacy, decrease access to med. care, snf, rehab)? @ -No Was there de-escalation of care discussed even if they declined (Discuss DNR or withdrawal of care, Hospice)? DNR status @ -No What co-morbidities impacted this encounter? (DM, HTN, Smoking, COPD, CAD, Canc er, CVA, ARF, Chemo, Hep., AIDS, mental health diagnosis, sleep apnea, morbid obesity)? @ -COPD Was patient admitted / discharged? Hospital course, mention meds given and route, prescriptions, significant lab abnormalities, going to OR and other pertinent info. @ -78-year-old male with dyspnea, hypoxia, history of COPD. Patient was hypoxic by both his home pulse oximeter and by paramedics upon arrival he required's significant supplemental oxygen initially. In the emergency department after albuterol, Atrovent, steroids he continues to have hypoxia with need for supplemental oxygen. Chest x-ray is clear. Laboratory testing is unremarkable. Patient admitted with COPD exacerbation with hypoxia. Pulmonology placed on consult. Undiagnosed new problem with uncertain prognosis? @ -No Drug Therapy requiring intensive monitoring for toxicity (Heparin, Nitro, Insulin, Cardizem)? @ -No Were any procedures done? @ -No Diagnosis/symptom? @ -[COPD exacerbation Acute, or Chronic, or Acute on Chronic? @ -Acute on chronic Uncomplicated (without systemic symptoms) or Complicated (systemic symptoms)? @ -Default Side effects of treatment? @ -No Exacerbation, Progression, or Severe Exacerbation? @ -No Poses a threat to life or bodily function? How? (Chest pain, [place], [place], pneumonia, PE, COPD, DKA, ARF, appy, cholecystitis, CVA, Diverticulitis, Homicidal, Suicidal, threat to staff... and all critical care pts) @Yes hypoxic respiratory failure secondary to COPD - Lab Data Result diagrams: 10/24/23 05:59 10/24/23 05:59 Lab Results 10/24/23 10/24/23 10/24/23 Range/Units 05:59 05:59 05:59 WBC 16.6 H (3.8-10.6) k/uL RBC 4.34 (4.30-5.90) m/uL Hgb 12.9 L (13.0-17.5) gm/dL Hct 40.7 (39.0-53.0) % MCV 93.8 (80.0-100.0) fL MCH 29.8 (25.0-35.0) pg MCHC 31.7 (31.0-37.0) g/dL RDW 14.9 (11.5-15.5) % Plt Count 157 (150-450) k/uL MPV 8.8 Neutrophils % 79 % Lymphocytes % 10 % Monocytes % 8 % Eosinophils % 1 % Basophils % 0 % Neutrophils # 13.2 H (1.3-7.7) k/uL Lymphocytes # 1.6 (1.0-4.8) k/uL Monocytes # 1.4 H (0-1.0) k/uL Eosinophils # 0.2 (0-0.7) k/uL Basophils # 0.0 (0-0.2) k/uL Hypochromasia Slight Sodium 137 (137-145) mmol/L Potassium 4.4 (3.5-5.1) mmol/L Chloride 103 (98-107) mmol/L Carbon Dioxide 30 (22-30) mmol/L Anion Gap 4 mmol/L BUN 23 H (9-20) mg/dL Creatinine 0.64 L (0.66-1.25) mg/dL Est GFR (CKD-EPI)AfAm >90 (>60 ml/min/1.73 sqM) Est GFR (CKD-EPI)NonAf >90 (>60 ml/min/1.73 sqM) Glucose 92 (74-99) mg/dL Plasma Lactic Acid Jv 0.8 (0.7-2.0) mmol/L Calcium 8.4 (8.4-10.2) mg/dL Magnesium 2.0 (1.6-2.3) mg/dL Total Bilirubin 0.9 (0.2-1.3) mg/dL AST 36 (17-59) U/L ALT 57 H (4-49) U/L Alkaline Phosphatase 51 (38-126) U/L Total Protein 6.1 L (6.3-8.2) g/dL Albumin 3.3 L (3.5-5.0) g/dL Critical Care Time Critical Care Time: Yes Total Critical Care Time: 35 Disposition Clinical Impression: COPD (chronic obstructive pulmonary disease), Hypoxia Disposition: ADMITTED IP TO THIS HOSP Condition: Stable Referrals: Linda Antony DO [Primary Care Provider] - 1-2 days Time of Disposition: 06:39
[2023-10-24] MEDS: methylPREDNISolone SOD SUCCI 125 MG/2 ML VIAL IV STA (06:09)
[2023-10-24] MEDS: IPRATROPIUM-ALBUTEROL 3 ML NEB INHALATION STA (06:15)
--- NOTE | 2023-10-24 06:17 | XR ---
EXAMINATION TYPE: XR chest 1V portable DATE OF EXAM: 10/24/2023 COMPARISON: Chest x-ray and CT 4 days ago HISTORY: Difficulty in breathing TECHNIQUE: Single frontal view of the chest is obtained. FINDINGS: There is mild chronic parenchymal changes bilaterally redemonstrated without suspicious ne w focal air space opacity, pleural effusion, or pneumothorax seen. The cardiac silhouette size is st able and upper limits of normal. The osseous structures are intact. IMPRESSION: No new acute pulmonary process.
[2023-10-24 06:23] LABS: Basophils % (A) 0 %; Eosinophils # (A) 0.2 k/uL (0-0.7); Eosinophils % (A) 1 %; HCT 40.7 % (39.0-53.0); HGB 12.9 gm/dL (13.0-17.5); Hypochromasia Slight; Lymphocytes # (A) 1.6 k/uL (1.0-4.8); Lymphocytes % (A) 10 %; MCH 29.8 pg (25.0-35.0); MCHC 31.7 g/dL (31.0-37.0); MCV 93.8 fL (80.0-100.0); Mean Platelet Volume 8.8; Monocytes # (A) 1.4 k/uL (0-1.0); Monocytes % (A) 8 %; Neutrophils # (A) 13.2 k/uL (1.3-7.7); Neutrophils % (A) 79 %; Platelet Count 157 k/uL (150-450); RBC 4.34 m/uL (4.30-5.90); RDW 14.9 % (11.5-15.5); WBC 16.6 k/uL (3.8-10.6)
[2023-10-24 06:24] LABS: ALT 57 U/L (4-49); AST 36 U/L (17-59); African American GFR (CKD) >90 (>60 ml/min/1.73 sqM); Albumin 3.3 g/dL (3.5-5.0); Alkaline Phosphatase 51 U/L (38-126); Anion Gap 4 mmol/L; Blood Urea Nitrogen 23 mg/dL (9-20); Calcium 8.4 mg/dL (8.4-10.2); Carbon Dioxide 30 mmol/L (22-30); Chloride 103 mmol/L (98-107); Glucose 92 mg/dL (74-99); Non-African American GFR(CKD) >90 (>60 ml/min/1.73 sqM); Potassium 4.4 mmol/L (3.5-5.1); Sodium 137 mmol/L (137-145); Total Bilirubin 0.9 mg/dL (0.2-1.3); Total Protein 6.1 g/dL (6.3-8.2)
[2023-10-24] MEDS ORDERED: NALOXONE 0.4 MG/ML 1 ML VIAL IVP PRN (06:35)
[2023-10-24] MEDS ORDERED: ACETAMINOPHEN TAB 325 MG TAB PO PRN (06:35)
[2023-10-24] MEDS ORDERED: ALBUTEROL NEBULIZED 2.5 MG/3 ML INHALATION PRN (08:16)
[2023-10-24] MEDS ORDERED: SENNOSIDES-DOCUSATE SODIUM 1 EACH TAB PO PRN (08:16)
[2023-10-24] MEDS ORDERED: polyethylene glycoL 3350 17 GM POWD.PACK PO PRN (08:16)
[2023-10-24] MEDS ORDERED: IPRATROPIUM-ALBUTEROL 3 ML NEB INHALATION PRN (08:16)
[2023-10-24] MEDS: SYMBICORT 160-4.5 MCG INHALER INHALATION SCH (09:03)
[2023-10-24] MEDS: oxyCODONE ER 20 MG TAB.ER.12H PO SCH (09:34)
[2023-10-24] MEDS: AZITHROMYCIN 500 MG TAB PO SCH (09:35)
[2023-10-24] MEDS: METOPROLOL SUCCINATE (ER) 50 MG TAB.ER.24H PO SCH (09:35)
[2023-10-24] MEDS: clonazePAM 0.5 MG TAB PO SCH (09:35)
[2023-10-24] MEDS: DOCUSATE 100 MG CAP PO SCH (09:36)
[2023-10-24] MEDS: NON FORMULARY DRUG (Naloxegol Oxalate [Movantik] 25 MG Tablet) PO SCH (09:36)
[2023-10-24] MEDS: APIXABAN 5 MG TAB PO SCH (09:36)
--- NOTE | 2023-10-24 09:56 | P.HPIM ---
History of Present Illness H&P Date: 10/24/23 This is an 78-year-old with past medical history significant for multiple recent hospitalizations related to COPD , RSV infection in July 2023, recent COVID infection 10/04-vaccinated with boosters, obstructive sleep apnea with CPAP, A- fib,anticoagulated on Eliquis,hypertension, hyperlipidemia, prior nicotine dependence and multiple other medical issues recently discharged on with acute COPD exacerbation. Patient had tested positive for COVID-19 infection but felt to not be an active infection at that time as patient originally infected in September 2023. At discharge maintaining O2 sat of 90% on room air. Discharged on nebulized bronchodilators, Symbicort and prednisone taper as well as metoprolol and anticoagulation with Eliquis regarding management of chronic A- fib. Patient presented to PCPs office yesterday, short of breath, hypoxic, O2 sat in the 70s as per paramedics. Required nonrebreather for transfer to the ER. Patient currently maintaining O2 sats of 99% on 6 L nasal cannula. Discussed with RN to titrate O2 down to maintain O2 sats greater than 90%. Afebrile, WBC 16.6-on prednisone taper. Hemoglobin 12.9, platelets 157, electrolytes within normal limits, BUN 23, creatinine 0.64. Denies chest pain, palpitations or shortness of breath. EKG reporting sinus with first-degree AV block. Chest x-ray reporting no new acute pulmonary process .Maintained on neb ulized bronchodilators, Symbicort, IV steroids. Review of Systems ROS Statement: Those systems with pertinent positive or pertinent negative responses have been documented in the HPI. ROS Other: All systems not noted in ROS Statement are negative. Past Medical History Past Medical History: Atrial Fibrillation, Atrial Flutter, COPD, Hyperlipidemia, Hypertension, Pneumonia, Renal Disease, Sleep Apnea/CPAP/BIPAP Additional Past Medical History / Comment(s): "ON METFORMIN, FOR PREVENTION." EYE DROPS "TO PREVENT GLAUCOMA." NO CURRENT TX FOR SLEEP APNEA. HX KIDNEY STONES.maclodegeneration. RSV, Covid, and Pneumonia August and September 2023 History of Any Multi-Drug Resistant Organisms: None Reported Past Surgical History: Ablation, Appendectomy, Back Surgery, Cardiac Ablation, Hernia Repair, Orthopedic Surgery Additional Past Surgical History / Comment(s): CARDIAC ABLATION X3. BACK SURG X4. REPAIR LT FOOT INJ. ESWL. COLONOSCOPY. Past Anesthesia/Blood Transfusion Reactions: No Reported Reaction Smoking Status: Former smoker - Past Family History Mother Family Medical History: No Reported History Father Family Medical History: AFIB, CVA/TIA Brother(s) Family Medical History: AFIB Medications and Allergies Home Medications Medication Instructions Recorded Confirmed Type Ketoconazole 2% Shampoo [Nizoral] 1 applic TOPICAL DIRECTED 05/09/15 10/24/23 History clonazePAM [KlonoPIN] 0.5 mg PO BID@1000,0 12/11/16 10/24/23 History ramipriL [Altace] 10 mg PO HS@219906/22/19 10/24/23 History Apixaban [Eliquis] 5 mg PO BID@1000,219907/11/20 10/24/23 History Pregabalin [Lyrica] 100 mg PO HS@219907/11/20 10/24/23 History Albuterol Inhaler [Ventolin Hfa 1 - 2 puff INHALATION RT-Q6H PRN 07/26/23 10/24/23 History Inhaler] Brimonidine Tartrate [Alphagan P 1 drop BOTH EYES BID@1000,219907/26/23 10/24/23 History 0.2% Ophth Soln] Docusate [Colace] 100 mg PO BID@1000,0 07/26/23 10/24/23 History Ipratropium-Albuterol Nebulize 3 ml INHALATION RT-QID PRN 07/26/23 10/24/23 History [Duoneb 0.5 mg-3 mg/3 ml Soln] Pravastatin Sodium [Pravachol] 80 mg PO HS@219907/26/23 10/24/23 History oxyCODONE HCL [oxyCODONE HCL (IR)] 30 mg PO Q6H 07/26/23 10/24/23 History oxyCODONE HCL [oxyCODONE HCL ER] 40 mg PO BID@1000,1600 07/26/23 10/24/23 History Pantoprazole [Protonix] 40 mg PO AC-BRKFST #30 tab 07/31/23 10/24/23 Rx Sennosides-Docusate Sodium 2 tab PO BID PRN 08/31/23 10/24/23 History [Senokot-S] Budesonide-Formot 160-4.5 Mcg 2 puff INHALATION RT-BID@09/22/23 10/24/23 History [Symbicort 160-4.5 Mcg Inhaler] Triamcinolone 0.5% Ointment 1 applic TOPICAL BID PRN 09/27/23 10/24/23 History Metoprolol Succinate (ER) [Toprol 50 mg PO BID #60 tab 10/01/23 10/24/23 Rx XL] polyethylene glycoL 3350 [Miralax] 17 gm PO DAILY PRN packet 10/01/23 10/24/23 Rx Amiodarone [Cordarone] See Taper PO DIRECTED 10/20/23 10/24/23 History Naloxegol Oxalate [Movantik] 25 mg PO DAILY 10/20/23 10/24/23 History predniSONE See Taper PO DIRECTED 10/24/23 10/24/23 History Allergies Allergy/AdvReac Type Severity Reaction Status Date / Time aspirin Allergy Rash/Hives Verified 10/24/23 07:17 ciprofloxacin [From Cipro] Allergy Rash/Hives Verified 10/24/23 07:17 ibuprofen [From Motrin] Allergy Rash/Hives Verified 10/24/23 07:17 Penicillins Allergy Rash/Hives Verified 10/24/23 07:17 Sulfa (Sulfonamide Allergy Rash/Hives Verified 10/24/23 07:17 Antibiotics) Physical Exam Vitals: Vital Signs Temp Pulse Resp BP Pulse Ox 10/24/23 09:03 99 10/24/23 08:00 69 18 139/74 97 10/24/23 06:58 69 18 119/61 96 10/24/23 06:16 67 10/24/23 05:34 98.0 F 71 20 153/75 100 Intake and Output 10/23/23 10/24/23 10/24/23 22:59 06:59 14:59 Other: Weight 129.274 kg VITAL SIGNS: [As above] GENERAL: Alert and oriented 3, sitting up in chair, no acute distress, conversing without dyspnea HEENT: Normocephalic, Conjunctivae normal. eyes normal. NECK: Supple, No JVD. CARDIOVASCULAR: S1, S2.irregular systolic murmur RESPIRATION: Unlabored, no accessory muscle use ,equal air entry, fine expiratory wheezing ABDOMEN: Soft, nontender . No rigidity, no guarding, positive bowel sounds. LEGS: No edema. no swelling. No calf tenderness. NERVOUS SYSTEM: Cranial N 2-12 grossly normal.No focal deficits. Skin: Warm and dry, no rash Results CBC & Chem 7: 10/24/23 05:59 10/24/23 05:59 Labs: Abnormal Lab Results - Last 24 Hours (Table) 10/24/23 10/24/23 Range/Units 05:59 05:59 WBC 16.6 H (3.8-10.6) k/uL Hgb 12.9 L (13.0-17.5) gm/dL Neutrophils # 13.2 H (1.3-7.7) k/uL Monocytes # 1.4 H (0-1.0) k/uL BUN 23 H (9-20) mg/dL Creatinine 0.64 L (0.66-1.25) mg/dL ALT 57 H (4-49) U/L Total Protein 6.1 L (6.3-8.2) g/dL Albumin 3.3 L (3.5-5.0) g/dL Assessment and Plan Assessment: Acute hypoxic respiratory failure, secondary to acute COPD exacerbation .oxygen currently weaned off On last admission, tested positive for COVID-19 infection in a patient with recent COVID-19 infection 10/04, doubt acute as per pulmonary. Recent RSV tracheobronchitis, July 2023 Chronic paroxysmal atrial fibrillation, anticoagulated on Eliquis COPD History of cardiac ablation 3 at [facility] Hypertension hyperlipidemia End-stage renal disease Obstructive sleep apnea, noncompliant with CPAP at home Morbid obesity, BMI 38 Chronic back pain, history of back surgery Glaucoma Prior nicotine dependence Plan: Continue on current medication regime, monitoring and symptomatic treatment. Aggressive pulmonary toileting with nebulized bronchodilators, steroids. Titrate O2 to maintain O2 sats greater than 90%. Discussed with case management, CONCRETING SUPERVISOR-attempting to qualify patient for home O2/home test for O2, discharge planning in progress for today pending final DC recommendations and clearance per pulmonary. The impression and plan of care has been dictated as directed. : I performed a history and examination of this patient, discussed the same with the dictator. I agree with the dictator's note ,documented as a scribe. Any additional findings or plans will be noted.
[2023-10-24] MEDS ORDERED: methylPREDNISolone SOD SUCCI 125 MG/2 ML VIAL IV SCH (12:00)
[2023-10-24] MEDS: IPRATROPIUM-ALBUTEROL 3 ML NEB INHALATION SCH (12:23)
[2023-10-24] MEDS: BRIMONIDINE TARTRATE 0.2% DROPS 5 ML BTL BOTH EYES SCH (13:04)
[2023-10-24] MEDS: FUROSEMIDE 10 MG/ML 2 ML VIAL IV SCH (13:48)
[2023-10-24] MEDS: methylPREDNISolone SOD SUCCI 125 MG/2 ML VIAL IV SCH (13:49)
--- NOTE | 2023-10-24 15:27 | P.CNPUL ---
History of Present Illness Consult date: 10/24/23 Reason for consult: dyspnea, hypoxemia History of present illness: 78-year-old male patient with known history of COPD and chronic atrial fibrill ation. The patient was recent discharged From the hospital after being treated for an acute COPD exacerbation. The patientWas supposed to complete the prednisone burst taper on outpatient basis. The patient was sent home without home O2.The patient was doing well and yesterday he noted significant fluctuation in his pulse oximeter.. The patient has2 different device at home and it was reported low pulse ox is ranging as low as 70% and sometimes The numbers were fluctuating between 70% and 94%.For that reason, the patient started to come into the hospital. He also reports some increased shortness of breath.Note that the patient has underlying chronic A-fib.This may potentially affect the pulse ox readingDue to an irregular pulse. Nevertheless,For now, the patient is doing well.He is currently on oxygen at2 L with a pulse ox of 94%.With activity, I dropped his pulse ox of 89%And his resting pulse ox is 96% on 3 L of oxygen by nasal cannula and with oxygen it was in the order of 94%.As such, home O2 will be provided for this patient. ABlood work is essentially stable. BUN is at 23 with a creatinine of 0.6 and a sodium level of 137. Potassium level is at 4.4.WBC count is 16.6 with a hemoglobin of 12.9.LFTs are normal.During his last admission, his troponin was negative and the proBNP level was not elevated.He did have a COVID-19 infectionBack in September 2023 and his COVID-19 testing was still positive on 10/20/2023 and this wasAttributed to be persistent positivity of his tests rather than any recent infection.A repeat chest x-ray was done and showed no acute cardiopulmonary process.HisEKG is showing sinus rhythm at this point with a first-degree AV block.The patientHas been maintained on SymbicortAnd he was supposed to complete the prednisone burst taper at time of discharge.He is also on amiodaroneAnticoagulation with EliquisMilligrams p.o. twice a day, metoprolol 50 mg p.o. twice a dayAnd Altace.He is also on amiodarone.No altered mentation. No chest pain.No cough. No significant sputum production. No Significant swelling lower extremities. Review of Systems Constitutional: Reports as per HPI Eyes: denies as per HPI, denies blurred vision, denies bulging eye, denies decreased vision, denies diplopia, denies discharge, denies dry eye, denies irritation, denies itching, denies pain, denies photophobia, denies loss of peripheral vision, denies loss of vision, denies tunnel vision/blind spots Ears: deny: decreased hearing, ear discharge, earache, tinnitus Ears, nose, mouth and throat: Reports as per HPI Breasts: absent: as per HPI, gynecomastia Cardiovascular: Reports decreased exercise tolerance, Reports dyspnea on exertion, Reports irregular heart beat Respiratory: Reports dyspnea, Reports home oxygen Gastrointestinal: Reports as per HPI Genitourinary: Reports as per HPI Musculoskeletal: Reports as per HPI Musculoskeletal: absent: ankle pain, ankle stiffness, ankle swelling, as per HPI, elbow pain, elbow stiffness, elbow swelling, foot pain, foot stiffness, foot swelling, hand pain, hand stiffness, hand swelling, hip pain, hip stiffness, hip swelling, knee pain, knee stiffness, knee swelling, shoulder pain, shoulder stiffness, shoulder swelling, wrist pain, wrist stiffness, wrist swelling Integumentary: Reports as per HPI Neurological: Reports as per HPI Psychiatric: Reports as per HPI Hematologic/Lymphatic: Reports as per HPI Allergic/Immunologic: Reports as per HPI Past Medical History Past Medical History: Atrial Fibrillation, Atrial Flutter, COPD, Hyperlipidemia, Hypertension, Pneumonia, Renal Disease, Sleep Apnea/CPAP/BIPAP Additional Past Medical History / Comment(s): "ON METFORMIN, FOR PREVENTION." EYE DROPS "TO PREVENT GLAUCOMA." NO CURRENT TX FOR SLEEP APNEA. HX KIDNEY STONES.maclodegeneration. RSV, Covid, and Pneumonia August and September 2023 History of Any Multi-Drug Resistant Organisms: None Reported Past Surgical History: Ablation, Appendectomy, Back Surgery, Cardiac Ablation, Hernia Repair, Orthopedic Surgery Additional Past Surgical History / Comment(s): CARDIAC ABLATION X3. BACK SURG X4. REPAIR LT FOOT INJ. ESWL. COLONOSCOPY. Past Anesthesia/Blood Transfusion Reactions: No Reported Reaction Smoking Status: Former smoker - Past Family History Mother Family Medical History: No Reported History Father Family Medical History: AFIB, CVA/TIA Brother(s) Family Medical History: AFIB Medications and Allergies Home Medications Medication Instructions Recorded Confirmed Type Ketoconazole 2% Shampoo [Nizoral] 1 applic TOPICAL DIRECTED 05/09/15 10/24/23 History clonazePAM [KlonoPIN] 0.5 mg PO BID@1000,2200 12/11/16 10/24/23 History ramipriL [Altace] 10 mg PO HS@0 06/22/19 10/24/23 History Apixaban [Eliquis] 5 mg PO BID@1000,0 07/11/20 10/24/23 History Pregabalin [Lyrica] 100 mg PO HS@0 07/11/20 10/24/23 History Albuterol Inhaler [Ventolin Hfa 1 - 2 puff INHALATION RT-Q6H PRN 07/26/23 10/24/23 History Inhaler] Brimonidine Tartrate [Alphagan P 1 drop BOTH EYES BID@1000,219907/26/23 4 History 0.2% Ophth Soln] Docusate [Colace] 100 mg PO BID@1000,0 07/26/23 10/24/23 History Ipratropium-Albuterol Nebulize 3 ml INHALATION RT-QID PRN 07/26/23 10/24/23 History [Duoneb 0.5 mg-3 mg/3 ml Soln] Pravastatin Sodium [Pravachol] 80 mg PO HS@219907/26/23 10/24/23 History oxyCODONE HCL [oxyCODONE HCL (IR)] 30 mg PO Q6H 07/26/23 10/24/23 History oxyCODONE HCL [oxyCODONE HCL ER] 40 mg PO BID@1000,1600 07/26/23 10/24/23 History Pantoprazole [Protonix] 40 mg PO AC-BRKFST #30 tab 07/31/23 10/24/23 Rx Sennosides-Docusate Sodium 2 tab PO BID PRN 08/31/23 10/24/23 History [Senokot-S] Budesonide-Formot 160-4.5 Mcg 2 puff INHALATION RT-BID@,09/22/23 10/24/23 History [Symbicort 160-4.5 Mcg Inhaler] Triamcinolone 0.5% Ointment 1 applic TOPICAL BID PRN 09/27/23 10/24/23 History Metoprolol Succinate (ER) [Toprol 50 mg PO BID #60 tab 10/01/23 10/24/23 Rx XL] polyethylene glycoL 3350 [Miralax] 17 gm PO DAILY PRN packet 10/01/23 10/24/23 Rx Amiodarone [Cordarone] See Taper PO DIRECTED 10/20/23 10/24/23 History Naloxegol Oxalate [Movantik] 25 mg PO DAILY 10/20/23 10/24/23 History predniSONE See Taper PO DIRECTED 10/24/23 10/24/23 History Allergies Allergy/AdvReac Type Severity Reaction Status Date / Time aspirin Allergy Rash/Hives Verified 10/24/23 07:17 ciprofloxacin [From Cipro] Allergy Rash/Hives Verified 10/24/23 07:17 ibuprofen [From Motrin] Allergy Rash/Hives Verified 10/24/23 07:17 Penicillins Allergy Rash/Hives Verified 10/24/23 07:17 Sulfa (Sulfonamide Allergy Rash/Hives Verified 10/24/23 07:17 Antibiotics) Physical Exam Vitals: Vital Signs Temp Pulse Resp BP Pulse Ox 10/24/23 09:38 73 96 10/24/23 09:03 99 10/24/23 08:00 69 18 139/74 97 10/24/23 06:58 69 18 119/61 96 10/24/23 06:16 67 10/24/23 05:34 98.0 F 71 20 153/75 100 Intake and Output 10/23/23 10/24/23 10/24/23 22:59 06:59 14:59 Other: Weight 129.274 kg GENERAL EXAM: Alert, 78-year-old white male, sitting up in bedside recliner, comfortable in no apparent distress. The patient is currently on 3 L nasal cannula HEAD: Normocephalic and atraumatic EYES: Normal reaction of pupils, equal size. NOSE: Clear with pink turbinates. THROAT: No erythema or exudates. NECK: No masses, no JVD. CHEST: No chest wall deformity. LUNGS: Equal air entry with generalized expiratory wheezing and rhonchi, on room air, no conversational dyspnea or accessory muscle use.. CVS: Regular S1-S2 consistent with atrial fibrillation with no audible murmur, irregular rhythm. No extra heart sounds ABDOMEN: No hepatosplenomegaly, active bowel sounds, no guarding or rigidity. SPINE: No scoliosis or deformity SKIN: No rashes CENTRAL NERVOUS SYSTEM: No focal deficits, tone is normal in all 4 extremities. EXTREMITIES: There is no peripheral edema, clubbing, or cyanosis. Peripheral pulses are intact. Results - Laboratory Findings CBC and BMP: 10/24/23 05:59 10/24/23 05:59 Abnormal lab findings: Abnormal Labs 10/24/23 10/24/23 05:59 05:59 WBC 16.6 H Hgb 12.9 L Neutrophils # 13.2 H Monocytes # 1.4 H BUN 23 H Creatinine 0.64 L ALT 57 H Total Protein 6.1 L Albumin 3.3 L - Diagnostic Findings Chest x-ray: image reviewed Assessment and Plan Plan: Episodic hypoxemia, likely secondary to recent stroke exacerbation further complicated by recent COVID-19 infection which exacerbated COPD back in September 2023. His COVID-19 testing was still positive on 10/20/2023. Chest x-ray is not showing any acute abnormalities. Currently on 3 L of O2 nasal cannula. Recent admission for stroke exacerbation discharged home 48 hours ago on a prednisone burst taper COVID-19 infection, originally infected in September 2023 and the patient's testing is still positive. Doubt any ongoing or active infection at this point in time. Previous history of RSV infection with secondary stroke exacerbation back in July 2023 Chronic atrial fibrillation, he has history of previous cardiac ablations History of hypertension History of hyperlipidemia Obstructive sleep apnea, noncompliant with CPAP at home History of kidney stones History of glaucoma Brief history of tobacco dependence Plan: Will arrange home O2 for this patient Will utilize O2 at 3 L/min nasal cannula and will monitor his pulse ox on outpatient basis continue Symbicort and prednisone burst taper given to him at time of discharge from his recent hospitalization. He also will continue using albuterol about treatments [id number] Continue anticoagulation with Eliquis Continue metoprolol Echocardiogram from 09/29/2023 showed an preserved LV function with an ejection fraction of 55 to 60%. Moderate LA dilatation. To be discharged and followed up on outpatient basis.
[2023-10-24 16:21] VITALS: BP 124/77; PULSE 68; RESP 20; TEMP 97.9
[2023-10-24] MEDS ORDERED: PRAVASTATIN SODIUM 80 MG TAB PO SCH (22:00)
[2023-10-24] MEDS ORDERED: PREGABALIN 100 MG CAP PO SCH (22:00)
[2023-10-24] MEDS ORDERED: lisinopriL 20 MG TAB PO SCH (22:00)
[2023-10-25] MEDS ORDERED: PANTOPRAZOLE 40 MG TABLET PO SCH (07:30)
== END 2023-10-24 15:58 | disposition home or self-care (01) ==
LOC: EC 05:34 → 3SCARD 06:36
PROVIDERS: ADMIT Family Medicine; ATTEND Family Medicine
DX: J44.1 Chronic obstructive pulmonary disease with (acute) exacerbation (principal); J96.01 Acute respiratory failure with hypoxia; I44.0 Atrioventricular block, first degree; I12.0 Hypertensive chronic kidney disease with stage 5 chronic kidney disease or end stage renal disease; N18.6 End stage renal disease; I48.0 Paroxysmal atrial fibrillation; E78.5 Hyperlipidemia, unspecified; U07.1 COVID-19; G47.33 Obstructive sleep apnea (adult) (pediatric); E66.01 Morbid (severe) obesity due to excess calories; Z68.38 Body mass index [BMI] 38.0-38.9, adult; Z91.199 Patient's noncompliance with other medical treatment and regimen due to unspecified reason; G89.29 Other chronic pain; M54.9 Dorsalgia, unspecified; H40.9 Unspecified glaucoma; Z79.51 Long term (current) use of inhaled steroids; Z79.52 Long term (current) use of systemic steroids; Z79.01 Long term (current) use of anticoagulants; Z79.899 Other long term (current) drug therapy; Z88.0 Allergy status to penicillin; Z88.1 Allergy status to other antibiotic agents; Z88.2 Allergy status to sulfonamides; Z88.6 Allergy status to analgesic agent; Z87.891 Personal history of nicotine dependence; Z86.19 Personal history of other infectious and parasitic diseases; Z87.442 Personal history of urinary calculi
CPT/HCPCS: 96376; 96374; 96375; 99291; 36415; 94640 ×2; 93005; 80053; 83605; 83735; 85025; 87040; 71045; G0378; J1940; J2919

== ENCOUNTER 2023-11-14 15:47 | Emergency (ER) | payer MEDICARE ==
[2023-11-14 16:09] VITALS: RESP 18; TEMP 97.7
--- NOTE | 2023-11-14 16:42 | ED ---
Abdominal Pain HPI - General Chief Complaint: Abdominal Pain Stated Complaint: constipation Time Seen by Provider: 11/14/23 16:00 Source: patient, RN notes reviewed Mode of arrival: ambulatory Limitations: no limitations - History of Present Illness Initial Comments: 78-year-old male with history of atrial fibrillation presenting with chief complaint of constipation. States he was sent here from urgent care as he has had several doses of Gavilyte every 2 hours with no bowel movement. States he had a stool, hard bowel movement 2 days ago, however last normal bowel movement was 4 days ago. Denies abdominal pain but endorses rectal discomfort as he feels he needs a bowel movement. Denies rectal bleeding, weight loss. States he believes it is opioid induced as he takes oxycodone regularly for chronic back pain. He takes Novalac regularly for chronic constipation. - Related Data Home Medications Medication Instructions Recorded Confirmed Ketoconazole 2% Shampoo [Nizoral] 1 applic TOPICAL DIRECTED 05/09/15 10/24/23 clonazePAM [KlonoPIN] 0.5 mg PO BID@1000,219912/11/16 10/24/23 ramipriL [Altace] 10 mg PO HS@219906/22/19 10/24/23 Apixaban [Eliquis] 5 mg PO BID@1000,219907/11/20 10/24/23 Pregabalin [Lyrica] 100 mg PO HS@219907/11/20 10/24/23 Albuterol Inhaler [Ventolin Hfa 1 - 2 puff INHALATION RT-Q6H PRN 07/26/23 10/24/23 Inhaler] Brimonidine Tartrate [Alphagan P 1 drop BOTH EYES BID@1000,219907/26/23 10/24/23 0.2% Ophth Soln] Docusate [Colace] 100 mg PO BID@1000,219907/26/23 10/24/23 Ipratropium-Albuterol Nebulize 3 ml INHALATION RT-QID PRN 07/26/23 10/24/23 [Duoneb 0.5 mg-3 mg/3 ml Soln] Pravastatin Sodium [Pravachol] 80 mg PO HS@219907/26/23 10/24/23 oxyCODONE HCL [oxyCODONE HCL (IR)] 30 mg PO Q6H 07/26/23 10/24/23 oxyCODONE HCL [oxyCODONE HCL ER] 40 mg PO BID@1000,1600 07/26/23 10/24/23 Sennosides-Docusate Sodium 2 tab PO BID PRN 08/31/23 10/24/23 [Senokot-S] Budesonide-Formot 160-4.5 Mcg 2 puff INHALATION RT-BID@10,22 09/22/23 10/24/23 [Symbicort 160-4.5 Mcg Inhaler] Triamcinolone 0.5% Ointment 1 applic TOPICAL BID PRN 09/27/23 10/24/23 Amiodarone [Cordarone] See Taper PO DIRECTED 10/20/23 10/24/23 Naloxegol Oxalate [Movantik] 25 mg PO DAILY 10/20/23 10/24/23 predniSONE See Taper PO DIRECTED 10/24/23 10/24/23 Previous Rx's Medication Instructions Recorded Pantoprazole [Protonix] 40 mg PO AC-BRKFST #30 tab 07/31/23 Metoprolol Succinate (ER) [Toprol 50 mg PO BID #60 tab 10/01/23 XL] polyethylene glycoL 3350 [Miralax] 17 gm PO DAILY PRN packet 10/01/23 Allergies Allergy/AdvReac Type Severity Reaction Status Date / Time aspirin Allergy Rash/Hives Verified 11/14/23 16:01 ciprofloxacin [From Cipro] Allergy Rash/Hives Verified 11/14/23 16:01 ibuprofen [From Motrin] Allergy Rash/Hives Verified 11/14/23 16:01 Penicillins Allergy Rash/Hives Verified 11/14/23 16:01 Sulfa (Sulfonamide Allergy Rash/Hives Verified 11/14/23 16:01 Antibiotics) Review of Systems ROS Statement: Those systems with pertinent positive or pertinent negative responses have been documented in the HPI. ROS Other: All systems not noted in ROS Statement are negative. Past Medical History Past Medical History: Atrial Fibrillation, Atrial Flutter, COPD, Hyperlipidemia, Hypertension, Pneumonia, Renal Disease, Sleep Apnea/CPAP/BIPAP Additional Past Medical History / Comment(s): "ON METFORMIN, FOR PREVENTION." EYE DROPS "TO PREVENT GLAUCOMA." NO CURRENT TX FOR SLEEP APNEA. HX KIDNEY STONES.maclodegeneration. RSV, Covid, and Pneumonia August and September 2023 History of Any Multi-Drug Resistant Organisms: None Reported Past Surgical History: Ablation, Appendectomy, Back Surgery, Cardiac Ablation, Hernia Repair, Orthopedic Surgery Additional Past Surgical History / Comment(s): CARDIAC ABLATION X3. BACK SURG X4. REPAIR LT FOOT INJ. ESWL. COLONOSCOPY. Past Anesthesia/Blood Transfusion Reactions: No Reported Reaction Past Psychological History: No Psychological Hx Reported Smoking Status: Former smoker Past Alcohol Use History: None Reported Past Drug Use History: Opiates - Past Family History Mother Family Medical History: No Reported History Father Family Medical History: AFIB, CVA/TIA Brother(s) Family Medical History: AFIB General Exam Limitations: no limitations General appearance: alert, in no apparent distress ENT exam: Present: normal exam, mucous membranes moist Respiratory exam: Present: normal lung sounds bilaterally. Absent: respiratory distress, wheezes, rales, rhonchi, stridor Cardiovascular Exam: Present: regular rate, normal rhythm, normal heart sounds. Absent: systolic murmur, diastolic murmur, rubs, gallop, clicks GI/Abdominal exam: Present: soft, normal bowel sounds. Absent: distended, tenderness, guarding, rebound, rigid Neurological exam: Present: alert, oriented X3, CN II-XII intact Psychiatric exam: Present: normal affect, normal mood Skin exam: Present: warm, dry, intact, normal color. Absent: rash Course Vital Signs 11/14/23 15:56 Temperature 97.7 F Pulse Rate 65 Respiratory 18 Rate Blood Pressure 150/84 O2 Sat by Pulse 95 Oximetry Medical Decision Making - Medical Decision Making Was pt. sent in by a medical professional or institution (, PA, [employer], urgent ca re, hospital, or residential...) When possible be specific @ -No Did you speak to anyone other than the patient for history (EMS, parent, family, police, friend...)? What history was obtained from this source @ -No Did you review nursing and triage notes (agree or disagree)? Why? @ -I reviewed and agree with nursing and triage notes Were old charts reviewed (outside hosp., previous admission, EMS record, old EKG, old radiological studies, urgent care reports/EKG's, residential records)? Report findings @ -No old charts were reviewed Differential Diagnosis (chest pain, altered mental status, abdominal pain women, abdominal pain men, vaginal bleeding, weakness, fever, dyspnea, syncope, headache, dizziness, GI bleed, back pain, seizure, CVA, palpatations, mental health, musculoskeletal)? @ -Differential Abdominal Pain Men: Constipation, appendicitis, cholecystitis, diverticulosis, ischemic bowel, pancreatitis, hepatitis, UTI, gastroenteritis, AAA, incarcerated hernia, bowel obstruction, inflammatory bowel, hepatitis, peptic ulcer disease, splenic infarction, perforated viscus, testicular torsion, this is not meant to be an all-inclusive list EKG interpreted by me (3pts min.). @ -None X-rays interpreted by me (1pt min.). @ -KUB revealed some air-fluid levels and large amount of stool CT interpreted by me (1pt min.). @ -None done U/S interpreted by me (1pt. min.). @ -None done What testing was considered but not performed or refused? (CT, X-rays, U/S, labs)? Why? @ -Lab work not performed due to patient history of constipation, KUB revealed large amount of stool, large amount of stool passed during enema, patient's symptoms relieved with enema What meds were considered but not given or refused? Why? @ -None Did you discuss the management of the patient with other professionals (professionals i.e. , PA, [employer], lab, RT, psych nurse, social work lecturer, girls swimming coach, teacher, contracts officer, spring encaser)? Give summary @ -No Was smoking cessation discussed for >3mins.? @ -No Was critical care preformed (if so, how long)? @ -No Were there social determinants of health that impacted care today? How? (Homelessness, low income, unemployed, alcoholism, drug addiction, transporta tion, low edu. Level, literacy, decrease access to med. care, correction, rehab)? @ -No Was there de-escalation of care discussed even if they declined (Discuss DNR or withdrawal of care, Hospice)? DNR status @ -No What co-morbidities impacted this encounter? (DM, HTN, Smoking, COPD, CAD, Cancer, CVA, ARF, Chemo, Hep., AIDS, mental health diagnosis, sleep apnea, morbid obesity)? @ -None Was patient admitted / discharged? Hospital course, mention meds given and route, prescriptions, significant lab abnormalities, going to OR and other pertinent info. @ -Patient was discharged. Patient was seen and evaluated for constipation. Patient is afebrile and there is no abdominal tenderness. KUB reveals large amount of stool. Performed and large amount of stool. Patient's symptoms are relieved status post enema. Discussed diagnosis of constipation lifestyle modifications discussed. Strict alarm/return symptoms discussed with patient and patient shows understanding and agrees. Patient discharged in stable condition. Case discussed with Dr. Lowe. Undiagnosed new problem with uncertain prognosis? @ -No Drug Therapy requiring intensive monitoring for toxicity (Heparin, Nitro, Insulin, Cardizem)? @ -No Were any procedures done? @ -Enema was performed Diagnosis/symptom? @ -Constipation Acute, or Chronic, or Acute on Chronic? @ -Acute Uncomplicated (without systemic symptoms) or Complicated (systemic symptoms)? @ -Uncomplicated Side effects of treatment? @ -No Exacerbation, Progression, or Severe Exacerbation? @ -No Poses a threat to life or bodily function? How? (Chest pain, USA, NM, pneumonia, PE, COPD, DKA, ARF, appy, cholecystitis, CVA, Diverticulitis, Homicidal, Suicidal, threat to staff... and all critical care pts) @ -No Disposition Clinical Impression: Constipation Disposition: HOME SELF-CARE Condition: Stable Instructions (If sedation given, give patient instructions): Constipation (DC) Additional Instructions: Please return to the Emergency Department if symptoms worsen or any other concerns. Is patient prescribed a controlled substance at d/c from ED?: No Referrals: Linda Antony DO [Primary Care Provider] - 1-2 days Time of Disposition: 19:12
--- NOTE | 2023-11-14 17:53 | XR ---
EXAMINATION TYPE: XR KUB DATE OF EXAM: 11/14/2023 COMPARISON: 11/20/2010 INDICATION: Abdomen pain, constipation TECHNIQUE: Single view abdomen upright view FINDINGS: There is a normal bowel gas pattern. Some air-fluid levels within the transverse colon and ascending colon. No suspicious differential air-fluid levels are present. Fecal debris is in the descending col on. No dilated loops of bowel evident. Psoas margins are normal. No organomegaly is present. Postsurgical pedicle screws are within the L4-5 level. IMPRESSION: 1. Air-fluid levels within the ascending colon and proximal transverse colon. Correlate for gastroent eritis. 2. There is some mild fecal debris without dilatation in the descending colon region. Mild constipati on not excluded
[2023-11-14] MEDS: SODIUM CHLORIDE 0.9% 1,000 ML IV STA (18:09)
[2023-11-14 19:58] VITALS: BP 160/87; PULSE 88
== END 2023-11-14 19:57 | disposition home or self-care (01) ==
LOC: EC 15:47
DX: K59.00 Constipation, unspecified (principal); Z88.0 Allergy status to penicillin; Z88.1 Allergy status to other antibiotic agents; Z88.2 Allergy status to sulfonamides; Z88.6 Allergy status to analgesic agent; Z87.891 Personal history of nicotine dependence
CPT/HCPCS: 74018; 99284

== ENCOUNTER 2023-11-22 06:42 | Inpatient (IN) | payer MEDICARE ==
--- NOTE | 2023-11-22 07:32 | ED ---
General Adult HPI - General Chief complaint: Shortness of Breath Stated complaint: SOB Time Seen by Provider: 11/22/23 07:00 Source: patient, EMS, RN notes reviewed, old records reviewed Mode of arrival: EMS Limitations: no limitations - History of Present Illness Initial comments: This is an 78-year-old male who presents to the emergency department with a past medical history significant for atrial fibrillation and multiple ablations. Patient comes into the emergency department because he states he woke up at 530 with short of breath and that shortness of breath continued till 6:00 so at that time he called EMS. Patient states he felt hot but did not take his temperature. Patient denies any chest pain patient denies any palpitations. Patient Nu[place] any abdominal pain patient has nausea vomiting diarrhea. Patient has any back pain. Patient states there is a little swelling to his legs which she does not always have. - Related Data Home Medications Medication Instructions Recorded Confirmed Ketoconazole 2% Shampoo [Nizoral] 1 applic TOPICAL DIRECTED 05/09/15 10/24/23 clonazePAM [KlonoPIN] 0.5 mg PO BID@999,219912/11/16 10/24/23 ramipriL [Altace] 10 mg PO HS@219906/22/19 10/24/23 Apixaban [Eliquis] 5 mg PO BID@1000,219907/11/20 10/24/23 Pregabalin [Lyrica] 100 mg PO HS@219907/11/20 10/24/23 Albuterol Inhaler [Ventolin Hfa 1 - 2 puff INHALATION RT-Q6H PRN 07/26/23 10/24/23 Inhaler] Brimonidine Tartrate [Alphagan P 1 drop BOTH EYES BID@999,219907/26/23 10/24/23 0.2% Ophth Soln] Docusate [Colace] 100 mg PO BID@999,219907/26/23 10/24/23 Ipratropium-Albuterol Nebulize 3 ml INHALATION RT-QID PRN 07/26/23 10/24/23 [Duoneb 0.5 mg-3 mg/3 ml Soln] Pravastatin Sodium [Pravachol] 80 mg PO HS@219907/26/23 10/24/23 oxyCODONE HCL [oxyCODONE HCL (IR)] 30 mg PO Q6H 07/26/23 10/24/23 oxyCODONE HCL [oxyCODONE HCL ER] 40 mg PO BID@1000,1600 07/26/23 10/24/23 Sennosides-Docusate Sodium 2 tab PO BID PRN 08/31/23 10/24/23 [Senokot-S] Budesonide-Formot 160-4.5 Mcg 2 puff INHALATION RT-BID@10,22 09/22/23 10/24/23 [Symbicort 160-4.5 Mcg Inhaler] Triamcinolone 0.5% Ointment 1 applic TOPICAL BID PRN 09/27/23 10/24/23 Amiodarone [Cordarone] See Taper PO DIRECTED 10/20/23 10/24/23 Naloxegol Oxalate [Movantik] 25 mg PO DAILY 10/20/23 10/24/23 predniSONE See Taper PO DIRECTED 10/24/23 10/24/23 Previous Rx's Medication Instructions Recorded Pantoprazole [Protonix] 40 mg PO AC-BRKFST #30 tab 07/31/23 Metoprolol Succinate (ER) [Toprol 50 mg PO BID #60 tab 10/01/23 XL] polyethylene glycoL 3350 [Miralax] 17 gm PO DAILY PRN packet 10/01/23 Allergies Allergy/AdvReac Type Severity Reaction Status Date / Time aspirin Allergy Rash/Hives Verified 11/14/23 16:01 ciprofloxacin [From Cipro] Allergy Rash/Hives Verified 11/14/23 16:01 ibuprofen [From Motrin] Allergy Rash/Hives Verified 11/14/23 16:01 Penicillins Allergy Rash/Hives Verified 11/14/23 16:01 Sulfa (Sulfonamide Allergy Rash/Hives Verified 11/14/23 16:01 Antibiotics) Review of Systems ROS Statement: Those systems with pertinent positive or pertinent negative responses have been documented in the HPI. ROS Other: All systems not noted in ROS Statement are negative. Past Medical History Past Medical History: Atrial Fibrillation, Atrial Flutter, COPD, Hyperlipidemia, Hypertension, Pneumonia, Renal Disease, Sleep Apnea/CPAP/BIPAP Additional Past Medical History / Comment(s): "ON METFORMIN, FOR PREVENTION." EYE DROPS "TO PREVENT GLAUCOMA." NO CURRENT TX FOR SLEEP APNEA. HX KIDNEY STONES.maclodegeneration. RSV, Covid, and Pneumonia August and September 2023 History of Any Multi-Drug Resistant Organisms: None Reported Past Surgical History: Ablation, Appendectomy, Back Surgery, Cardiac Ablation, Hernia Repair, Orthopedic Surgery Additional Past Surgical History / Comment(s): CARDIAC ABLATION X3. BACK SURG X4. REPAIR LT FOOT INJ. ESWL. COLONOSCOPY. Past Anesthesia/Blood Transfusion Reactions: No Reported Reaction Past Psychological History: No Psychological Hx Reported Smoking Status: Former smoker Past Alcohol Use History: None Reported Past Drug Use History: Opiates - Past Family History Mother Family Medical History: No Reported History Father Family Medical History: AFIB, CVA/TIA Brother(s) Family Medical History: AFIB General Exam - General Exam Comments Initial Comments: GENERAL: Patient is well-developed and well-nourished. Patient is nontoxic and well- hydrated and is in mild distress. ENT: Neck is soft and supple. No significant lymphadenopathy is noted. Oropharynx is clear. Moist mucous membranes. Neck has full range of motion without eliciting any pain. EYES: The sclera were anicteric and conjunctiva were pink and moist. Extraocular movements were intact and pupils were equal round and reactive to light. Eyeli ds were unremarkable. PULMONARY: Unlabored respirations. Good breath sounds bilaterally. Crackles bilateral bases CARDIOVASCULAR: There is a regular rate and rhythm without any murmurs gallops or rubs. ABDOMEN: Soft and nontender with normal bowel sounds. SKIN: Skin is clear with no lesions or rashes and otherwise unremarkable. NEUROLOGIC: Patient is alert and oriented x3. Cranial nerves II through XII are grossly intact. Motor and sensory are also intact. Normal speech, volume and content. Symmetrical smile. MUSCULOSKELETAL: Normal extremities with adequate strength and full range of motion. LYMPHATICS: No significant lymphadenopathy is noted PSYCHIATRIC: Normal psychiatric evaluation. Limitations: no limitations Course Vital Signs 11/22/23 11/22/23 06:44 07:26 Temperature 100.1 F H 100.4 F H Pulse Rate 77 70 Respiratory 20 20 Rate Blood Pressure 151/75 128/61 O2 Sat by Pulse 92 L 92 L Oximetry Medical Decision Making - Medical Decision Making EKG is interpreted by myself but EKG shows a sinus rhythm at 71 bpm parables 237 QRS 109 QT interval 391 QTc is 414. Patient's EKG shows no ST segment ovation or depression. Was pt. sent in by a medical professional or institution ([employer], TRANSCRIBING MACHINE OPERATOR, urgent care, hospital, or shelter...) When possible be specific @ -No Did you speak to anyone other than the patient for history (EMS, parent, family, police, friend...)? What history was obtained from this source @ -No Did you review nursing and triage notes (agree or disagree)? Why? @ -I reviewed and agree with nursing and triage notes Were old charts reviewed (outside hosp., previous admission, EMS record, old EKG, old radiological studies, urgent care reports/EKG's, shelter records)? Report findings @ -I compared today's x-ray with previous today shows pulmonary edema and possible pneumonia Differential Diagnosis (chest pain, altered mental status, abdominal pain women, abdominal pain men, vaginal bleeding, weakness, fever, dyspnea, syncope, headache, dizziness, GI bleed, back pain, seizure, CVA, palpatations, mental health, musculoskeletal)? @ -Differential Dyspnea: Coronary syndrome, arrhythmia, tamponade, asthma, COPD, pulmonary embolism, pneumonia, pneumothorax, pulmonary effusion, anaphylaxis, diabetic ketoacidosis, flailed chest, pulmonary contusion, diaphragmatic rupture, anemia, ne uromuscular, this is not meant to be an all-inclusive list. EKG interpreted by me (3pts min.). @ -As above X-rays interpreted by me (1pt min.). @ -Chest x-ray shows pulmonary edema and questionable infiltrate. CT interpreted by me (1pt min.). @ -None done U/S interpreted by me (1pt. min.). @ -None done What testing was considered but not performed or refused? (CT, X-rays, U/S, labs)? Why? @ -None What meds were considered but not given or refused? Why? @ -None Did you discuss the management of the patient with other professionals (professionals i.e. [employer], TRANSCRIBING MACHINE OPERATOR, lab, RT, psych nurse, licensed social worker, curer foam rubber, teacher, chief clinical officer, case management director)? Give summary @ -[facility] Was smoking cessation discussed for >3mins.? @ -No Was critical care preformed (if so, how long)? @ -No Were there social determinants of health that impacted care today? How? (Homelessness, low income, unemployed, alcoholism, drug addiction, transporta tion, low edu. Level, literacy, decrease access to med. care, fdc, rehab)? @ -No Was there de-escalation of care discussed even if they declined (Discuss DNR or withdrawal of care, Hospice)? DNR status @ -No What co-morbidities impacted this encounter? (DM, HTN, Smoking, COPD, CAD, Cancer, CVA, ARF, Chemo, Hep., AIDS, mental health diagnosis, sleep apnea, morbid obesity)? @ -None Was patient admitted / discharged? Hospital course, mention meds given and route, prescriptions, significant lab abnormalities, going to OR and other pertinent info. @ -Patient had pulmonary edema and was given Lasix for that as well as Nitropaste. Patient also had questionable infiltrate so patient was started on antibiotics. [facility] Undiagnosed new problem with uncertain prognosis? @ -No Drug Therapy requiring intensive monitoring for toxicity (Heparin, Nitro, Insulin, Cardizem)? @ -No Were any procedures done? @ -No Diagnosis/symptom? @ -Acute pulmonary edema Acute, or Chronic, or Acute on Chronic? @ -Acute Uncomplicated (without systemic symptoms) or Complicated (systemic symptoms)? @ -Complicated Side effects of treatment? @ -No Exacerbation, Progression, or Severe Exacerbation? @ -No Poses a threat to life or bodily function? How? (Chest pain, USA, PA, pneumonia, PE, COPD, DKA, ARF, appy, cholecystitis, CVA, Diverticulitis, Homicidal, Suicidal, threat to staff... and all critical care pts) @ -Yes this can lead to hypoxia and endorgan dysfunction Diagnosis/symptom? @ -Pneumonia Acute, or Chronic, or Acute on Chronic? @ -Acute Uncomplicated (without systemic symptoms) or Complicated (systemic symptoms)? @ -Complicated Side effects of treatment? @ -None Exacerbation, Progression, or Severe Exacerbation] @ -No Poses a threat to life or bodily function? @ -Yes this can lead to sepsis and endorgan dysfunction - Lab Data Result diagrams: 11/22/23 06:53 11/22/23 06:53 Lab Results 11/22/23 11/22/23 11/22/23 Range/Units 06:53 06:53 06:53 WBC 12.8 H (3.8-10.6) k/uL RBC 4.57 (4.30-5.90) m/uL Hgb 13.6 (13.0-17.5) gm/dL Hct 43.6 (39.0-53.0) % MCV 95.6 (80.0-100.0) fL MCH 29.8 (25.0-35.0) pg MCHC 31.2 (31.0-37.0) g/dL RDW 14.6 (11.5-15.5) % Plt Count 163 (150-450) k/uL MPV 9.1 Neutrophils % 84 % Lymphocytes % 7 % Monocytes % 6 % Eosinophils % 1 % Basophils % 1 % Neutrophils # 10.7 H (1.3-7.7) k/uL Lymphocytes # 0.9 L (1.0-4.8) k/uL Monocytes # 0.8 (0-1.0) k/uL Eosinophils # 0.1 (0-0.7) k/uL Basophils # 0.1 (0-0.2) k/uL PT 11.5 (10.0-12.5) sec INR 1.1 (<1.2) APTT 24.6 (22.0-30.0) sec Sodium 138 (137-145) mmol/L Potassium 5.0 (3.5-5.1) mmol/L Chloride 105 (98-107) mmol/L Carbon Dioxide 28 (22-30) mmol/L Anion Gap 5 mmol/L BUN 16 (9-20) mg/dL Creatinine 0.66 (0.66-1.25) mg/dL Est GFR (CKD-EPI)AfAm >90 (>60 ml/min/1.73 sqM) Est GFR (CKD-EPI)NonAf >90 (>60 ml/min/1.73 sqM) Glucose 98 (74-99) mg/dL Plasma Lactic Acid Jv (0.7-2.0) mmol/L Calcium 8.7 (8.4-10.2) mg/dL Magnesium 1.6 (1.6-2.3) mg/dL Total Bilirubin 0.9 (0.2-1.3) mg/dL AST 42 (17-59) U/L ALT 37 (4-49) U/L Alkaline Phosphatase 43 (38-126) U/L Troponin I (0.000-0.034) ng/mL NT-Pro-B Natriuret Pep 893 pg/mL Total Protein 6.5 (6.3-8.2) g/dL Albumin 3.7 (3.5-5.0) g/dL Influenza Type A (PCR) (Not Detectd) Influenza Type B (PCR) (Not Detectd) RSV (PCR) (Not Detectd) SARS-CoV-2 (PCR) (Not Detectd) 11/22/23 11/22/23 11/22/23 Range/Units 06:53 06:53 07:38 WBC (3.8-10.6) k/uL RBC (4.30-5.90) m/uL Hgb (13.0-17.5) gm/dL Hct (39.0-53.0) % MCV (80.0-100.0) fL MCH (25.0-35.0) pg MCHC (31.0-37.0) g/dL RDW (11.5-15.5) % Plt Count (150-450) k/uL MPV Neutrophils % % Lymphocytes % % Monocytes % % Eosinophils % % Basophils % % Neutrophils # (1.3-7.7) k/uL Lymphocytes # (1.0-4.8) k/uL Monocytes # (0-1.0) k/uL Eosinophils # (0-0.7) k/uL Basophils # (0-0.2) k/uL PT (10.0-12.5) sec INR (<1.2) APTT (22.0-30.0) sec Sodium (137-145) mmol/L Potassium (3.5-5.1) mmol/L Chloride (98-107) mmol/L Carbon Dioxide (22-30) mmol/L Anion Gap mmol/L BUN (9-20) mg/dL Creatinine (0.66-1.25) mg/dL Est GFR (CKD-EPI)AfAm (>60 ml/min/1.73 sqM) Est GFR (CKD-EPI)NonAf (>60 ml/min/1.73 sqM) Glucose (74-99) mg/dL Plasma Lactic Acid Jv 1.2 (0.7-2.0) mmol/L Calcium (8.4-10.2) mg/dL Magnesium (1.6-2.3) mg/dL Total Bilirubin (0.2-1.3) mg/dL AST (17-59) U/L ALT (4-49) U/L Alkaline Phosphatase (38-126) U/L Troponin I <0.012 (0.000-0.034) ng/mL NT-Pro-B Natriuret Pep pg/mL Total Protein (6.3-8.2) g/dL Albumin (3.5-5.0) g/dL Influenza Type A (PCR) Not Detected (Not Detectd) Influenza Type B (PCR) Not Detected (Not Detectd) RSV (PCR) Not Detected (Not Detectd) SARS-CoV-2 (PCR) Not Detected (Not Detectd) Disposition Clinical Impression: Acute pulmonary edema, Pneumonia Disposition: ADMITTED IP TO THIS HOSP Referrals: Linda Antony DO [Primary Care Provider] - 1-2 days Time of Disposition: 09:24
[2023-11-22 07:43] LABS: Basophils # (A) 0.1 k/uL (0-0.2); Basophils % (A) 1 %; Eosinophils # (A) 0.1 k/uL (0-0.7); Eosinophils % (A) 1 %; HCT 43.6 % (39.0-53.0); HGB 13.6 gm/dL (13.0-17.5); Lymphocytes # (A) 0.9 k/uL (1.0-4.8); Lymphocytes % (A) 7 %; MCH 29.8 pg (25.0-35.0); MCHC 31.2 g/dL (31.0-37.0); MCV 95.6 fL (80.0-100.0); Mean Platelet Volume 9.1; Monocytes # (A) 0.8 k/uL (0-1.0); Monocytes % (A) 6 %; Neutrophils # (A) 10.7 k/uL (1.3-7.7); Neutrophils % (A) 84 %; Platelet Count 163 k/uL (150-450); RBC 4.57 m/uL (4.30-5.90); RDW 14.6 % (11.5-15.5); WBC 12.8 k/uL (3.8-10.6)
--- NOTE | 2023-11-22 07:56 | XR ---
EXAMINATION TYPE: XR chest 2V DATE OF EXAM: 11/22/2023 COMPARISON: 10/24/2023 HISTORY: 78-year-old male shortness of breath, difficulty breathing TECHNIQUE: AP and lateral views FINDINGS: Heart mildly enlarged. Diffuse interstitial opacities. Patchy and confluent and lower lung opacities along with small effusions. Hyperinflation. [facility] mid and lower thoracic spine. IMPRESSION: COPD with superimposed CHF with interstitial and patchy pulmonary edema. Small effusions.
[2023-11-22 07:57] LABS: INR 1.1 (<1.2); Partial Thromboplastin Time 24.6 sec (22.0-30.0); Prothrombin Time 11.5 sec (10.0-12.5)
[2023-11-22 08:00] LABS: ALT 37 U/L (4-49); African American GFR (CKD) >90 (>60 ml/min/1.73 sqM); Anion Gap 5 mmol/L; Blood Urea Nitrogen 16 mg/dL (9-20); Calcium 8.7 mg/dL (8.4-10.2); Carbon Dioxide 28 mmol/L (22-30); Chloride 105 mmol/L (98-107); Glucose 98 mg/dL (74-99); Non-African American GFR(CKD) >90 (>60 ml/min/1.73 sqM); Sodium 138 mmol/L (137-145); Total Bilirubin 0.9 mg/dL (0.2-1.3)
[2023-11-22 08:09] LABS: NT-Pro-B-Type Natriuretic Pept 893 pg/mL
[2023-11-22] MEDS: FUROSEMIDE 10 MG/ML 2 ML VIAL IV ONE (08:13)
[2023-11-22] MEDS: ACETAMINOPHEN TAB 500 MG TAB PO STA (08:13)
[2023-11-22 08:15] LABS: AST 42 U/L (17-59); Albumin 3.7 g/dL (3.5-5.0); Alkaline Phosphatase 43 U/L (38-126); Magnesium 1.6 mg/dL (1.6-2.3); Total Protein 6.5 g/dL (6.3-8.2)
[2023-11-22] MEDS: cefTRIAXone IN SWFI 1,000 MG/10 ML SYRINGE IVP STA (08:35)
[2023-11-22] MEDS ORDERED: PNEUMONIA PROTOCOL UTILIZED 1 EACH MISC PO PRN (09:24)
[2023-11-22] MEDS: NITROGLYCERIN OINT 1 INCH/GM PACKET TOPICAL STA (10:29)
[2023-11-22] MEDS: AZITHROMYCIN 500 MG in SODIUM CHLORIDE 0.9% 250 ML IVPB STA (10:29)
[2023-11-22] MEDS: NITROGLYCERIN OINT 1 INCH/GM PACKET TOPICAL SCH (11:33)
[2023-11-22] MEDS: FUROSEMIDE 10 MG/ML 4 ML VIAL IV SCH (16:22)
[2023-11-22] MEDS ORDERED: LEVALBUTEROL TARTRATE INHALATION PRN (16:26)
[2023-11-22] MEDS ORDERED: polyethylene glycoL 3350 17 GM POWD.PACK PO PRN (16:26)
[2023-11-22] MEDS ORDERED: NITROGLYCERIN SL TABS 0.4 MG TAB SUBLINGUAL PRN (16:26)
[2023-11-22] MEDS ORDERED: SENNOSIDES-DOCUSATE SODIUM 1 EACH TAB PO PRN (16:26)
--- NOTE | 2023-11-22 16:29 | P.HPIM ---
History of Present Illness H&P Date: 11/22/23 Chief Complaint: Of breath 78-year-old male, history of hypertension, hyperlipidemia, atrial fibrillation and multiple ablations, COPD, who presents to the emergency department with complaint of shortness of breath. Patient comes into the emergency department because he states he woke up at 530 with short of breath and that shortness of breath continued till 6:00 so at that time he called EMS. Patient states he felt hot but did not take his temperature. Patient denies any chest pain patient denies any palpitations. Patient denies any chest or abdominal pain patient has nausea vomiting diarrhea. Patient has any back pain. Patient states there is a little swelling to his legs which she does not always have. Chest x-ray completed and compared with previous today shows pulmonary edema and possible pneumonia Blood work reveals WBC of 12.8, hemoglobin of 13.6 and platelet count of 163, sodium 138, potassium 5.0, BUNs/creatinine of 16/0.66, magnesium of 1.6, tr oponin less than 0.012 Review of Systems REVIEW OF SYSTEMS: CONSTITUTIONAL: No fever, no malaise, no fatigue. HEENT: No recent visual problems or hearing problems. Denied any sore throat. CARDIOVASCULAR: No chest pain, orthopnea, PND, no palpitations, no syncope. PULMONARY: No shortness of breath, no cough, no hemoptysis. GASTROINTESTINAL: No diarrhea, no nausea, no vomiting, no abdominal pain. NEUROLOGICAL: No headaches, no weakness, no numbness. HEMATOLOGICAL: Denies any bleeding or petechiae. GENITOURINARY: Denies any burning micturition, frequency, or urgency. MUSCULOSKELETAL/RHEUMATOLOGICAL: Denies any joint pain, swelling, or any muscle pain. ENDOCRINE: Denies any polyuria or polydipsia. The rest of the 14-point review of systems is negative. Past Medical History Past Medical History: Atrial Fibrillation, Atrial Flutter, COPD, Hyperlipidemia, Hypertension, Pneumonia, Renal Disease, Sleep Apnea/CPAP/BIPAP Additional Past Medical History / Comment(s): "ON METFORMIN, FOR PREVENTION." EYE DROPS "TO PREVENT GLAUCOMA." NO CURRENT TX FOR SLEEP APNEA. HX KIDNEY STONES.maclodegeneration. RSV, Covid, and Pneumonia August and September 2023 History of Any Multi-Drug Resistant Organisms: None Reported Past Surgical History: Ablation, Appendectomy, Back Surgery, Cardiac Ablation, Hernia Repair, Orthopedic Surgery Additional Past Surgical History / Comment(s): CARDIAC ABLATION X3. BACK SURG X4. REPAIR LT FOOT INJ. ESWL. COLONOSCOPY. Past Anesthesia/Blood Transfusion Reactions: No Reported Reaction Past Psychological History: No Psychological Hx Reported Smoking Status: Former smoker Past Alcohol Use History: None Reported Past Drug Use History: Opiates - Past Family History Mother Family Medical History: No Reported History Father Family Medical History: AFIB, CVA/TIA Brother(s) Family Medical History: AFIB Medications and Allergies Home Medications Medication Instructions Recorded Confirmed Type Ketoconazole 2% Shampoo [Nizoral] 1 applic TOPICAL DIRECTED 05/09/15 11/22/23 History clonazePAM [KlonoPIN] 0.5 mg PO BID@1000,219912/11/16 11/22/23 History ramipriL [Altace] 10 mg PO HS@219906/22/19 11/22/23 History Apixaban [Eliquis] 5 mg PO BID@1000,219907/11/20 11/22/23 History Pregabalin [Lyrica] 100 mg PO HS@2200 07/11/20 11/22/23 History Albuterol Inhaler [Ventolin Hfa 1 - 2 puff INHALATION RT-Q6H PRN 07/26/23 11/22/23 History Inhaler] Brimonidine Tartrate [Alphagan P 1 drop BOTH EYES BID@1000,219907/26/23 11/22/23 History 0.2% Ophth Soln] Docusate [Colace] 100 mg PO BID@1000,219907/26/23 11/22/23 History Pravastatin Sodium [Pravachol] 80 mg PO HS@0 07/26/23 11/22/23 History oxyCODONE HCL [oxyCODONE HCL (IR)] 30 mg PO Q6H 07/26/23 11/22/23 History oxyCODONE HCL [oxyCODONE HCL ER] 40 mg PO BID@1000,1600 07/26/23 11/22/23 History Pantoprazole [Protonix] 40 mg PO AC-BRKFST #30 tab 07/31/23 11/22/23 Rx Sennosides-Docusate Sodium 2 tab PO BID PRN 08/31/23 11/22/23 History [Senokot-S] Metoprolol Succinate (ER) [Toprol 50 mg PO BID #60 tab 10/01/23 11/22/23 Rx XL] polyethylene glycoL 3350 [Miralax] 17 gm PO DAILY PRN packet 10/01/23 11/22/23 Rx Naloxegol Oxalate [Movantik] 25 mg PO DAILY 10/20/23 11/22/23 History Clotrimazole Cream [Lotrimin Cream] 1 applic TOPICAL BID PRN 11/22/23 11/22/23 History Fluticasone/Umeclidin/Vilanter 1 puff INHALATION RT-HS 11/22/23 11/22/23 History [Trelegy Ellipta 100-62.5-25] Levalbuterol Tartrate 2 puff INHALATION RT-Q4H PRN 11/22/23 11/22/23 History [Levalbuterol Tartrate 45 MCG Hfa] Nitroglycerin Sl Tabs [Nitrostat] 0.4 mg SUBLINGUAL Q5M PRN 11/22/23 11/22/23 History Allergies Allergy/AdvReac Type Severity Reaction Status Date / Time aspirin Allergy Rash/Hives Verified 11/22/23 10:14 ciprofloxacin [From Cipro] Allergy Rash/Hives Verified 11/22/23 10:14 ibuprofen [From Motrin] Allergy Rash/Hives Verified 11/22/23 10:14 Penicillins Allergy Rash/Hives Verified 11/22/23 10:14 Sulfa (Sulfonamide Allergy Rash/Hives Verified 11/22/23 10:14 Antibiotics) Physical Exam Vitals: Vital Signs Temp Pulse Resp BP Pulse Ox 11/22/23 15:00 86 16 100/53 99 11/22/23 14:00 57 L 16 89/53 97 11/22/23 13:00 57 L 16 104/54 97 11/22/23 12:00 60 20 93/53 97 11/22/23 11:00 62 20 97/54 96 11/22/23 10:00 62 18 106/55 96 11/22/23 09:00 63 18 93/53 98 11/22/23 07:26 100.4 F H 70 20 128/61 92 L 11/22/23 06:44 100.1 F H 77 20 151/75 92 L Intake and Output 11/22/23 11/22/23 11/22/23 06:59 14:59 22:59 Other: Weight 133.81 kg - Constitutional General appearance: Present: average body habitus, cooperative, no acute distress - EENT Eyes: Present: anicteric sclerae, EOMI, PERRLA, normal appearance ENT: Present: hearing grossly normal, normal oropharynx Ears: bilateral: normal - Neck Neck: Present: normal ROM. Absent: lymphadenopathy, rigidity, thyromegaly Carotids: negative: bruit present Thyroid: bilateral: normal size, negative: enlarged, nodule - Respiratory Respiratory: bilateral: CTA, negative: rales, rhonchi, wheezing - Cardiovascular Rhythm: regular Heart sounds: normal: S1, S2 Abnormal Heart Sounds: Absent: systolic murmur, diastolic murmur - Gastrointestinal General gastrointestinal: Present: normal bowel sounds, soft. Absent: dist ended, organomegaly, tenderness - Genitourinary Genitourinary Comment(s): deferred - Integumentary Integumentary: Present: normal turgor. Absent: jaundiced, rash, ulcer - Neurologic Neurologic: Present: CNII-XII intact. Absent: focal deficits - Musculoskeletal Musculoskeletal: Present: gait normal, strength equal bilaterally - Psychiatric Psychiatric: Present: A&O x's 3, appropriate affect, intact judgment & insight Results CBC & Chem 7: 11/22/23 06:53 11/22/23 06:53 Labs: Abnormal Lab Results - Last 24 Hours (Table) 11/22/23 Range/Units 06:53 WBC 12.8 H (3.8-10.6) k/uL Neutrophils # 10.7 H (1.3-7.7) k/uL Lymphocytes # 0.9 L (1.0-4.8) k/uL Assessment and Plan Assessment: 1. Acute pulmonary edema -Chest x-ray completed in the ED reveals COPD with superimposed CHF with interstitial and patchy pulmonary edema -Patient has been placed on Lasix 40 mg IV every 8 hours -We will monitor strict SARITHA's, daily weights, low-salt and fluid restricted diet Consult cardiology 2. Possible pneumonia; Rocephin 1 g IV daily along with azithromycin 500 mg chad ly; DuoNeb nebulizer treatments 4 times daily and as needed -Will monitor CBC, CRP and procalcitonin 3. Hypertension; Toprol-XL 50 mg twice daily, Altace 10 mg nightly 4. Hyperlipidemia; Pravachol 80 mg daily 5. Atrial fibrillation; rate controlled on metoprolol 50 mg twice daily; Eliquis 5 mg twice daily 6. COPD; not in exacerbation; continue with home inhaler therapy DVT prophylaxis; SCDs/Eliquis CODE STATUS; full code
--- NOTE | 2023-11-22 16:38 | P.CRDCN ---
History of Present Illness Consult date: 11/22/23 Reason for Consult (text): Acute pulmonary edema History of present illness: History of present illness: This is an 78-year-old male patient of Dr. Turpin with past medical history of paroxysmal atrial fibrillation status post ablation x 3 about 3 years ago at [facility], hypertension, hyperlipidemia. We have been asked to rod luate the patient for pulmonary edema. Patient states that he was started on oxygen at home about a month ago and has been using it as needed but yesterday he had to wear it all day. He complains of sharp pains in the right side of his head that happened about 9 times briefly. Today, patient developed chills, muscle aches and worsening shortness of breath and his pulse ox was found to be 83% at home. He states he has been eating okay and drinking okay. He does complain of fever that is improved with Tylenol. He denies any lightheadedness or dizziness. Blood pressure was low at 83/58. Patient is seen today in the emergency center waiting for a bed on the cardiac stepdown unit. Patient is scheduled for atrial tachycardia ablation with Dr. Turpin on December 01. EKG sinus rhythm with first-degree AV block. Chest x-ray: COPD with superimposed CHF with interstitial and patchy pulmonary edema. Small effusions. WBC 12.8, hemoglobin 13.6. INR 1.1. Electrolytes and renal function normal. Troponin negative x 1. proBNP 893. Influenza A, influenza B, RSV, COVID-19 not detected. Home cardiac medications: Eliquis 5 mg twice daily, Toprol XL 50 mg twice daily, Nitrostat as needed, pravastatin 80 mg at bedtime, ramipril 10 mg at bedtime. Echocardiogram performed on 09/28/2023 revealed EF of 55 to 60%, moderate left atrial dilatation. Lexiscan Cardiolite stress test performed 09/06/2022 revealed no evidence of reversible ischemia. Review Of Systems: At the time of my exam: CONSTITUTIONAL: Reports chills. HEENT: Denies blurred vision, vision changes, or eye pain. Denies hemoptysis CARDIOVASCULAR: Denies chest pain. Denies orthopnea. Denies PND. Denies palpitations RESPIRATORY: Reports shortness of breath. GASTROINTESTINAL: Denies abdominal pain. Denies nausea or vomiting. HEMATOLOGIC: Denies bleeding disorders. GENITOURINARY: Denies any blood in urine. SKIN: Denies pruitis. Denies rash. Physical examination: Gen: This is an 78-year-old male in no acute distress. Patient is resting in recliner in the emergency center VS: reviewed, blood pressure 107/59, heart rate 61, pulse ox 97% on 3 L nasal cannula. HEENT: Head is atraumatic, normocephalic. Pupils equal, round. Sclerae is anicteric. NECK: Supple. No JVD. LUNGS: Diminished. No intercostal retractions. HEART: Regular rate and rhythm. No murmur. ABDOMEN: Soft No tenderness. EXTREMITIES: No pedal edema. No calf tenderness. NEUROLOGICAL: Patient is awake, alert and oriented x3. Assessment: Acute diastolic heart failure Paroxysmal atrial fibrillation in sinus rhythm Persistent atrial tachycardia Hypertension, currently hypotensive Hyperlipidemia Plan: Resume patient's home cardiac medications: Eliquis Hold all of his blood pressure medications as patient is hypotensive No need to repeat echocardiogram Continue IV Lasix Monitor SARITHA, daily weights, electrolytes and renal function Further recommendations to follow based upon clinical course Thank you kindly for this consultation. Nurse practitioner note has been reviewed, I agree with documented findings and plan of care. Patient was seen and examined. Past Medical History Past Medical History: Atrial Fibrillation, Atrial Flutter, COPD, Hyperlipidemia, Hypertension, Pneumonia, Renal Disease, Sleep Apnea/CPAP/BIPAP Additional Past Medical History / Comment(s): "ON METFORMIN, FOR PREVENTION." EYE DROPS "TO PREVENT GLAUCOMA." NO CURRENT TX FOR SLEEP APNEA. HX KIDNEY STO SHEREEN.maclodegeneration. RSV, Covid, and Pneumonia August and September 2023 History of Any Multi-Drug Resistant Organisms: None Reported Past Surgical History: Ablation, Appendectomy, Back Surgery, Cardiac Ablation, Hernia Repair, Orthopedic Surgery Additional Past Surgical History / Comment(s): CARDIAC ABLATION X3. BACK SURG X4. REPAIR LT FOOT INJ. ESWL. COLONOSCOPY. Past Anesthesia/Blood Transfusion Reactions: No Reported Reaction Past Psychological History: No Psychological Hx Reported Smoking Status: Former smoker Past Alcohol Use History: None Reported Past Drug Use History: Opiates - Past Family History Mother Family Medical History: No Reported History Father Family Medical History: AFIB, CVA/TIA Brother(s) Family Medical History: AFIB Medications and Allergies Home Medications Medication Instructions Recorded Confirmed Type Ketoconazole 2% Shampoo [Nizoral] 1 applic TOPICAL DIRECTED 05/09/15 11/22/23 History clonazePAM [KlonoPIN] 0.5 mg PO BID@1000,0 12/11/16 11/22/23 History ramipriL [Altace] 10 mg PO HS@219906/22/19 11/22/23 History Apixaban [Eliquis] 5 mg PO BID@1000,0 07/11/20 11/22/23 History Pregabalin [Lyrica] 100 mg PO HS@219907/11/20 11/22/23 History Albuterol Inhaler [Ventolin Hfa 1 - 2 puff INHALATION RT-Q6H PRN 07/26/23 11/22/23 History Inhaler] Brimonidine Tartrate [Alphagan P 1 drop BOTH EYES BID@1000,219907/26/23 11/22/23 History 0.2% Ophth Soln] Docusate [Colace] 100 mg PO BID@1000,219907/26/23 11/22/23 History Pravastatin Sodium [Pravachol] 80 mg PO HS@219907/26/23 11/22/23 History oxyCODONE HCL [oxyCODONE HCL (IR)] 30 mg PO Q6H 07/26/23 11/22/23 History oxyCODONE HCL [oxyCODONE HCL ER] 40 mg PO BID@1000,1600 07/26/23 11/22/23 Histor y Pantoprazole [Protonix] 40 mg PO AC-BRKFST #30 tab 07/31/23 11/22/23 Rx Sennosides-Docusate Sodium 2 tab PO BID PRN 08/31/23 11/22/23 History [Senokot-S] Metoprolol Succinate (ER) [Toprol 50 mg PO BID #60 tab 10/01/23 11/22/23 Rx XL] polyethylene glycoL 3350 [Miralax] 17 gm PO DAILY PRN packet 10/01/23 11/22/23 Rx Naloxegol Oxalate [Movantik] 25 mg PO DAILY 10/20/23 11/22/23 History Clotrimazole Cream [Lotrimin Cream] 1 applic TOPICAL BID PRN 11/22/23 11/22/23 History Fluticasone/Umeclidin/Vilanter 1 puff INHALATION RT-HS 11/22/23 11/22/23 History [Trelegy Ellipta 100-62.5-25] Levalbuterol Tartrate 2 puff INHALATION RT-Q4H PRN 11/22/23 11/22/23 History [Levalbuterol Tartrate 45 MCG Hfa] Nitroglycerin Sl Tabs [Nitrostat] 0.4 mg SUBLINGUAL Q5M PRN 11/22/23 11/22/23 History Allergies Allergy/AdvReac Type Severity Reaction Status Date / Time aspirin Allergy Rash/Hives Verified 11/22/23 10:14 ciprofloxacin [From Cipro] Allergy Rash/Hives Verified 11/22/23 10:14 ibuprofen [From Motrin] Allergy Rash/Hives Verified 11/22/23 10:14 Penicillins Allergy Rash/Hives Verified 11/22/23 10:14 Sulfa (Sulfonamide Allergy Rash/Hives Verified 11/22/23 10:14 Antibiotics) Physical Exam Vitals: Vital Signs Temp Pulse Resp BP Pulse Ox 11/22/23 12:00 60 20 93/53 97 11/22/23 11:00 62 20 97/54 96 11/22/23 10:00 62 18 106/55 96 11/22/23 09:00 63 18 93/53 98 11/22/23 07:26 100.4 F H 70 20 128/61 92 L 11/22/23 06:44 100.1 F H 77 20 151/75 92 L Intake and Output 11/21/23 11/22/23 11/22/23 22:59 06:59 14:59 Other: Weight 133.81 kg Results 11/22/23 06:53 11/22/23 06:53 Cardiac Enzymes 11/22/23 11/22/23 Range/Units 06:53 06:53 AST 42 (17-59) U/L Troponin I <0.012 (0.000-0.034) ng/mL Coagulation 11/22/23 Range/Units 06:53 PT 11.5 (10.0-12.5) sec APTT 24.6 (22.0-30.0) sec CBC 05/11/24 Range/Units 06:53 WBC 12.8 H (3.8-10.6) k/uL RBC 4.57 (4.30-5.90) m/uL Hgb 13.6 (13.0-17.5) gm/dL Hct 43.6 (39.0-53.0) % Plt Count 163 (150-450) k/uL Comprehensive Metabolic Panel 11/22/23 Range/Units 06:53 Sodium 138 (137-145) mmol/L Potassium 5.0 (3.5-5.1) mmol/L Chloride 105 (98-107) mmol/L Carbon Dioxide 28 (22-30) mmol/L BUN 16 (9-20) mg/dL Creatinine 0.66 (0.66-1.25) mg/dL Glucose 98 (74-99) mg/dL Calcium 8.7 (8.4-10.2) mg/dL AST 42 (17-59) U/L ALT 37 (4-49) U/L Alkaline Phosphatase 43 (38-126) U/L Total Protein 6.5 (6.3-8.2) g/dL Albumin 3.7 (3.5-5.0) g/dL Current Medications Generic Name Dose Route Start Last Admin Trade Name Freq PRN Reason Stop Dose Admin Azithromycin 500 mg 11/23/23 09:00 Azithromycin 500 Mg Tab PO 11/24/23 09:01 DAILY [facility] Protocol Furosemide 40 mg 11/22/23 16:00 Furosemide 10 Mg/Ml 4 Ml Vial IV Q8HR [facility] Ceftriaxone Sodium 2 gm/ 50 mls @ 100 mls/hr 11/23/23 09:00 Sodium Chloride IVPB 11/26/23 09:29 Q24HR [facility] Protocol Miscellaneous Information 1 each 11/22/23 09:24 Pneumonia Protocol Utilized 1 Each Misc PO ONCE PRN Per Protocol Nitroglycerin 1 inch 11/22/23 12:00 11/22/23 11:33 Nitroglycerin Oint 1 Inch/Gm Packet TOPICAL Not Given Q6HR [facility] Intake and Output 11/21/23 11/22/23 11/22/23 22:59 06:59 14:59 Other: Weight 133.81 kg 11/22/23 06:53 11/22/23 06:53
[2023-11-22] MEDS: oxyCODONE ER 15 MG TAB.ER.12H PO SCH (18:21)
[2023-11-22] MEDS: NON FORMULARY DRUG (Fluticasone/Umeclidin/Vilanter [Trelegy Ellipta 100-62.5-25] 1 EACH Bl INHALATION SCH (20:51)
[2023-11-22] MEDS: METOPROLOL SUCCINATE (ER) 50 MG TAB.ER.24H PO SCH (20:52)
[2023-11-22] MEDS: APIXABAN 5 MG TAB PO SCH (21:19)
[2023-11-22] MEDS: DOCUSATE 100 MG CAP PO SCH (21:19)
[2023-11-22] MEDS: lisinopriL 20 MG TAB PO SCH (21:20)
[2023-11-22] MEDS: clonazePAM 0.5 MG TAB PO SCH (21:20)
[2023-11-22] MEDS: PREGABALIN 100 MG CAP PO SCH (21:21)
[2023-11-22] MEDS: PRAVASTATIN SODIUM 80 MG TAB PO SCH (21:21)
[2023-11-22] MEDS: BRIMONIDINE TARTRATE 0.2% DROPS 5 ML BTL BOTH EYES SCH (21:23)
[2023-11-23] MEDS: PANTOPRAZOLE 40 MG TABLET PO SCH (06:27)
--- NOTE | 2023-11-23 09:01 | XR ---
EXAMINATION TYPE: XR chest 2V DATE OF EXAM: 11/23/2023 Comparison: 11/22/2023 Clinical History: 78-year-old male pneumonia Findings: Heart borderline enlarged. Hyperinflation. Diffuse interstitial opacities persist but with slight imp rovement. Vague patchy lower lung opacities are improving. Small effusions remain. IMPRESSION: COPD with improving lower lung aeration. Mild interstitial pulmonary edema or infiltrates along with small effusions remain.
[2023-11-23] MEDS: AZITHROMYCIN 500 MG TAB PO SCH (09:24)
[2023-11-23] MEDS: oxyCODONE ER 20 MG TAB.ER.12H PO SCH (09:26)
[2023-11-23] MEDS: NON FORMULARY DRUG (Naloxegol Oxalate [Movantik] 25 MG Tablet) PO SCH (09:27)
[2023-11-23 10:33] LABS: Basophils % (A) 0 %; Eosinophils # (A) 0.1 k/uL (0-0.7); Eosinophils % (A) 1 %; HCT 40.1 % (39.0-53.0); HGB 12.6 gm/dL (13.0-17.5); Hypochromasia Slight; Lymphocytes % (A) 10 %; MCH 30.2 pg (25.0-35.0); MCHC 31.3 g/dL (31.0-37.0); MCV 96.4 fL (80.0-100.0); Mean Platelet Volume 9.7; Monocytes % (A) 11 %; Neutrophils % (A) 76 %; Platelet Count 147 k/uL (150-450); RBC 4.17 m/uL (4.30-5.90); RDW 14.7 % (11.5-15.5); WBC 9.2 k/uL (3.8-10.6)
[2023-11-23 10:35] LABS: African American GFR (CKD) >90 (>60 ml/min/1.73 sqM); Anion Gap 3 mmol/L; Blood Urea Nitrogen 18 mg/dL (9-20); Calcium 8.5 mg/dL (8.4-10.2); Carbon Dioxide 33 mmol/L (22-30); Chloride 101 mmol/L (98-107); Glucose 126 mg/dL (74-99); Non-African American GFR(CKD) 87 (>60 ml/min/1.73 sqM); Sodium 137 mmol/L (137-145)
[2023-11-23 10:36] LABS: Potassium 4.8 mmol/L (3.5-5.1)
--- NOTE | 2023-11-23 11:44 | P.PN ---
Subjective Progress Note Date: 11/23/23 Reason for Consult (text): Acute pulmonary edema History of present illness: This is an 78-year-old male patient of Dr. Turpin with past medical history of paroxysmal atrial fibrillation status post ablation x 3 about 3 years ago at [facility], hypertension, hyperlipidemia. We have been asked to evaluate the patient for pulmonary edema. Patient states that he was started on oxygen at home about a month ago and has been using it as needed but yesterday he had to wear it all day. He complains of sharp pains in the right side of his head that happened about 9 times briefly. Today, patient developed chills, muscle aches and worsening shortness of breath and his pulse ox was found to be 83% at home. He states he has been eating okay and drinking okay. He does complain of fever that is improved with Tylenol. He denies any lightheadedness or dizziness. Blood pressure was low at 83/58. Patient is seen today in the emergency center waiting for a bed on the cardiac stepdown unit. Patient is scheduled for atrial tachycardia ablation with Dr. Turpin on December 01. EKG sinus rhythm with first-degree AV block. Chest x-ray: COPD with superimposed CHF with interstitial and patchy pulmonary edema. Small effusions. WBC 12.8, hemoglobin 13.6. INR 1.1. Electrolytes and renal function normal. Troponin negative x 1. proBNP 893. Influenza A, influenza B, RSV, COVID-19 not detected. Home cardiac medications: Eliquis 5 mg twice daily, Toprol XL 50 mg twice daily, Nitrostat as needed, pravastatin 80 mg at bedtime, ramipril 10 mg at bedtime. Echocardiogram performed on 09/28/2023 revealed EF of 55 to 60%, moderate left atrial dilatation. Lexiscan Cardiolite stress test performed 09/06/2022 revealed no evidence of reversible ischemia. 11/22 Patient states he is feeling much better today. No chest pain or chest pressure. Breathing is also better. His main concern is constipation. Blood pressure 132/72, heart rate 61, pulse ox 97% on 3 L nasal cannula. Physical examination: Gen: This is an 78-year-old male in no acute distress. Patient is resting in recliner in the emergency center VS: reviewed HEENT: Head is atraumatic, normocephalic. Pupils equal, round. Sclerae is anicteric. NECK: Supple. No JVD. LUNGS: Diminished. No intercostal retractions. HEART: Regular rate and rhythm. No murmur. EXTREMITIES: Mild pedal edema. No calf tenderness. NEUROLOGICAL: Patient is awake, alert and oriented x3. Assessment: Acute diastolic heart failure Paroxysmal atrial fibrillation in sinus rhythm Persistent atrial tachycardia Hypertension, currently hypotensive Hyperlipidemia Chronic hypoxic respiratory failure on home O2 Constipation Plan: Continue patient's home Eliquis Hold all of his blood pressure medications as patient is hypotensive, may slowly introduce that his blood pressure improves No need to repeat echocardiogram as this was done in September Continue IV Lasix 40 mg every 8 hours for another 24 hours Monitor SARITHA, daily weights, electrolytes and renal function Further recommendations to follow based upon clinical course Nurse practitioner note has been reviewed, I agree with documented findings and plan of care. Patient was seen and examined. Objective - Vital Signs Vital signs: Vital Signs Temp 97.6 F 11/23/23 09:23 Pulse 61 11/23/23 09:23 Resp 20 11/23/23 09:23 BP 132/72 11/23/23 09:23 Pulse Ox 97 11/23/23 09:23 FiO2 Intake & Output 11/22/23 11/23/23 11/23/23 18:59 06:59 18:59 Output Total 400 Balance -400 Weight 134.5 kg Output: Urine 400 Other: # Voids 1 - Labs CBC & Chem 7: 11/23/23 09:33 11/23/23 09:33
[2023-11-23] MEDS: MAGNESIUM HYDROXIDE 2,400 MG/30 ML CUP PO PRN (15:20)
--- NOTE | 2023-11-23 17:47 | P.PN ---
Subjective Progress Note Date: 11/23/23 78-year-old male, history of hypertension, hyperlipidemia, atrial fibrillation and multiple ablations, COPD, who presents to the emergency department with complaint of shortness of breath. Patient comes into the emergency department because he states he woke up at 530 with short of breath and that shortness of breath continued till 6:00 so at that time he called EMS. Patient states he felt hot but did not take his temperature. Patient denies any chest pain patient denies any palpitations. Patient denies any chest or abdominal pain patient has nausea vomiting diarrhea. Patient has any back pain. Patient states there is a little swelling to his legs which she does not always have. Chest x-ray completed and compared with previous today shows pulmonary edema and possible pneumonia Blood work reveals WBC of 12.8, hemoglobin of 13.6 and platelet count of 163, sodium 138, potassium 5.0, BUNs/creatinine of 16/0.66, magnesium of 1.6, troponin less than 0.012 -- Patient reports severe constipation; takes multiple laxatives and stool softeners at home; we will try milk of magnesia; patient has been requesting an enema; we will monitor for now -Cardiology recommending to hold all blood pressure medications due to hypotension; patient will continue on home dose of Eliquis -- Patient is currently on Lasix 40 mg IV every 8 hours which will be continued for another 24 hours Objective - Vital Signs Vital signs: Vital Signs Temp 97.6 F 11/23/23 09:23 Pulse 61 11/23/23 10:27 Resp 20 11/23/23 10:27 BP 132/72 11/23/23 09:23 Pulse Ox 97 11/23/23 09:23 FiO2 Intake & Output 11/22/23 11/23/23 11/23/23 18:59 06:59 18:59 Intake Total 240 Output Total 400 Balance -400 240 Weight 134.5 kg Intake: Oral 240 Output: Urine 400 Other: # Voids 1 - Exam Gen: This is an 78-year-old male in no acute distress. Patient is resting in recliner in the emergency center VS: reviewed, blood pressure 107/59, heart rate 61, pulse ox 97% on 3 L nasal cannula. HEENT: Head is atraumatic, normocephalic. Pupils equal, round. Sclerae is anicteric. NECK: Supple. No JVD. LUNGS: Diminished. No intercostal retractions. HEART: Regular rate and rhythm. No murmur. ABDOMEN: Soft No tenderness. EXTREMITIES: No pedal edema. No calf tenderness. NEUROLOGICAL: Patient is awake, alert and oriented x3. - Labs CBC & Chem 7: 11/23/23 09:33 11/23/23 09:33 Labs: Abnormal Lab Results - Last 24 Hours (Table) 11/23/23 11/23/23 Range/Units 09: 09:33 RBC 4.17 L (4.30-5.90) m/uL Hgb 12.6 L (13.0-17.5) gm/dL Plt Count 147 L (150-450) k/uL Carbon Dioxide 33 H (22-30) mmol/L Glucose 126 H (74-99) mg/dL Assessment and Plan Assessment: 1. Acute pulmonary edema -Chest x-ray completed in the ED reveals COPD with superimposed CHF with interstitial and patchy pulmonary edema -Patient has been placed on Lasix 40 mg IV every 8 hours -We will monitor strict SARITHA's, daily weights, low-salt and fluid restricted diet Consult cardiology 2. Possible pneumonia; Rocephin 1 g IV daily along with azithromycin 500 mg daily; DuoNeb nebulizer treatments 4 times daily and as needed -Will monitor CBC, CRP and procalcitonin 3. Hypertension; Toprol-XL 50 mg twice daily, Altace 10 mg nightly 4. Hyperlipidemia; Pravachol 80 mg daily 5. Atrial fibrillation; rate controlled on metoprolol 50 mg twice daily; Eliquis 5 mg twice daily 6. COPD; not in exacerbation; continue with home inhaler therapy DVT prophylaxis; SCDs/Eliquis CODE STATUS; full code
[2023-11-23] MEDS: NA PHOS,M-B/NA PHOS,DI-BA 133 ML ENEMA RECTAL ONE (21:28)
[2023-11-24 04:56] VITALS: RESP 18
[2023-11-24 06:45] LABS: Basophils % (A) 0 %; Eosinophils # (A) 0.2 k/uL (0-0.7); Eosinophils % (A) 2 %; HCT 39.5 % (39.0-53.0); HGB 12.3 gm/dL (13.0-17.5); Lymphocytes # (A) 1.2 k/uL (1.0-4.8); Lymphocytes % (A) 13 %; MCH 29.5 pg (25.0-35.0); MCHC 31.2 g/dL (31.0-37.0); MCV 94.7 fL (80.0-100.0); Mean Platelet Volume 8.4; Monocytes # (A) 0.8 k/uL (0-1.0); Monocytes % (A) 8 %; Neutrophils % (A) 75 %; Platelet Count 178 k/uL (150-450); RBC 4.17 m/uL (4.30-5.90); RDW 14.6 % (11.5-15.5); WBC 9.3 k/uL (3.8-10.6)
[2023-11-24 07:15] LABS: African American GFR (CKD) >90 (>60 ml/min/1.73 sqM); Anion Gap 0 mmol/L; Blood Urea Nitrogen 17 mg/dL (9-20); Calcium 7.9 mg/dL (8.4-10.2); Carbon Dioxide 36 mmol/L (22-30); Chloride 103 mmol/L (98-107); Glucose 109 mg/dL (74-99); Non-African American GFR(CKD) 88 (>60 ml/min/1.73 sqM); Sodium 139 mmol/L (137-145)
--- NOTE | 2023-11-24 13:06 | P.PN ---
Subjective HISTORY OF PRESENT ILLNESS: This is an 78-year-old male patient of Dr. Turpin with past medical history of paroxysmal atrial fibrillation status post ablation x 3 about 3 years ago at [facility], hypertension, hyperlipidemia. We have been asked to evaluate the patient for pulmonary edema. Patient states that he was started on oxygen at home about a month ago and has been using it as needed but yesterday he had to wear it all day. He complains of sharp pains in the right side of his head that happened about 9 times briefly. Today, patient developed chills, muscle aches and worsening shortness of breath and his pulse ox was found to be 83% at home. He states he has been eating okay and drinking okay. He does complain of fever that is improved with Tylenol. He denies any lightheadedness or dizziness. Blood pressure was low at 83/58. Patient is seen today in the emergency center waiting for a bed on the cardiac stepdown unit. Patient is scheduled for atrial tachycardia ablation with Dr. Turpin on December 01. EKG sinus rhythm with first-degree AV block. Chest x-ray: COPD with superimposed CHF with interstitial and patchy pulmonary edema. Small effusions. WBC 12.8, hemoglobin 13.6. INR 1.1. Electrolytes and renal function normal. Troponin negative x 1. proBNP 893. Influenza A, influenza B, RSV, COVID-19 not detected. Home cardiac medications: Eliquis 5 mg twice daily, Toprol XL 50 mg twice daily, Nitrostat as needed, pravastatin 80 mg at bedtime, ramipril 10 mg at bedtime. Echocardiogram performed on 09/28/2023 revealed EF of 55 to 60%, moderate left atrial dilatation. Lexiscan Cardiolite stress test performed 09/06/2022 revealed no evidence of reversible ischemia. 11/22 Patient states he is feeling much better today. No chest pain or chest pressure. Breathing is also better. His main concern is constipation. Blood pressure 132/72, heart rate 61, pulse ox 97% on 3 L nasal cannula. 11/24/2023 Patient examined this morning at the bedside. Patient is sitting up in the chair. Patient denies chest pain or pressure. He denies shortness of breath. Patient's blood pressures have improved with a systolic in the [id number]. PHYSICAL EXAM: VITAL SIGNS: Reviewed. GENERAL: Well-developed in no acute distress. NECK: Supple. No JVD or thyromegaly LUNGS: Respirations even and unlabored. Lungs essentially clear to auscultation bilaterally. HEART: Regular rate and rhythm. S1 and S2 heard. EXTREMITIES: Normal range of motion. No clubbing or cyanosis. Peripheral pulses intact. Trace lower extremity edema ASSESSMENT: Acute diastolic heart failure Paroxysmal atrial fibrillation in sinus rhythm History of paroxysmal atrial tachycardia Hypertension Hypotension, resolved Hyperlipidemia Chronic hypoxic respiratory failure on home O2 Constipation PLAN: Discontinue IV Lasix Begin oral Lasix 40 mg twice a day Change metoprolol succinate to once daily dosing Continue lisinopril 40 mg daily Continue to monitor blood pressure Anticipate discharge home tomorrow if patient remains stable Commendations pending patient course Nurse practitioner note has been reviewed by physician. Signing provider agrees with the documented findings, assessment, and plan of care documented by FOOD QUALITY TECHNICIAN as a scribe. Objective - Vital Signs Vital signs: Vital Signs Temp 99.0 F 11/24/23 08:50 Pulse 73 11/24/23 08:50 Resp 18 11/24/23 08:50 BP 133/73 11/24/23 08:50 Pulse Ox 94 L 11/24/23 08:59 FiO2 Intake & Output 11/23/23 11/24/23 11/24/23 18:59 06:59 18:59 Intake Total 231 182 1197 Output Total 1575 850 Balance -1217 -310 1148 Weight 132.1 kg Intake: IV 10 Invasive Line 1 10 Oral 643 549 6830 Output: Urine 1575 850 Other: # Voids 1 # Bowel Movements 1 - Labs CBC & Chem 7: 11/24/23 06:31 11/24/23 06:31 Labs: Abnormal Lab Results - Last 24 Hours (Table) 11/24/23 11/24/23 Range/Units 06:31 06:31 RBC 4.17 L (4.30-5.90) m/uL Hgb 12.3 L (13.0-17.5) gm/dL Carbon Dioxide 36 H (22-30) mmol/L Glucose 109 H (74-99) mg/dL Calcium 7.9 L (8.4-10.2) mg/dL Microbiology - Last 24 Hours (Table) 11/22/23 08:15 Blood Culture - Preliminary Blood 11/22/23 08:00 Blood Culture - Preliminary Blood
[2023-11-24] MEDS: FUROSEMIDE 40 MG TAB PO SCH (16:11)
[2023-11-24] MEDS: NA PHOS,M-B/NA PHOS,DI-BA 133 ML ENEMA RECTAL ONE (16:12)
--- NOTE | 2023-11-24 17:42 | P.PN ---
Subjective Progress Note Date: 11/24/23 Diuresing well on Lasix IV push with 24-hour SARITHA reflecting a negative fluid balance, renal function stable. Maintaining O2 sats of 90% on room air, 94% on 3 L. Tmax 99.9, normal WBC. Preliminary blood cultures reporting no growth after 48 hours. Denies chest pain, palpitations or increase in shortness of breath. Complains of constipation, reports no bowel movement x 10 days Objective - Vital Signs Vital signs: Vital Signs Temp 98.1 F 11/24/23 16:20 Pulse 65 11/24/23 16:09 Resp 18 11/24/23 16:09 BP 134/70 11/24/23 16:09 Pulse Ox 91 L 11/24/23 16:20 FiO2 Intake & Output 11/23/23 11/24/23 11/24/23 18:59 06:59 18:59 Intake Total 630 619 9352 Output Total 1135 811 3370 Balance -1217 -310 -184 Weight 132.1 kg Intake: IV 10 Invasive Line 1 10 Oral 607 314 6220 Output: Urine 2649 156 8584 Other: # Voids 1 # Bowel Movements 1 - Exam VITAL SIGNS: [As above] GENERAL: Alert and oriented 3, sitting up in chair, no acute distress, conversing without dyspnea HEENT: Normocephalic, Conjunctivae normal. eyes normal. NECK: Supple, No JVD. CARDIOVASCULAR: S1, S2.irregular systolic murmur RESPIRATION: Unlabored, no accessory muscle use ,equal air entry, fine expiratory wheezing ABDOMEN: Soft, nontender . No rigidity, no guarding, positive bowel sounds. LEGS: Decreased edema, no calf tenderness. NERVOUS SYSTEM: Cranial N 2-12 grossly normal.No focal deficits. Skin: Warm and dry, no rash - Labs CBC & Chem 7: 11/24/23 06:31 11/24/23 06:31 Labs: Abnormal Lab Results - Last 24 Hours (Table) 11/24/23 11/24/23 Range/Units 06:31 06:31 RBC 4.17 L (4.30-5.90) m/uL Hgb 12.3 L (13.0-17.5) gm/dL Carbon Dioxide 36 H (22-30) mmol/L Glucose 109 H (74-99) mg/dL Calcium 7.9 L (8.4-10.2) mg/dL Microbiology - Last 24 Hours (Table) 11/22/23 08:00 Blood Culture - Preliminary Blood 11/22/23 08:15 Blood Culture - Preliminary Blood Assessment and Plan Assessment: Acute CHF, diastolic dysfunction Chronic paroxysmal atrial fibrillation, anticoagulated on Eliquis Chronic hypoxic respiratory failure secondary to the above Recent COVID-19 infection 10/04, vaccinated with post Recent RSV tracheobronchitis, July 2023 COPD History of cardiac ablation 3 at [facility] Hypertension hyperlipidemia End-stage renal disease Obstructive sleep apnea, noncompliant with CPAP at home Morbid obesity, BMI 38 Chronic back pain, history of back surgery Glaucoma Prior nicotine dependence Plan: Continue on current medication resume ,monitoring and symptomatic treatment. Diuretics as per cardiology-potential transition to oral Lasix today. Fleets enemas ordered, MiraLAX scheduled. discharge planning in progress for tomorrow pending final DC recommendations and clearance per cardiology. The impression and plan of care has been dictated as directed. : I performed a history and examination of this patient, discussed the same with the dictator. I agree with the dictator's note ,documented as a scribe. Any additional findings or plans will be noted.
[2023-11-24] MEDS: polyethylene glycoL 3350 17 GM POWD.PACK PO SCH (18:57)
[2023-11-25] MEDS: METOPROLOL SUCCINATE (ER) 50 MG TAB.ER.24H PO SCH (09:45)
[2023-11-25 12:11] VITALS: BP 124/73; PULSE 67; TEMP 97.4
--- NOTE | 2023-11-26 16:23 | P.DS ---
Providers Date of admission: 11/22/23 09:26 Expected date of discharge: 11/25/23 Attending physician: Gabino Monroe MD Consults: 11/22/23 09:26 Consult Physician Urgent Consulting Provider: [facility] Consult Reason/Comments: Acute pulmonary edema Do you want consulting provider notified?: Yes Primary care physician: Linda Antony Hospital Course: Final Diagnoses: Acute CHF, diastolic dysfunction Chronic paroxysmal atrial fibrillation, anticoagulated on Eliquis Chronic hypoxic respiratory failure secondary to the above Recent COVID-19 infection 10/04, vaccinated with post Recent RSV tracheobronchitis, July 2023 COPD History of cardiac ablation 3 at [facility] Hypertension hyperlipidemia End-stage renal disease Obstructive sleep apnea, noncompliant with CPAP at home Morbid obesity, BMI 38 Chronic back pain, history of back surgery Glaucoma Prior nicotine dependence Hospital course:Diuresing well on Lasix IV push with 24-hour SARITHA reflecting a negative fluid balance, renal function stable. Maintaining O2 sats of 90% on room air, 94% on 3 L. Tmax 99.9, normal WBC. Preliminary blood cultures reporting no growth after 48 hours. Denies chest pain, palpitations or increase in shortness of breath. Complains of constipation, reports no bowel movement x 10 days Diuretics as per cardiology-potential transition to oral Lasix today. Fleets enemas ordered, MiraLAX scheduled. discharge planning in progress for tomorrow pending final DC recommendations and clearance per cardiology. Received fleets enemas with positive bowel movements,yesterday. Significant clinical improvement. Denies chest pain, palpitations or increase in shortness of breath. Maintaining O2 sats in the high 90s on 2 L nasal cannula, patient's baseline. Denies cough .no bilateral lower extremity edema .cleared by cardiology for discharge. Patient will be discharged home today in a stable condition with guarded prognosis. The impression and plan of care has been dictated as directed. : I performed a history and examination of this patient, discussed the same with the dictator. I agree with the dictator's note ,documented as a scribe. Any additional findings or plans will be noted. Patient Condition at Discharge: Stable Plan - Discharge Summary Discharge Rx Participant: Yes New Discharge Prescriptions: New Potassium Chloride ER [K-Dur 20] 20 meq PO DAILY #30 tab Furosemide [Lasix] 40 mg PO BID@0900,1600 #60 tab Continue Ketoconazole 2% Shampoo [Nizoral] 1 applic TOPICAL DIRECTED clonazePAM [KlonoPIN] 0.5 mg PO BID@1000,2200 ramipriL [Altace] 10 mg PO HS@2200 Pregabalin [Lyrica] 100 mg PO HS@2200 Apixaban [Eliquis] 5 mg PO BID@1000,2200 oxyCODONE HCL [oxyCODONE HCL ER] 40 mg PO BID@1000,1600 Albuterol Inhaler [Ventolin Hfa Inhaler] 1 - 2 puff INHALATION RT-Q6H PRN PRN Reason: Shortness Of Breath Docusate [Colace] 100 mg PO BID@1000,2200 Brimonidine Tartrate [Alphagan P 0.2% Ophth Soln] 1 drop BOTH EYES BID@1000,2200 Metoprolol Succinate (ER) [Toprol XL] 50 mg PO BID #60 tab Levalbuterol Tartrate [Levalbuterol Tartrate 45 MCG Hfa] 2 puff INHALATION RT-Q4H PRN PRN Reason: Shortness Of Breath Clotrimazole Cream [Lotrimin Cream] 1 applic TOPICAL BID PRN PRN Reason: Rash Nitroglycerin Sl Tabs [Nitrostat] 0.4 mg SUBLINGUAL Q5M PRN PRN Reason: Chest Pain Fluticasone/Umeclidin/Vilanter [Trelegy Ellipta 100-62.5-25] 1 puff INHALATION RT-HS oxyCODONE HCL [oxyCODONE HCL (IR)] 30 mg PO Q6H Pravastatin Sodium [Pravachol] 80 mg PO HS@2200 Pantoprazole [Protonix] 40 mg PO AC-BRKFST #30 tab Sennosides-Docusate Sodium [Senokot-S] 2 tab PO BID PRN PRN Reason: Constipation polyethylene glycoL 3350 [Miralax] 17 gm PO DAILY PRN packet PRN Reason: Constipation Naloxegol Oxalate [Movantik] 25 mg PO DAILY Discharge Medication List Ketoconazole 2% Shampoo [Nizoral] 1 applic TOPICAL DIRECTED 05/09/15 [History] clonazePAM [KlonoPIN] 0.5 mg PO BID@1000,2200 12/11/16 [History] ramipriL [Altace] 10 mg PO HS@219906/22/19 [History] Apixaban [Eliquis] 5 mg PO BID@1000,0 07/11/20 [History] Pregabalin [Lyrica] 100 mg PO HS@219907/11/20 [History] Albuterol Inhaler [Ventolin Hfa Inhaler] 1 - 2 puff INHALATION RT-Q6H PRN 07/26/23 [History] Brimonidine Tartrate [Alphagan P 0.2% Ophth Soln] 1 drop BOTH EYES BID@1000,219907/26/23 [History] Docusate [Colace] 100 mg PO BID@1000,219907/26/23 [History] Pravastatin Sodium [Pravachol] 80 mg PO HS@219907/26/23 [History] oxyCODONE HCL [oxyCODONE HCL (IR)] 30 mg PO Q6H 07/26/23 [History] oxyCODONE HCL [oxyCODONE HCL ER] 40 mg PO BID@1000,1600 07/26/23 [History] Pantoprazole [Protonix] 40 mg PO AC-BRKFST #30 tab 07/31/23 [Rx] Sennosides-Docusate Sodium [Senokot-S] 2 tab PO BID PRN 08/31/23 [History] Metoprolol Succinate (ER) [Toprol XL] 50 mg PO BID #60 tab 10/01/23 [Rx] polyethylene glycoL 3350 [Miralax] 17 gm PO DAILY PRN packet 10/01/23 [Rx] Naloxegol Oxalate [Movantik] 25 mg PO DAILY 10/20/23 [History] Clotrimazole Cream [Lotrimin Cream] 1 applic TOPICAL BID PRN 11/22/23 [History] Fluticasone/Umeclidin/Vilanter [Trelegy Ellipta 100-62.5-25] 1 puff INHALATION RT-HS 11/22/23 [History] Levalbuterol Tartrate [Levalbuterol Tartrate 45 MCG Hfa] 2 puff INHALATION RT- Q4H PRN 11/22/23 [History] Nitroglycerin Sl Tabs [Nitrostat] 0.4 mg SUBLINGUAL Q5M PRN 11/22/23 [History] Furosemide [Lasix] 40 mg PO BID@0900,1600 #60 tab 11/25/23 [Rx] Potassium Chloride ER [K-Dur 20] 20 meq PO DAILY #30 tab 11/25/23 [Rx] Follow up Appointment(s)/Referral(s): Gabino Monroe MD [STAFF PHYSICIAN] - [facility] [NON-STAFF] - Ambulatory/Diagnostic Orders: Complete Blood Count w/diff [LAB.AMB] Time Frame: 3 Days, Location: None Selected Patient Instructions/Handouts: Pulmonary Edema (DC), Pneumonia (DC) Discharge Disposition: HOME SELF-CARE
== END 2023-11-25 12:23 | disposition home or self-care (01) | DRG 291 ==
LOC: EC 06:42 → 3SCARD 09:26
PROVIDERS: ADMIT Family Medicine; ATTEND Family Medicine
DX: I13.2 Hypertensive heart and chronic kidney disease with heart failure and with stage 5 chronic kidney disease, or end stage renal disease (principal); I50.31 Acute diastolic (congestive) heart failure; J18.9 Pneumonia, unspecified organism; N18.6 End stage renal disease; J44.0 Chronic obstructive pulmonary disease with (acute) lower respiratory infection; J96.11 Chronic respiratory failure with hypoxia; I47.19 Other supraventricular tachycardia; I48.92 Unspecified atrial flutter; E78.5 Hyperlipidemia, unspecified; G89.29 Other chronic pain; G47.33 Obstructive sleep apnea (adult) (pediatric); H40.9 Unspecified glaucoma; I44.0 Atrioventricular block, first degree; E11.22 Type 2 diabetes mellitus with diabetic chronic kidney disease; E66.01 Morbid (severe) obesity due to excess calories; I25.10 Atherosclerotic heart disease of native coronary artery without angina pectoris; I48.0 Paroxysmal atrial fibrillation; K59.00 Constipation, unspecified; Z79.01 Long term (current) use of anticoagulants; I95.9 Hypotension, unspecified; Z79.51 Long term (current) use of inhaled steroids; Z79.899 Other long term (current) drug therapy; Z87.442 Personal history of urinary calculi; Z99.81 Dependence on supplemental oxygen; Z68.38 Body mass index [BMI] 38.0-38.9, adult; Z86.16 Personal history of COVID-19; Z91.199 Patient's noncompliance with other medical treatment and regimen due to unspecified reason; Z88.6 Allergy status to analgesic agent; Z88.1 Allergy status to other antibiotic agents; Z88.0 Allergy status to penicillin; Z88.2 Allergy status to sulfonamides
CPT/HCPCS: 36415; 71046; 80048; 80053; 83605; 83735; 83880; 84484; 85025; 85610; 85730; 87040; 87449; 87636; 93005; 96365; 96375; 96376; 99285

== ENCOUNTER → 2023-11-26 | Outpatient (CLI) | payer MEDICARE ==
[2023-11-26 19:12] LABS: Basophils # (A) 0.06 X 10*3/uL (0.00-0.10); Basophils % (A) 0.6 %; Eosinophils # (A) 0.04 X 10*3/uL (0.04-0.35); Eosinophils % (A) 0.4 %; HCT 45.4 % (39.6-50.0); HGB 14.2 g/dL (13.0-17.0); Lymphocytes # (A) 1.07 X 10*3/uL (0.90-5.00); Lymphocytes % (A) 10.3 %; MCHC 31.3 g/dL (32.0-37.0); MCV 92.8 FL (80.0-97.0); Mean Platelet Volume 10.9 FL (9.5-12.2); Monocytes # (A) 0.87 X 10*3/uL (0.20-1.00); Monocytes % (A) 8.3 %; NRBC Per 100 WBC 0 X 10*3/uL (0.00-0.01); Neutrophils # (A) 8.33 X 10*3/uL (1.80-7.70); Neutrophils % (A) 79.8 %; Platelet Count 234 X 10*3/uL (140-440); RBC 4.89 X 10*6/uL (4.40-5.60); RDW 14.9 % (11.5-14.5); WBC 10.43 X 10*3/uL (4.50-10.00)
[2023-11-26 19:24] LABS: BUN/Creat Ratio 15.43 Ratio (12.00-20.00); Blood Urea Nitrogen 10.8 mg/dL (9.0-27.0); Calcium 9.3 mg/dL (8.7-10.3); Carbon Dioxide 28.5 mmol/L (21.6-31.8); Chloride 101 mmol/L (96-109); Glucose 114 mg/dL (70-110); Potassium 4.6 mmol/L (3.5-5.5); Sodium 142 mmol/L (135-145)
== END | disposition home or self-care (01) ==
LOC: LABPAT 13:24
PROVIDERS: ATTEND Internal Medicine Clinical Cardiac Electrophysiology
DX: Z01.812 Encounter for preprocedural laboratory examination (principal); I48.91 Unspecified atrial fibrillation; I47.19 Other supraventricular tachycardia; I50.9 Heart failure, unspecified
CPT/HCPCS: 80048; 85025

== ENCOUNTER 2023-12-02 11:12 | Day surgery (SDC) | payer MEDICARE ==
[2023-11-27 12:09] VITALS: BMI 38.6
[2023-12-02] MEDS: SODIUM CHLORIDE 0.9% 1,000 ML IV ONE (11:55)
[2023-12-02 12:09] LABS: ALT 20 U/L (4-49); AST 22 U/L (17-59); African American GFR (CKD) >90 (>60 ml/min/1.73 sqM); Albumin 3.9 g/dL (3.5-5.0); Alkaline Phosphatase 56 U/L (38-126); Anion Gap 4 mmol/L; Blood Urea Nitrogen 21 mg/dL (9-20); Calcium 9.1 mg/dL (8.4-10.2); Carbon Dioxide 30 mmol/L (22-30); Chloride 105 mmol/L (98-107); Glucose 108 mg/dL (74-99); Non-African American GFR(CKD) 83 (>60 ml/min/1.73 sqM); Potassium 4.8 mmol/L (3.5-5.1); Sodium 139 mmol/L (137-145); Total Bilirubin 0.4 mg/dL (0.2-1.3); Total Protein 6.7 g/dL (6.3-8.2)
[2023-12-02] MEDS ORDERED: MIDAZOLAM 2 MG/2 ML VIAL ONE (14:16)
[2023-12-02] MEDS ORDERED: SUCCINYLCHOLINE CHLORIDE 200 MG/10 ML VIAL IV ONE (14:16)
[2023-12-02] MEDS ORDERED: PHENYLEPHRINE 10 MG/ML VIAL ONE (14:16)
[2023-12-02] MEDS ORDERED: fentaNYL (PF) 50 MCG/ML 2 ML AMP ONE (14:16)
[2023-12-02] MEDS ORDERED: HEPARIN SODIUM,PORCINE 10,000 UNIT/ML 1 ML VIAL ONE (14:16)
[2023-12-02] MEDS ORDERED: PROPOFOL 10 MG/ML 20 ML VIAL IV ONE (14:16)
[2023-12-02] MEDS ORDERED: HEPARIN SODIUM,PORCINE 5,000 UNIT/ML 1 ML VIAL ONE (14:16)
--- NOTE | 2023-12-02 14:48 | P.HPCAR ---
History of Present Illness This is Dr. Turpin dictating an H/P on this patient The patient was interviewed and examined IMPRESSION / ASSESSMENT: Recurrence of atrial fibrillation/atrial tachycardia following PVI and atrial flutter ablation several years back at the [facility] Hypertension Dyslipidemia PLAN: Atrial tachycardia mapping and ablation Stop amiodarone after the procedure Continue anticoagulation HPI Patient was admitted with an atrial tachycardia/atrial fibrillation with upright P waves in V1 and upright in inferior leads He has had a past history of PVI and atrial flutter ablation of the [facility] many years back He subsequently converted to sinus rhythm spontaneously Denies any fever chills cough expectoration or any chest pain at this time ROS: No fever chills or rigors, no cough, phlegm or expectoration, no nausea, vomiting or diarrhea, no hematuria, dysuria, no musculoskeletal complaints, no strokes or seizures, no skin lesions. EXAMINATION: 134/67 mmHg pulse rate in the 60s afebrile Heart sounds are normal and regular no murmurs Breath sounds are clear No rhonchi no crackles Abdomen soft Central obesity REVIEW OF LABS, ECG & MEDICAL DATA Labs reviewed. Sodium and potassium normal BUN 21 creatinine 0.8 TSH normal and liver functions normal Physical Exam Vitals: Vital Signs Temp Pulse Resp BP Pulse Ox 12/02/23 14:10 98.2 F 64 16 134/67 90 L Intake and Output 12/01/23 12/02/23 12/02/23 22:59 06:59 14:59 Intake Total 100 Balance 100 Intake: IV 100 Other: Weight 129.3 kg Past Medical History Past Medical History: Atrial Fibrillation, Atrial Flutter, COPD, Hyperlipidemia, Hypertension, Pneumonia, Renal Disease, Sleep Apnea/CPAP/BIPAP Additional Past Medical History / Comment(s): recent admission November 2023 for "water on my heart and pneumonia" EYE DROPS "TO PREVENT GLAUCOMA." NO CURRENT TX FOR SLEEP APNEA. HX KIDNEY STONES.macrodegeneration left eye. RSV, Covid, and Pneumonia August and September 2023,using O2 @ 2 L NC when o2 sats go below 90%. History of Any Multi-Drug Resistant Organisms: None Reported Past Surgical History: Appendectomy, Back Surgery, Cardiac Ablation, Hernia Repair, Orthopedic Surgery Additional Past Surgical History / Comment(s): CARDIAC ABLATION X3. BACK SURG X4. REPAIR LT FOOT INJ. ESWL. COLONOSCOPY. Past Anesthesia/Blood Transfusion Reactions: No Reported Reaction Smoking Status: Former smoker - Past Family History Mother Family Medical History: No Reported History Father Family Medical History: AFIB, CVA/TIA Brother(s) Family Medical History: AFIB, Coronary Artery Disease (CAD) Physical Examination Vital Signs Temp Pulse Resp BP Pulse Ox 12/02/23 14:10 98.2 F 64 16 134/67 90 L Intake and Output 12/01/23 12/02/23 12/02/23 22:59 06:59 14:59 Intake Total 100 Balance 100 Intake: IV 100 Other: Weight 129.3 kg Results 12/02/23 11:30 Cardiac Enzymes 12/02/23 Range/Units 11:30 AST 22 (17-59) U/L Comprehensive Metabolic Panel 12/02/23 Range/Units 11:30 Sodium 139 (137-145) mmol/L Potassium 4.8 (3.5-5.1) mmol/L Chloride 105 (98-107) mmol/L Carbon Dioxide 30 (22-30) mmol/L BUN 21 H (9-20) mg/dL Creatinine 0.83 (0.66-1.25) mg/dL Glucose 108 H (74-99) mg/dL Calcium 9.1 (8.4-10.2) mg/dL AST 22 (17-59) U/L ALT 20 (4-49) U/L Alkaline Phosphatase 56 (38-126) U/L Total Protein 6.7 (6.3-8.2) g/dL Albumin 3.9 (3.5-5.0) g/dL Current Medications Generic Name Dose Route Start Last Admin Trade Name Freq PRN Reason Stop Dose Admin Sodium Chloride 1,000 mls @ 20 mls/hr 12/02/23 06:36 Saline 0.9% IV 01/01/24 06:37 .Q24H ELIZABETH Intake and Output 12/01/23 12/02/23 12/02/23 22:59 06:59 14:59 Intake Total 100 Balance 100 Intake: IV 100 Other: Weight 129.3 kg Patient Weight 12/03/23 06:59 Weight 129.3 kg 12/02/23 11:30
[2023-12-02] MEDS ORDERED: ALBUTEROL NEBULIZED 2.5 MG/3 ML INHALATION PRN (14:49)
[2023-12-02] MEDS: LIDOCAINE 1% INJ 10MG/ML (20 ML MDV) SQ ONE (14:59)
[2023-12-02] MEDS: HEPARIN SODIUM (1,000 UNIT/ML) 1,000 UNIT in SODIUM CHLORIDE 0.9% 1,000 ML IRRIGATION ONE (15:00)
[2023-12-02] MEDS: HEPARIN SOD,PORK IN 0.45% NACL 25,000 UNIT in 0.45% NACL 1 250ML.BAG IV ONE (15:00)
--- NOTE | 2023-12-02 17:33 | P.EPPROC ---
- EP Procedure Note Electrophysiology Procedure Note: Diagnosis Atrial tachycardia with RVR cycle length of about 240 ms, upright F waves in V1 and upright F waves in inferior leads, isoelectric in lead I Final diagnosis Successful ablation of the left atrial roof gap No inducible arrhythmias, patient on 200 mg of amiodarone [facility] sequentially Complete isolation of all pulmonary veins at an antral level, large pulmonary veins Wide left atrial roof ablation performed previously, 1 line anteriorly and 1 line posteriorly on the roof with a small gap in the mid section Mitral isthmus ablation performed previously. Very wide area of fibrillation endocardially. Coronary sinus ablation also evident during CS mapping distally Plan Discontinue amiodarone Continue Eliquis and all other medications Details Patient was brought to the EP lab in a fasting state. Written informed consent was obtained prior to the procedure. General anesthesia provided. Venous sheaths placed in the right left femoral veins under ultrasound guidance Sheaths placed. Diagnostic catheters placed Intracardiac echo catheter placed, Penta ray catheter placed and coronary sinus catheter placed Patient was in sinus rhythm with a strong study sinus cycle length 978 ms, SC interval prolonged at 255 ms, QRS 142 ms and QT 459 ms AH 125 ms and HV interval 61 ms Right atrial pressure of 15/12/30 mmHg Straight pacing performed by stimulation performed Atrial extra stimulation after double extrastimuli performed on high-dose I sopril No arrhythmias induced First right atrial mapping was performed. 3D mapping as well as electroanatomic mapping with activation mapping performed The cavotricuspid isthmus was mapped. Scar map was performed. Activation map during CS pacing was performed Complete block was noted with isthmus conduction time of greater than 214 ms. This was uniform all along the line of block Left right transseptal catheterization was performed under fluoroscopy and ultrasound guidance Long sheath and Penta ray catheter placed in the left atrium Voltage mapping performed All 4 pulmonary veins were completely isolated. Previously a white [place] antral isolation had been performed and the veins were completely quiescent Large left atrium with large pulmonary veins noted A very broad roofline was performed, likely of the proximal second lesion on the roof, 1 anterior and 1 posterior There was a very subtle isthmus or track in the mid roof on scar mapping Continued mapping in the left atrium revealed ablation performed in the mitral isthmus area as well as in the coronary sinus with complete block across the mitral isthmus line This is a very broad mitral isthmus line, mid previously in the prior ablations at [facility] An irrigated tip catheter was then placed RF ablation was performed along the the anterior border and in the midportion of the left atrial roof ablation, along the gap in the line as well as across it anteriorly Successful ablation performed Interrogated with activation mapping during pacing Sheath removed from the left atrium. Venous closure devices placed intracardiac echo revealed no evidence for pericardial effusion at the end of the procedure
[2023-12-02] MEDS: ACETAMINOPHEN IV (For NPO) 1,000 MG in EMPTY BAG 1 BAG IVPB ONE (18:36)
[2023-12-02] MEDS: FUROSEMIDE 40 MG TAB PO SCH (18:39)
[2023-12-02] MEDS: oxyCODONE ER 20 MG TAB.ER.12H PO SCH (18:41)
[2023-12-02] MEDS: SODIUM CHLORIDE 0.9% 1,000 ML IV SCH (19:39)
[2023-12-02] MEDS: PRAVASTATIN SODIUM 80 MG TAB PO SCH (21:03)
[2023-12-02] MEDS: PREGABALIN 100 MG CAP PO SCH (21:03)
[2023-12-02] MEDS: lisinopriL 20 MG TAB PO SCH (21:03)
[2023-12-02] MEDS: METOPROLOL SUCCINATE (ER) 50 MG TAB.ER.24H PO SCH (21:04)
[2023-12-02] MEDS: BRIMONIDINE TARTRATE 0.2% DROPS 5 ML BTL BOTH EYES SCH (21:04)
[2023-12-02] MEDS: APIXABAN 5 MG TAB PO SCH (21:04)
[2023-12-02] MEDS: clonazePAM 0.5 MG TAB PO SCH (21:04)
[2023-12-02] MEDS: IPRATROPIUM 0.5 MG/2.5 ML NEBU INHALATION SCH (22:33)
[2023-12-02] MEDS: SYMBICORT 80-4.5 MCG INHALER INHALATION SCH (22:33)
[2023-12-03] MEDS: PANTOPRAZOLE 40 MG TABLET PO SCH (05:32)
[2023-12-03] MEDS: ACETAMINOPHEN TAB 325 MG TAB PO PRN (05:32)
[2023-12-03 07:53] VITALS: BP 103/63; RESP 19; TEMP 98.3
--- NOTE | 2023-12-03 08:13 | P.DS ---
Providers Attending physician: Trenton Turpin Primary care physician: [facility] Course: Arnold is walking around the room. He is doing well. He has no chest discomfort dizziness lightheadedness His groins have healed well no hematoma no swelling Normal heart sounds no murmurs or gallop Normal breath sounds Impression Atrial tachycardia with RVR that is most consistent with a rhythm of tachycardia Ablation for In the roofline was performed yesterday after extensive mapping both conventional and electroanatomic in the right and left atria The right atrial cavotricuspid flutter line was completely blocked His pulmonary veins are all completely isolated The mitral isthmus line was completely blocked There was a very subtle gap in the left atrial roof in its midportion and successful ablation was performed along its anterior edge and along the the gap Plan Stop amiodarone completely Stop Lasix Reduce metoprolol dose 50 mg p.o. daily, succinate Follow-up Holter monitor in 6 to 8 weeks Continue anticoagulation and Altace Plan - Discharge Summary Discharge Rx Participant: No New Discharge Prescriptions: Discontinued Amiodarone HCl [Pacerone] 200 mg PO DAILY No Action Ketoconazole 2% Shampoo [Nizoral] 1 applic TOPICAL DIRECTED clonazePAM [KlonoPIN] 0.5 mg PO BID@1000,2200 ramipriL [Altace] 10 mg PO HS@2200 Pregabalin [Lyrica] 100 mg PO HS@2200 Apixaban [Eliquis] 5 mg PO BID@1000,2200 oxyCODONE HCL [oxyCODONE HCL ER] 40 mg PO BID@1000,1600 Albuterol Inhaler [Ventolin Hfa Inhaler] 1 - 2 puff INHALATION RT-Q6H PRN PRN Reason: Shortness Of Breath Docusate [Colace] 100 mg PO BID@1000,2200 Brimonidine Tartrate [Alphagan P 0.2% Ophth Soln] 1 drop BOTH EYES BID@1000,2200 Metoprolol Succinate (ER) [Toprol XL] 50 mg PO BID #60 tab Levalbuterol Tartrate [Levalbuterol Tartrate 45 MCG Hfa] 2 puff INHALATION RT-Q4H PRN PRN Reason: Shortness Of Breath Clotrimazole Cream [Lotrimin Cream] 1 applic TOPICAL BID PRN PRN Reason: Rash Nitroglycerin Sl Tabs [Nitrostat] 0.4 mg SUBLINGUAL Q5M PRN PRN Reason: Chest Pain Fluticasone/Umeclidin/Vilanter [Trelegy Ellipta 100-62.5-25] 1 puff INHA LATION RT-HS Potassium Chloride ER [K-Dur 20] 20 meq PO DAILY #30 tab oxyCODONE HCL [oxyCODONE HCL (IR)] 30 mg PO Q6H Pravastatin Sodium [Pravachol] 80 mg PO HS@2199 Pantoprazole [Protonix] 40 mg PO AC-BRKFST #30 tab polyethylene glycoL 3350 [Miralax] 17 gm PO DAILY PRN packet PRN Reason: Constipation Naloxegol Oxalate [Movantik] 25 mg PO DAILY Furosemide [Lasix] 40 mg PO BID@0900,1600 #60 tab Discharge Medication List Ketoconazole 2% Shampoo [Nizoral] 1 applic TOPICAL DIRECTED 05/09/15 [History] clonazePAM [KlonoPIN] 0.5 mg PO BID@1000,0 12/11/16 [History] ramipriL [Altace] 10 mg PO HS@219906/22/19 [History] Apixaban [Eliquis] 5 mg PO BID@1000,219907/11/20 [History] Pregabalin [Lyrica] 100 mg PO HS@219907/11/20 [History] Albuterol Inhaler [Ventolin Hfa Inhaler] 1 - 2 puff INHALATION RT-Q6H PRN 07/26/23 [History] Brimonidine Tartrate [Alphagan P 0.2% Oph Soln] 1 drop BOTH EYES BID@1000,219907/26/23 [History] Docusate [Colace] 100 mg PO BID@1000,0 07/26/23 [History] Pravastatin Sodium [Pravachol] 80 mg PO HS@219907/26/23 [History] oxyCODONE HCL [oxyCODONE HCL (IR)] 30 mg PO Q6H 07/26/23 [History] oxyCODONE HCL [oxyCODONE HCL ER] 40 mg PO BID@1000,1600 07/26/23 [History] Pantoprazole [Protonix] 40 mg PO AC-BRKFST #30 tab 07/31/23 [Rx] Metoprolol Succinate (ER) [Toprol XL] 50 mg PO BID #60 tab 10/01/23 [Rx] polyethylene glycoL 3350 [Miralax] 17 gm PO DAILY PRN packet 10/01/23 [Rx] Naloxegol Oxalate [Movantik] 25 mg PO DAILY 10/20/23 [History] Clotrimazole Cream [Lotrimin Cream] 1 applic TOPICAL BID PRN 11/22/23 [History] Fluticasone/Umeclidin/Vilanter [Trelegy Ellipta 100-62.5-25] 1 puff INHALATION RT-HS 11/22/23 [History] Levalbuterol Tartrate [Levalbuterol Tartrate 45 MCG Hfa] 2 puff INHALATION RT- Q4H PRN 11/22/23 [History] Nitroglycerin Sl Tabs [Nitrostat] 0.4 mg SUBLINGUAL Q5M PRN 11/22/23 [History] Furosemide [Lasix] 40 mg PO BID@0900,1600 #60 tab 11/25/23 [Rx] Potassium Chloride ER [K-Dur 20] 20 meq PO DAILY #30 tab 11/25/23 [Rx] Follow up Appointment(s)/Referral(s): Trenton Turpin MD [STAFF PHYSICIAN] - 1 Week (Appt on 12/11 @ 10:30am ) Activity/Diet/Wound Care/Special Instructions: Post EP study - Ablation instructions 1. Keep access sites dry for 2 days. 2. No heavy lifting or straining for 2 days. 3. Avoid bending the hips repeatedly for 2 days. 4. You may go up and down stairs slowly Call if the following is noted 1. Bleeding, increasing swelling or pain at the access sites. 2. Increasing chest discomfort, especially upon taking a deep breath. 3. Increasing shortness of breath, at rest or with exertion. 4. Undue cough / phlegm 5. Difficulty or pain while swallowing. 6. Pain or change in color in the extremities. 7. Fever, chills, rigors. 8. Increasing headache or neurologic symptoms. 9. Dizziness, fainting, palpitations Discontinue amiodarone Continue all other medications Continue Eliquis uninterrupted Discharge Disposition: HOME SELF-CARE
[2023-12-03] MEDS: POTASSIUM CHLORIDE ER 20 MEQ TAB.ER PO SCH (08:25)
[2023-12-03 08:47] VITALS: PULSE 60
== END 2023-12-03 12:15 | disposition home or self-care (01) ==
LOC: CATHEP 11:12 → 6NMEDSUR 16:58 → CATHEP 12-03 12:15
PROVIDERS: ATTEND Internal Medicine Clinical Cardiac Electrophysiology
DX: I48.91 Unspecified atrial fibrillation (principal); I47.19 Other supraventricular tachycardia; I10 Essential (primary) hypertension; J44.9 Chronic obstructive pulmonary disease, unspecified; E78.5 Hyperlipidemia, unspecified; G47.33 Obstructive sleep apnea (adult) (pediatric); Z79.01 Long term (current) use of anticoagulants; Z79.899 Other long term (current) drug therapy; Z87.891 Personal history of nicotine dependence; Z90.49 Acquired absence of other specified parts of digestive tract
CPT/HCPCS: 94640 ×2; 93623; 93656; 86900; 86901; 80053; 84443; 86850; C1759; C1894; C1769 ×2; C1760; C1730; C1731; C1893; C1732; J2001; J1644 ×2

== ENCOUNTER → 2024-10-26 | Outpatient (CLI) | payer MEDICARE ==
--- NOTE | 2024-10-26 14:50 | CT ---
EXAMINATION TYPE: CT knee RT wo con DATE OF EXAM: 10/26/2024 COMPARISON: None CLINICAL INDICATION: Male, 79 years old with history of M25.561 PAIN IN RIGHT KNEE; PHH, Rt knee pain x5yrs after falling down stairs. CT DLP: 539.1 mGycm Automated exposure control for dose reduction was used. FINDINGS: There is no fracture, subluxation or focal intraosseous abnormality. There is no joint effusion. There is minimal narrowing of the medial compartment of the knee indicating mild osteoarthritis. There is moderate scattered arterial calcification involving the distal superficial femoral artery an d popliteal artery. IMPRESSION: 1. NO EVIDENCE OF ACUTE TRAUMA. 2. MILD OSTEOARTHRITIS OF THE MEDIAL COMPARTMENT. 3. ARTERIOVASCULAR CALCIFICATIONS. [facility], , 10/26/2024 2:48 PM
== END | disposition home or self-care (01) ==
LOC: RADCTMAIN 13:55
PROVIDERS: ATTEND Family Medicine
DX: M17.11 Unilateral primary osteoarthritis, right knee (principal); I70.8 Atherosclerosis of other arteries

== ENCOUNTER → 2024-11-11 | Outpatient (CLI) | payer MEDICARE ==
[2024-11-11 14:12] LABS: African American GFR (CKD) >90 (>60 ml/min/1.73 sqM); Blood Urea Nitrogen 21 mg/dL (9-20); Non-African American GFR(CKD) 78 (>60 ml/min/1.73 sqM)
--- NOTE | 2024-11-11 15:30 | CT ---
CT urogram HISTORY: Hematuria COMPARISON: None TECHNIQUE: Multiple axial images are obtained through the abdomen and pelvis before and after the une ventful administration of nonionic IV contrast. Postcontrast delayed images were obtained. FINDINGS: There are mild chronic interstitial changes in the left lung base.. The gallbladder is normal and there is no gallstone, distention or biliary ductal dilatation. There are no focal masses within the liver, pancreas, spleen or adrenal glands and there is no organo megaly. There is a single nonobstructing 5.3 mm right renal calcification. There are multiple approximately 4 nonobstructing left renal calcifications largest of which approximately 7.3 mm. Kidneys excrete cont rast promptly and symmetrically and there is no solid renal mass, hydronephrosis or filling defect wi thin the renal collecting systems, ureters or urinary bladder. There multiple simple cortical cysts o f both kidneys. There is marked mass effect on the bladder base secondary to an moderately enlarged p rostate gland. The bowel loops are normal in caliber and there is no dilatation or obstruction. No inflammatory bojorquez ges are identified in the bowel wall or mesentery. There is no free intraperitoneal air or fluid. There is no pelvic mass, free fluid, abscess or adenopathy. There are postsurgical changes of laminectomy and fusion at the L4-5 level. There are no other focal osseous abnormalities. IMPRESSION: 1. Nonobstructing nephrocalcinosis bilaterally as described above. 2. No solid renal mass, hydronephrosis or filling defect within the renal collecting systems, ureters or urinary bladder. 3. Moderate prostatic hypertrophy with mass effect on the bladder base [facility], , 11/11/2024 3:28 PM
== END | disposition home or self-care (01) ==
LOC: RADCTMAIN 13:19
PROVIDERS: ATTEND Family Medicine
DX: N40.0 Benign prostatic hyperplasia without lower urinary tract symptoms (principal); R39.89 Other symptoms and signs involving the genitourinary system; N29 Other disorders of kidney and ureter in diseases classified elsewhere; Z87.440 Personal history of urinary (tract) infections
CPT/HCPCS: 82565; 84520; 74178; 36415; 74400; Q9967

== ENCOUNTER → 2024-11-18 | Outpatient (CLI) | payer MEDICARE ==
--- NOTE | 2024-11-18 10:59 | XR ---
EXAMINATION TYPE: XR KUB DATE OF EXAM: 11/18/2024 10:51 AM CLINICAL INDICATION: Male, 79 years old with history of N20.0 calculus, pain TECHNIQUE: 2 supine views of the abdomen. COMPARISON: Abdominal x-ray November 14, 2023. CT urogram November 11, 2024 FINDINGS: The exam is suboptimal secondary to patient's large body habitus. There is 5 to 6 mm calcul us projecting at the right L3 level redemonstrated near level of UPJ. Smaller left renal calculi on C T vessel seen on plain films. Surgical change L4-L5 level is redemonstrated. Overall nonobstructive bowel gas pattern. Lung bases a re clear. IMPRESSION: As above. [facility], , 11/18/2024 10:56 AM
== END | disposition home or self-care (01) ==
LOC: RADXRMAIN 10:42
PROVIDERS: ATTEND Urology
DX: N20.0 Calculus of kidney (principal)
CPT/HCPCS: 74018

== ENCOUNTER → 2024-12-03 | Outpatient (CLI) | payer MEDICARE ==
--- NOTE | 2024-12-03 13:05 | XR ---
EXAMINATION TYPE: XR KUB DATE OF EXAM: 12/03/2024 11:42 AM COMPARISON: 11/18/2024 CLINICAL INDICATION: Male, 79 years old with history of calculus; PHH, pain, right-sided kidney stone TECHNIQUE: One radiographic view of the abdomen was obtained. FINDINGS: Lung bases are clear. No dilated small bowel loops. Air-fluid levels scattered throughout the colon. No significant stool burden. Bowel content largely obscures the renal shadows. Left-sided pelvic phlebolith. Bilateral vascular ca lcifications in the pelvis and proximal thighs. L4-L5 posterior lumbar fusion with laminectomy change . IMPRESSION: 1. Scattered air-fluid levels throughout the colon may reflect diarrheal state/enteritis. 2. Bowel content largely obscures the renal shadows. Unable to clearly identify a suspicious calcific ation. [facility], Workstation: [facility], 12/03/2024 1:02 PM
== END | disposition home or self-care (01) ==
LOC: RADXRMAIN 11:23
PROVIDERS: ATTEND Urology
DX: N20.0 Calculus of kidney (principal)
CPT/HCPCS: 74018

== ENCOUNTER 2024-12-31 14:38 | Emergency (ER) | payer MEDICARE ==
--- NOTE | 2024-12-31 15:28 | ED ---
Back Pain HPI - General Chief Complaint: Back Pain/Injury Stated Complaint: L Flank Pain Time Seen by Provider: 12/31/24 14:47 Source: patient, EMS, RN notes reviewed Limitations: no limitations - History of Present Illness Initial Comments: 79-year-old male presenting to emergency department via EMS for complaints of lumbar back pain. Patient states that he has chronic back pain however this has been worsening over the past week in the left lower back that is nonradiating that is worse with movement and pressure. Patient denies flank pain, hematuria, creased urinary frequency or urgency, fevers, chills, nausea or vomiting. Of note, patient was recently admitted for 5 days at outside emergency department for parainfluenza virus and viral pneumonia which she is currently on antibiotics for this. Currently states the pain is decreased after he received morphine and route via EMS - Related Data Home Medications Medication Instructions Recorded Confirmed Ketoconazole 2% Shampoo [Nizoral] 1 applic TOPICAL DIRECTED 05/09/15 12/06/23 clonazePAM [KlonoPIN] 0.5 mg PO BID@1000,219912/11/16 12/06/23 ramipriL [Altace] 10 mg PO HS@219906/22/19 12/06/23 Apixaban [Eliquis] 5 mg PO BID@1000,219907/11/20 12/06/23 Pregabalin [Lyrica] 100 mg PO HS@219907/11/20 12/06/23 Albuterol Inhaler [Ventolin Hfa 1 - 2 puff INHALATION RT-Q6H PRN 07/26/23 12/06/23 Inhaler] Brimonidine Tartrate [Alphagan P 1 drop BOTH EYES BID@1000,219907/26/23 12/06/23 0.2% Ophth Soln] Docusate [Colace] 100 mg PO BID@1000,219907/26/23 12/06/23 Pravastatin Sodium [Pravachol] 80 mg PO HS@219907/26/23 12/06/23 oxyCODONE HCL [oxyCODONE HCL (IR)] 30 mg PO Q6H 07/26/23 12/06/23 oxyCODONE HCL [oxyCODONE HCL ER] 40 mg PO BID@1000,1600 07/26/23 12/06/23 Naloxegol Oxalate [Movantik] 25 mg PO DAILY 10/20/23 12/06/23 Clotrimazole Cream [Lotrimin Cream] 1 applic TOPICAL BID PRN 11/22/23 12/06/23 Fluticasone/Umeclidin/Vilanter 1 puff INHALATION RT-HS 11/22/23 12/06/23 [Trelegy Ellipta 100-62.5-25] Levalbuterol Tartrate 2 puff INHALATION RT-Q4H PRN 11/22/23 12/06/23 [Levalbuterol Tartrate 45 MCG Hfa] Nitroglycerin Sl Tabs [Nitrostat] 0.4 mg SUBLINGUAL Q5M PRN 11/22/23 12/06/23 Linaclotide [Linzess] 145 mcg PO PC-BRKFST 12/06/23 12/06/23 Previous Rx's Medication Instructions Recorded Pantoprazole [Protonix] 40 mg PO AC-BRKFST #30 tab 07/31/23 polyethylene glycoL 3350 [Miralax] 17 gm PO DAILY PRN packet 10/01/23 Metoprolol Succinate (ER) [Toprol 50 mg PO DAILY #90 tab 12/03/23 XL] Allergies Allergy/AdvReac Type Severity Reaction Status Date / Time aspirin Allergy Rash/Hives Verified 12/31/24 14:45 ciprofloxacin [From Cipro] Allergy Rash/Hives Verified 12/31/24 14:45 ibuprofen [From Motrin] Allergy Rash/Hives Verified 12/31/24 14:45 Influenza Virus Vaccines Allergy Rash/Hives Verified 12/31/24 14:45 Penicillins Allergy Rash/Hives Verified 12/31/24 14:45 Sulfa (Sulfonamide Allergy Rash/Hives Verified 12/31/24 14:45 Antibiotics) Milk Containing Products AdvReac mucus at Verified 12/31/24 14:45 (Dairy) the back [Dairy] of throat Review of Systems ROS Statement: Those systems with pertinent positive or pertinent negative responses have been documented in the HPI. ROS Other: All systems not noted in ROS Statement are negative. Past Medical History Past Medical History: Atrial Fibrillation, Atrial Flutter, COPD, Hyperlipidemia, Hypertension, Pneumonia, Renal Disease, Sleep Apnea/CPAP/BIPAP Additional Past Medical History / Comment(s): "ON METFORMIN, FOR PREVENTION." EYE DROPS "TO PREVENT GLAUCOMA." NO CURRENT TX FOR SLEEP APNEA. HX KIDNEY STONES.maclodegeneration. RSV, Covid, and Pneumonia August and September 2023 History of Any Multi-Drug Resistant Organisms: None Reported Past Surgical History: Ablation, Appendectomy, Back Surgery, Cardiac Ablation, Hernia Repair, Orthopedic Surgery Additional Past Surgical History / Comment(s): CARDIAC ABLATION X3. BACK SURG X4. REPAIR LT FOOT INJ. ESWL. COLONOSCOPY. Past Anesthesia/Blood Transfusion Reactions: No Reported Reaction Past Psychological History: No Psychological Hx Reported Smoking Status: Former smoker Past Alcohol Use History: None Reported Past Drug Use History: Opiates - Past Family History Mother Family Medical History: No Reported History Brother(s) Family Medical History: AFIB, Coronary Artery Disease (CAD) General Exam Limitations: no limitations General appearance: alert, in no apparent distress Neck exam: Present: normal inspection. Absent: tenderness, meningismus, lympha denopathy Respiratory exam: Present: normal lung sounds bilaterally. Absent: respiratory distress, wheezes, rales, rhonchi, stridor Cardiovascular Exam: Present: regular rate, normal rhythm, normal heart sounds. Absent: systolic murmur, diastolic murmur, rubs, gallop, clicks GI/Abdominal exam: Present: soft, normal bowel sounds. Absent: distended, tenderness, guarding, rebound, rigid Extremities exam: Present: normal inspection, full ROM, normal capillary refill. Absent: tenderness, pedal edema, joint swelling, calf tenderness Back exam: Present: tenderness (left lumbar). Absent: CVA tenderness (R), CVA tenderness (L) Course Vital Signs 12/31/24 12/31/24 12/31/24 14:39 16:40 16:54 Temperature 98.5 F 98.1 F 98 F Pulse Rate 81 72 77 Respiratory 22 20 20 Rate Blood Pressure 137/72 130/84 130/84 O2 Sat by Pulse 94 L 96 98 Oximetry Medical Decision Making - Medical Decision Making Was pt. sent in by a medical professional or institution (, PA, [facility], urgent care, hospital, or [facility]...) When possible be specific @ -No Did you speak to anyone other than the patient for history (EMS, parent, family, police, friend...)? What history was obtained from this source @ -No Did you review nursing and triage notes (agree or disagree)? Why? @ -I reviewed and agree with nursing and triage notes Were old charts reviewed (outside hosp., previous admission, EMS record, old EKG, old radiological studies, urgent care reports/EKG's, [facility] records)? Report findings @ -No old charts were reviewed Differential Diagnosis (chest pain, altered mental status, abdominal pain women, abdominal pain men, vaginal bleeding, weakness, fever, dyspnea, syncope, headache, dizziness, GI bleed, back pain, seizure, CVA, palpatations, mental hea lth, musculoskeletal)? @ -Differential Back Pain: Strain, zoster, cauda equina syndrome, epidural abscess, vertebral osteomyelitis, discitis, fracture, subluxation, disc herniation, DJD, spinal stenosis, dissection, AAA, pancreatitis, peptic ulcer disease, pyelonephritis, kidney stone, this is not meant to be an all-inclusive list. EKG interpreted by me (3pts min.). @ -None X-rays interpreted by me (1pt min.). @ -X-ray of the lumbar spine reveals no acute fracture or dislocation CT interpreted by me (1pt min.). @ -None done U/S interpreted by me (1pt. min.). @ -None done What testing was considered but not performed or refused? (CT, X-rays, U/S, labs)? Why? @ -None What meds were considered but not given or refused? Why? @ -None Did you discuss the management of the patient with other professionals (professionals i.e. , PA, [facility], lab, RT, psych nurse, social services technician, digital marketing intern, teacher, chief program officer, field nurse case manager)? Give summary @ -No Was smoking cessation discussed for >3mins.? @ -No Was critical care preformed (if so, how long)? @ -No Were there social determinants of health that impacted care today? How? (Homelessness, low income, unemployed, alcoholism, drug addiction, transportation, low edu. Level, literacy, decrease access to med. care, shelter, rehab)? @ -No Was there de-escalation of care discussed even if they declined (Discuss DNR or withdrawal of care, Hospice)? DNR status @ -No What co-morbidities impacted this encounter? (DM, HTN, Smoking, COPD, CAD, Cancer, CVA, ARF, Chemo, Hep., AIDS, mental health diagnosis, sleep apnea, morbid obesity)? @ -None Was patient admitted / discharged? Hospital course, mention meds given and route, prescriptions, significant lab abnormalities, going to OR and other pertinent info. @ -Discharge. 79-year-old male presenting to emergency department via EMS for complaints of back pain. Patient does not have left-sided flank pain as the pain is in the mid lower back that is reproducible and patient is pointing to the area that is not on the flank. There is no CVA tenderness on examination. Pain does not wraparound to the front of the abdomen. Patient is able to ambulate as a witness in the examination room. There are no red flag findings concerning for cauda equina. X-ray imaging is unremarkable. Patient provided with pain medication and is feeling better. Patient has requested refills of hi s controlled substances however review maps patient is not due for refills. Recommend that he follow-up with prescriber for refill of medications. Case discussed with Dr. Aguila Undiagnosed new problem with uncertain prognosis? @ -No Drug Therapy requiring intensive monitoring for toxicity (Heparin, Nitro, Insulin, Cardizem)? @ -No Were any procedures done? @ -No Diagnosis/symptom? @ -chronic back pain Acute, or Chronic, or Acute on Chronic? @ -acute Uncomplicated (without systemic symptoms) or Complicated (systemic symptoms)? @ -uncomplicated Side effects of treatment? @ -No Exacerbation, Progression, or Severe Exacerbation? @ -No Poses a threat to life or bodily function? How? (Chest pain, [place], [place], pneumonia, PE, COPD, DKA, ARF, appy, cholecystitis, CVA, Diverticulitis, Homicidal, Suici rainer, threat to staff... and all critical care pts) @ -No Disposition Clinical Impression: Chronic back pain Disposition: HOME SELF-CARE Condition: Good Instructions (If sedation given, give patient instructions): Chronic Back Pain (DC) Additional Instructions: Please return to the Emergency Department if symptoms worsen or any other concerns. Is patient prescribed a controlled substance at d/c from ED?: No Referrals: Indiana Monroe DO [Primary Care Provider] - 1-2 days Time of Disposition: 16:37
[2024-12-31] MEDS: MORPHINE SULFATE 4 MG/ML SYRINGE IVP STA (15:30)
--- NOTE | 2024-12-31 15:57 | XR ---
EXAMINATION TYPE: XR lumbar spine 2 or 3V DATE OF EXAM: 12/31/2024 3:53 PM COMPARISON: None. CLINICAL INDICATION: Male, 79 years old with history of chronic pain, TECHNIQUE: Frontal, lateral, and oblique images of the lumbar spine are obtained. FINDINGS: There are 5 lumbar type vertebral bodies identified. The lumbar spine shows satisfactory alignment without evidence of acute fracture or dislocation. Vertebral body heights are within normal limits. Postoperative changes of lumbar laminectomy at L4-5. Pedicular screws are in place. Postoper ative alignment is anatomic. Multilevel moderate to severe degenerative disc space narrowing and spon dylosis. The overlying soft tissue appears unremarkable. IMPRESSION: No acute fracture or dislocation is seen in the lumbar spine.ICD 10 NO FRACTURE, INITIAL EVALUATION [facility], , 12/31/2024 3:55 PM
[2024-12-31 16:41] VITALS: BP 130/84; RESP 20
[2024-12-31 17:06] VITALS: PULSE 77; TEMP 98
[2024-12-31] MEDS: LIDOCAINE 4% PATCH TOPICAL ONE (17:08)
== END 2024-12-31 17:19 | disposition home or self-care (01) ==
LOC: EC 14:38
DX: M54.50 Low back pain, unspecified (principal); G89.29 Other chronic pain; Z87.891 Personal history of nicotine dependence; Z88.0 Allergy status to penicillin; Z88.1 Allergy status to other antibiotic agents; Z88.2 Allergy status to sulfonamides; Z88.6 Allergy status to analgesic agent; Z88.7 Allergy status to serum and vaccine; Z91.011 Allergy to milk products
CPT/HCPCS: 72100; 99284; 96374; J2270

== ENCOUNTER → 2025-01-05 | Outpatient (CLI) | payer MEDICARE ==
--- NOTE | 2025-01-05 15:40 | XR ---
EXAMINATION TYPE: XR KUB DATE OF EXAM: 01/05/2025 3:26 PM COMPARISON: 12/03/2024 CLINICAL INDICATION: Male, 79 years old with history of N20.1 CALCULUS OF URETER; PHH, pain TECHNIQUE: One radiographic view of the abdomen was obtained. FINDINGS: L4-L5 posterior lumbar fusion with laminectomy. Gassy bowel throughout. No dilated small eliezer wel loops. Small pelvic phleboliths. Possible faint left renal stones measuring up to 5 mm. IMPRESSION: Gassy bowel. No significant stool burden. Overall nonobstructive bowel gas pattern. Faint underlying left renal stones measuring up to 5 mm. [facility], Workstation: [id number], 01/05/2025 3:38 PM
== END | disposition home or self-care (01) ==
LOC: RADXRMAIN 15:12
PROVIDERS: ATTEND Urology
DX: N20.2 Calculus of kidney with calculus of ureter (principal)
CPT/HCPCS: 74018

== ENCOUNTER → 2025-01-18 | Outpatient (CLI) | payer MEDICARE ==
--- NOTE | 2025-01-18 14:45 | CT ---
EXAMINATION TYPE: CT abdomen pelvis wo con DATE OF EXAM: 01/18/2025 COMPARISON: CT urogram dated 11/11/2024 CLINICAL INDICATION: Male, 79 years old with history of KIDNEY STONE PROTOCOL N20.1 CALCULUS OF URETE R; PHH, Possible kidney stones, pain in right side and blood in urine TECHNIQUE: CT scan of the abdomen and pelvis is performed without oral or IV contrast. CT DLP: [address] CTDI: mGy Automated exposure control for dose reduction was used. FINDINGS: Within the limitations of a non-contrast study, the following observations are made. The lungs are clear. Gallbladder is normal and there is no gallstone, wall thickening, pericholecystic fluid or distention . There is no biliary ductal dilatation. There is no organomegaly of the liver, pancreas, spleen or adrenal glands. There is a 7 mm calcification in the right renal pelvis near the right UPJ but there is no hydronephr osis. There is a second nonobstructing 6.3 mm calculus in the lower pole the right kidney. There are 4 nonobstructing left renal calcifications largest of which is 7.5 mm in the lower pole lef t kidney. The caliber of the abdominal aorta is normal and there is no retroperitoneal adenopathy or hemorrhage . The bowel loops are normal in caliber is no evidence of obstruction. No inflammatory changes are iden tified in the mesentery and there is no free intraperitoneal air or fluid. There is no pelvic mass, free fluid, abscess or adenopathy. There is marked prostatic hypertrophy. There are posterior changes of spinal fusion at the L4-5 level. There is mild to moderate degenerativ e disease at the L2-3 and L3-4 levels. IMPRESSION: 1. There is no change in the nonobstructing bilateral renal calcifications. There is a 7 mm nonobstru cting calcification in the right renal pelvis. 2. Marked prostatic hypertrophy [facility], , 01/18/2025 2:42 PM
== END | disposition home or self-care (01) ==
LOC: RADCTMAIN 13:56
PROVIDERS: ATTEND Urology
DX: N20.1 Calculus of ureter (principal); N40.0 Benign prostatic hyperplasia without lower urinary tract symptoms; N28.89 Other specified disorders of kidney and ureter
CPT/HCPCS: 74176

== ENCOUNTER → 2025-02-07 | Outpatient (CLI) | payer MEDICARE ==
--- NOTE | 2025-02-07 13:47 | XR ---
EXAMINATION TYPE: XR KUB DATE OF EXAM: 02/07/2025 COMPARISON: CT abdomen pelvis 01/18/2025, KUB radiograph 01/05/2025 HISTORY: N20.0, N20.1 TECHNIQUE: Single supine KUB image of the abdomen is obtained FINDINGS: Small bowel demonstrates no evidence for dilatation or air fluid levels. Gas and fecal material is seen in non-distended colon. No convincing evidence for pneumoperitoneum. Vascular sclerosis. Faint left renal stones redemonstrated measuring up to 4 mm. Similar 5 mm calculu s within the region of the right renal pelvis. The lung bases are clear. The osseous structures are intact. Multilevel degenerative changes of the lumbar spine with fusion ch anges at L4-L5. IMPRESSION: Similar 5 mm calculus positioning within the region of the right renal pelvis. Additional left renal calculi redemonstrated. [facility], , 02/07/2025 1:44 PM
== END | disposition home or self-care (01) ==
LOC: RADXRMAIN 13:18
PROVIDERS: ATTEND Urology
DX: N20.2 Calculus of kidney with calculus of ureter (principal)
CPT/HCPCS: 74018